=== PATIENT | female | born 1960 | race African-American/Black ===

== ENCOUNTER 2018-02-08 12:53 | Inpatient (IN) | payer OTHER ==
[2018-02-08 16:29] VITALS: BMI 28.5
--- NOTE | 2018-02-08 18:35 | HP ---
CIWA Score - CIWA Score Nausea/Vomitin Muscle Tremors: 3 Anxiety: 1-Mildly Anxious Agitation: 2 Paroxysmal Sweats: 2 Orientation: 0-Oriented Tacttile Disturbances: 0-None Auditory Disturbances: 0-None Visual Disturbances: 1-Very Mild Sensitivity Headache: 2-Mild CIWA-Ar Total Score: 14 Admission ROS S - HPI Chief Complaint: alcohol withdrawal symptoms I have bad diarrhea, I am here to get better, alcohol is a problem, I want to go to rehab after this. Allergies/Adverse Reactions: Allergies Allergy/AdvReac Type Severity Reaction Status Date / Time lorazepam [From Ativan] Allergy Intermediate Rash Verified 06/14/15 13:47 History of Present Illness: 57 yo female with hx of nicotine, alcohol and cocaine dependence is here seeking detox. PMHX : HTN ( non-compliance with meds), depression, anxiety, insomnia. Last detox 2 months ago at [facility]. Reports two weeks ago to [facility] emergency room for intoxication. Hx of blackouts related to alcohol use, denies DTS or hx of seizures. Denies suicidal / homicidal ideation or suicide attempts. Exam Limitations: No Limitations - Ebola screening Have you been sick,other than usual withdrawal symptoms: No Do you have a fever: No - Review of Systems Constitutional: Chills, Loss of Appetite, Changes in sleep, Weakness EENT: reports: Other (red left eye, wears reading glasses) Respiratory: reports: No Symptoms reported Cardiac: reports: See HPI GI: reports: Diarrhea, Nausea, Poor Fluid Intake, Abdominal cramping : reports: No Symptoms Reported Musculoskeletal: reports: Muscle Weakness Integumentary: reports: No Symptoms Reported Neuro: reports: Headache, Weakness Endocrine: reports: Intolerance to Heat, Increased Thirst Hematology: reports: No Symptoms Reported Psychiatric: reports: Orientated x3, Anxious Other Systems: Reviewed and Negative Patient History - Patient Medical History Hx Anemia: No Hx Asthma: No Hx Chronic Obstructive Pulmonary Disease (COPD): No Hx Cancer: No Hx Cardiac Disorders: No Hx Congestive Heart Failure: No Hx Hypertension: Yes (NON COMPLIANT WITH MEDS.) Hx Hypercholesterolemia: No Hx Pacemaker: No HX Cerebrovascular Accident: No Hx Seizures: No Hx Dementia: No Hx Diabetes: No Hx Gastrointestinal Disorders: No Hx Liver Disease: No Hx Genitourinary Disorders: No Hx Sexually Transmitted Disorders: No Hx Renal Disease (ESRD): No Hx Thyroid Disease: No Hx Human Immunodeficiency Virus (HIV): No (Last tested at the [facility] of January 2018) Hx Hepatitis C: No Hx Depression: Yes Hx Suicide Attempt: No Hx Schizophrenia: No - Patient Surgical History Past Surgical History: No Hx Neurologic Surgery: No Hx Cataract Extraction: No Hx Cardiac Surgery: No Hx Lung Surgery: No Hx Breast Surgery: No Hx Breast Biopsy: No Hx Abdominal Surgery: No Hx Appendectomy: No Hx Cholecystectomy: No Hx Genitourinary Surgery: No Hx Section: No Hx Orthopedic Surgery: No Anesthesia Reaction: No - PPD History Previous Implant?: Yes Results: positive PPD to be Administered?: No - Reproductive History Patient is a Female of Child Bearing Age (11 -55 yrs old): Yes Last Menstrual Period: 10/27/09 Patient : No - Smoking Cessation Smoking history: Current every day smoker Have you smoked in the past 12 months: Yes Aproximately how many cigarettes per day: 3 Cigars Per Day: 0 Hx Chewing Tobacco Use: No Initiated information on smoking cessation: Yes 'Breaking Loose' booklet given: 02/08/18 - Substance & Tx. History Hx Alcohol Use: Yes Hx Substance Use: Yes Substance Use Type: Alcohol, Cocaine Hx Substance Use Treatment: Yes (ast detox 2 months ago at [facility]) - Substances Abused Alcohol Route: Oral Frequency: Daily Amount used: 1 1/2 - 2 Pints of Vodka Age of first use: 32 Family Disease History - Family Disease History Family Disease History: [place]: Mother (, [place] brain tumor ), Other: Father ( unknown ), Mother Admission Physical Exam [facility] - Vital Signs Vital Signs: Vital Signs - 24 hr 02/08/18 16:28 Temperature 98.3 F Pulse Rate 88 Respiratory 20 Rate Blood Pressure 170/102 - Physical General Appearance: Yes: Disheveled, Alcohol on Breath, Anxious HEENTM: Yes: EOMI, Hearing grossly Normal, Normocephalic, Normal Voice, ALEXEI, Pharynx Normal, Tm's normal Respiratory: Yes: Chest Non-Tender, Lungs Clear, Normal Breath Sounds, No Respiratory Distress, No Accessory Muscle Use, Other (redness on the left eye , no discharge) Neck: Yes: No masses,lesions,Nodules, Trachea in good position Breast: Yes: Breast Exam Deferred Cardiology: Yes: Regular Rhythm, Regular Rate Abdominal: Yes: Normal Bowel Sounds, Non Tender, Flat, Soft Genitourinary: Yes: Within Normal Limits Back: Yes: Normal Inspection Musculoskeletal: Yes: full range of Motion, Gait Steady, Pelvis Stable Extremities: Yes: Normal Capillary Refill, Normal Inspection, Normal Range of Motion, Non-Tender Neurological: Yes: security tester II-XII NML intact, Fully Oriented, Alert, Motor Strength 5/5, Normal Response, Depressed Affect Integumentary: Yes: Normal Color, Warm, Moist Lymphatic: Yes: Within Normal Limits - Diagnostic (1) Cocaine dependence Current Visit: Yes Status: Acute Qualifiers: Substance use status: uncomplicated Qualified Code(s): F14.20 - Cocaine dependence, uncomplicated (2) Elevated blood pressure reading in office with diagnosis of hypertension Current Visit: Yes Status: Acute (3) Essential hypertension Current Visit: Yes Status: Chronic (4) Nicotine dependence Current Visit: Yes Status: Acute Qualifiers: Nicotine product type: cigarettes (5) Dehydration Current Visit: Yes Status: Acute (6) depression Current Visit: Yes Status: Active (7) Alcohol dependence with withdrawal, unspecified Current Visit: Yes Status: Acute Qualifiers: Complication of substance-induced condition: uncomplicated Qualified Code(s ): F10.230 - Alcohol dependence with withdrawal, uncomplicated (8) History of positive PPD Current Visit: Yes Status: Chronic Cleared for Admission [facility] - Detox or Rehab [facility] Level of Care: Medically Managed Detox Regimen/Protocol: Librium [facility] Breath Alcohol Content Breath Alcohol Content: 0.291 Urine Pregancy Test - Result Urine Test Results: Negative- NO Line Present Urine Drug Screen - Results Drug Screen Negative: No Urine Drug Screen Results: CHANTEL-Cocaine, BZO-Benzodiazepines
[2018-02-08] MEDS ORDERED: chlordiazePOXIDE HCL 25 MG CAPSULE PO PRN (18:43)
[2018-02-08] MEDS ORDERED: hydrOXYzine PAMOATE 50 MG CAPSULE (FP) PO PRN (18:43)
[2018-02-08] MEDS ORDERED: P-EPHED 60MG/TRIPROLIDI 2.5MG TABLET PO PRN (18:43)
[2018-02-08] MEDS ORDERED: MAGNESIUM HYDROX 2400MG/30ML ORAL SUSPENSION 30 ML CUP PO PRN (18:43)
[2018-02-08] MEDS ORDERED: MAGNESIUM CITRATE 300 ML BOTTLE PO PRN (18:43)
[2018-02-08] MEDS ORDERED: ACETAMINOPHEN 325 MG TABLET (FP) PO PRN (18:43)
[2018-02-08] MEDS ORDERED: MAG HYDROX/AL HYDROX/SIMETH 30 ML UNIT-DOSE CUP PO PRN (18:43)
[2018-02-08] MEDS ORDERED: LOPERAMIDE HCL 2 MG CAPSULE PO PRN (18:43)
[2018-02-08] MEDS ORDERED: HYDROCHLOROTHIAZIDE 25 MG TABLET (FP) PO SCH (19:15)
[2018-02-08] MEDS ORDERED: chlordiazePOXIDE HCL 25 MG CAPSULE PO ONE (19:15)
[2018-02-08] MEDS ORDERED: cloNIDine HCL 0.1 MG TABLET PO ONE (20:25)
[2018-02-08] MEDS: THIAMINE HCL 100 MG TABLET (FP) PO SCH (23:37)
[2018-02-08] MEDS: chlordiazePOXIDE HCL 25 MG CAPSULE PO SCH (23:37)
[2018-02-08] MEDS: MELATONIN 5 MG TABLETS PO PRN (23:39)
[2018-02-09 01:31] LABS: URINE APPEARANCE CLEAR; URINE BILIRUBIN NEGATIVE (<2.0 mg/dL); URINE BLOOD NEGATIVE (NEGATIVE); URINE COLOR LTYELLOW; URINE GLUCOSE (UA) NEGATIVE (NEGATIVE); URINE KETONE NEGATIVE (NEGATIVE); URINE LEUK ESTERASE NEGATIVE (NEGATIVE); URINE NITRITE NEGATIVE (NEGATIVE); URINE PROTEIN NEGATIVE (NEGATIVE); URINE UROBILINOGEN NEGATIVE mg/dL (0.2-1.0)
[2018-02-09] MEDS: chlordiazePOXIDE HCL 25 MG CAPSULE PO SCH ×4 (05:24→22:19)
--- NOTE | 2018-02-09 10:05 | EKG ---
Test Reason : Blood Pressure : / mmHG Vent. Rate : 068 BPM Atrial Rate : 068 BPM P-R Int : 168 ms QRS Dur : 110 ms QT Int : 402 ms P-R-T Axes : 063 -43 002 degrees QTc Int : 427 ms NORMAL SINUS RHYTHM LEFT AXIS DEVIATION NON-SPECIFIC INTRA-VENTRICULAR CONDUCTION DELAY NO PREVIOUS ECGS AVAILABLE BASELINE ARTIFACT POOR DATA QUALITY, INTERPRETATION MAY BE ADVERSELY AFFECTED Confirmed by ALISON VIGIL MD ([id number]) on 02/09/2018 10:05:34 AM Referred By: Confirmed By:ALISON VIGIL MD
[2018-02-09 10:24] LABS: HEMATOCRIT 38.9 % (32.4-45.2); HEMOGLOBIN 12.6 GM/dL (10.7-15.3); MCH 28.7 pg (25.7-33.7); MCHC 32.4 g/dl (32.0-36.0); MEAN CELL VOLUME 88.5 fl (80-96); MEAN PLT VOLUME 9.2 fl (7.5-11.1); PLATELET COUNT 161 K/MM3 (134-434); RBC 4.39 M/mm3 (3.60-5.2); RDW 16.6 % (11.6-15.6); WHITE BLOOD COUNT 5.2 K/mm3 (4.0-10.0)
[2018-02-09 10:27] LABS: CHLORIDE 101 mmol/L (98-107); POTASSIUM 3.4 mmol/L (3.5-5.1); SODIUM 140 mmol/L (136-145)
[2018-02-09 10:33] LABS: ALBUMIN 4.3 g/dl (3.4-5.0); ALK PHOS 65 U/L (45-117); ANION GAP 8 (8-16); BLOOD UREA NITROGEN 8 mg/dL (7-18); CALCIUM 9.4 mg/dL (8.5-10.1); CO2 31 mmol/L (21-32); CREATININE 0.9 mg/dL (0.55-1.02); GLUCOSE,RANDOM 106 mg/dL (74-106); SGOT/AST 58 U/L (15-37); SGPT/ALT 45 U/L (12-78); TOT PROT 7.8 g/dl (6.4-8.2)
[2018-02-09] MEDS: HYDROCHLOROTHIAZIDE 25 MG TABLET (FP) PO SCH (10:49)
[2018-02-09] MEDS: NIFEdipine E.R 60 MG TABLET (UD) PO SCH (10:49)
[2018-02-09] MEDS: PRENATAL VITAMINS W/ FOLIC ACID TABLET (FP) PO SCH (10:50)
[2018-02-09] MEDS: MENTHOL/PHENOL 1 EACH UD MM PRN ×2 (10:52→19:36)
--- NOTE | 2018-02-09 12:01 | PN ---
S CIWA - CIWA Score Nausea/Vomitin Muscle Tremors: 3 Anxiety: 3 Agitation: 3 Paroxysmal Sweats: 1-Minimal Palms Moist Orientation: 0-Oriented Tacttile Disturbances: 1-Very Mild Itch/Numbness Auditory Disturbances: 1-Very Mild Visual Disturbances: 0-None Headache: 2-Mild CIWA-Ar Total Score: 17 BHS Progress Note (SOAP) Subjective: ALERT,IRRITABLE,ANXIOUS,INTERRUPTED SLEEP,TREMOR Objective: 02/09/18 11:58 Vital Signs Temperature 98.1 F 02/09/18 10:00 Pulse Rate 70 02/09/18 11:30 Respiratory Rate 16 02/09/18 11:30 Blood Pressure 141/91 02/09/18 10:00 O2 Sat by Pulse Oximetry (%) 02/09/18 11:58 EKG NSR,68/MIN,INVERTED T IN 2,3,AVF NO CHEST PAIN,NO SOB,NO DIZZINESS Laboratory Last Values WBC 5.2 K/mm3 (4.0-10.0) D 02/09/18 08:00 RBC 4.39 M/mm3 (3.60-5.2) 02/09/18 08:00 Hgb 12.6 GM/dL (10.7-15.3) 02/09/18 08:00 Hct 38.9 % (32.4-45.2) 02/09/18 08:00 MCV 88.5 fl (80-96) 02/09/18 08:00 MCH 28.7 pg (25.7-33.7) 02/09/18 08:00 MCHC 32.4 g/dl (32.0-36.0) 02/09/18 08:00 RDW 16.6 % (11.6-15.6) H 02/09/18 08:00 Plt Count 161 K/MM3 (134-434) D 02/09/18 08:00 MPV 9.2 fl (7.5-11.1) 02/09/18 08:00 Sodium 140 mmol/L (136-145) 02/09/18 08:00 Potassium 3.4 mmol/L (3.5-5.1) L 02/09/18 08:00 Chloride 101 mmol/L (98-107) 02/09/18 08:00 Carbon Dioxide 31 mmol/L (21-32) 02/09/18 08:00 Anion Gap 8 (8-16) 02/09/18 08:00 BUN 8 mg/dL (7-18) 02/09/18 08:00 Creatinine 0.9 mg/dL (0.55-1.02) 02/09/18 08:00 Creat Clearance w eGFR > 60 (>60) 02/09/18 08:00 Random Glucose 106 mg/dL (74-106) 02/09/18 08:00 Calcium 9.4 mg/dL (8.5-10.1) 02/09/18 08:00 Total Bilirubin 1.0 mg/dL (0.2-1.0) D 02/09/18 08:00 AST 58 U/L (15-37) H 02/09/18 08:00 ALT 45 U/L (12-78) 02/09/18 08:00 Alkaline Phosphatase 65 U/L (45-117) 02/09/18 08:00 Total Protein 7.8 g/dl (6.4-8.2) 02/09/18 08:00 Albumin 4.3 g/dl (3.4-5.0) 02/09/18 08:00 Urine Color Ltyellow 02/09/18 00:14 Urine Appearance Clear 02/09/18 00:14 Urine pH 6.0 (5.0-8.0) 02/09/18 00:14 Ur Specific [place] 1.006 (1.001-1.035) 02/09/18 00:14 Urine Protein Negative (NEGATIVE) 02/09/18 00:14 Urine Glucose (UA) Negative (NEGATIVE) 02/09/18 00:14 Urine Ketones Negative (NEGATIVE) 02/09/18 00:14 Urine Blood Negative (NEGATIVE) 02/09/18 00:14 Urine Nitrite Negative (NEGATIVE) 02/09/18 00:14 Urine Bilirubin Negative (<2.0 mg/dL) 02/09/18 00:14 Urine Urobilinogen Negative mg/dL (0.2-1.0) 02/09/18 00:14 Ur Leukocyte Esterase Negative (NEGATIVE) 02/09/18 00:14 RPR Titer Nonreactive (NONREACTIVE) 02/09/18 08:00 Assessment: 02/09/18 12:00 WITHDRAWAL SYMPTOM Plan: CONTINUE DETOX,,K DUR 20 MEQ PO DAILY HYPOKALEMIA K IS 3.4
[2018-02-09] MEDS: guaiFENesin/D-METHORPHAN HB 10 ML UNIT-DOSE CUPS PO PRN ×2 (12:27→19:36)
[2018-02-09] MEDS: POTASSIUM CHLORIDE TABS 20 MEQ TABLET.ER (FP) PO SCH (12:28)
[2018-02-09] MEDS: AMOXICILLIN 500 MG CAPSULE (FP) PO SCH ×2 (14:46→22:19)
--- NOTE | 2018-02-09 19:37 | CONSULT ---
[facility] Psychiatric Consult - Data Date of interview: 02/09/18 Admission source: [facility] Identifying data: Readmission to [facility] for this 57 y/o AA female seeking detox treatment on for alcohol and cocaine (crack) dependence.Patient is single,a mother of two,homeless,unemployed and deprived of any source of income. Substance Abuse History: Patient admits to current use of alcohol and crack.See details in [facility] report form admission : Smoking history: Current every day smoker. Have you smoked in the past 12 months: Yes. Aproximately how many cigarettes per day: 3. Cigars Per Day: 0. Hx Chewing Tobacco Use: No. Initiated information on smoking cessation: Yes. 'Breaking Loose' booklet given : 02/08/18. - Substance & Tx. History. Hx Alcohol Use: Yes. Hx Substance Use : Yes. Substance Use Type: Alcohol, Cocaine. Hx Substance Use Treatment: Yes ( ast detox 2 months ago at [facility]). - Substances Abused. Alcohol. Route: Oral. Frequency: Daily. Amount used: 1 1/2 - 2 Pints of Vodka. Age of first use: 32 Medical History: Hypertension. Psychiatric History: No reported history of psychiatric hospitalizations.First psychiatric contact (2011) to address depression during rehabilitation treatment at [facility].Patient reports past treatment with seroquel, trazodone,abilify and sertraline.Chronically non-adherent to [facility]PD care.Ms Childress is currently followed at the [facility] clinic in [facility].She denies history of suicide attempts. Physical/Sexual Abuse/Trauma History: Patient denies. Additional Comment: Urine Drug Screen Results: CHANTEL-Cocaine, BZO- Benzodiazepines.Noted. Mental Status Exam - Mental Status Exam Alert and Oriented to: Time, Place, Person Cognitive Function: Good Patient Appearance: Well Groomed Mood: Nervous, Withdrawn Affect: Mood Congruent Patient Behavior: Fatigued, Appropriate, Cooperative Speech Pattern: Clear, Appropriate Voice Loudness: Normal Thought Process: Intact, Goal Oriented Thought Disorder: Not Present Hallucinations: Denies Suicidal Ideation: Denies Homicidal Ideation: Denies Insight/Judgement: Poor Sleep: Poorly, Difficulty falling asleep (wants seroquel) Appetite: Good Muscle strength/Tone: Normal Gait/Station: Normal Psychiatric Findings - Problem List ([place] 1, 2,3) (1) Alcohol dependence with withdrawal, unspecified Current Visit: Yes Status: Acute Qualifiers: Complication of substance-induced condition: uncomplicated Qualified Code(s ): F10.230 - Alcohol dependence with withdrawal, uncomplicated (2) Cocaine dependence Current Visit: Yes Status: Acute Qualifiers: Substance use status: uncomplicated Qualified Code(s): F14.20 - Cocaine dependence, uncomplicated (3) Nicotine dependence Current Visit: Yes Status: Acute Qualifiers: Nicotine product type: cigarettes (4) Substance induced mood disorder Current Visit: Yes Status: Acute (5) Insomnia Current Visit: Yes Status: Acute - Initial Treatment Plan Initial Treatment Plan: Psychoeducation.Sleep hygiene.Detoxification in progress.Seroquel 50 mg (patient's specific request) po hs.Ordered.Side effects/ benefits discussed with the patient.Consent (verbal) given.Observation.
[2018-02-09] MEDS: THIAMINE HCL 100 MG TABLET (FP) PO SCH (22:18)
[2018-02-09] MEDS: IBUPROFEN 400 MG TABLET (FP) PO PRN (22:18)
[2018-02-09] MEDS: QUEtiapine FUMARATE 50 MG TABLET PO SCH (22:19)
[2018-02-09] MEDS: MELATONIN 5 MG TABLETS PO PRN (22:20)
[2018-02-10] MEDS: AMOXICILLIN 500 MG CAPSULE (FP) PO SCH ×3 (05:19→22:27)
[2018-02-10] MEDS: chlordiazePOXIDE HCL 25 MG CAPSULE PO SCH ×3 (05:20→18:04)
[2018-02-10] MEDS: MENTHOL/PHENOL 1 EACH UD MM PRN ×2 (09:39→18:06)
[2018-02-10] MEDS: guaiFENesin/D-METHORPHAN HB 10 ML UNIT-DOSE CUPS PO PRN (09:39)
[2018-02-10] MEDS: NIFEdipine E.R 60 MG TABLET (UD) PO SCH (10:30)
[2018-02-10] MEDS: PRENATAL VITAMINS W/ FOLIC ACID TABLET (FP) PO SCH (10:30)
[2018-02-10] MEDS: HYDROCHLOROTHIAZIDE 25 MG TABLET (FP) PO SCH (10:30)
[2018-02-10] MEDS: POTASSIUM CHLORIDE TABS 20 MEQ TABLET.ER (FP) PO SCH (10:30)
[2018-02-10] MEDS: IBUPROFEN 400 MG TABLET (FP) PO PRN (10:32)
--- NOTE | 2018-02-10 14:16 | PN ---
S CIWA - CIWA Score Nausea/Vomitin Muscle Tremors: 3 Anxiety: 3 Agitation: 2 Paroxysmal Sweats: 1-Minimal Palms Moist Orientation: 0-Oriented Tacttile Disturbances: 1-Very Mild Itch/Numbness Auditory Disturbances: 1-Very Mild Visual Disturbances: 0-None Headache: 2-Mild CIWA-Ar Total Score: 16 BHS Progress Note (SOAP) Subjective: ALERT,IRRITABLE,ANXIOUS,INTERRUPTED SLEEP,TREMOR,PAIN IN THE BODY Objective: 02/10/18 14:15 Vital Signs Temperature 98.2 F 02/10/18 11:13 Pulse Rate 73 02/10/18 11:13 Respiratory Rate 20 02/10/18 11:13 Blood Pressure 114/75 02/10/18 11:13 O2 Sat by Pulse Oximetry (%) Laboratory Last Values WBC 5.2 K/mm3 (4.0-10.0) D 02/09/18 08:00 RBC 4.39 M/mm3 (3.60-5.2) 02/09/18 08:00 Hgb 12.6 GM/dL (10.7-15.3) 02/09/18 08:00 Hct 38.9 % (32.4-45.2) 02/09/18 08:00 MCV 88.5 fl (80-96) 02/09/18 08:00 MCH 28.7 pg (25.7-33.7) 02/09/18 08:00 MCHC 32.4 g/dl (32.0-36.0) 02/09/18 08:00 RDW 16.6 % (11.6-15.6) H 02/09/18 08:00 Plt Count 161 K/MM3 (134-434) D 02/09/18 08:00 MPV 9.2 fl (7.5-11.1) 02/09/18 08:00 Sodium 140 mmol/L (136-145) 02/09/18 08:00 Potassium 3.4 mmol/L (3.5-5.1) L 02/09/18 08:00 Chloride 101 mmol/L (98-107) 02/09/18 08:00 Carbon Dioxide 31 mmol/L (21-32) 02/09/18 08:00 Anion Gap 8 (8-16) 02/09/18 08:00 BUN 8 mg/dL (7-18) 02/09/18 08:00 Creatinine 0.9 mg/dL (0.55-1.02) 02/09/18 08:00 Creat Clearance w eGFR > 60 (>60) 02/09/18 08:00 Random Glucose 106 mg/dL (74-106) 02/09/18 08:00 Calcium 9.4 mg/dL (8.5-10.1) 02/09/18 08:00 Total Bilirubin 1.0 mg/dL (0.2-1.0) D 02/09/18 08:00 AST 58 U/L (15-37) H 02/09/18 08:00 ALT 45 U/L (12-78) 02/09/18 08:00 Alkaline Phosphatase 65 U/L (45-117) 02/09/18 08:00 Total Protein 7.8 g/dl (6.4-8.2) 02/09/18 08:00 Albumin 4.3 g/dl (3.4-5.0) 02/09/18 08:00 Urine Color Ltyellow 02/09/18 00:14 Urine Appearance Clear 02/09/18 00:14 Urine pH 6.0 (5.0-8.0) 02/09/18 00:14 Ur Specific [place] 1.006 (1.001-1.035) 02/09/18 00:14 Urine Protein Negative (NEGATIVE) 02/09/18 00:14 Urine Glucose (UA) Negative (NEGATIVE) 02/09/18 00:14 Urine Ketones Negative (NEGATIVE) 02/09/18 00:14 Urine Blood Negative (NEGATIVE) 02/09/18 00:14 Urine Nitrite Negative (NEGATIVE) 02/09/18 00:14 Urine Bilirubin Negative (<2.0 mg/dL) 02/09/18 00:14 Urine Urobilinogen Negative mg/dL (0.2-1.0) 02/09/18 00:14 Ur Leukocyte Esterase Negative (NEGATIVE) 02/09/18 00:14 RPR Titer Nonreactive (NONREACTIVE) 02/09/18 08:00 Assessment: 02/10/18 14:16 WITHDRAWAL SYMPTOM Plan: CONTINUE DETOX
[2018-02-10] MEDS: chlordiazePOXIDE 5 MG CAPSULE PO SCH (22:27)
[2018-02-10] MEDS: QUEtiapine FUMARATE 50 MG TABLET PO SCH (22:27)
[2018-02-10] MEDS: THIAMINE HCL 100 MG TABLET (FP) PO SCH (22:27)
[2018-02-11] MEDS: AMOXICILLIN 500 MG CAPSULE (FP) PO SCH ×3 (05:40→22:48)
[2018-02-11] MEDS: chlordiazePOXIDE 5 MG CAPSULE PO SCH ×3 (05:40→17:39)
[2018-02-11] MEDS: HYDROCHLOROTHIAZIDE 25 MG TABLET (FP) PO SCH (10:23)
[2018-02-11] MEDS: POTASSIUM CHLORIDE TABS 20 MEQ TABLET.ER (FP) PO SCH (10:24)
[2018-02-11] MEDS: PRENATAL VITAMINS W/ FOLIC ACID TABLET (FP) PO SCH (10:24)
[2018-02-11] MEDS: IBUPROFEN 400 MG TABLET (FP) PO PRN (10:24)
[2018-02-11] MEDS: NIFEdipine E.R 60 MG TABLET (UD) PO SCH (10:25)
--- NOTE | 2018-02-11 14:48 | PN ---
BHS Progress Note (SOAP) Subjective: feeling better no tremor less sweat tolerates food and fluid well well rested Objective: 02/11/18 14:48 Vital Signs Temperature 98.1 F 02/11/18 13:06 Pulse Rate 88 02/11/18 13:06 Respiratory Rate 22 02/11/18 13:06 Blood Pressure 118/77 02/11/18 13:06 O2 Sat by Pulse Oximetry (%) Laboratory Last Values WBC 5.2 K/mm3 (4.0-10.0) D 02/09/18 08:00 RBC 4.39 M/mm3 (3.60-5.2) 02/09/18 08:00 Hgb 12.6 GM/dL (10.7-15.3) 02/09/18 08:00 Hct 38.9 % (32.4-45.2) 02/09/18 08:00 MCV 88.5 fl (80-96) 02/09/18 08:00 MCH 28.7 pg (25.7-33.7) 02/09/18 08:00 MCHC 32.4 g/dl (32.0-36.0) 02/09/18 08:00 RDW 16.6 % (11.6-15.6) H 02/09/18 08:00 Plt Count 161 K/MM3 (134-434) D 02/09/18 08:00 MPV 9.2 fl (7.5-11.1) 02/09/18 08:00 Sodium 140 mmol/L (136-145) 02/09/18 08:00 Potassium 3.4 mmol/L (3.5-5.1) L 02/09/18 08:00 Chloride 101 mmol/L (98-107) 02/09/18 08:00 Carbon Dioxide 31 mmol/L (21-32) 02/09/18 08:00 Anion Gap 8 (8-16) 02/09/18 08:00 BUN 8 mg/dL (7-18) 02/09/18 08:00 Creatinine 0.9 mg/dL (0.55-1.02) 02/09/18 08:00 Creat Clearance w eGFR > 60 (>60) 02/09/18 08:00 Random Glucose 106 mg/dL (74-106) 02/09/18 08:00 Calcium 9.4 mg/dL (8.5-10.1) 02/09/18 08:00 Total Bilirubin 1.0 mg/dL (0.2-1.0) D 02/09/18 08:00 AST 58 U/L (15-37) H 02/09/18 08:00 ALT 45 U/L (12-78) 02/09/18 08:00 Alkaline Phosphatase 65 U/L (45-117) 02/09/18 08:00 Total Protein 7.8 g/dl (6.4-8.2) 02/09/18 08:00 Albumin 4.3 g/dl (3.4-5.0) 02/09/18 08:00 Urine Color Ltyellow 02/09/18 00:14 Urine Appearance Clear 02/09/18 00:14 Urine pH 6.0 (5.0-8.0) 02/09/18 00:14 Ur Specific [place] 1.006 (1.001-1.035) 02/09/18 00:14 Urine Protein Negative (NEGATIVE) 02/09/18 00:14 Urine Glucose (UA) Negative (NEGATIVE) 02/09/18 00:14 Urine Ketones Negative (NEGATIVE) 02/09/18 00:14 Urine Blood Negative (NEGATIVE) 02/09/18 00:14 Urine Nitrite Negative (NEGATIVE) 02/09/18 00:14 Urine Bilirubin Negative (<2.0 mg/dL) 02/09/18 00:14 Urine Urobilinogen Negative mg/dL (0.2-1.0) 02/09/18 00:14 Ur Leukocyte Esterase Negative (NEGATIVE) 02/09/18 00:14 RPR Titer Nonreactive (NONREACTIVE) 02/09/18 08:00 lab noted 02/11/18 14:49 potassium supplement continue Assessment: 02/11/18 14:49 mild withdrawal sx Plan: medically supervised detox
[2018-02-11] MEDS: MENTHOL/PHENOL 1 EACH UD MM PRN (17:43)
[2018-02-11] MEDS: guaiFENesin/D-METHORPHAN HB 10 ML UNIT-DOSE CUPS PO PRN (17:43)
[2018-02-11] MEDS: QUEtiapine FUMARATE 50 MG TABLET PO SCH (22:48)
[2018-02-11] MEDS: chlordiazePOXIDE HCL 10 MG CAPSULE PO SCH (22:48)
[2018-02-11] MEDS: THIAMINE HCL 100 MG TABLET (FP) PO SCH (22:48)
[2018-02-12] MEDS: AMOXICILLIN 500 MG CAPSULE (FP) PO SCH (05:34)
[2018-02-12] MEDS: chlordiazePOXIDE HCL 10 MG CAPSULE PO SCH ×2 (05:34→10:28)
--- NOTE | 2018-02-12 08:43 | PN ---
S Progress Note (SOAP) Subjective: ALERT,NO COMPLAINT Objective: 02/12/18 08:41 Vital Signs Temperature 97.3 F L 02/12/18 05:56 Pulse Rate 65 02/12/18 05:56 Respiratory Rate 18 02/12/18 05:56 Blood Pressure 112/75 02/12/18 05:56 O2 Sat by Pulse Oximetry (%) Assessment: 02/12/18 08:42 DETOX COMPLETED,NO WITHDRAWAL SYMPTOM Plan: DISCHARGE TODAY,FOLLOW UP WITH AFTER CARE PROGRAM ARRANGEMENT
--- NOTE | 2018-02-12 08:47 | DS ---
[facility] Detox Discharge Summary Admission Date: 02/08/18 Discharge Date: 02/12/18 - History Present History: Alcohol Dependence, Cocaine Dependence Additional Comments: FOLLOW UP WITH [facility] Pertinent Past History: NICOTINE DEPENDENCE DEHYDRATION ANXIETY AND DEPRESSION - Physical Exam Results Vital Signs: Vital Signs Temperature 97.3 F L 02/12/18 05:56 Pulse Rate 65 02/12/18 05:56 Respiratory Rate 18 02/12/18 05:56 Blood Pressure 112/75 02/12/18 05:56 O2 Sat by Pulse Oximetry (%) Pertinent Admission Physical Exam Findings: WITHDRAWAL SIGNS AND SYMPTOM Laboratory Last Values WBC 5.2 K/mm3 (4.0-10.0) D 02/09/18 08:00 RBC 4.39 M/mm3 (3.60-5.2) 02/09/18 08:00 Hgb 12.6 GM/dL (10.7-15.3) 02/09/18 08:00 Hct 38.9 % (32.4-45.2) 02/09/18 08:00 MCV 88.5 fl (80-96) 02/09/18 08:00 MCH 28.7 pg (25.7-33.7) 02/09/18 08:00 MCHC 32.4 g/dl (32.0-36.0) 02/09/18 08:00 RDW 16.6 % (11.6-15.6) H 02/09/18 08:00 Plt Count 161 K/MM3 (134-434) D 02/09/18 08:00 MPV 9.2 fl (7.5-11.1) 02/09/18 08:00 Sodium 140 mmol/L (136-145) 02/09/18 08:00 Potassium 3.4 mmol/L (3.5-5.1) L 02/09/18 08:00 Chloride 101 mmol/L (98-107) 02/09/18 08:00 Carbon Dioxide 31 mmol/L (21-32) 02/09/18 08:00 Anion Gap 8 (8-16) 02/09/18 08:00 BUN 8 mg/dL (7-18) 02/09/18 08:00 Creatinine 0.9 mg/dL (0.55-1.02) 02/09/18 08:00 Creat Clearance w eGFR > 60 (>60) 02/09/18 08:00 Random Glucose 106 mg/dL (74-106) 02/09/18 08:00 Calcium 9.4 mg/dL (8.5-10.1) 02/09/18 08:00 Total Bilirubin 1.0 mg/dL (0.2-1.0) D 02/09/18 08:00 AST 58 U/L (15-37) H 02/09/18 08:00 ALT 45 U/L (12-78) 02/09/18 08:00 Alkaline Phosphatase 65 U/L (45-117) 02/09/18 08:00 Total Protein 7.8 g/dl (6.4-8.2) 02/09/18 08:00 Albumin 4.3 g/dl (3.4-5.0) 02/09/18 08:00 Urine Color Ltyellow 02/09/18 00:14 Urine Appearance Clear 02/09/18 00:14 Urine pH 6.0 (5.0-8.0) 02/09/18 00:14 Ur Specific [place] 1.006 (1.001-1.035) 02/09/18 00:14 Urine Protein Negative (NEGATIVE) 02/09/18 00:14 Urine Glucose (UA) Negative (NEGATIVE) 02/09/18 00:14 Urine Ketones Negative (NEGATIVE) 02/09/18 00:14 Urine Blood Negative (NEGATIVE) 02/09/18 00:14 Urine Nitrite Negative (NEGATIVE) 02/09/18 00:14 Urine Bilirubin Negative (<2.0 mg/dL) 02/09/18 00:14 Urine Urobilinogen Negative mg/dL (0.2-1.0) 02/09/18 00:14 Ur Leukocyte Esterase Negative (NEGATIVE) 02/09/18 00:14 RPR Titer Nonreactive (NONREACTIVE) 02/09/18 08:00 Vital Signs Temperature 97.3 F L 02/12/18 05:56 Pulse Rate 65 02/12/18 05:56 Respiratory Rate 18 02/12/18 05:56 Blood Pressure 112/75 02/12/18 05:56 O2 Sat by Pulse Oximetry (%) - Treatment Hospital Course: Detox Protocol Followed, Detoxed Safely, Responded well, Discharged Condition Good, Rehab Referral Accepted Patient has Accepted a Rehab Referral to: [facility] - Medication Discharge Medications: Ambulatory Orders Quetiapine Fumarate [Seroquel -] 100 mg PO HS 03/28/13 traZODone HCL [Desyrel -] 100 mg PO HS 03/28/13 Quetiapine Fumarate [Seroquel -] 50 mg PO HS #30 tablet 02/09/18 Hydrochlorothiazide [Hctz -] 25 mg PO DAILY #30 tablet 02/11/18 Nifedipine [Procardia Xl] 60 mg PO DAILY #30 tab.er.24 02/11/18 - Diagnosis (1) Alcohol dependence with withdrawal, unspecified Current Visit: Yes Status: Acute Qualifiers: Complication of substance-induced condition: uncomplicated Qualified Code(s ): F10.230 - Alcohol dependence with withdrawal, uncomplicated (2) Cocaine dependence Current Visit: Yes Status: Acute Qualifiers: Substance use status: uncomplicated Qualified Code(s): F14.20 - Cocaine dependence, uncomplicated (3) Dehydration Current Visit: Yes Status: Acute (4) Nicotine dependence Current Visit: Yes Status: Acute Qualifiers: Nicotine product type: cigarettes (5) Positive PPD Current Visit: Yes Status: Acute (6) Essential hypertension Current Visit: Yes Status: Chronic (7) Hypokalemia Current Visit: Yes Status: Acute - AMA Did Patient Leave Against Medical Advice: No
[2018-02-12 09:03] VITALS: BP 137/78; PULSE 86; TEMP 98.1
[2018-02-12] MEDS: PRENATAL VITAMINS W/ FOLIC ACID TABLET (FP) PO SCH (10:27)
[2018-02-12] MEDS: NIFEdipine E.R 60 MG TABLET (UD) PO SCH (10:27)
[2018-02-12] MEDS: POTASSIUM CHLORIDE TABS 20 MEQ TABLET.ER (FP) PO SCH (10:27)
[2018-02-12] MEDS: HYDROCHLOROTHIAZIDE 25 MG TABLET (FP) PO SCH (10:27)
== END 2018-02-12 11:52 | disposition other institution (70) | DRG 774 ==
LOC: YASAS 12:53 → Y6N 19:13
PROVIDERS: ADMIT Internal Medicine; ATTEND Internal Medicine
PROC: HZ2ZZZZ Detoxification Services for Substance Abuse Treatment (ICD-10-PCS; principal; 2018-02-08)
DX: F10.230 Alcohol dependence with withdrawal, uncomplicated (principal); F14.20 Cocaine dependence, uncomplicated; F17.210 Nicotine dependence, cigarettes, uncomplicated; F32.9 Major depressive disorder, single episode, unspecified; F19.24 Other psychoactive substance dependence with psychoactive substance-induced mood disorder; I10 Essential (primary) hypertension; E86.0 Dehydration; E87.6 Hypokalemia; R76.11 Nonspecific reaction to tuberculin skin test without active tuberculosis; Z91.14 Patient's other noncompliance with medication regimen
CPT/HCPCS: 36415; 71046-TC-FY; 80053; 81003; 85027; 86593; 93005; 93010

== ENCOUNTER 2018-09-20 10:51 | Inpatient (IN) | payer OTHER ==
[2018-09-20 10:58] VITALS: BMI 28.6
--- NOTE | 2018-09-20 14:20 | HP ---
CIWA Score Nausea/Vomitin Muscle Tremors: 2 Anxiety: 2 Agitation: 2 Paroxysmal Sweats: 1-Minimal Palms Moist Orientation: 0-Oriented Tacttile Disturbances: 1-Very Mild Itch/Numbness Auditory Disturbances: 1-Very Mild Visual Disturbances: 0-None Headache: 2-Mild CIWA-Ar Total Score: 13 - Admission Criteria OASAS Guidelines: Admission for Medically Managed Detox: Requires at least one of the followin. CIWA greater than 12 2. Seizures within the past 24 hours 3. Delirium tremens within the past 24 hours 4. Hallucinations within the past 24 hours 5. Acute intervention needed for co occurring medical disorder 6. Acute intervention needed for co occurring psychiatric disorder 7. Severe withdrawal that cannot be handled at a lower level of care (continued vomiting, continued diarrhea, abnormal vital signs) requiring intravenous medication and/or fluids 8. Patient presents the following: CIWA greater than 12, Acute intervention needed for co-occurring med or psych disorder Admission Criteria Met: Admission criteria met Admission ROS S - [facility] Chief Complaint: i need help to stop drinking alcohol and cocaine Allergies/Adverse Reactions: Allergies Allergy/AdvReac Type Severity Reaction Status Date / Time lorazepam [From Ativan] Allergy Intermediate Rash Verified 09/20/18 13:01 History of Present Illness: i need help to stop drinking alcohol and cocaine dependence,seeking detox, withdrawal symptom,last detox 05/20/18 to 05/24/18 syncope hypertension nicotine dependence multiple admissions longest sobriety 6 months weight loss Exam Limitations: No Limitations - Ebola screening Have you traveled outside of the country in the last 21 days: No Have you had contact with anyone from an Ebola affected area: No Have you been sick,other than usual withdrawal symptoms: No Do you have a fever: No - Review of Systems Constitutional: Loss of Appetite, Malaise, Night Sweats, Changes in sleep, Weakness, Unintentional Wgt. Loss EENT: reports: Tearing, Nose Congestion Respiratory: reports: No Symptoms reported GI: reports: Nausea, Poor Appetite, Abdominal cramping : reports: No Symptoms Reported Musculoskeletal: reports: Back Pain, Muscle Pain Integumentary: reports: Dryness Neuro: reports: Headache, Tremors Endocrine: reports: No Symptoms Reported Hematology: reports: No Symptoms Reported Psychiatric: reports: No Sypmtoms Reported, Judgement Intact, Mood/Affect Appropiate, Orientated x3 Patient History - Patient Medical History Hx Anemia: No Hx Asthma: No Hx Chronic Obstructive Pulmonary Disease (COPD): No Hx Cancer: No Hx Cardiac Disorders: No Hx Congestive Heart Failure: No Hx Hypertension: Yes (on med,non compliance) Hx Hypercholesterolemia: No Hx Pacemaker: No HX Cerebrovascular Accident: No Hx Seizures: No Hx Dementia: No Hx Diabetes: No Hx Gastrointestinal Disorders: No Hx Liver Disease: No Hx Genitourinary Disorders: No Hx Sexually Transmitted Disorders: No Hx Renal Disease (ESRD): No Hx Thyroid Disease: No Hx Human Immunodeficiency Virus (HIV): No (last 03/30 negative) Hx Hepatitis C: No Hx Depression: Yes (no med) Hx Suicide Attempt: No Hx Bipolar Disorder: No Hx Schizophrenia: No Other Medical History: no suicidal,no homicidal - Patient Surgical History Past Surgical History: No Hx Neurologic Surgery: No Hx Cataract Extraction: No Hx Cardiac Surgery: No Hx Lung Surgery: No Hx Breast Surgery: No Hx Breast Biopsy: No Hx Abdominal Surgery: No Hx Appendectomy: No Hx Cholecystectomy: No Hx Genitourinary Surgery: No Hx Section: No Hx Orthopedic Surgery: No Hx Hysterectomy: No Anesthesia Reaction: No - PPD History Previous Implant?: Yes Documented Results: Positive w/o proof Results: CXR(-)02/09/18 PPD to be Administered?: No - Reproductive History Patient is a Female of Child Bearing Age (11 -55 yrs old): No Last Menstrual Period: 10/27/09 Patient : No - Smoking Cessation Smoking history: Current every day smoker Have you smoked in the past 12 months: Yes Aproximately how many cigarettes per day: 3 Cigars Per Day: 0 Hx Chewing Tobacco Use: No Initiated information on smoking cessation: Yes 'Breaking Loose' booklet given: 09/20/18 - Substance & Tx. History Hx Alcohol Use: Yes Hx Substance Use: No Substance Use Type: Alcohol Hx [facility] - Substances Abused Alcohol-vodka/beer Route: Oral Frequency: Daily Amount used: 1 pt./1 (24 oz.) Age of first use: 33 Date of Last Use: 09/20/18 Family Disease History - Family Disease History Family Disease History: CA: Mother (, CA brain tumor ), Other: Father ( unknown ), Mother Admission Physical Exam BHS - Vital Signs Vital Signs: Vital Signs - 24 hr 09/20/18 10:53 Temperature 98.1 F Pulse Rate 95 H Respiratory 20 Rate Blood Pressure 168/100 - Physical General Appearance: Yes: Moderate Distress, Tremorous, Irritable, Sweating, Anxious HEENTM: Yes: Normal ENT Inspection, ALEXEI, Pharynx Normal Respiratory: Yes: Lungs Clear, Normal Breath Sounds, No Respiratory Distress Neck: Yes: No masses,lesions,Nodules, Supple, Trachea in good position Breast: Yes: Breast Exam Deferred Cardiology: Yes: Within Normal Limits, Regular Rhythm, Regular Rate, S1, S2 Abdominal: Yes: Within Normal Limits, Normal Bowel Sounds, Non Tender, Flat, Soft Genitourinary: Yes: Within Normal Limits Back: Yes: Muscle Spasm Musculoskeletal: Yes: Back pain, Muscle Pain Extremities: Yes: Tremors Neurological: Yes: 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 II-XII NML intact, Alert, Motor Strength 5/5 Integumentary: Yes: Dry Lymphatic: Yes: Within Normal Limits - Diagnostic (1) Alcohol dependence with uncomplicated withdrawal Current Visit: No Status: Acute (2) Syncope Current Visit: No Status: Active (3) Dehydration Current Visit: No Status: Acute (4) Essential hypertension Current Visit: No Status: Chronic (5) History of positive PPD Current Visit: No Status: Chronic (6) Depression Current Visit: Yes Status: Acute Cleared for Admission [facility] - Detox or Rehab [facility] Level of Care: Medically Managed Detox Regimen/Protocol: Librium [facility] Breath Alcohol Content Breath Alcohol Content: 1 Urine Pregancy Test - Result Urine Test Results: Negative- NO Line Present Urine Drug Screen - Results Drug Screen Negative: No Urine Drug Screen Results: CHANTEL-Cocaine
[2018-09-20] MEDS ORDERED: MAGNESIUM HYDROX 2400MG/30ML ORAL SUSPENSION 30 ML CUP PO PRN (14:38)
[2018-09-20] MEDS ORDERED: guaiFENesin/D-METHORPHAN HB 10 ML UNIT-DOSE CUPS PO PRN (14:38)
[2018-09-20] MEDS ORDERED: chlordiazePOXIDE HCL 25 MG CAPSULE PO PRN (14:38)
[2018-09-20] MEDS ORDERED: P-EPHED 60MG/TRIPROLIDI 2.5MG TABLET PO PRN (14:38)
[2018-09-20] MEDS ORDERED: IBUPROFEN 400 MG TABLET (FP) PO PRN (14:38)
[2018-09-20] MEDS ORDERED: LOPERAMIDE HCL 2 MG CAPSULE PO PRN (14:38)
[2018-09-20] MEDS ORDERED: MAGNESIUM CITRATE 300 ML BOTTLE PO PRN (14:38)
[2018-09-20] MEDS ORDERED: MAG HYDROX/AL HYDROX/SIMETH 30 ML UNIT-DOSE CUP PO PRN (14:38)
[2018-09-20] MEDS ORDERED: MENTHOL/PHENOL 1 EACH UD MM PRN (14:38)
[2018-09-20] MEDS ORDERED: ACETAMINOPHEN 325 MG TABLET (FP) PO PRN (14:38)
[2018-09-20] MEDS: chlordiazePOXIDE HCL 25 MG CAPSULE PO SCH ×2 (17:49→22:27)
[2018-09-20] MEDS ORDERED: cloNIDine HCL 0.1 MG TABLET PO ONE (18:30)
[2018-09-20] MEDS: THIAMINE HCL 100 MG TABLET (FP) PO SCH (22:27)
[2018-09-20 23:44] LABS: URINE APPEARANCE CLEAR; URINE BILIRUBIN NEGATIVE (<2.0 mg/dL); URINE COLOR STRAW; URINE GLUCOSE (UA) NEGATIVE (NEGATIVE); URINE KETONE NEGATIVE (NEGATIVE); URINE LEUK ESTERASE NEGATIVE (NEGATIVE); URINE NITRITE NEGATIVE (NEGATIVE); URINE PROTEIN NEGATIVE (NEGATIVE); URINE UROBILINOGEN NEGATIVE mg/dL (0.2-1.0)
[2018-09-21] MEDS: chlordiazePOXIDE HCL 25 MG CAPSULE PO SCH ×4 (05:16→22:19)
[2018-09-21 10:10] LABS: HEMATOCRIT 41.7 % (32.4-45.2); HEMOGLOBIN 13.4 GM/dL (10.7-15.3); MCH 26.8 pg (25.7-33.7); MCHC 32.1 g/dl (32.0-36.0); MEAN CELL VOLUME 83.5 fl (80-96); MEAN PLT VOLUME 9.5 fl (7.5-11.1); PLATELET COUNT 147 K/MM3 (134-434); RDW 14.1 % (11.6-15.6); WHITE BLOOD COUNT 4.2 K/mm3 (4.0-10.0)
--- NOTE | 2018-09-21 10:45 | PN ---
S CIWA - CIWA Score Nausea/Vomitin-No Nausea/No Vomiting Muscle Tremors: 3 Anxiety: 3 Agitation: 4-Moderately Restless Paroxysmal Sweats: 3 Orientation: 0-Oriented Tacttile Disturbances: 0-None Auditory Disturbances: 0-None Visual Disturbances: 0-None Headache: 0-None Present CIWA-Ar Total Score: 13 [facility]HS Progress Note (SOAP) Subjective: chronic pain sweats shakes interrupted sleep diarrhea Objective: 09/21/18 10:43 Vital Signs Temperature 97.9 F 09/21/18 09:26 Pulse Rate 81 09/21/18 09:26 Respiratory Rate 18 09/21/18 09:26 Blood Pressure 107/65 09/21/18 09:26 O2 Sat by Pulse Oximetry (%) Laboratory Tests 09/20/18 09/20/18 09/21/18 15:03 23:10 06:00 WBC 4.2 RBC 5.00 Hgb 13.4 Hct 41.7 MCV 83.5 MCH 26.8 MCHC 32.1 RDW 14.1 D Plt Count 147 MPV 9.5 Urine Color Straw Urine Appearance Clear Urine pH 6.0 Ur Specific [place] 1.004 L Urine Protein Negative Urine Glucose (UA) Negative Urine Ketones Negative Urine Blood Negative Urine Nitrite Negative Urine Bilirubin Negative Urine Urobilinogen Negative Ur Leukocyte Esterase Negative RPR Titer HIV 1&2 Antibody Screen Negative HIV P24 Antigen Negative 09/21/18 06:00 WBC RBC Hgb Hct MCV MCH MCHC RDW Plt Count MPV Urine Color Urine Appearance Urine pH Ur Specific [place] Urine Protein Urine Glucose (UA) Urine Ketones Urine Blood Urine Nitrite Urine Bilirubin Urine Urobilinogen Ur Leukocyte Esterase RPR Titer Nonreactive HIV 1&2 Antibody Screen HIV P24 Antigen rest of labs pending aaox3 ambulating no acute distress Assessment: 09/21/18 10:44 withdrawal sx Plan: continue detox increase fluids naproxen 500mg bid as per pt request for her pain
[2018-09-21 10:47] LABS: ALBUMIN 4.2 g/dl (3.4-5.0); ALK PHOS 71 U/L (45-117); ANION GAP 11 MMOL/L (8-16); BILIRUBIN,TOTAL 1.3 mg/dL (0.2-1); BLOOD UREA NITROGEN 20 mg/dL (7-18); CHLORIDE 106 mmol/L (98-107); CO2 24 mmol/L (21-32); CREATININE 1.1 mg/dL (0.55-1.3); GLUCOSE,RANDOM 73 mg/dL (74-106); POTASSIUM 4.2 mmol/L (3.5-5.1); SGOT/AST 32 U/L (15-37); SGPT/ALT 36 U/L (13-61); SODIUM 141 mmol/L (136-145); TOT PROT 7.8 g/dl (6.4-8.2)
[2018-09-21] MEDS: PRENATAL VITAMINS W/ FOLIC ACID TABLET (FP) PO SCH (10:50)
[2018-09-21] MEDS: LOSARTAN POTASSIUM 50 MG TABLET (FP) PO SCH (10:51)
[2018-09-21] MEDS: HYDROCHLOROTHIAZIDE 12.5 MG CAPSULE (FP) PO SCH (10:51)
[2018-09-21] MEDS: NAPROXEN 500 MG TABLET (FP) PO PRN ×2 (11:38→22:19)
--- NOTE | 2018-09-21 14:51 | EKG ---
Test Reason : Blood Pressure : / mmHG Vent. Rate : 086 BPM Atrial Rate : 086 BPM P-R Int : 158 ms QRS Dur : 116 ms QT Int : 376 ms P-R-T Axes : 000 243 145 degrees QTc Int : 449 ms NORMAL SINUS RHYTHM RIGHT SUPERIOR AXIS DEVIATION PULMONARY DISEASE PATTERN SEPTAL INFARCT (CITED ON OR BEFORE 20-MAY-2018) ABNORMAL ECG Confirmed by ALISON VIGIL MD ([id number]) on 09/21/2018 2:51:16 PM Referred By: Confirmed By:ALISON VIGIL MD
[2018-09-21] MEDS: hydrOXYzine PAMOATE 25 MG CAPSULE (FP) PO PRN (22:19)
[2018-09-21] MEDS: THIAMINE HCL 100 MG TABLET (FP) PO SCH (22:19)
[2018-09-21] MEDS: MELATONIN 5 MG TABLETS PO PRN (22:20)
[2018-09-22] MEDS: chlordiazePOXIDE HCL 25 MG CAPSULE PO SCH ×2 (05:56→10:15)
[2018-09-22] MEDS: PRENATAL VITAMINS W/ FOLIC ACID TABLET (FP) PO SCH (10:14)
[2018-09-22] MEDS: HYDROCHLOROTHIAZIDE 12.5 MG CAPSULE (FP) PO SCH (10:14)
[2018-09-22] MEDS: LOSARTAN POTASSIUM 50 MG TABLET (FP) PO SCH (10:14)
[2018-09-22] MEDS: NAPROXEN 500 MG TABLET (FP) PO PRN ×2 (10:15→22:10)
--- NOTE | 2018-09-22 10:34 | PN ---
S CIWA - CIWA Score Nausea/Vomitin-No Nausea/No Vomiting Muscle Tremors: None Anxiety: 4-Mod. Anxious/Guarded Agitation: 4-Moderately Restless Paroxysmal Sweats: No Perspiration Orientation: 0-Oriented Tacttile Disturbances: 0-None Auditory Disturbances: 0-None Visual Disturbances: 0-None Headache: 0-None Present CIWA-Ar Total Score: 8 BHS Progress Note (SOAP) Subjective: PATIENT C/O ANXIETY AND RESTLESSNESS. Objective: 09/22/18 10:31 Vital Signs Temperature 97.0 F L 09/22/18 09:44 Pulse Rate 81 09/22/18 09:44 Respiratory Rate 16 09/22/18 09:44 Blood Pressure 138/88 09/22/18 09:44 O2 Sat by Pulse Oximetry (%) Laboratory Tests 09/20/18 09/20/18 09/21/18 15:03 23:10 06:00 WBC 4.2 RBC 5.00 Hgb 13.4 Hct 41.7 MCV 83.5 MCH 26.8 MCHC 32.1 RDW 14.1 D Plt Count 147 MPV 9.5 Sodium Potassium Chloride Carbon Dioxide Anion Gap BUN Creatinine Creat Clearance w eGFR Random Glucose Calcium Total Bilirubin AST ALT Alkaline Phosphatase Total Protein Albumin Urine Color Straw Urine Appearance Clear Urine pH 6.0 Ur Specific [place] 1.004 L Urine Protein Negative Urine Glucose (UA) Negative Urine Ketones Negative Urine Blood Negative Urine Nitrite Negative Urine Bilirubin Negative Urine Urobilinogen Negative Ur Leukocyte Esterase Negative RPR Titer HIV 1&2 Antibody Screen Negative HIV P24 Antigen Negative 09/21/18 09/21/18 06:00 06:00 WBC RBC Hgb Hct MCV MCH MCHC RDW Plt Count MPV Sodium 141 Potassium 4.2 Chloride 106 Carbon Dioxide 24 Anion Gap 11 BUN 20 H Creatinine 1.1 Creat Clearance w eGFR 51.38 Random Glucose 73 L Calcium 9.0 Total Bilirubin 1.3 H AST 32 ALT 36 Alkaline Phosphatase 71 Total Protein 7.8 Albumin 4.2 Urine Color Urine Appearance Urine pH Ur Specific [place] Urine Protein Urine Glucose (UA) Urine Ketones Urine Blood Urine Nitrite Urine Bilirubin Urine Urobilinogen Ur Leukocyte Esterase RPR Titer Nonreactive HIV 1&2 Antibody Screen HIV P24 Antigen PE: ALERT AND ORIENTED X 3 SKIN WARM AND DRY EXT FULL ROM AMB AD YAS ANXIOUS, PACING IN HALLWAY Assessment: 09/22/18 10:33 WITHDRAWAL SX Plan: CONTINUE DETOX ENCOURAGE ORAL FLUIDS CONTINUE TO MONITOR
[2018-09-22] MEDS: chlordiazePOXIDE 5 MG CAPSULE PO SCH ×2 (17:32→22:10)
[2018-09-22] MEDS: THIAMINE HCL 100 MG TABLET (FP) PO SCH (22:10)
[2018-09-22] MEDS: hydrOXYzine PAMOATE 25 MG CAPSULE (FP) PO PRN (22:12)
[2018-09-23] MEDS: chlordiazePOXIDE 5 MG CAPSULE PO SCH ×2 (06:09→10:19)
[2018-09-23] MEDS: LOSARTAN POTASSIUM 50 MG TABLET (FP) PO SCH (10:19)
[2018-09-23] MEDS: HYDROCHLOROTHIAZIDE 12.5 MG CAPSULE (FP) PO SCH (10:19)
[2018-09-23] MEDS: PRENATAL VITAMINS W/ FOLIC ACID TABLET (FP) PO SCH (10:19)
[2018-09-23] MEDS: NAPROXEN 500 MG TABLET (FP) PO PRN ×2 (10:20→22:12)
--- NOTE | 2018-09-23 11:20 | PN ---
[facility]HS Progress Note (SOAP) Subjective: feeling better no tremor less sweat social with peers in day room Objective: 09/23/18 11:19 Vital Signs Temperature 97.9 F 09/23/18 09:29 Pulse Rate 81 09/23/18 09:29 Respiratory Rate 18 09/23/18 09:29 Blood Pressure 130/76 09/23/18 09:29 O2 Sat by Pulse Oximetry (%) Laboratory Last Values WBC 4.2 K/mm3 (4.0-10.0) 09/21/18 06:00 RBC 5.00 M/mm3 (3.60-5.2) 09/21/18 06:00 Hgb 13.4 GM/dL (10.7-15.3) 09/21/18 06:00 Hct 41.7 % (32.4-45.2) 09/21/18 06:00 MCV 83.5 fl (80-96) 09/21/18 06:00 MCH 26.8 pg (25.7-33.7) 09/21/18 06:00 MCHC 32.1 g/dl (32.0-36.0) 09/21/18 06:00 RDW 14.1 % (11.6-15.6) D 09/21/18 06:00 Plt Count 147 K/MM3 (134-434) 09/21/18 06:00 MPV 9.5 fl (7.5-11.1) 09/21/18 06:00 Sodium 141 mmol/L (136-145) 09/21/18 06:00 Potassium 4.2 mmol/L (3.5-5.1) 09/21/18 06:00 Chloride 106 mmol/L (98-107) 09/21/18 06:00 Carbon Dioxide 24 mmol/L (21-32) 09/21/18 06:00 Anion Gap 11 MMOL/L (8-16) 09/21/18 06:00 BUN 20 mg/dL (7-18) H 09/21/18 06:00 Creatinine 1.1 mg/dL (0.55-1.3) 09/21/18 06:00 Creat Clearance w eGFR 51.38 (>60) 09/21/18 06:00 Random Glucose 73 mg/dL (74-106) L 09/21/18 06:00 Calcium 9.0 mg/dL (8.5-10.1) 09/21/18 06:00 Total Bilirubin 1.3 mg/dL (0.2-1) H 09/21/18 06:00 AST 32 U/L (15-37) 09/21/18 06:00 ALT 36 U/L (13-61) 09/21/18 06:00 Alkaline Phosphatase 71 U/L (45-117) 09/21/18 06:00 Total Protein 7.8 g/dl (6.4-8.2) 09/21/18 06:00 Albumin 4.2 g/dl (3.4-5.0) 09/21/18 06:00 Urine Color Straw 09/20/18 23:10 Urine Appearance Clear 09/20/18 23:10 Urine pH 6.0 (5.0-8.0) 09/20/18 23:10 Ur Specific [place] 1.004 (1.010-1.035) L 09/20/18 23:10 Urine Protein Negative (NEGATIVE) 09/20/18 23:10 Urine Glucose (UA) Negative (NEGATIVE) 09/20/18 23:10 Urine Ketones Negative (NEGATIVE) 09/20/18 23:10 Urine Blood Negative (NEGATIVE) 09/20/18 23:10 Urine Nitrite Negative (NEGATIVE) 09/20/18 23:10 Urine Bilirubin Negative (<2.0 mg/dL) 09/20/18 23:10 Urine Urobilinogen Negative mg/dL (0.2-1.0) 09/20/18 23:10 Ur Leukocyte Esterase Negative (NEGATIVE) 09/20/18 23:10 RPR Titer Nonreactive (NONREACTIVE) 09/21/18 06:00 HIV 1&2 Antibody Screen Negative 09/20/18 15:03 HIV P24 Antigen Negative 09/20/18 15:03 lab noted Assessment: 09/23/18 11:20 mild withdrawal sx Plan: medically supervised detox
[2018-09-23] MEDS: chlordiazePOXIDE HCL 10 MG CAPSULE PO SCH ×2 (16:48→22:12)
[2018-09-23] MEDS: MELATONIN 5 MG TABLETS PO PRN (22:12)
[2018-09-23] MEDS: THIAMINE HCL 100 MG TABLET (FP) PO SCH (22:12)
[2018-09-24] MEDS: chlordiazePOXIDE HCL 10 MG CAPSULE PO SCH ×2 (05:57→10:09)
--- NOTE | 2018-09-24 08:44 | DS ---
[facility] Detox Discharge Summary Admission Date: 09/20/18 Discharge Date: 09/24/18 - History Present History: Alcohol Dependence Additional Comments: 58 years old female admitted on 09/20/18 for alcohol withdrawal sx completed detox regimen tolerated well denies alcohol withdrawal sx alert oriiented x 3 no acute distress aftercare [facility] - Physical Exam Results Vital Signs: Vital Signs Temperature 97.5 F L 09/24/18 07:24 Pulse Rate 64 09/24/18 07:24 Respiratory Rate 18 09/24/18 07:24 Blood Pressure 121/80 09/24/18 07:24 O2 Sat by Pulse Oximetry (%) Pertinent Admission Physical Exam Findings: alcohol withdrawal sx Vital Signs Temperature 98.1 F 09/24/18 13:24 Pulse Rate 83 09/24/18 13:24 Respiratory Rate 18 09/24/18 13:24 Blood Pressure 118/68 09/24/18 13:24 O2 Sat by Pulse Oximetry (%) Laboratory Last Values WBC 4.2 K/mm3 (4.0-10.0) 09/21/18 06:00 RBC 5.00 M/mm3 (3.60-5.2) 09/21/18 06:00 Hgb 13.4 GM/dL (10.7-15.3) 09/21/18 06:00 Hct 41.7 % (32.4-45.2) 09/21/18 06:00 MCV 83.5 fl (80-96) 09/21/18 06:00 MCH 26.8 pg (25.7-33.7) 09/21/18 06:00 MCHC 32.1 g/dl (32.0-36.0) 09/21/18 06:00 RDW 14.1 % (11.6-15.6) D 09/21/18 06:00 Plt Count 147 K/MM3 (134-434) 09/21/18 06:00 MPV 9.5 fl (7.5-11.1) 09/21/18 06:00 Sodium 141 mmol/L (136-145) 09/21/18 06:00 Potassium 4.2 mmol/L (3.5-5.1) 09/21/18 06:00 Chloride 106 mmol/L (98-107) 09/21/18 06:00 Carbon Dioxide 24 mmol/L (21-32) 09/21/18 06:00 Anion Gap 11 MMOL/L (8-16) 09/21/18 06:00 BUN 20 mg/dL (7-18) H 09/21/18 06:00 Creatinine 1.1 mg/dL (0.55-1.3) 09/21/18 06:00 Creat Clearance w eGFR 51.38 (>60) 09/21/18 06:00 Random Glucose 73 mg/dL (74-106) L 09/21/18 06:00 Calcium 9.0 mg/dL (8.5-10.1) 09/21/18 06:00 Total Bilirubin 1.3 mg/dL (0.2-1) H 09/21/18 06:00 AST 32 U/L (15-37) 09/21/18 06:00 ALT 36 U/L (13-61) 09/21/18 06:00 Alkaline Phosphatase 71 U/L (45-117) 09/21/18 06:00 Total Protein 7.8 g/dl (6.4-8.2) 09/21/18 06:00 Albumin 4.2 g/dl (3.4-5.0) 09/21/18 06:00 Urine Color Straw 09/20/18 23:10 Urine Appearance Clear 09/20/18 23:10 Urine pH 6.0 (5.0-8.0) 09/20/18 23:10 Ur Specific [place] 1.004 (1.010-1.035) L 09/20/18 23:10 Urine Protein Negative (NEGATIVE) 09/20/18 23:10 Urine Glucose (UA) Negative (NEGATIVE) 09/20/18 23:10 Urine Ketones Negative (NEGATIVE) 09/20/18 23:10 Urine Blood Negative (NEGATIVE) 09/20/18 23:10 Urine Nitrite Negative (NEGATIVE) 09/20/18 23:10 Urine Bilirubin Negative (<2.0 mg/dL) 09/20/18 23:10 Urine Urobilinogen Negative mg/dL (0.2-1.0) 09/20/18 23:10 Ur Leukocyte Esterase Negative (NEGATIVE) 09/20/18 23:10 RPR Titer Nonreactive (NONREACTIVE) 09/21/18 06:00 HIV 1&2 Antibody Screen Negative 11/08/18 15:03 HIV P24 Antigen Negative 09/20/18 15:03 lab noted - Treatment Hospital Course: Detox Protocol Followed, Detoxed Safely, Responded well, Discharged Condition Good, Rehab Referral Accepted Patient has Accepted a Rehab Referral to: [facility] - Medication Discharge Medications: Ambulatory Orders traZODone HCL [Desyrel -] 100 mg PO HS 03/28/13 Naproxen [Naprosyn -] 500 mg PO BID PRN 05/20/18 hydrOXYzine PAMOATE [Vistaril -] 50 mg PO HS 09/20/18 Hydrochlorothiazide [Hctz -] 12.5 mg PO DAILY #14 tablet 09/23/18 Losartan Potassium [Cozaar -] 100 mg PO DAILY #14 tablet 09/23/18 - Diagnosis (1) Alcohol dependence with withdrawal, unspecified Current Visit: Yes Status: Acute Qualifiers: Complication of substance-induced condition: uncomplicated Qualified Code(s ): F10.230 - Alcohol dependence with withdrawal, uncomplicated (2) Nicotine dependence Current Visit: Yes Status: Acute Qualifiers: Nicotine product type: cigarettes Substance use status: in withdrawal Qualified Code(s): F17.213 - Nicotine dependence, cigarettes, with withdrawal (3) Nicotine dependence Current Visit: Yes Status: Acute Qualifiers: Nicotine product type: cigarettes Substance use status: in withdrawal Qualified Code(s): F17.213 - Nicotine dependence, cigarettes, with withdrawal (4) Essential hypertension Current Visit: Yes Status: Chronic (5) Positive PPD Current Visit: Yes Status: Resolved - AMA Did Patient Leave Against Medical Advice: No
[2018-09-24] MEDS: HYDROCHLOROTHIAZIDE 12.5 MG CAPSULE (FP) PO SCH (10:09)
[2018-09-24] MEDS: PRENATAL VITAMINS W/ FOLIC ACID TABLET (FP) PO SCH (10:09)
[2018-09-24] MEDS: LOSARTAN POTASSIUM 50 MG TABLET (FP) PO SCH (10:26)
[2018-09-24] MEDS: NAPROXEN 500 MG TABLET (FP) PO PRN (10:28)
[2018-09-24 18:13] VITALS: BP 153/82; PULSE 84; TEMP 97.9
== END 2018-09-24 18:33 | disposition other institution (70) | DRG 775 ==
LOC: YASAS 10:51 → Y6N 14:27
PROC: HZ2ZZZZ Detoxification Services for Substance Abuse Treatment (ICD-10-PCS; principal; 2018-09-20)
DX: F10.230 Alcohol dependence with withdrawal, uncomplicated (principal); F17.213 Nicotine dependence, cigarettes, with withdrawal; F32.9 Major depressive disorder, single episode, unspecified; I10 Essential (primary) hypertension; E86.0 Dehydration; R76.11 Nonspecific reaction to tuberculin skin test without active tuberculosis; R55 Syncope and collapse
CPT/HCPCS: 36415; 80053; 81003; 85027; 86593; 87389; 93005; 93010; J0735

== ENCOUNTER 2018-09-24 18:53 | Inpatient (IN) | payer OTHER ==
--- NOTE | 2018-09-24 14:16 | HP ---
[facility] Rehab Assess/Revision - Admission History Admitted to Rehab from: [facility] Date of Admission to Rehab: 09/24/18 - Findings Detox History & Physical reviewed: Yes Concur with findings: Yes Comments/Additional Findings: transferred from detox to rehab admission as per protocol Inpatient Rehab Admission - Initial Determination Are CD services needed?: Yes Free of communicable disease: Yes Not in need of hospitalization: Yes - Rehab Admission Criteria Previous failed treatment: Yes Poor recovery environment: Yes Comorbidities: Yes Lacks judgement: No Patient is meeting Inpatient Rehab admission criteria:: Yes
[~2018-09-24 18:53] MED LIST: ACETAMINOPHEN 325 MG TABLET (FP) PO PRN; IBUPROFEN 400 MG TABLET (FP) PO PRN; LOPERAMIDE HCL 2 MG CAPSULE PO PRN; MAG HYDROX/AL HYDROX/SIMETH 30 ML UNIT-DOSE CUP PO PRN; MAGNESIUM CITRATE 300 ML BOTTLE PO PRN; MENTHOL/PHENOL 1 EACH UD MM PRN; NICOTINE 14 MG/24 HOURS TOPICAL PATCH TD PRN; NICOTINE POLACRILEX 2 MG GUM BUC PRN; P-EPHED 60MG/TRIPROLIDI 2.5MG TABLET PO PRN; guaiFENesin/D-METHORPHAN HB 10 ML UNIT-DOSE CUPS PO PRN
[2018-09-24] MEDS: THIAMINE HCL 100 MG TABLET (FP) PO SCH (23:23)
[2018-09-25] MEDS: LOSARTAN POTASSIUM 50 MG TABLET (FP) PO SCH (10:33)
[2018-09-25] MEDS: HYDROCHLOROTHIAZIDE 25 MG TABLET (FP) PO SCH (10:34)
[2018-09-25] MEDS: PRENATAL VITAMINS W/ FOLIC ACID TABLET (FP) PO SCH (10:34)
--- NOTE | 2018-09-25 13:59 | HP ---
Psychiatrist Admission - Data Date of interview: 09/25/18 Admission source: 6N Identifying data: This is the first [facility] admission for this 58 years old Black female, mother of a 36 years old son, unemployed on public assistance, living in a room Medical History: Signfican tfor hypertension and PPD+. Smokes 3 cigarettes daily Psychiatric History: Reports that her first psychiatric contact was in 2011 when she saw a psychiatrist for depression while in rehab at [facility]. She was initially prescribed Seroquel 200 mg po HS and Trazadone 100 mg po HS then switched to Abilify and Zoloft. She was at [facility] for 6 months and stopped taking medications once discharged. She saw a psychiatrist again for depression while in rehab at [facility] and was prescribed Depakote and Vistaril 50 mg po HS. She can't tell dosage of Depakote. However, she stopped taking these medications in Oct 2014 following her discharge from [facility]. Since 2015 , she has been seeing a psychiatrist at [facility] in [place] and she is currently prescribed Zoloft 50 mg po daily, Trazadone 50 mg po HS and Vistaril 100 mg po TID. Told conventional mortgage underwriter that she has nt been compliant with Zoloft. Denies history of previous psychiatric hospitalization or suicidal attempt. At present, reports feeling depressed, anxious and experiencing sleeping poorly Physical/Sexual Abuse/Trauma History: Denies history of emotional, physical or sexual abuse as well as DV relationship. Additional Comment: Reports history of one previous misdemeanor arrest for disorderly conduct while intoxicated Vital Signs: Vital Signs - 24 hr 09/24/18 09/25/18 09/25/18 21:15 00:30 03:30 Temperature 97.7 F Pulse Rate 76 Respiratory 18 18 18 Rate Blood Pressure 130/77 09/25/18 07:05 Temperature 97.6 F Pulse Rate 86 Respiratory 20 Rate Blood Pressure 138/88 Allergies/Adverse Reactions: Allergies Allergy/AdvReac Type Severity Reaction Status Date / Time lorazepam [From Ativan] Allergy Intermediate Rash Verified 09/20/18 13:01 Date of last physical exam: 09/20/18 Concur with the findings of this exam: Yes - Substance Abuse/Tx History Hx Alcohol Use: Yes Hx Substance Use: No Substance Use Type: Alcohol (Started drinking alcohol at age 33, consumes one pint of vodka & 24oz of beer daily. Last drank on 09/20/18) Hx Substance Use Treatment: Yes (5 previous inpt detox admissions @ [facility] & one inpt rehab @ [facility]) Mental Status Exam - Mental Status Exam Alert and Oriented to: Time, Place, Person Cognitive Function: Fair Patient Appearance: Well Groomed Mood: Depressed, Anxious Affect: Appropriate Patient Behavior: Cooperative Speech Pattern: Clear Voice Loudness: Normal Thought Process: Intact, Goal Oriented Hallucinations: Denies Homicidal Ideation: Denies Insight/Judgement: Fair Sleep: Poorly Appetite: Good Muscle strength/Tone: Normal Gait/Station: Normal Psychiatric Findings - Problem List ([place] 1, 2,3) (1) Alcohol dependence Current Visit: No Status: Active (2) Nicotine dependence Current Visit: No Status: Chronic Qualifiers: Nicotine product type: cigarettes Substance use status: in withdrawal Qualified Code(s): F17.213 - Nicotine dependence, cigarettes, with withdrawal (3) Depressive disorder Current Visit: Yes Status: Chronic (4) Substance induced mood disorder Current Visit: Yes Status: Acute (5) Substance-induced sleep disorder Current Visit: Yes Status: Acute (6) Essential hypertension Current Visit: No Status: Chronic (7) History of positive PPD Current Visit: No Status: Chronic (8) acne of facial area Current Visit: No Status: Acute - Initial Treatment Plan Initial Treatment Plan: 1) Continue Trazadone 50 mg po HS. 2) Start Vistaril 50 mg po Q 6hrs prn for anxiety and sleep. 3) Monitor progress
[2018-09-25] MEDS: MELATONIN 5 MG TABLETS PO PRN (21:40)
[2018-09-25] MEDS: THIAMINE HCL 100 MG TABLET (FP) PO SCH (21:40)
[2018-09-25] MEDS: traZODone HCL 50 MG TABLET (FP) PO SCH (21:40)
[2018-09-25] MEDS: hydrOXYzine PAMOATE 50 MG CAPSULE (FP) PO PRN (21:40)
[2018-09-26] MEDS: LOSARTAN POTASSIUM 50 MG TABLET (FP) PO SCH (10:09)
[2018-09-26] MEDS: HYDROCHLOROTHIAZIDE 25 MG TABLET (FP) PO SCH (10:09)
[2018-09-26] MEDS: PRENATAL VITAMINS W/ FOLIC ACID TABLET (FP) PO SCH (10:09)
[2018-09-26] MEDS: hydrOXYzine PAMOATE 50 MG CAPSULE (FP) PO PRN ×3 (10:09→21:46)
[2018-09-26] MEDS: THIAMINE HCL 100 MG TABLET (FP) PO SCH (21:44)
[2018-09-26] MEDS: traZODone HCL 50 MG TABLET (FP) PO SCH (21:44)
[2018-09-26] MEDS: MELATONIN 5 MG TABLETS PO PRN (21:47)
[2018-09-27] MEDS: LOSARTAN POTASSIUM 50 MG TABLET (FP) PO SCH (10:02)
[2018-09-27] MEDS: PRENATAL VITAMINS W/ FOLIC ACID TABLET (FP) PO SCH (10:02)
[2018-09-27] MEDS: hydrOXYzine PAMOATE 50 MG CAPSULE (FP) PO PRN ×3 (10:03→21:43)
[2018-09-27] MEDS: HYDROCHLOROTHIAZIDE 25 MG TABLET (FP) PO SCH (10:03)
[2018-09-27] MEDS: NAPROXEN 500 MG TABLET (FP) PO PRN ×2 (10:04→21:43)
[2018-09-27] MEDS: traZODone HCL 50 MG TABLET (FP) PO SCH (21:42)
[2018-09-27] MEDS: THIAMINE HCL 100 MG TABLET (FP) PO SCH (21:42)
[2018-09-27] MEDS: MELATONIN 5 MG TABLETS PO PRN (21:43)
--- NOTE | 2018-09-28 10:04 | PN ---
[facility] Progress Note Note: PT C/O ANKLE AND FEET SWELLING. STATES SHE DOES NOT WANT TO GO TO GROUP WHEN SHE DOES NOT FEEL LIKE GETTING UP. PT APPEARED VERY ANGRY AND ARGUMENTATIVE. PT REQUESTED TO REVIEW HER LAB RESULTS AND WANTS TO KNOW IF SHE HAS CIRRHOSIS. PT' S LAB WAS REVIEWED TO THE EXTENT OF WHAT THE LAB RESULT SHOWS AND EXPLAINED TO PT THE NEED TO FOLLOW UP WITH HER PRIMARY CARE PROVIDER AFTER REHAB FOR MEDICAL MANAGEMENT. Vital Signs 09/28/18 09/28/18 03:30 06:58 Temperature 97.4 F L Pulse Rate 76 Respiratory 20 18 Rate Blood Pressure 112/76 LABS WERE DONE IN DETOX AND GROSSLY WNL EXAM:NO EDEMA NOTED. NO REDNESS OR OPEN CUTS. PLAN:ELEVATE LEGS WHILE IN BED. PT INSTRUCTED TO TAKE COPY OF HER LAB RESULTS TO HER PRIMARY CARE PROVIDER FOR FOLLOW UP. AFTER REHAB STAY.
[2018-09-28] MEDS: PRENATAL VITAMINS W/ FOLIC ACID TABLET (FP) PO SCH (10:19)
[2018-09-28] MEDS: LOSARTAN POTASSIUM 50 MG TABLET (FP) PO SCH (10:20)
[2018-09-28] MEDS: HYDROCHLOROTHIAZIDE 25 MG TABLET (FP) PO SCH (10:20)
[2018-09-28] MEDS: hydrOXYzine PAMOATE 50 MG CAPSULE (FP) PO PRN ×2 (10:21→21:56)
[2018-09-28] MEDS: THIAMINE HCL 100 MG TABLET (FP) PO SCH (21:55)
[2018-09-28] MEDS: traZODone HCL 50 MG TABLET (FP) PO SCH (21:56)
[2018-09-28] MEDS: NAPROXEN 500 MG TABLET (FP) PO PRN (21:57)
[2018-09-28] MEDS: MELATONIN 5 MG TABLETS PO PRN (21:57)
[2018-09-29] MEDS: LOSARTAN POTASSIUM 50 MG TABLET (FP) PO SCH (10:32)
[2018-09-29] MEDS: PRENATAL VITAMINS W/ FOLIC ACID TABLET (FP) PO SCH (10:32)
[2018-09-29] MEDS: HYDROCHLOROTHIAZIDE 25 MG TABLET (FP) PO SCH (10:33)
[2018-09-29] MEDS: hydrOXYzine PAMOATE 50 MG CAPSULE (FP) PO PRN (23:15)
[2018-09-29] MEDS: MELATONIN 5 MG TABLETS PO PRN (23:15)
[2018-09-29] MEDS: NAPROXEN 500 MG TABLET (FP) PO PRN (23:16)
[2018-09-29] MEDS: THIAMINE HCL 100 MG TABLET (FP) PO SCH (23:16)
[2018-09-29] MEDS: traZODone HCL 50 MG TABLET (FP) PO SCH (23:16)
[2018-09-30] MEDS: HYDROCHLOROTHIAZIDE 25 MG TABLET (FP) PO SCH (09:26)
[2018-09-30] MEDS: PRENATAL VITAMINS W/ FOLIC ACID TABLET (FP) PO SCH (09:26)
[2018-09-30] MEDS: LOSARTAN POTASSIUM 50 MG TABLET (FP) PO SCH (09:26)
[2018-09-30] MEDS: MAGNESIUM HYDROX 2400MG/30ML ORAL SUSPENSION 30 ML CUP PO PRN (09:27)
[2018-09-30] MEDS: MELATONIN 5 MG TABLETS PO PRN (21:51)
[2018-09-30] MEDS: THIAMINE HCL 100 MG TABLET (FP) PO SCH (21:51)
[2018-09-30] MEDS: traZODone HCL 50 MG TABLET (FP) PO SCH (21:51)
[2018-09-30] MEDS: NAPROXEN 500 MG TABLET (FP) PO PRN (21:51)
[2018-09-30] MEDS: hydrOXYzine PAMOATE 50 MG CAPSULE (FP) PO PRN (21:52)
[2018-10-01] MEDS: PRENATAL VITAMINS W/ FOLIC ACID TABLET (FP) PO SCH (10:16)
[2018-10-01] MEDS: HYDROCHLOROTHIAZIDE 25 MG TABLET (FP) PO SCH (11:17)
[2018-10-01] MEDS: LOSARTAN POTASSIUM 50 MG TABLET (FP) PO SCH (11:17)
[2018-10-01] MEDS: hydrOXYzine PAMOATE 50 MG CAPSULE (FP) PO PRN ×2 (15:09→22:03)
[2018-10-01] MEDS: traZODone HCL 50 MG TABLET (FP) PO SCH (22:03)
[2018-10-01] MEDS: THIAMINE HCL 100 MG TABLET (FP) PO SCH (22:03)
[2018-10-01] MEDS: NAPROXEN 500 MG TABLET (FP) PO PRN (22:06)
[2018-10-01] MEDS: MELATONIN 5 MG TABLETS PO PRN (22:06)
--- NOTE | 2018-10-02 10:08 | PN ---
[facility] Progress Note Note: PT C/O ITCHY RASH ON BOTH ELBOWS. ALSO C/O DRY FEET. Vital Signs 10/02/18 07:07 Temperature 97.8 F Pulse Rate 84 Respiratory 18 Rate Blood Pressure 126/86 MACULOPAPULAR RASH IN BOTH OUTER ELBOWS. NO REDNESS OR SKIN BREAK NOTED. NAD PLAN:LAC HYDRIN LOTION DIRECTED HYDROCORTISONE CREAM APPLY TO AFFECTED ELBOWS DIRECTED.
[2018-10-02] MEDS: hydrOXYzine PAMOATE 50 MG CAPSULE (FP) PO PRN ×2 (10:19→22:10)
[2018-10-02] MEDS: NAPROXEN 500 MG TABLET (FP) PO PRN (10:20)
[2018-10-02] MEDS: PRENATAL VITAMINS W/ FOLIC ACID TABLET (FP) PO SCH (10:20)
[2018-10-02] MEDS: AMMONIUM LACTATE 12% LOTION 225 GM BOTTLE TP SCH ×2 (10:20→22:11)
[2018-10-02] MEDS: HYDROCHLOROTHIAZIDE 25 MG TABLET (FP) PO SCH (10:20)
[2018-10-02] MEDS: LOSARTAN POTASSIUM 50 MG TABLET (FP) PO SCH (10:20)
[2018-10-02] MEDS: MAGNESIUM HYDROX 2400MG/30ML ORAL SUSPENSION 30 ML CUP PO PRN (10:24)
[2018-10-02] MEDS: HYDROCORTISONE 1% TOPICAL CREAM 30 GM TUBE TP SCH ×2 (13:28→22:08)
[2018-10-02] MEDS: THIAMINE HCL 100 MG TABLET (FP) PO SCH (22:08)
[2018-10-02] MEDS: traZODone HCL 50 MG TABLET (FP) PO SCH (22:08)
[2018-10-02] MEDS: MELATONIN 5 MG TABLETS PO PRN (22:10)
[2018-10-03] MEDS: HYDROCORTISONE 1% TOPICAL CREAM 30 GM TUBE TP SCH ×3 (06:47→21:53)
[2018-10-03] MEDS: LOSARTAN POTASSIUM 50 MG TABLET (FP) PO SCH (10:31)
[2018-10-03] MEDS: PRENATAL VITAMINS W/ FOLIC ACID TABLET (FP) PO SCH (10:31)
[2018-10-03] MEDS: hydrOXYzine PAMOATE 50 MG CAPSULE (FP) PO PRN ×2 (10:32→21:53)
[2018-10-03] MEDS: NAPROXEN 500 MG TABLET (FP) PO PRN (10:33)
[2018-10-03] MEDS: HYDROCHLOROTHIAZIDE 25 MG TABLET (FP) PO SCH (10:43)
[2018-10-03] MEDS: AMMONIUM LACTATE 12% LOTION 225 GM BOTTLE TP SCH ×2 (10:43→21:53)
[2018-10-03] MEDS: MELATONIN 5 MG TABLETS PO PRN (21:53)
[2018-10-03] MEDS: traZODone HCL 50 MG TABLET (FP) PO SCH (21:53)
[2018-10-03] MEDS: THIAMINE HCL 100 MG TABLET (FP) PO SCH (21:54)
[2018-10-04] MEDS: HYDROCORTISONE 1% TOPICAL CREAM 30 GM TUBE TP SCH ×3 (06:32→21:44)
[2018-10-04] MEDS ORDERED: PT OWN MED DRAWER 7, Y5N ONE (08:52)
[2018-10-04] MEDS: AMMONIUM LACTATE 12% LOTION 225 GM BOTTLE TP SCH ×2 (10:13→21:44)
[2018-10-04] MEDS: LOSARTAN POTASSIUM 50 MG TABLET (FP) PO SCH (10:13)
[2018-10-04] MEDS: PRENATAL VITAMINS W/ FOLIC ACID TABLET (FP) PO SCH (10:13)
[2018-10-04] MEDS: HYDROCHLOROTHIAZIDE 25 MG TABLET (FP) PO SCH (10:13)
[2018-10-04] MEDS: MELATONIN 5 MG TABLETS PO PRN (21:43)
[2018-10-04] MEDS: hydrOXYzine PAMOATE 50 MG CAPSULE (FP) PO PRN (21:43)
[2018-10-04] MEDS: THIAMINE HCL 100 MG TABLET (FP) PO SCH (21:43)
[2018-10-04] MEDS: traZODone HCL 50 MG TABLET (FP) PO SCH (21:44)
[2018-10-05] MEDS: HYDROCORTISONE 1% TOPICAL CREAM 30 GM TUBE TP SCH ×3 (06:42→22:00)
[2018-10-05] MEDS: hydrOXYzine PAMOATE 50 MG CAPSULE (FP) PO PRN ×2 (10:14→21:59)
[2018-10-05] MEDS: LOSARTAN POTASSIUM 50 MG TABLET (FP) PO SCH (10:14)
[2018-10-05] MEDS: PRENATAL VITAMINS W/ FOLIC ACID TABLET (FP) PO SCH (10:14)
[2018-10-05] MEDS: HYDROCHLOROTHIAZIDE 25 MG TABLET (FP) PO SCH (10:14)
[2018-10-05] MEDS: AMMONIUM LACTATE 12% LOTION 225 GM BOTTLE TP SCH ×2 (10:14→21:59)
[2018-10-05] MEDS: MELATONIN 5 MG TABLETS PO PRN (21:59)
[2018-10-05] MEDS: NAPROXEN 500 MG TABLET (FP) PO PRN (21:59)
[2018-10-05] MEDS: THIAMINE HCL 100 MG TABLET (FP) PO SCH (22:00)
[2018-10-05] MEDS: traZODone HCL 50 MG TABLET (FP) PO SCH (22:00)
[2018-10-06] MEDS: HYDROCORTISONE 1% TOPICAL CREAM 30 GM TUBE TP SCH ×3 (05:55→21:31)
[2018-10-06] MEDS: HYDROCHLOROTHIAZIDE 25 MG TABLET (FP) PO SCH (10:35)
[2018-10-06] MEDS: LOSARTAN POTASSIUM 50 MG TABLET (FP) PO SCH (10:35)
[2018-10-06] MEDS: hydrOXYzine PAMOATE 50 MG CAPSULE (FP) PO PRN ×2 (10:35→21:30)
[2018-10-06] MEDS: PRENATAL VITAMINS W/ FOLIC ACID TABLET (FP) PO SCH (10:35)
[2018-10-06] MEDS: AMMONIUM LACTATE 12% LOTION 225 GM BOTTLE TP SCH ×2 (10:36→21:31)
[2018-10-06] MEDS: NAPROXEN 500 MG TABLET (FP) PO PRN ×2 (10:36→21:30)
[2018-10-06] MEDS: traZODone HCL 50 MG TABLET (FP) PO SCH (21:29)
[2018-10-06] MEDS: MELATONIN 5 MG TABLETS PO PRN (21:30)
[2018-10-06] MEDS: THIAMINE HCL 100 MG TABLET (FP) PO SCH (21:31)
[2018-10-07] MEDS: HYDROCORTISONE 1% TOPICAL CREAM 30 GM TUBE TP SCH ×3 (06:03→21:53)
[2018-10-07 07:04] VITALS: TEMP 97.5
[2018-10-07] MEDS: PRENATAL VITAMINS W/ FOLIC ACID TABLET (FP) PO SCH (10:32)
[2018-10-07] MEDS: HYDROCHLOROTHIAZIDE 25 MG TABLET (FP) PO SCH (10:32)
[2018-10-07] MEDS: AMMONIUM LACTATE 12% LOTION 225 GM BOTTLE TP SCH ×2 (10:32→21:53)
[2018-10-07] MEDS: LOSARTAN POTASSIUM 50 MG TABLET (FP) PO SCH (10:33)
[2018-10-07] MEDS: hydrOXYzine PAMOATE 50 MG CAPSULE (FP) PO PRN (21:52)
[2018-10-07] MEDS: MELATONIN 5 MG TABLETS PO PRN (21:52)
[2018-10-07] MEDS: traZODone HCL 50 MG TABLET (FP) PO SCH (21:52)
[2018-10-07] MEDS: NAPROXEN 500 MG TABLET (FP) PO PRN (21:52)
[2018-10-07] MEDS: THIAMINE HCL 100 MG TABLET (FP) PO SCH (21:53)
[2018-10-08] MEDS: HYDROCORTISONE 1% TOPICAL CREAM 30 GM TUBE TP SCH (07:18)
[2018-10-08 07:57] VITALS: BP 127/90; PULSE 81
--- NOTE | 2018-10-08 08:49 | PN ---
Psychiatric Progress Note Vital Signs: Vital Signs Period Temp Pulse Resp BP Sys/Moreno Pulse Ox Last 24 Hr 97.5 F 81 18-18 127/90 Date of Session: 10/08/18 Chief Complaint:: Discharge HPI: Alcohol,Cocaine dependence comorbid with Substance induced mood disorder. ROS: Hypertension. Current Medications: Active Medications Generic Name Dose Route Start Last Admin Trade Name Freq PRN Reason Stop Dose Admin Acetaminophen 650 mg 09/24/18 14:16 Tylenol - PO Q4H PRN FEVER Al Hydroxide/Mg Hydroxide 30 ml 09/24/18 14:16 Mylanta Oral Suspension - PO Q6H PRN DYSPEPSIA Eucalyptus/Menthol/Phenol/Sorbitol 1 each 09/24/18 14:16 Cepastat Lozenge - MM Q4H PRN SORE THROAT Guaifenesin 10 ml 09/24/18 14:16 10/08/18 02:18 Robitussin Dm - PO 10 ml Q6H PRN Administration COUGH Hydrochlorothiazide 12.5 mg 09/25/18 10:00 10/07/18 10:32 Hctz - PO 12.5 mg DAILY DARYA Administration Hydrocortisone 1 applic 10/02/18 14:00 10/08/18 07:18 Hytone 1% Cream - TP Not Given TID DARYA Hydroxyzine Pamoate 50 mg 09/25/18 14:23 10/07/18 21:52 Vistaril - PO 50 mg Q4H PRN Administration ANXIETY Lactic Acid 1 applic 10/02/18 10:00 10/07/18 21:53 Lac-Hydrin 12 TP Not Given BID DARYA Loperamide HCl 4 mg 09/24/18 14:16 Imodium - PO Q6H PRN DIARRHEA Losartan Potassium 100 mg 09/25/18 10:00 10/07/18 10:33 Cozaar - PO 100 mg DAILY DARYA Administration Magnesium Citrate 300 ml 09/24/18 14:16 Citroma - PO Q48H PRN CONSTIPATION Magnesium Hydroxide 30 ml 09/24/18 14:16 10/02/18 10:24 Milk Of Magnesia - PO 30 ml DAILY PRN Administration CONSTIPATION Melatonin 5 mg 09/24/18 22:00 10/07/18 21:52 Melatonin PO 5 mg HS PRN Administration INSOMNIA Naproxen 500 mg 09/27/18 09:40 10/07/18 21:52 Naprosyn - PO 500 mg BID PRN Administration PAIN Nicotine 14 mg 09/24/18 14:16 Nicoderm Patch - TD DAILY PRN WITHDRAWAL(CONT SUBST) Nicotine Polacrilex 2 mg 09/24/18 14:16 10/07/18 10:34 Nicorette Gum - BUC 2 mg Q2H PRN Administration NICOTINE REPLACEMENT RX Multivit/Folic Acid/Iron 1 tab 09/25/18 10:00 10/07/18 10:32 Vitamins (Sjr) - PO 1 tab DAILY DARYA Administration Pseudoephedrine/Triprolidine 1 combo 09/24/18 14:16 Actifed - PO TID PRN NASAL CONGESTION Thiamine HCl 100 mg 09/24/18 22:00 10/07/18 21:53 Vitamin B1 - PO Not Given HS DARYA Trazodone HCl 50 mg 09/25/18 22:00 10/07/18 21:52 Desyrel - PO 50 mg HS DARYA Administration Current Side Effect: No Lab tests ordered: No Lab tests reviewed: Yes Provider note:: Log term treatment [facility] [place] .TRazodone 50 mg po hs. Total face to face time:: 25 Psychiatric Treatment Plan - Problem List (1) Substance induced mood disorder Current Visit: Yes (2) Substance-induced sleep disorder Current Visit: Yes (3) Alcohol dependence Current Visit: Yes (4) Cocaine dependence Current Visit: Yes (5) Nicotine dependence Current Visit: Yes Qualifiers: Nicotine product type: cigarettes Substance use status: in withdrawal Qualified Code(s): F17.213 - Nicotine dependence, cigarettes, with withdrawal (6) HTN (hypertension) Current Visit: Yes
== END 2018-10-08 10:15 | disposition home or self-care (01) | DRG 772 ==
LOC: YASAS 18:53 → Y3W 18:54
PROVIDERS: ADMIT Psychiatry & Neurology Psychiatry; ATTEND Psychiatry & Neurology Psychiatry
PROC: HZ42ZZZ Group Counseling for Substance Abuse Treatment, Cognitive-Behavioral (ICD-10-PCS; principal; 2018-09-24)
DX: F10.20 Alcohol dependence, uncomplicated (principal); F14.20 Cocaine dependence, uncomplicated; F17.213 Nicotine dependence, cigarettes, with withdrawal; F19.24 Other psychoactive substance dependence with psychoactive substance-induced mood disorder; F19.282 Other psychoactive substance dependence with psychoactive substance-induced sleep disorder; F32.9 Major depressive disorder, single episode, unspecified; I10 Essential (primary) hypertension; R21 Rash and other nonspecific skin eruption; L70.8 Other acne; R76.11 Nonspecific reaction to tuberculin skin test without active tuberculosis

== ENCOUNTER 2019-01-10 13:05 | Inpatient (IN) | payer OTHER ==
[2019-01-10 14:00] VITALS: BMI 29.5
--- NOTE | 2019-01-10 17:33 | HP ---
CIWA Score Nausea/Vomitin-No Nausea/No Vomiting Muscle Tremors: 2 Anxiety: 3 Agitation: 3 Orientation: 0-Oriented Tacttile Disturbances: 0-None Auditory Disturbances: 0-None Visual Disturbances: 2-Mild Sensitivity Headache: 0-None Present - Admission Criteria OASAS Guidelines: Admission for Medically Managed Detox: Requires at least one of the followin. CIWA greater than 12 2. Seizures within the past 24 hours 3. Delirium tremens within the past 24 hours 4. Hallucinations within the past 24 hours 5. Acute intervention needed for co occurring medical disorder 6. Acute intervention needed for co occurring psychiatric disorder 7. Severe withdrawal that cannot be handled at a lower level of care (continued vomiting, continued diarrhea, abnormal vital signs) requiring intravenous medication and/or fluids 8. Admission ROS [facility] - [facility] Chief Complaint: " alcohol detox" Allergies/Adverse Reactions: Allergies Allergy/AdvReac Type Severity Reaction Status Date / Time lorazepam [From Ativan] Allergy Intermediate Rash Verified 01/10/19 15:45 History of Present Illness: 58 yo female with nicotine and alcohol dependence is here seeking detox ER a week ago d/t ETOH intox and elevated BP Last [facility] September 2018. PHHX: HTN, OA. Psych Depression, insomnia and anxiety Denies hx of seixures, Reports hx of ETOH blakcout with last episode three days ago Exam Limitations: No Limitations - Ebola screening Have you traveled outside of the country in the last 21 days: No Have you had contact with anyone from an Ebola affected area: No Have you been sick,other than usual withdrawal symptoms: No Do you have a fever: No Patient History - Patient Medical History Hx Anemia: No Hx Asthma: No Hx Chronic Obstructive Pulmonary Disease (COPD): No Hx Cancer: No Hx Cardiac Disorders: No Hx Congestive Heart Failure: No Hx Hypertension: Yes Hx Hypercholesterolemia: No Hx Pacemaker: No HX Cerebrovascular Accident: No Hx Seizures: No Hx Dementia: No Hx Diabetes: No Hx Gastrointestinal Disorders: Yes (acid reflux) Hx Liver Disease: No Hx Genitourinary Disorders: No Hx Sexually Transmitted Disorders: No Hx Renal Disease (ESRD): No Hx Thyroid Disease: No Hx Human Immunodeficiency Virus (HIV): No (last 03/30 negative) Hx Hepatitis C: No Hx Depression: Yes Hx Suicide Attempt: No Hx Bipolar Disorder: No Hx Schizophrenia: No - Patient Surgical History Past Surgical History: No Hx Neurologic Surgery: No Hx Cataract Extraction: No Hx Cardiac Surgery: No Hx Lung Surgery: No Hx Breast Surgery: No Hx Breast Biopsy: No Hx Abdominal Surgery: No Hx Appendectomy: No Hx Cholecystectomy: No Hx Genitourinary Surgery: No Hx Section: No Hx Orthopedic Surgery: No Hx Hysterectomy: No Anesthesia Reaction: No - PPD History Previous Implant?: Yes Documented Results: Positive w/o proof Results: CXR(-)02/09/18 - Reproductive History Last Menstrual Period: 10/27/09 - Smoking Cessation Smoking history: Current every day smoker Have you smoked in the past 12 months: Yes Aproximately how many cigarettes per day: 3 Cigars Per Day: 0 Hx Chewing Tobacco Use: No Initiated information on smoking cessation: Yes 'Breaking Loose' booklet given: 01/10/19 - Substance & Tx. History Hx Alcohol Use: Yes Hx Substance Use: Yes Substance Use Type: Alcohol Hx Substance Use Treatment: Yes (Detox [facility] 2017) - Substances Abused Alcohol-vodka Route: Oral Frequency: Daily Amount used: 3 pts. Age of first use: 32 Date of Last Use: 01/10/19 Family Disease History - Family Disease History Family Disease History: CA: Mother (, CA brain tumor ), Other: Father ( unknown ), Mother Admission Physical Exam S - Vital Signs Vital Signs: Vital Signs - 24 hr 01/10/19 13:59 Temperature 98.0 F Pulse Rate 94 H Respiratory 17 Rate Blood Pressure 130/90 - Physical General Appearance: Yes: Appropriately Dressed, Alcohol on Breath, Obese, Sweating, Anxious HEENTM: Yes: EOMI, Hearing grossly Normal, Normal ENT Inspection, Normocephalic , Normal Voice, ALEXEI, Pharynx Normal, Tm's normal Respiratory: Yes: Chest Non-Tender, Lungs Clear, Normal Breath Sounds, No Respiratory Distress, No Accessory Muscle Use Neck: Yes: Within Normal Limits Breast: Yes: Breast Exam Deferred Cardiology: Yes: Regular Rhythm, Regular Rate Abdominal: Yes: Normal Bowel Sounds, Non Tender, Flat, Soft, Protuberent Genitourinary: Yes: Within Normal Limits Back: Yes: Normal Inspection Musculoskeletal: Yes: full range of Motion, Gait Steady, Pelvis Stable Extremities: Yes: Normal Capillary Refill, Normal Inspection, Normal Range of Motion, Non-Tender Neurological: Yes: product communications manager II-XII NML intact, Fully Oriented, Alert, Motor Strength 5/5, Depressed Affect Integumentary: Yes: Normal Color, Warm, Moist Lymphatic: Yes: Within Normal Limits - Diagnostic (1) GERD (gastroesophageal reflux disease) Current Visit: Yes Status: Chronic Qualifiers: Esophagitis presence: without esophagitis Qualified Code(s): K21.9 - Gastro -esophageal reflux disease without esophagitis (2) Fatty liver Current Visit: Yes Status: Chronic (3) Alcohol dependence with uncomplicated withdrawal Current Visit: Yes Status: Acute (4) Cocaine dependence Current Visit: Yes Status: Acute Qualifiers: Substance use status: uncomplicated Qualified Code(s): F14.20 - Cocaine dependence, uncomplicated (5) HTN (hypertension) Current Visit: Yes Status: Chronic Qualifiers: Hypertension type: essential hypertension Qualified Code(s): I10 - Essential (primary) hypertension (6) Nicotine dependence Current Visit: Yes Status: Chronic Qualifiers: Nicotine product type: cigarettes Substance use status: in withdrawal Qualified Code(s): F17.213 - Nicotine dependence, cigarettes, with withdrawal (7) History of positive PPD Current Visit: Yes Status: Chronic Cleared for Admission [facility] - Detox or Rehab [facility] Level of Care: Medically Managed Detox Regimen/Protocol: Librium [facility] Breath Alcohol Content Breath Alcohol Content: 0.279 Urine Pregancy Test - Result Urine Test Results: Negative- NO Line Present Urine Drug Screen - Results Drug Screen Negative: No Urine Drug Screen Results: BZO-Benzodiazepines Inpatient Rehab Admission - Rehab Decision to Admit Inpatient rehab admission?: No
[2019-01-10] MEDS ORDERED: guaiFENesin/D-METHORPHAN HB 10 ML UNIT-DOSE CUPS PO PRN (18:04)
[2019-01-10] MEDS ORDERED: MAGNESIUM HYDROX 2400MG/30ML ORAL SUSPENSION 30 ML CUP PO PRN (18:04)
[2019-01-10] MEDS ORDERED: MAGNESIUM CITRATE 300 ML BOTTLE PO PRN (18:04)
[2019-01-10] MEDS ORDERED: chlordiazePOXIDE HCL 25 MG CAPSULE PO PRN (18:04)
[2019-01-10] MEDS ORDERED: P-EPHED 60MG/TRIPROLIDI 2.5MG TABLET PO PRN (18:04)
[2019-01-10] MEDS ORDERED: MENTHOL/PHENOL 1 EACH UD MM PRN (18:04)
[2019-01-10] MEDS ORDERED: NICOTINE POLACRILEX 2 MG GUM BC PRN (18:04)
[2019-01-10] MEDS ORDERED: LOPERAMIDE HCL 2 MG CAPSULE PO PRN (18:04)
[2019-01-10] MEDS ORDERED: MELATONIN 5 MG TABLETS PO PRN (22:00)
[2019-01-10] MEDS: CALCIUM (OYSTER SHELL) 500 MG TABLET (FP) PO SCH (22:39)
[2019-01-10] MEDS: chlordiazePOXIDE HCL 25 MG CAPSULE PO SCH (22:39)
[2019-01-10] MEDS: THIAMINE HCL 100 MG TABLET (FP) PO SCH (22:39)
[2019-01-10] MEDS: NAPROXEN 500 MG TABLET (FP) PO PRN (22:40)
[2019-01-10] MEDS: hydrOXYzine PAMOATE 50 MG CAPSULE (FP) PO SCH (22:40)
[2019-01-11] MEDS: chlordiazePOXIDE HCL 25 MG CAPSULE PO SCH ×4 (05:45→23:00)
[2019-01-11] MEDS: hydrOXYzine PAMOATE 50 MG CAPSULE (FP) PO SCH ×3 (05:45→23:00)
[2019-01-11] MEDS: MAG HYDROX/AL HYDROX/SIMETH 30 ML UNIT-DOSE CUP PO PRN (05:47)
--- NOTE | 2019-01-11 09:21 | PN ---
BHS CIWA - CIWA Score Nausea/Vomitin Muscle Tremors: 2 Anxiety: 2 Agitation: 2 Paroxysmal Sweats: 1-Minimal Palms Moist Orientation: 0-Oriented Tacttile Disturbances: 1-Very Mild Itch/Numbness Auditory Disturbances: 1-Very Mild Visual Disturbances: 0-None Headache: 2-Mild CIWA-Ar Total Score: 13 BHS Progress Note (SOAP) Subjective: alert,irritable,anxious,interrupted sleep,tremor Objective: 01/11/19 09:19 Vital Signs Temperature 97.9 F 01/11/19 06:00 Pulse Rate 71 01/11/19 08:00 Respiratory Rate 18 01/11/19 08:00 Blood Pressure 146/93 01/11/19 06:00 O2 Sat by Pulse Oximetry (%) 01/11/19 09:20 labs pending Assessment: 01/11/19 09:21 withdrawal symptom Plan: continue detox
--- NOTE | 2019-01-11 09:43 | CONSULT ---
[facility] Psychiatric Consult - Data Date of interview: 01/11/19 Admission source: [facility] Identifying data: Patient is a 58 year old single female, mother of two, unemployed (denies receiving financial assistance), and currently resides in a [facility]. This is one of multiple admissions for patient. Patient admitted to for alcohol dependence. Substance Abuse History: Smoking Cessation. Smoking history: Current every day smoker. Have you smoked in the past 12 months: Yes. Aproximately how many cigarettes per day: 3. Cigars Per Day: 0. Hx Chewing Tobacco Use: No. Initiated information on smoking cessation: Yes. 'Breaking Loose' booklet given : 01/10/19. - Substance & Tx. History. Hx Alcohol Use: Yes. Hx Substance Use : Yes. Substance Use Type: Alcohol. Hx Substance Use Treatment: Yes (Detox [facility] 2017). - Substances Abused. Alcohol-vodka. Route: Oral. Frequency: Daily. Amount used: 3 pts. Age of first use: 32. Date of Last Use : 01/10/19 Medical History: hypertension, acid reflux Psychiatric History: Patient's first psychiatric contact was in her late 30's after the of her mother. She report seeing a psychiatrist while in rehab at [facility] and was prescribed depakote and zoloft. Patient reports one psychiatric hospitalization at [facility] for depression in which her medication regiman included zoloft, depakote, and seroquel. Current outpatient psychiatric services is located at [facility] in [place], [place]. Patient is currently prescribed zoloft 50mg and trazodone 100mg qhs. Ms. Childress denies h/o suicide attempt. At present, she reports feeling sad and is agreeable to resuming her medications. Physical/Sexual Abuse/Trauma History: denies. Mental Status Exam - Mental Status Exam Alert and Oriented to: Time, Place, Person Cognitive Function: Good Patient Appearance: Well Groomed Mood: Sad Affect: Mood Congruent Patient Behavior: Cooperative Speech Pattern: Appropriate Voice Loudness: Normal Thought Process: Intact, Goal Oriented Thought Disorder: Not Present Hallucinations: Denies Suicidal Ideation: Denies Homicidal Ideation: Denies Insight/Judgement: Poor Sleep: Poorly Appetite: Fair Muscle strength/Tone: Normal Gait/Station: Normal Psychiatric Findings - Problem List ([place] 1, 2,3) (1) Alcohol dependence with uncomplicated withdrawal Current Visit: Yes Status: Acute (2) Depressive disorder Current Visit: Yes Status: Acute (3) Substance induced mood disorder Current Visit: Yes Status: Acute - Initial Treatment Plan Initial Treatment Plan: Psychoeducation provided. Detoxification in progress. Will order Zoloft 50mg daily +Trazodone 100mg Hs. Benefits and side effects discussed. Verbal consent given.
[2019-01-11] MEDS: PRENATAL VITAMINS W/ FOLIC ACID TABLET (FP) PO SCH (10:11)
[2019-01-11] MEDS: NICOTINE 14 MG/24 HOURS TOPICAL PATCH TD SCH (10:12)
[2019-01-11] MEDS: CALCIUM (OYSTER SHELL) 500 MG TABLET (FP) PO SCH ×2 (10:12→23:00)
[2019-01-11] MEDS: PATIENT'S OWN MEDICATION (NON-FORMULARY) (Losartan/Hydrochlorothiazide [Losartan-Hctz 100- PO SCH (10:12)
[2019-01-11 10:46] LABS: HEMATOCRIT 37.4 % (32.4-45.2); HEMOGLOBIN 12.3 GM/dL (10.7-15.3); MCH 28.3 pg (25.7-33.7); MEAN PLT VOLUME 8.8 fl (7.5-11.1); PLATELET COUNT 148 K/MM3 (134-434); RBC 4.36 M/mm3 (3.60-5.2); RDW 17.1 % (11.6-15.6); WHITE BLOOD COUNT 3.1 K/mm3 (4.0-10.0)
[2019-01-11 11:01] LABS: ALBUMIN 4.4 g/dl (3.4-5.0); ALK PHOS 60 U/L (45-117); ANION GAP 6 MMOL/L (8-16); BILIRUBIN,TOTAL 0.5 mg/dL (0.2-1); BLOOD UREA NITROGEN 21 mg/dL (7-18); CALCIUM 9.3 mg/dL (8.5-10.1); CHLORIDE 103 mmol/L (98-107); CO2 30 mmol/L (21-32); GLUCOSE,RANDOM 100 mg/dL (74-106); POTASSIUM 4.2 mmol/L (3.5-5.1); SGOT/AST 39 U/L (15-37); SGPT/ALT 42 U/L (13-61); SODIUM 138 mmol/L (136-145); TOT PROT 7.6 g/dl (6.4-8.2)
[2019-01-11] MEDS: SERTRALINE HCL 50 MG TABLET (FP) PO SCH (12:09)
[2019-01-11] MEDS: traZODone HCL 100 MG TABLET (FP) PO SCH (22:59)
[2019-01-11] MEDS: THIAMINE HCL 100 MG TABLET (FP) PO SCH (23:00)
[2019-01-12] MEDS: hydrOXYzine PAMOATE 50 MG CAPSULE (FP) PO SCH ×3 (05:53→22:03)
[2019-01-12] MEDS: chlordiazePOXIDE HCL 25 MG CAPSULE PO SCH ×3 (05:53→17:24)
[2019-01-12] MEDS ORDERED: PANTOPRAZOLE 40 MG TABLET (FP) PO ONE (07:14)
--- NOTE | 2019-01-12 07:18 | PN ---
S Progress Note Note: Patient complained of heartburn Vital Signs Temperature 97.7 F 01/12/19 06:49 Pulse Rate 57 L 01/12/19 06:49 Respiratory Rate 18 01/12/19 06:49 Blood Pressure 114/74 01/12/19 06:49 O2 Sat by Pulse Oximetry (%) Action: Pantoprazole sodium 40mg tablet ordered
[2019-01-12] MEDS: NICOTINE 14 MG/24 HOURS TOPICAL PATCH TD SCH (10:10)
[2019-01-12] MEDS: PRENATAL VITAMINS W/ FOLIC ACID TABLET (FP) PO SCH (10:10)
[2019-01-12] MEDS: CALCIUM (OYSTER SHELL) 500 MG TABLET (FP) PO SCH ×2 (10:10→22:04)
[2019-01-12] MEDS: PATIENT'S OWN MEDICATION (NON-FORMULARY) (Losartan/Hydrochlorothiazide [Losartan-Hctz 100- PO SCH (10:11)
[2019-01-12] MEDS: SERTRALINE HCL 50 MG TABLET (FP) PO SCH (10:11)
--- NOTE | 2019-01-12 13:55 | PN ---
[facility] CIWA - CIWA Score Nausea/Vomitin-No Nausea/No Vomiting Muscle Tremors: 3 Anxiety: 3 Agitation: 3 Paroxysmal Sweats: 3 Orientation: 0-Oriented Tacttile Disturbances: 0-None Auditory Disturbances: 0-None Visual Disturbances: 0-None Headache: 0-None Present CIWA-Ar Total Score: 12 S Progress Note (SOAP) Subjective: shakes sweats sleep interruption Objective: 01/12/19 13:53 A & Ox 3 By day room, watching TV anxious no acute distress noted Vital Signs Temperature 97.9 F 01/12/19 13:51 Pulse Rate 65 01/12/19 13:51 Respiratory Rate 18 01/12/19 13:51 Blood Pressure 102/70 01/12/19 13:51 O2 Sat by Pulse Oximetry (%) Laboratory Last Values WBC 3.1 K/mm3 (4.0-10.0) L 01/11/19 07:00 RBC 4.36 M/mm3 (3.60-5.2) 01/11/19 07:00 Hgb 12.3 GM/dL (10.7-15.3) 01/11/19 07:00 Hct 37.4 % (32.4-45.2) 01/11/19 07:00 MCV 86.0 fl (80-96) 01/11/19 07:00 MCH 28.3 pg (25.7-33.7) 01/11/19 07:00 MCHC 33.0 g/dl (32.0-36.0) 01/11/19 07:00 RDW 17.1 % (11.6-15.6) H 01/11/19 07:00 Plt Count 148 K/MM3 (134-434) 01/11/19 07:00 MPV 8.8 fl (7.5-11.1) 01/11/19 07:00 Sodium 138 mmol/L (136-145) 01/11/19 07:00 Potassium 4.2 mmol/L (3.5-5.1) 01/11/19 07:00 Chloride 103 mmol/L (98-107) 01/11/19 07:00 Carbon Dioxide 30 mmol/L (21-32) 01/11/19 07:00 Anion Gap 6 MMOL/L (8-16) L 01/11/19 07:00 BUN 21 mg/dL (7-18) H 01/11/19 07:00 Creatinine 1.0 mg/dL (0.55-1.3) 01/11/19 07:00 Creat Clearance w eGFR 57.35 (>60) 01/11/19 07:00 Random Glucose 100 mg/dL (74-106) 01/11/19 07:00 Calcium 9.3 mg/dL (8.5-10.1) 01/11/19 07:00 Total Bilirubin 0.5 mg/dL (0.2-1) 01/11/19 07:00 AST 39 U/L (15-37) H 01/11/19 07:00 ALT 42 U/L (13-61) 01/11/19 07:00 Alkaline Phosphatase 60 U/L (45-117) 01/11/19 07:00 Total Protein 7.6 g/dl (6.4-8.2) 01/11/19 07:00 Albumin 4.4 g/dl (3.4-5.0) 01/11/19 07:00 RPR Titer Nonreactive (NONREACTIVE) 01/11/19 07:00 HIV 1&2 Antibody Screen Negative 01/11/19 07:00 HIV P24 Antigen Negative 01/11/19 07:00 labs noted Assessment: 01/12/19 13:54 withdrawal sx Plan: continue detox
[2019-01-12] MEDS: NAPROXEN 500 MG TABLET (FP) PO PRN (14:22)
[2019-01-12] MEDS: THIAMINE HCL 100 MG TABLET (FP) PO SCH (22:03)
[2019-01-12] MEDS: traZODone HCL 100 MG TABLET (FP) PO SCH (22:03)
[2019-01-12] MEDS: chlordiazePOXIDE 5 MG CAPSULE PO SCH (22:03)
[2019-01-13] MEDS: hydrOXYzine PAMOATE 50 MG CAPSULE (FP) PO SCH ×3 (05:57→22:07)
[2019-01-13] MEDS: chlordiazePOXIDE 5 MG CAPSULE PO SCH ×3 (05:57→17:28)
[2019-01-13] MEDS: PRENATAL VITAMINS W/ FOLIC ACID TABLET (FP) PO SCH (10:13)
[2019-01-13] MEDS: CALCIUM (OYSTER SHELL) 500 MG TABLET (FP) PO SCH ×2 (10:13→22:30)
[2019-01-13] MEDS: PATIENT'S OWN MEDICATION (NON-FORMULARY) (Losartan/Hydrochlorothiazide [Losartan-Hctz 100- PO SCH (10:13)
[2019-01-13] MEDS: NICOTINE 14 MG/24 HOURS TOPICAL PATCH TD SCH (10:13)
[2019-01-13] MEDS: SERTRALINE HCL 50 MG TABLET (FP) PO SCH (10:13)
--- NOTE | 2019-01-13 13:36 | PN ---
S Progress Note (SOAP) Subjective: Anxious, tremor, interrupted sleep, irritable, agitated, had verbal altercation with male peer. Requested lab results which casualty underwriter went over with patient. Objective: 01/13/19 13:34 Last Vital Signs Temp Pulse Resp BP Pulse Ox 97.2 F L 61 18 103/74 01/13/19 10:00 01/13/19 07:01 01/13/19 10:00 01/13/19 10:00 Laboratory Tests 01/11/19 01/11/19 01/11/19 07:00 07:00 07:00 WBC 3.1 L RBC 4.36 Hgb 12.3 Hct 37.4 MCV 86.0 MCH 28.3 MCHC 33.0 RDW 17.1 H Plt Count 148 MPV 8.8 Sodium 138 Potassium 4.2 Chloride 103 Carbon Dioxide 30 Anion Gap 6 L BUN 21 H Creatinine 1.0 Creat Clearance w eGFR 57.35 Random Glucose 100 Calcium 9.3 Total Bilirubin 0.5 AST 39 H ALT 42 Alkaline Phosphatase 60 Total Protein 7.6 Albumin 4.4 RPR Titer HIV 1&2 Antibody Screen Negative HIV P24 Antigen Negative 01/11/19 07:00 WBC RBC Hgb Hct MCV MCH MCHC RDW Plt Count MPV Sodium Potassium Chloride Carbon Dioxide Anion Gap BUN Creatinine Creat Clearance w eGFR Random Glucose Calcium Total Bilirubin AST ALT Alkaline Phosphatase Total Protein Albumin RPR Titer Nonreactive HIV 1&2 Antibody Screen HIV P24 Antigen Labs reviewed: prerenal azotemia Assessment: 01/13/19 13:34 Withdrawal symptoms Noted with prerenal azotemia Plan: Continue detox Prerenal azotemia: encouraged PO water hydration
[2019-01-13] MEDS: traZODone HCL 100 MG TABLET (FP) PO SCH (22:07)
[2019-01-13] MEDS: chlordiazePOXIDE HCL 10 MG CAPSULE PO SCH (22:07)
[2019-01-13] MEDS: NAPROXEN 500 MG TABLET (FP) PO PRN (22:07)
[2019-01-13] MEDS: THIAMINE HCL 100 MG TABLET (FP) PO SCH (22:08)
[2019-01-13] MEDS: MAG HYDROX/AL HYDROX/SIMETH 30 ML UNIT-DOSE CUP PO PRN (22:26)
[2019-01-14] MEDS: chlordiazePOXIDE HCL 10 MG CAPSULE PO SCH (06:40)
[2019-01-14] MEDS: hydrOXYzine PAMOATE 50 MG CAPSULE (FP) PO SCH (06:41)
[2019-01-14 09:24] VITALS: BP 129/70; PULSE 73; TEMP 97.3
[2019-01-14] MEDS: CALCIUM (OYSTER SHELL) 500 MG TABLET (FP) PO SCH (11:14)
[2019-01-14] MEDS: SERTRALINE HCL 50 MG TABLET (FP) PO SCH (11:14)
[2019-01-14] MEDS: NICOTINE 14 MG/24 HOURS TOPICAL PATCH TD SCH (11:14)
[2019-01-14] MEDS: PATIENT'S OWN MEDICATION (NON-FORMULARY) (Losartan/Hydrochlorothiazide [Losartan-Hctz 100- PO SCH (11:14)
[2019-01-14] MEDS: PRENATAL VITAMINS W/ FOLIC ACID TABLET (FP) PO SCH (11:14)
--- NOTE | 2019-01-14 13:48 | DS ---
[facility] Detox Discharge Summary Admission Date: 01/10/19 Discharge Date: 01/14/19 - History Present History: Alcohol Dependence Additional Comments: PATIENT GOING TO [facility] ([place], [place]) FOR AFTERCARE. PATIENT DECLINED OFFER OF MEDICATION PRESCRIPTION FOR HOME MEDICATION AT TIME OF DISCHARGE FROM DETOX, NOTING THAT HE CURRENTLY HAS ADEQUATE SUPPLIES OF ALL PRESCRIBED HOME MEDICATIONS AT HOME. AT TIME OF DISCHARGE, PATIENT REPORTS CONCERN OVER REPORTED HISTORY OF FATTY LIVER AND THAT SHE WILL STOP AT [facility] ([place], [place]) FOR FURTHER ASSESSMENT OF THIS CONDITION PRIOR TO GOING TO [facility]. PATIENT ADVISED TO CONSIDER GOING TO [facility] FOR FURTHER EVALUATION OF THIS CONDITION AND THAT [facility] MIGHT BE BETTER SUITED TO ADDRESS THIS CONDITION. HOWEVER, PATIENT DECLINES TO DO AND NOTES THAT SHE WILL GO TO [facility] ER INSTEAD. PATIENT WAS DISCHARGED FROM DETOX UNIT IN STABLE MEDICAL CONDITION. Pertinent Past History: HTN, History of G.E.R.D., Depressive Disorder, History of Positive PPD, Leukopenia, History of Fatty Liver, Nicotine Dependence. - Physical Exam Results Vital Signs: Vital Signs Temperature 97.3 F L 01/14/19 09:22 Pulse Rate 73 01/14/19 09:22 Respiratory Rate 18 01/14/19 09:22 Blood Pressure 129/70 01/14/19 09:22 O2 Sat by Pulse Oximetry (%) Pertinent Admission Physical Exam Findings: WITHDRAWAL SYMPTOMS. Laboratory Tests 01/11/19 01/11/19 01/11/19 07:00 07:00 07:00 WBC 3.1 L RBC 4.36 Hgb 12.3 Hct 37.4 MCV 86.0 MCH 28.3 MCHC 33.0 RDW 17.1 H Plt Count 148 MPV 8.8 Sodium 138 Potassium 4.2 Chloride 103 Carbon Dioxide 30 Anion Gap 6 L BUN 21 H Creatinine 1.0 Creat Clearance w eGFR 57.35 Random Glucose 100 Calcium 9.3 Total Bilirubin 0.5 AST 39 H ALT 42 Alkaline Phosphatase 60 Total Protein 7.6 Albumin 4.4 RPR Titer HIV 1&2 Antibody Screen Negative HIV P24 Antigen Negative 01/11/19 07:00 WBC RBC Hgb Hct MCV MCH MCHC RDW Plt Count MPV Sodium Potassium Chloride Carbon Dioxide Anion Gap BUN Creatinine Creat Clearance w eGFR Random Glucose Calcium Total Bilirubin AST ALT Alkaline Phosphatase Total Protein Albumin RPR Titer Nonreactive HIV 1&2 Antibody Screen HIV P24 Antigen LABS NOTED. - Treatment Hospital Course: Detox Protocol Followed, Detoxed Safely, Responded well, Discharged Condition Good, Rehab Referral Accepted Patient has Accepted a Rehab Referral to: [facility] ([place], [place]). - Medication Discharge Medications: Ambulatory Orders traZODone HCL [Desyrel -] 100 mg PO HS 03/28/13 Naproxen [Naprosyn -] 500 mg PO Q12H PRN 05/20/18 hydrOXYzine PAMOATE [Vistaril -] 50 mg PO TID 09/20/18 Calcium Carbonate [Oyster Shell Calcium] 500 mg PO BID 01/10/19 Famotidine [Pepcid] 40 mg PO DAILY 01/10/19 Losartan/Hydrochlorothiazide [Losartan-Hctz 100-12.5 mg Tab] 1 each PO DAILY Sertraline HCl [Zoloft -] 50 mg PO DAILY 01/10/19 - Diagnosis (1) Alcohol dependence with uncomplicated withdrawal Status: Acute (2) Cocaine dependence Status: Acute Qualifiers: Substance use status: uncomplicated Qualified Code(s): F14.20 - Cocaine dependence, uncomplicated (3) Fatty liver Status: Chronic (4) GERD (gastroesophageal reflux disease) Status: Chronic Qualifiers: Esophagitis presence: without esophagitis Qualified Code(s): K21.9 - Gastro -esophageal reflux disease without esophagitis (5) HTN (hypertension) Status: Chronic Qualifiers: Hypertension type: essential hypertension Qualified Code(s): I10 - Essential (primary) hypertension (6) History of positive PPD Status: Chronic (7) Nicotine dependence Status: Chronic Qualifiers: Nicotine product type: cigarettes Substance use status: in withdrawal Qualified Code(s): F17.213 - Nicotine dependence, cigarettes, with withdrawal (8) Depressive disorder Status: Acute (9) Substance induced mood disorder Status: Acute - AMA Did Patient Leave Against Medical Advice: No
== END 2019-01-14 11:03 | disposition home or self-care (01) | DRG 774 ==
LOC: YASAS 13:05 → Y6N 17:51
PROVIDERS: ADMIT Surgery; ATTEND Surgery
PROC: HZ2ZZZZ Detoxification Services for Substance Abuse Treatment (ICD-10-PCS; principal; 2019-01-10)
DX: F10.230 Alcohol dependence with withdrawal, uncomplicated (principal); F14.20 Cocaine dependence, uncomplicated; F17.210 Nicotine dependence, cigarettes, uncomplicated; F32.9 Major depressive disorder, single episode, unspecified; F19.24 Other psychoactive substance dependence with psychoactive substance-induced mood disorder; F41.9 Anxiety disorder, unspecified; I10 Essential (primary) hypertension; K21.9 Gastro-esophageal reflux disease without esophagitis; K76.0 Fatty (change of) liver, not elsewhere classified; R76.11 Nonspecific reaction to tuberculin skin test without active tuberculosis; G47.00 Insomnia, unspecified; Z88.8 Allergy status to other drugs, medicaments and biological substances
CPT/HCPCS: 36415; 80053; 85027; 86593; 87389

== ENCOUNTER 2020-05-22 09:41 | Inpatient (IN) | payer OTHER ==
--- NOTE | 2020-05-22 09:56 | BHS.RME ---
Substance Use & Tx History - Substance Use History Alcohol Substance amount: 1.5 pints vodka Frequency of use: Daily Substance route: Oral Date of Last Use: 05/22/20 (5am) Nicotine Substance amount: 3 ciggs Frequency of use: Daily Substance route: Smoking Date of Last Use: 05/22/20 Physical/Psych/Mental Status - Behavior General Behavior: Increased activity (restlessness, agitation) Eye Contact: Normal - Cooperativeness Cooperativeness: Cooperative - Thinking Thought Processes: Tight, Logical, Goal Directed - Physical Health Problems Is patient presently having any pain?: No Does patient presently have any injuries (include location): No Does patient currently have a fever: No Is patient : No CIWA Nausea/Vomitin Muscle Tremors: 4-Moderate,w/Arms Extend Anxiety: 4-Mod. Anxious/Guarded Agitation: 4-Moderately Restless Paroxysmal Sweats: 4-Forehead w/Sweat Beads Orientation: 0-Oriented Tacttile Disturbances: 0-None Auditory Disturbances: 0-None Visual Disturbances: 0-None Headache: 2-Mild CIWA-Ar Total Score: 20
[2020-05-22 10:11] VITALS: BMI 28.9
--- NOTE | 2020-05-22 10:56 | HP ---
CIWA Score Nausea/Vomitin Muscle Tremors: 4-Moderate,w/Arms Extend Anxiety: 4-Mod. Anxious/Guarded Agitation: 4-Moderately Restless Paroxysmal Sweats: 4-Forehead w/Sweat Beads Orientation: 0-Oriented Tacttile Disturbances: 0-None Auditory Disturbances: 0-None Visual Disturbances: 0-None Headache: 2-Mild CIWA-Ar Total Score: 20 - Admission Criteria OASAS Guidelines: Admission for Medically Managed Detox: Requires at least one of the followin. CIWA greater than 12 2. Seizures within the past 24 hours 3. Delirium tremens within the past 24 hours 4. Hallucinations within the past 24 hours 5. Acute intervention needed for co occurring medical disorder 6. Acute intervention needed for co occurring psychiatric disorder 7. Severe withdrawal that cannot be handled at a lower level of care (continued vomiting, continued diarrhea, abnormal vital signs) requiring intravenous medication and/or fluids 8. Admitting History and Physical - Admission Chief Complaint: " I need to clean up again." History of Present Illness: 60 year old female with history of alcohol dependence with withdrawal. She was abstinent for 9 months and relapsed 3 months ago due to COVID - lost her job. Alcohol: 1.5 pints vodka daily, started at age 32 and last used 05/22/20. She had a blackout 1 year ago. 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 Nicotine: 3 ciggs daily started at age 23 and last used 05/22/20 PMH: HTN, GERD Psurg: None Psych: Insomnia CHRISTINA: 0.102 She lives in her own apartment alone and has no legal issues pending. She meets criteria for detox as she is at high risk for relapse. She also has medical co-morbidities and poor environment for recovery. History Source: Patient Limitations to Obtaining History: No Limitations - Past Medical History Cardiovascular: Yes: HTN ...LMP: 10/27/09 Psych: Yes: Other (Insomnia) - Smoking History Smoking history: Current every day smoker Have you smoked in the past 12 months: Yes Aproximately how many cigarettes per day: 3 - Alcohol/Substance Use Hx Alcohol Use: Yes Admission [facility] Allergies/Adverse Reactions: Allergies Allergy/AdvReac Type Severity Reaction Status Date / Time lorazepam [From Ativan] Allergy Intermediate Rash Verified 05/22/20 10:54 Exam Limitations: No Limitations - Ebola screening Have you traveled outside of the country in the last 21 days: No Have you had contact with anyone from an Ebola affected area: No Have you been sick,other than usual withdrawal symptoms: No Do you have a fever: No - Review of Systems Constitutional: Chills EENT: reports: No Symptoms Reported Respiratory: reports: No Symptoms reported Cardiac: reports: No Symptoms Reported GI: reports: No Symptoms Reported : reports: No Symptoms Reported Musculoskeletal: reports: No Symptoms Reported Integumentary: reports: No Symptoms Reported Neuro: reports: No Symptoms reported Endocrine: reports: No Symptoms Reported, Unexplained Weight Loss Psychiatric: reports: Judgement Intact, Orientated x3, Agitated, Anxious Other Systems: Reviewed and Negative Patient History - Patient Medical History Hx Anemia: No Hx Asthma: No Hx Chronic Obstructive Pulmonary Disease (COPD): No Hx Cancer: No Hx Cardiac Disorders: No Hx Congestive Heart Failure: No Hx Hypertension: Yes Hx Hypercholesterolemia: No Hx Pacemaker: No HX Cerebrovascular Accident: No Hx Seizures: No Hx Dementia: No Hx Diabetes: No Hx Gastrointestinal Disorders: Yes (acid reflux) Hx Liver Disease: No Hx Genitourinary Disorders: No Hx Sexually Transmitted Disorders: No Hx Renal Disease (ESRD): No Hx Thyroid Disease: No Hx Human Immunodeficiency Virus (HIV): No (last 03/30 negative) Hx Hepatitis C: No Hx Depression: Yes Hx Suicide Attempt: No Hx Bipolar Disorder: No Hx Schizophrenia: No - Patient Surgical History Past Surgical History: No Hx Neurologic Surgery: No Hx Cataract Extraction: No Hx Cardiac Surgery: No Hx Lung Surgery: No Hx Breast Surgery: No Hx Breast Biopsy: No Hx Abdominal Surgery: No Hx Appendectomy: No Hx Cholecystectomy: No Hx Genitourinary Surgery: No Hx Section: No Hx Orthopedic Surgery: No Hx Hysterectomy: No Anesthesia Reaction: No - PPD History Previous Implant?: Yes Documented Results: Positive w/proof Implanted On Prior [facility] Admission?: No Results: CXR(-)02/09/18 PPD to be Administered?: No - Reproductive History Last Menstrual Period: 10/27/09 - Smoking Cessation Smoking history: Current every day smoker Have you smoked in the past 12 months: Yes Aproximately how many cigarettes per day: 3 Cigars Per Day: 0 Hx Chewing Tobacco Use: No Initiated information on smoking cessation: Yes 'Breaking Loose' booklet given: 05/22/20 - Substances abused Alcohol Substance route: Oral Frequency: Daily Amount used: 1.5 pints vodka Age of first use: 32 Date of last use: 05/22/20 Admission Physical Exam [facility] - Vital Signs Vital Signs: Vital Signs - 24 hr 05/22/20 10:08 Temperature 97.6 F Pulse Rate 83 Respiratory 18 Rate Blood Pressure 101/66 - Physical General Appearance: Yes: Moderate Distress, Thin, Tremorous, Irritable, Sweating, Anxious HEENTM: Yes: EOMI, Hearing grossly Normal, Normal ENT Inspection, Normocephalic, Normal Voice, ALEXEI, Pharynx Normal, Tm's normal Respiratory: Yes: Chest Non-Tender, Lungs Clear, Normal Breath Sounds, No Respiratory Distress, No Accessory Muscle Use Neck: Yes: No masses,lesions,Nodules, Supple, Trachea in good position Breast: Yes: Breast Exam Deferred Cardiology: Yes: Regular Rhythm, Regular Rate, S1, S2 Abdominal: Yes: Normal Bowel Sounds, Non Tender, Flat, Soft Genitourinary: Yes: Within Normal Limits Back: Yes: Normal Inspection Musculoskeletal: Yes: full range of Motion, Gait Steady, Pelvis Stable Extremities: Yes: Normal Capillary Refill, Normal Inspection, Normal Range of Motion, Non-Tender Neurological: Yes: 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 NML intact, Fully Oriented, Alert, Motor Strength 5/5, Normal Mood/Affect, Normal Response Integumentary: Yes: Normal Color, Dry, Warm Lymphatic: Yes: Within Normal Limits - Diagnostic (1) Alcohol dependence with uncomplicated withdrawal Current Visit: Yes Status: Acute (2) Anxiety and depression Current Visit: Yes Status: Acute (3) Essential hypertension Current Visit: Yes Status: Chronic (4) GERD (gastroesophageal reflux disease) Current Visit: Yes Status: Chronic Qualifiers: Esophagitis presence: without esophagitis Qualified Code(s): K21.9 - Gastro-esophageal reflux disease without esophagitis (5) History of positive PPD Current Visit: Yes Status: Chronic (6) Nicotine dependence Current Visit: Yes Status: Chronic Qualifiers: Nicotine product type: cigarettes Substance use status: in withdrawal Qualified Code(s): F17.213 - Nicotine dependence, cigarettes, with withdrawal Cleared for Admission [facility] - Detox or Rehab [facility] Level of Care: Medically Managed Detox Regimen/Protocol: Librium Claeared for Rehab Admission: No Screened but not Admitted - Documentation of Visit Screened but not Admitted: No Breathalyzer - Breathalyzer Breathalyzer: 0.102 Urine Drug Screen - Test Device Lot number: [id number] Expiration date: 07/13/21 - Control Is test valid?: Yes - Results Drug screen NEGATIVE: Yes Inpatient Rehab Admission - Rehab Decision to Admit Inpatient rehab admission?: No
[2020-05-22] MEDS ORDERED: MAG HYDROX/AL HYDROX/SIMETH 30 ML UNIT-DOSE CUP PO PRN (10:59)
[2020-05-22] MEDS ORDERED: METHOCARBAMOL 500 MG TABLET PO PRN (10:59)
[2020-05-22] MEDS ORDERED: NICOTINE POLACRILEX 2 MG GUM BUC PRN (10:59)
[2020-05-22] MEDS ORDERED: ONDANSETRON *ODT* 4 MG TABLET SL ONE (10:59)
[2020-05-22] MEDS ORDERED: BISMUTH SUBSALICYLATE 262 MG/15 ML BTL PO PRN (10:59)
[2020-05-22] MEDS ORDERED: MAGNESIUM CITRATE 300 ML BOTTLE PO PRN (10:59)
[2020-05-22] MEDS ORDERED: MENTHOL/PHENOL 1 EACH UD MM PRN (10:59)
[2020-05-22] MEDS ORDERED: chlordiazePOXIDE HCL 25 MG CAPSULE PO PRN (10:59)
[2020-05-22] MEDS ORDERED: MAGNESIUM HYDROX 2400MG/30ML ORAL SUSPENSION 30 ML CUP PO PRN (10:59)
[2020-05-22] MEDS ORDERED: IBUPROFEN 400 MG TABLET (FP) PO PRN (10:59)
[2020-05-22] MEDS ORDERED: ACETAMINOPHEN 325 MG TABLET (FP) PO PRN ×2 (10:59)
[2020-05-22] MEDS ORDERED: PRENATAL VITAMINS W/ FOLIC ACID TABLET (FP) PO SCH (11:00)
[2020-05-22] MEDS ORDERED: ACETAMINOPHEN 325 MG TABLET (FP) ONE (11:23)
[2020-05-22] MEDS: chlordiazePOXIDE HCL 25 MG CAPSULE PO SCH ×3 (12:09→22:06)
[2020-05-22] MEDS: NICOTINE 7 MG/24 HOURS TOPICAL PATCH TD SCH (12:09)
[2020-05-22] MEDS: hydrOXYzine PAMOATE 25 MG CAPSULE (FP) PO SCH ×3 (14:09→22:06)
[2020-05-22 15:38] LABS: HEMATOCRIT 43.4 % (32.4-45.2); HEMOGLOBIN 13.5 GM/dL (10.7-15.3); MEAN CELL VOLUME 87.1 fl (80-96); MEAN PLT VOLUME 8.8 fl (7.5-11.1); PLATELET COUNT 196 K/MM3 (134-434); RBC 4.99 M/mm3 (3.60-5.2); RDW 16.3 % (11.6-15.6); WHITE BLOOD COUNT 5.4 K/mm3 (4.0-10.0)
[2020-05-22 15:56] LABS: ALBUMIN 4.1 g/dl (3.4-5.0); BILIRUBIN,TOTAL 0.6 mg/dL (0.2-1); BLOOD UREA NITROGEN 21.7 mg/dL (7-18); CALCIUM 9.7 mg/dL (8.5-10.1); POTASSIUM 3.9 mmol/L (3.5-5.1); TOT PROT 7.7 g/dl (6.4-8.2)
[2020-05-22 15:58] LABS: CREATININE 1.3 mg/dL (0.55-1.3)
--- NOTE | 2020-05-22 16:41 | CONSULT ---
[facility] Psychiatric Consult - Data Date of interview: 05/22/20 Admission source: [facility] Identifying data: Revisit to [facility] and admission to [address] [place] [address] for this 60 y/o AA female self-referred for detoxification treatment. CARLA issues : alcohol, nicotine. Patient is single, a mother of two, homeless (resides in prison), unemployed and supported on welfare. Substance Abuse History: Discussed with the patient. CARLA profile as follows : Smoking history: Current every day smoker. Have you smoked in the past 12 months: Yes. Aproximately how many cigarettes per day: 3. Cigars Per Day: 0. Hx Chewing Tobacco Use: No. Initiated information on smoking cessation: Yes. 'Breaking Loose' booklet given: 05/22/20. - Substances abused. Alcohol. Substance route: Oral. Frequency: Daily. Amount used: 1.5 pints vodka. Age of first use: 32. Date of last use: 05/22/20 Medical History: Medical history is remarkable for positive PPD, GERD and hypertension. Psychiatric History: Patient reports her first contact with psychiatrists occurred in 2011 during [facility] rehabilitation treatment at [facility] (was retained for a period of six months). Diagnosed with MDD and managed with various medications that included seroquel + trazodone (changed later for abilify + zoloft). Prone to frequent relapses into substance use. At [facility], the patient received treatment with valproate. She stopped taking psychotropic medications in 2013 (after discharge from [facility]). Ms Childress returned to OPD care in 2015 ([facility] in [place], [place]). She is currently prescribed zoloft 50 mg/day + trazodone 50 mg/hs. Patient reports past treatment with seroquel, trazodone, abilify and sertraline. Now followed at the [facility] mental health clinic in [facility]. She endorses history of one psychiatric hospitalization at [facility] two years ago + a recent ED visit at [facility] (kept under observation for 24 hours and discharged from ED) five months ago. Patient denies history of suicide attempts. Physical/Sexual Abuse/Trauma History: Patient denies. Additional Comment: Negative toxicology. Mental Status Exam - Mental Status Exam Alert and Oriented to: Time, Place, Person Cognitive Function: Good Patient Appearance: Well Groomed Mood: Withdrawn, Hopeful Affect: Appropriate, Normal Range Patient Behavior: Fatigued, Appropriate, Cooperative Speech Pattern: Clear, Appropriate Voice Loudness: Normal Thought Process: Intact, Goal Oriented Thought Disorder: Not Present Hallucinations: Denies Suicidal Ideation: Denies Homicidal Ideation: Denies Insight/Judgement: Poor Sleep: Poorly, Difficulty falling asleep Appetite: Good Gait/Station: Other (not observed; in bed for entire interview) Psychiatric Findings - Problem List ([place] 1, 2,3) (1) Alcohol dependence with uncomplicated withdrawal Current Visit: Yes Status: Acute (2) Nicotine dependence Current Visit: Yes Status: Chronic Qualifiers: Nicotine product type: cigarettes Substance use status: in withdrawal Qualified Code(s): F17.213 - Nicotine dependence, cigarettes, with withdrawal (3) Substance induced mood disorder Current Visit: Yes Status: Chronic (4) History of depression Current Visit: Yes Status: Chronic - Initial Treatment Plan Initial Treatment Plan: Psychoeducation. Support. Sleep hygiene. Detoxification in progress. Resumed, at patient's request : zoloft 50 mg po daily + trazodone 50 mg po hs. Side effects/benefits of both drugs are discussed with the patient. Ms Childress is in agreement with this plan of care. Gave informed consent (verbal) to MD. Little.
[2020-05-22] MEDS: metFORMIN HCL 500 MG TABLET (FP) PO SCH (17:15)
[2020-05-22] MEDS: THIAMINE HCL 100 MG TABLET (FP) PO SCH (22:06)
[2020-05-22] MEDS: PATIENT'S OWN MEDICATION (NON-FORMULARY) (Valacyclovir Hcl [Valtrex -] 1,000 MG) PO SCH (22:06)
[2020-05-22] MEDS: traZODone HCL 50 MG TABLET (FP) PO SCH (22:06)
[2020-05-22] MEDS: ATORVASTATIN CA 20 MG TABLET (FP) PO SCH (22:06)
[2020-05-22] MEDS: MELATONIN 5 MG TABLETS PO SCH (22:07)
[2020-05-23] MEDS: chlordiazePOXIDE HCL 25 MG CAPSULE PO SCH ×4 (05:47→22:07)
[2020-05-23] MEDS: hydrOXYzine PAMOATE 25 MG CAPSULE (FP) PO SCH ×5 (05:48→22:07)
[2020-05-23] MEDS: metFORMIN HCL 500 MG TABLET (FP) PO SCH ×2 (06:27→17:32)
[2020-05-23] MEDS ORDERED: PATIENT'S OWN MEDICATION (NON-FORMULARY) (Losartan/Hydrochlorothiazide [Losartan-Hctz 100- PO SCH (10:00)
[2020-05-23] MEDS ORDERED: LOSARTAN POTASSIUM 50 MG TABLET (FP) PO SCH (10:00)
[2020-05-23] MEDS: SERTRALINE HCL 50 MG TABLET (FP) PO SCH (10:35)
[2020-05-23] MEDS: LOSARTAN POTASSIUM 50 MG TABLET (FP) PO SCH (10:35)
[2020-05-23] MEDS: ASPIRIN 81 MG CHEWABLE TABLETS PO SCH (10:37)
[2020-05-23] MEDS: HYDROCHLOROTHIAZIDE 12.5 MG CAPSULE (FP) PO SCH (10:37)
[2020-05-23] MEDS: PATIENT'S OWN MEDICATION (NON-FORMULARY) (Valacyclovir Hcl [Valtrex -] 1,000 MG) PO SCH ×2 (10:37→22:07)
[2020-05-23] MEDS: NICOTINE 7 MG/24 HOURS TOPICAL PATCH TD SCH (10:37)
[2020-05-23] MEDS: MULTIVITAMINS (DAILY MVI) TABLET (FP) PO SCH (10:38)
[2020-05-23] MEDS: CHOLECALCIFEROL (VIT D3) 1,000 UNIT (25 MCG) TABLET PO SCH (10:46)
--- NOTE | 2020-05-23 14:06 | PN ---
S CIWA - CIWA Score Nausea/Vomitin-No Nausea/No Vomiting Muscle Tremors: None Anxiety: 3 Agitation: 2 Paroxysmal Sweats: 3 Orientation: 0-Oriented Tacttile Disturbances: 0-None Auditory Disturbances: 0-None Visual Disturbances: 0-None Headache: 2-Mild CIWA-Ar Total Score: 10 S Progress Note (SOAP) Subjective: c/o sweats, anxiety, and headache. Objective: 05/23/20 14:05 Vital Signs 05/23/20 05/23/20 05/23/20 06:32 08:49 12:42 Temperature 97.1 F L 96.8 F L 97.6 F Pulse Rate 65 96 H 87 Respiratory 18 16 18 Rate Blood Pressure 100/61 119/75 129/78 O2 Sat by Pulse 97 100 Oximetry (%) Laboratory Last Values WBC 5.4 K/mm3 (4.0-10.0) 05/22/20 11:05 RBC 4.99 M/mm3 (3.60-5.2) 05/22/20 11:05 Hgb 13.5 GM/dL (10.7-15.3) 05/22/20 11:05 Hct 43.4 % (32.4-45.2) D 05/22/20 11:05 MCV 87.1 fl (80-96) 05/22/20 11:05 MCH 27.0 pg (25.7-33.7) 05/22/20 11:05 MCHC 31.0 g/dl (32.0-36.0) L 05/22/20 11:05 RDW 16.3 % (11.6-15.6) H 05/22/20 11:05 Plt Count 196 K/MM3 (134-434) D 05/22/20 11:05 MPV 8.8 fl (7.5-11.1) 05/22/20 11:05 Sodium 143 mmol/L (136-145) 05/22/20 11:05 Potassium 3.9 mmol/L (3.5-5.1) 05/22/20 11:05 Chloride 112 mmol/L (98-107) H 05/22/20 11:05 Carbon Dioxide 19 mmol/L (21-32) L 05/22/20 11:05 Anion Gap 11 MMOL/L (8-16) 05/22/20 11:05 BUN 21.7 mg/dL (7-18) H 05/22/20 11:05 Creatinine 1.3 mg/dL (0.55-1.3) 05/22/20 11:05 Est GFR (CKD-EPI)AfAm 52.37 05/22/20 11:05 Est GFR (CKD-EPI)NonAf 45.18 05/22/20 11:05 POC Glucometer 99 UNITS (80-120) 05/23/20 05:46 Random Glucose 121 mg/dL (74-106) H 05/22/20 11:05 Calcium 9.7 mg/dL (8.5-10.1) 05/22/20 11:05 Total Bilirubin 0.6 mg/dL (0.2-1) 05/22/20 11:05 AST 17 U/L (15-37) 05/22/20 11:05 ALT 23 U/L (13-61) 05/22/20 11:05 Alkaline Phosphatase 61 U/L (45-117) 05/22/20 11:05 Total Protein 7.7 g/dl (6.4-8.2) 05/22/20 11:05 Albumin 4.1 g/dl (3.4-5.0) 05/22/20 11:05 Syphilis Serology Non-reactive (NONREACTIVE) 05/22/20 11:05 Labs noted Assessment: 05/23/20 14:05 AOx 3, in no acute respiratory distress. Full ROM, ambulating in the unit. Withdrawal symptoms. Plan: continue detox.
[2020-05-23] MEDS: FAMOTIDINE 20 MG TABLET PO SCH (15:04)
[2020-05-23] MEDS: traZODone HCL 50 MG TABLET (FP) PO SCH (22:06)
[2020-05-23] MEDS: ATORVASTATIN CA 20 MG TABLET (FP) PO SCH (22:07)
[2020-05-23] MEDS: THIAMINE HCL 100 MG TABLET (FP) PO SCH (22:07)
[2020-05-23] MEDS: MELATONIN 5 MG TABLETS PO SCH (22:07)
[2020-05-24] MEDS: hydrOXYzine PAMOATE 25 MG CAPSULE (FP) PO SCH ×5 (05:49→23:54)
[2020-05-24] MEDS: chlordiazePOXIDE HCL 25 MG CAPSULE PO SCH ×4 (05:49→23:54)
[2020-05-24] MEDS: metFORMIN HCL 500 MG TABLET (FP) PO SCH ×2 (06:22→17:26)
[2020-05-24] MEDS ORDERED: MASKS NR ONE (08:36)
[2020-05-24] MEDS: NICOTINE 7 MG/24 HOURS TOPICAL PATCH TD SCH (10:10)
[2020-05-24] MEDS: FAMOTIDINE 20 MG TABLET PO SCH (10:10)
[2020-05-24] MEDS: LOSARTAN POTASSIUM 50 MG TABLET (FP) PO SCH (10:11)
[2020-05-24] MEDS: SERTRALINE HCL 50 MG TABLET (FP) PO SCH (10:11)
[2020-05-24] MEDS: HYDROCHLOROTHIAZIDE 12.5 MG CAPSULE (FP) PO SCH (10:11)
[2020-05-24] MEDS: ASPIRIN 81 MG CHEWABLE TABLETS PO SCH (10:11)
[2020-05-24] MEDS: CHOLECALCIFEROL (VIT D3) 1,000 UNIT (25 MCG) TABLET PO SCH (10:12)
[2020-05-24] MEDS: MULTIVITAMINS (DAILY MVI) TABLET (FP) PO SCH (10:13)
[2020-05-24] MEDS: PATIENT'S OWN MEDICATION (NON-FORMULARY) (Valacyclovir Hcl [Valtrex -] 1,000 MG) PO SCH ×2 (10:13→23:54)
--- NOTE | 2020-05-24 11:24 | PN ---
S CIWA - CIWA Score Nausea/Vomitin-No Nausea/No Vomiting Muscle Tremors: 2 Anxiety: 2 Agitation: 0-Normal Activity Paroxysmal Sweats: 1-Minimal Palms Moist Orientation: 0-Oriented Tacttile Disturbances: 1-Very Mild Itch/Numbness Auditory Disturbances: 0-None Visual Disturbances: 1-Very Mild Sensitivity Headache: 0-None Present CIWA-Ar Total Score: 7 B[facility] Progress Note (SOAP) Subjective: 60 years old female admitted on 05/22/20 for alcohol withdrawal sx management treating with librium detox regiment reports taking prescription vitamin D3 brought in own medication prefers to use own D3 visual inspection of label of vitamin D3 will order vitamin D3 encourage bring in patient's medication to pharmacy for verification Objective: 05/24/20 11:24 Vital Signs - 24 hr 05/23/20 05/23/20 05/23/20 12:42 17:19 20:57 Temperature 97.6 F 97.3 F L 97.1 F L Pulse Rate 87 65 67 Respiratory 18 16 16 Rate Blood Pressure 129/78 107/66 135/82 O2 Sat by Pulse 100 99 Oximetry (%) 05/24/20 05/24/20 06:29 08:44 Temperature 97.3 F L 96.8 F L Pulse Rate 72 59 L Respiratory 18 18 Rate Blood Pressure 111/81 126/82 O2 Sat by Pulse 97 Oximetry (%) Laboratory Tests 05/22/20 05/22/20 05/22/20 11:05 11:05 11:05 WBC 5.4 RBC 4.99 Hgb 13.5 Hct 43.4 D MCV 87.1 MCH 27.0 MCHC 31.0 L RDW 16.3 H Plt Count 196 D MPV 8.8 Sodium 143 Potassium 3.9 Chloride 112 H Carbon Dioxide 19 L Anion Gap 11 BUN 21.7 H Creatinine 1.3 Est GFR (CKD-EPI)AfAm 52.37 Est GFR (CKD-EPI)NonAf 45.18 POC Glucometer Random Glucose 121 H Calcium 9.7 Total Bilirubin 0.6 AST 17 ALT 23 Alkaline Phosphatase 61 Total Protein 7.7 Albumin 4.1 Syphilis Serology Non-reactive COVID-19 ([facility]) 05/22/20 05/22/20 05/22/20 11:33 14:00 16:26 WBC RBC Hgb Hct MCV MCH MCHC RDW Plt Count MPV Sodium Potassium Chloride Carbon Dioxide Anion Gap BUN Creatinine Est GFR (CKD-EPI)AfAm Est GFR (CKD-EPI)NonAf POC Glucometer 118 82 Random Glucose Calcium Total Bilirubin AST ALT Alkaline Phosphatase Total Protein Albumin Syphilis Serology COVID-19 ([facility]) Not detected 05/23/20 05/23/20 05:46 16:46 WBC RBC Hgb Hct MCV MCH MCHC RDW Plt Count MPV Sodium Potassium Chloride Carbon Dioxide Anion Gap BUN Creatinine Est GFR (CKD-EPI)AfAm Est GFR (CKD-EPI)NonAf POC Glucometer 99 123 Random Glucose Calcium Total Bilirubin AST ALT Alkaline Phosphatase Total Protein Albumin Syphilis Serology COVID-19 ([facility]) lab noted glucose serum elevation acceptable bgm lab noted Assessment: 05/24/20 11:26 alcohol withdrawal Plan: librium regiment
[2020-05-24] MEDS: ATORVASTATIN CA 20 MG TABLET (FP) PO SCH (23:53)
[2020-05-24] MEDS: traZODone HCL 50 MG TABLET (FP) PO SCH (23:53)
[2020-05-24] MEDS: THIAMINE HCL 100 MG TABLET (FP) PO SCH (23:54)
[2020-05-24] MEDS: MELATONIN 5 MG TABLETS PO SCH (23:54)
[2020-05-25] MEDS ORDERED: chlordiazePOXIDE HCL 10 MG CAPSULE PO PRN
[2020-05-25] MEDS ORDERED: valACYclovir HCL 500 MG TABLET (FP) PO ONE (02:40)
[2020-05-25] MEDS: chlordiazePOXIDE HCL 10 MG CAPSULE PO SCH ×4 (05:47→22:12)
[2020-05-25] MEDS: hydrOXYzine PAMOATE 25 MG CAPSULE (FP) PO SCH (05:47)
[2020-05-25] MEDS: metFORMIN HCL 500 MG TABLET (FP) PO SCH ×2 (07:09→17:30)
--- NOTE | 2020-05-25 09:04 | PN ---
S CIWA - CIWA Score Nausea/Vomitin-No Nausea/No Vomiting Muscle Tremors: 1-None Visible, but [place] Anxiety: 1-Mildly Anxious Agitation: 3 Paroxysmal Sweats: No Perspiration Orientation: 0-Oriented Tacttile Disturbances: 0-None Auditory Disturbances: 0-None Visual Disturbances: 0-None Headache: 0-None Present CIWA-Ar Total Score: 5 BHS Progress Note (SOAP) Subjective: 60 years old female admitted on 05/22/20 for alcohol withdrawal sx management treating with librium detox regimen ms bright requests to use her own medications her own medications in property will be picked up and ordered as labeled and verified by the pharmacy Objective: 05/25/20 09:04 Vital Signs - 24 hr 05/24/20 05/25/20 17:28 06:11 Temperature 96.9 F L 97.6 F Pulse Rate 80 59 L Respiratory 18 18 Rate Blood Pressure 117/72 101/66 O2 Sat by Pulse 96 99 Oximetry (%) Laboratory Tests 05/22/20 05/22/20 05/22/20 11:05 11:05 11:05 WBC 5.4 RBC 4.99 Hgb 13.5 Hct 43.4 D MCV 87.1 MCH 27.0 MCHC 31.0 L RDW 16.3 H Plt Count 196 D MPV 8.8 Sodium 143 Potassium 3.9 Chloride 112 H Carbon Dioxide 19 L Anion Gap 11 BUN 21.7 H Creatinine 1.3 Est GFR (CKD-EPI)AfAm 52.37 Est GFR (CKD-EPI)NonAf 45.18 POC Glucometer Random Glucose 121 H Calcium 9.7 Total Bilirubin 0.6 AST 17 ALT 23 Alkaline Phosphatase 61 Total Protein 7.7 Albumin 4.1 Syphilis Serology Non-reactive COVID-19 ([facility]) 05/22/20 05/22/20 05/22/20 11:33 14:00 16:26 WBC RBC Hgb Hct MCV MCH MCHC RDW Plt Count MPV Sodium Potassium Chloride Carbon Dioxide Anion Gap BUN Creatinine Est GFR (CKD-EPI)AfAm Est GFR (CKD-EPI)NonAf POC Glucometer 118 82 Random Glucose Calcium Total Bilirubin AST ALT Alkaline Phosphatase Total Protein Albumin Syphilis Serology COVID-19 ([facility]) Not detected 05/23/20 05/23/20 05/24/20 05:46 16:46 16:30 WBC RBC Hgb Hct MCV MCH MCHC RDW Plt Count MPV Sodium Potassium Chloride Carbon Dioxide Anion Gap BUN Creatinine Est GFR (CKD-EPI)AfAm Est GFR (CKD-EPI)NonAf POC Glucometer 99 123 116 Random Glucose Calcium Total Bilirubin AST ALT Alkaline Phosphatase Total Protein Albumin Syphilis Serology COVID-19 ([facility]) 05/25/20 05:46 WBC RBC Hgb Hct MCV MCH MCHC RDW Plt Count MPV Sodium Potassium Chloride Carbon Dioxide Anion Gap BUN Creatinine Est GFR (CKD-EPI)AfAm Est GFR (CKD-EPI)NonAf POC Glucometer 97 Random Glucose Calcium Total Bilirubin AST ALT Alkaline Phosphatase Total Protein Albumin Syphilis Serology COVID-19 ([facility]) 05/25/20 09:09 diabetes II treated with metformin encourage weight loss 05/25/20 09:14 set parameter for antihypertensive medications to hold if systolic below 110 and diastolic below 60 Assessment: 05/25/20 09:11 alcohol withdrawal hypertension diabetes II GERD Plan: librium regiment
[2020-05-25] MEDS ORDERED: hydrOXYzine PAMOATE 50 MG CAPSULE (FP) PO PRN (09:13)
--- NOTE | 2020-05-25 09:44 | PN ---
S Progress Note Note: ms bright requests all 10 pm medications to be given at 8pm discontinue 10 pm medications and 7 pm medication resume at 8 pm
[2020-05-25] MEDS: ASPIRIN 81 MG CHEWABLE TABLETS PO SCH (10:05)
[2020-05-25] MEDS: HYDROCHLOROTHIAZIDE 12.5 MG CAPSULE (FP) PO SCH (10:05)
[2020-05-25] MEDS: CHOLECALCIFEROL (VIT D3) 1,000 UNIT (25 MCG) TABLET PO SCH (10:05)
[2020-05-25] MEDS: SERTRALINE HCL 50 MG TABLET (FP) PO SCH (10:05)
[2020-05-25] MEDS: MULTIVITAMINS (DAILY MVI) TABLET (FP) PO SCH (10:05)
[2020-05-25] MEDS: NICOTINE 7 MG/24 HOURS TOPICAL PATCH TD SCH (10:06)
[2020-05-25] MEDS: LOSARTAN POTASSIUM 50 MG TABLET (FP) PO SCH (10:06)
[2020-05-25] MEDS: FAMOTIDINE 20 MG TABLET PO SCH (10:06)
[2020-05-25] MEDS: FOLIC ACID 1 MG TABLET (FP) PO SCH (10:54)
[2020-05-25] MEDS: PATIENT'S OWN MEDICATION (NON-FORMULARY) (Valacyclovir Hcl [Valtrex -] 1,000 MG) PO SCH ×2 (11:18→20:05)
[2020-05-25] MEDS ORDERED: traZODone HCL 50 MG TABLET (FP) PO SCH ×2 (19:00→20:00)
[2020-05-25] MEDS ORDERED: ATORVASTATIN CA 20 MG TABLET (FP) PO SCH (20:00)
[2020-05-25] MEDS: THIAMINE HCL 100 MG TABLET (FP) PO SCH (22:12)
[2020-05-25] MEDS: MELATONIN 5 MG TABLETS PO SCH (22:12)
[2020-05-26 05:55] VITALS: TEMP 97.3
[2020-05-26] MEDS: metFORMIN HCL 500 MG TABLET (FP) PO SCH ×2 (06:00→16:58)
[2020-05-26] MEDS: chlordiazePOXIDE HCL 10 MG CAPSULE PO SCH ×2 (06:00→16:57)
[2020-05-26] MEDS: FOLIC ACID 1 MG TABLET (FP) PO SCH (10:37)
[2020-05-26] MEDS: CHOLECALCIFEROL (VIT D3) 1,000 UNIT (25 MCG) TABLET PO SCH (10:37)
[2020-05-26] MEDS: ASPIRIN 81 MG CHEWABLE TABLETS PO SCH (10:37)
[2020-05-26] MEDS: MULTIVITAMINS (DAILY MVI) TABLET (FP) PO SCH (10:37)
[2020-05-26] MEDS: SERTRALINE HCL 50 MG TABLET (FP) PO SCH (10:38)
[2020-05-26] MEDS: HYDROCHLOROTHIAZIDE 12.5 MG CAPSULE (FP) PO SCH (10:38)
[2020-05-26] MEDS: FAMOTIDINE 20 MG TABLET PO SCH (10:38)
[2020-05-26] MEDS: LOSARTAN POTASSIUM 50 MG TABLET (FP) PO SCH (10:38)
[2020-05-26] MEDS: PATIENT'S OWN MEDICATION (NON-FORMULARY) (Valacyclovir Hcl [Valtrex -] 1,000 MG) PO SCH (10:38)
[2020-05-26] MEDS: NICOTINE 7 MG/24 HOURS TOPICAL PATCH TD SCH (10:40)
--- NOTE | 2020-05-26 10:59 | PN ---
S CIWA - CIWA Score Nausea/Vomitin-No Nausea/No Vomiting Muscle Tremors: 1-None Visible, but [place] Anxiety: 1-Mildly Anxious Agitation: 0-Normal Activity Paroxysmal Sweats: No Perspiration Orientation: 0-Oriented Tacttile Disturbances: 0-None Auditory Disturbances: 0-None Visual Disturbances: 1-Very Mild Sensitivity Headache: 0-None Present CIWA-Ar Total Score: 3 BHS Progress Note (SOAP) Subjective: 60 years old female admitted on 05/22/20 for alcohol withdrawal sx management treating with librium detox regiment feeling better today asking for donated clothing wear to go home alert oriented x 3 goal direct behavior longest sobriety "months" discussing aftercare with staff prefers revelation Objective: 05/26/20 11:00 Vital Signs - 24 hr 05/25/20 05/25/20 05/25/20 12:32 14:15 16:39 Temperature 97.1 F L 97.5 F L Pulse Rate 83 64 Respiratory 18 18 Rate Blood Pressure 121/76 108/72 O2 Sat by Pulse 98 Oximetry (%) 05/25/20 05/26/20 05/26/20 20:41 05:54 05:55 Temperature 97.5 F L 97.3 F L Pulse Rate 66 83 Respiratory 18 16 Rate Blood Pressure 114/75 108/70 O2 Sat by Pulse 100 97 Oximetry (%) 05/26/20 10:52 Temperature Pulse Rate 63 Respiratory 18 Rate Blood Pressure 102/65 O2 Sat by Pulse Oximetry (%) Laboratory Tests 05/22/20 05/22/20 05/22/20 11:05 11:05 11:05 WBC 5.4 RBC 4.99 Hgb 13.5 Hct 43.4 D MCV 87.1 MCH 27.0 MCHC 31.0 L RDW 16.3 H Plt Count 196 D MPV 8.8 Sodium 143 Potassium 3.9 Chloride 112 H Carbon Dioxide 19 L Anion Gap 11 BUN 21.7 H Creatinine 1.3 Est GFR (CKD-EPI)AfAm 52.37 Est GFR (CKD-EPI)NonAf 45.18 POC Glucometer Random Glucose 121 H Calcium 9.7 Total Bilirubin 0.6 AST 17 ALT 23 Alkaline Phosphatase 61 Total Protein 7.7 Albumin 4.1 Syphilis Serology Non-reactive COVID-19 ([facility]) 05/22/20 05/22/20 05/22/20 11:33 14:00 16:26 WBC RBC Hgb Hct MCV MCH MCHC RDW Plt Count MPV Sodium Potassium Chloride Carbon Dioxide Anion Gap BUN Creatinine Est GFR (CKD-EPI)AfAm Est GFR (CKD-EPI)NonAf POC Glucometer 118 82 Random Glucose Calcium Total Bilirubin AST ALT Alkaline Phosphatase Total Protein Albumin Syphilis Serology COVID-19 ([facility]) Not detected 05/23/20 05/23/20 05/24/20 05:46 16:46 16:30 WBC RBC Hgb Hct MCV MCH MCHC RDW Plt Count MPV Sodium Potassium Chloride Carbon Dioxide Anion Gap BUN Creatinine Est GFR (CKD-EPI)AfAm Est GFR (CKD-EPI)NonAf POC Glucometer 99 123 116 Random Glucose Calcium Total Bilirubin AST ALT Alkaline Phosphatase Total Protein Albumin Syphilis Serology COVID-19 ([facility]) 05/25/20 05/25/20 05:46 16:35 WBC RBC Hgb Hct MCV MCH MCHC RDW Plt Count MPV Sodium Potassium Chloride Carbon Dioxide Anion Gap BUN Creatinine Est GFR (CKD-EPI)AfAm Est GFR (CKD-EPI)NonAf POC Glucometer 97 110 Random Glucose Calcium Total Bilirubin AST ALT Alkaline Phosphatase Total Protein Albumin Syphilis Serology COVID-19 ([facility]) lab noted Assessment: 05/26/20 11:01 alcohol withdrawal Plan: librium regiment
--- NOTE | 2020-05-26 15:16 | DS ---
[facility] Detox Discharge Summary Admission Date: 05/22/20 Discharge Date: 05/26/20 - History Present History: Alcohol Dependence Additional Comments: 60 years old female admitted on 05/22/20 for alcohol withdrawal sx management treated with librium detox regiment seen by psychiatrist gabriela trazolaila and zoloft ms bright prefers to go [facility] instead of estimated discharge date of 05/27/20 alert oriented x 3 speech clearly coherently ambulating with steady gaits respiratory clear lung sounds bilaterally on auscultation abdomen soft round obese no rebound tenderness extremities full range of motion Pertinent Past History: time for discharge 43 minutes treatment team discusses the benefits of librium regiment completion ms bright prefers to go to [facility] today to begin alcohol recovery - Physical Exam Results Vital Signs: Vital Signs Temperature 97.3 F L 05/26/20 05:54 Pulse Rate 78 05/26/20 13:00 Respiratory Rate 18 05/26/20 13:00 Blood Pressure 97/62 05/26/20 13:00 O2 Sat by Pulse Oximetry (%) 100 05/26/20 13:00 Pertinent Admission Physical Exam Findings: alcohol withdrawal Vital Signs - 24 hr 05/25/20 05/25/20 05/26/20 16:39 20:41 05:54 Temperature 97.5 F L 97.5 F L 97.3 F L Pulse Rate 64 66 83 Respiratory 18 18 16 Rate Blood Pressure 108/72 114/75 108/70 O2 Sat by Pulse 100 Oximetry (%) 05/26/20 05/26/20 05/26/20 05:55 10:52 11:04 Temperature Pulse Rate 63 63 Respiratory 18 18 Rate Blood Pressure 102/65 114/73 O2 Sat by Pulse 97 Oximetry (%) 05/26/20 13:00 Temperature Pulse Rate 78 Respiratory 18 Rate Blood Pressure 97/62 O2 Sat by Pulse 100 Oximetry (%) Laboratory Tests 05/22/20 05/22/20 05/22/20 11:05 11:05 11:05 WBC 5.4 RBC 4.99 Hgb 13.5 Hct 43.4 D MCV 87.1 MCH 27.0 MCHC 31.0 L RDW 16.3 H Plt Count 196 D MPV 8.8 Sodium 143 Potassium 3.9 Chloride 112 H Carbon Dioxide 19 L Anion Gap 11 BUN 21.7 H Creatinine 1.3 Est GFR (CKD-EPI)AfAm 52.37 Est GFR (CKD-EPI)NonAf 45.18 POC Glucometer Random Glucose 121 H Calcium 9.7 Total Bilirubin 0.6 AST 17 ALT 23 Alkaline Phosphatase 61 Total Protein 7.7 Albumin 4.1 Syphilis Serology Non-reactive COVID-19 ([facility]) 05/22/20 05/22/20 05/22/20 11:33 14:00 16:26 WBC RBC Hgb Hct MCV MCH MCHC RDW Plt Count MPV Sodium Potassium Chloride Carbon Dioxide Anion Gap BUN Creatinine Est GFR (CKD-EPI)AfAm Est GFR (CKD-EPI)NonAf POC Glucometer 118 82 Random Glucose Calcium Total Bilirubin AST ALT Alkaline Phosphatase Total Protein Albumin Syphilis Serology COVID-19 ([facility]) Not detected 05/23/20 05/23/20 05/24/20 05:46 16:46 16:30 WBC RBC Hgb Hct MCV MCH MCHC RDW Plt Count MPV Sodium Potassium Chloride Carbon Dioxide Anion Gap BUN Creatinine Est GFR (CKD-EPI)AfAm Est GFR (CKD-EPI)NonAf POC Glucometer 99 123 116 Random Glucose Calcium Total Bilirubin AST ALT Alkaline Phosphatase Total Protein Albumin Syphilis Serology COVID-19 ([facility]) 05/25/20 05/25/20 05:46 16:35 WBC RBC Hgb Hct MCV MCH MCHC RDW Plt Count MPV Sodium Potassium Chloride Carbon Dioxide Anion Gap BUN Creatinine Est GFR (CKD-EPI)AfAm Est GFR (CKD-EPI)NonAf POC Glucometer 97 110 Random Glucose Calcium Total Bilirubin AST ALT Alkaline Phosphatase Total Protein Albumin Syphilis Serology COVID-19 ([facility]) long history of diabetes and obesity - Treatment Hospital Course: Detox Protocol Followed, Detoxed Safely, Responded well, Discharged Condition Good, Rehab Referral Accepted Patient has Accepted a Rehab Referral to: [facility] - Medication Discharge Medications: Ambulatory Orders traZODone HCL [Desyrel -] 100 mg PO HS 03/28/13 Aspirin 81 mg PO DAILY 05/22/20 Atorvastatin Ca [Lipitor] 20 mg PO HS 05/22/20 Cholecalciferol (Vitamin D3) [Vitamin D3] 125 mcg PO DAILY 05/22/20 Diphenhydramine [Benadryl Capsule -] 50 mg PO HS PRN 05/22/20 Famotidine [Pepcid -] 40 mg PO DAILY 05/22/20 Losartan Potassium 50 mg PO DAILY 05/22/20 Metformin HCl [Glucophage] 500 mg PO BID 05/22/20 Multivitamins [Multivit ([facility] Formulary)] 1 tab PO DAILY 05/22/20 Valacyclovir HCl [Valtrex -] 1,000 mg PO BID 05/22/20 - Diagnosis (1) Alcohol dependence with uncomplicated withdrawal Current Visit: Yes Status: Acute (2) Diabetes mellitus type II, controlled Current Visit: Yes Status: Acute Qualifiers: Diabetes mellitus half-way insulin use: without half-way use Diabetes mellitus complication status: without complication Qualified Code(s): E11.9 - Type 2 diabetes mellitus without complications (3) Essential hypertension Current Visit: Yes Status: Chronic (4) GERD (gastroesophageal reflux disease) Current Visit: Yes Status: Chronic Qualifiers: Esophagitis presence: without esophagitis Qualified Code(s): K21.9 - Gastro-esophageal reflux disease without esophagitis (5) History of positive PPD Current Visit: Yes Status: Resolved (6) Nicotine dependence Current Visit: Yes Status: Acute Qualifiers: Nicotine product type: cigarettes Substance use status: in withdrawal Qualified Code(s): F17.213 - Nicotine dependence, cigarettes, with withdrawal (7) Nicotine dependence Current Visit: Yes Status: Acute Qualifiers: Nicotine product type: cigarettes Substance use status: in withdrawal Qualified Code(s): F17.213 - Nicotine dependence, cigarettes, with withdrawal (8) Substance induced mood disorder Current Visit: Yes Status: Suspected (9) Fatty liver Current Visit: Yes Status: Chronic (10) HTN (hypertension) Current Visit: Yes Status: Chronic Qualifiers: Hypertension type: essential hypertension Qualified Code(s): I10 - Essential (primary) hypertension (11) Positive PPD Current Visit: Yes Status: Resolved (12) Hyperlipidemia Current Visit: Yes Status: Chronic Qualifiers: Hyperlipidemia type: pure hypertriglyceridemia Qualified Code(s): E78.1 - Pure hyperglyceridemia (13) Herpes infection Current Visit: Yes Status: Chronic - AMA Did Patient Leave Against Medical Advice: No CIWA Score - CIWA Score Nausea/Vomitin-No Nausea/No Vomiting Muscle Tremors: 1-None Visible, but [place] Anxiety: 0-No Anxiety, at Ease Agitation: 0-Normal Activity Paroxysmal Sweats: No Perspiration Orientation: 0-Oriented Tacttile Disturbances: 0-None Auditory Disturbances: 0-None Visual Disturbances: 0-None Headache: 0-None Present CIWA-Ar Total Score: 1
[2020-05-26 17:24] VITALS: BP 102/68; PULSE 63
[2020-05-27] MEDS ORDERED: chlordiazePOXIDE HCL 10 MG CAPSULE PO ONE (05:00)
== END 2020-05-26 18:15 | disposition other institution (70) | DRG 775 ==
LOC: YASAS 09:41 → Y3N 11:01
PROVIDERS: ADMIT Allergy & Immunology; ATTEND Allergy & Immunology
PROC: HZ2ZZZZ Detoxification Services for Substance Abuse Treatment (ICD-10-PCS; principal; 2020-05-22)
DX: F10.230 Alcohol dependence with withdrawal, uncomplicated (principal); F17.213 Nicotine dependence, cigarettes, with withdrawal; F19.24 Other psychoactive substance dependence with psychoactive substance-induced mood disorder; F32.9 Major depressive disorder, single episode, unspecified; F41.8 Other specified anxiety disorders; I10 Essential (primary) hypertension; G47.00 Insomnia, unspecified; E78.1 Pure hyperglyceridemia; E11.9 Type 2 diabetes mellitus without complications; Z79.84 Long term (current) use of oral hypoglycemic drugs; K21.9 Gastro-esophageal reflux disease without esophagitis; K76.0 Fatty (change of) liver, not elsewhere classified; B00.9 Herpesviral infection, unspecified; R76.11 Nonspecific reaction to tuberculin skin test without active tuberculosis; Z79.82 Long term (current) use of aspirin; Z88.8 Allergy status to other drugs, medicaments and biological substances
CPT/HCPCS: 36415; 80053; 82962; 85027; 86780; U0003

== ENCOUNTER 2020-05-26 18:23 | Inpatient (IN) | payer OTHER ==
--- NOTE | 2020-05-26 15:29 | HP ---
[facility] Rehab Assess/Revision - Admission History Admitted to Rehab from: [facility] Date of Admission to Rehab: 05/26/20 - Findings Detox History & Physical reviewed: Yes Concur with findings: Yes Comments/Additional Findings: transferred from detox to rehab admission as per protocol Inpatient Rehab Admission - Rehab Decision to Admit Inpatient rehab admission?: Yes - Initial Determination Are CD services needed?: Yes Free of communicable disease: Yes Not in need of hospitalization: Yes - Rehab Admission Criteria Previous failed treatment: Yes Poor recovery environment: Yes Comorbidities: Yes Lacks judgement: Yes Patient is meeting Inpatient Rehab admission criteria:: Yes
[~2020-05-26 18:23] MED LIST changes: -ACETAMINOPHEN 325 MG TABLET (FP) PO PRN; +MAGNESIUM HYDROX 2400MG/30ML ORAL SUSPENSION 30 ML CUP PO PRN; -MENTHOL/PHENOL 1 EACH UD MM PRN; -NICOTINE 14 MG/24 HOURS TOPICAL PATCH TD PRN; +NICOTINE POLACRILEX 2 MG GUM BC PRN; -NICOTINE POLACRILEX 2 MG GUM BUC PRN; +guaiFENesin 200 MG/10 ML 10 ML UNIT-DOSE CUPS PO PRN; -guaiFENesin/D-METHORPHAN HB 10 ML UNIT-DOSE CUPS PO PRN
[2020-05-26] MEDS: metFORMIN HCL 500 MG TABLET (FP) PO SCH (18:53)
[2020-05-26] MEDS: ATORVASTATIN CA 20 MG TABLET (FP) PO SCH (19:59)
[2020-05-26] MEDS ORDERED: traZODone HCL 50 MG TABLET (FP) PO SCH (20:00)
[2020-05-26] MEDS ORDERED: valACYclovir HCL 500 MG TABLET (FP) ONE (22:08)
[2020-05-26] MEDS: valACYclovir HCL 1000 MG TABLET PO SCH (22:49)
[2020-05-26] MEDS: THIAMINE HCL 100 MG TABLET (FP) PO SCH (22:49)
[2020-05-26] MEDS: MELATONIN 5 MG TABLETS PO SCH (22:49)
[2020-05-27] MEDS: metFORMIN HCL 500 MG TABLET (FP) PO SCH ×2 (07:08→16:44)
[2020-05-27] MEDS ORDERED: PT OWN MED DRAWER 7, Y5N ONE (09:14)
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
[2020-05-27] MEDS ORDERED: SERTRALINE HCL 50 MG TABLET (FP) PO SCH (10:00)
[2020-05-27] MEDS: CHOLECALCIFEROL (VIT D3) 1,000 UNIT (25 MCG) TABLET PO SCH (10:36)
[2020-05-27] MEDS: PRENATAL VITAMINS W/ FOLIC ACID TABLET (FP) PO SCH (10:36)
[2020-05-27] MEDS: FAMOTIDINE 20 MG TABLET PO SCH (10:36)
[2020-05-27] MEDS: ASPIRIN 81 MG CHEWABLE TABLETS PO SCH (10:37)
[2020-05-27] MEDS: HYDROCHLOROTHIAZIDE 12.5 MG CAPSULE (FP) PO SCH (10:37)
[2020-05-27] MEDS: NICOTINE 7 MG/24 HOURS TOPICAL PATCH TD SCH (10:38)
[2020-05-27] MEDS: valACYclovir HCL 1000 MG TABLET PO SCH ×2 (10:39→21:06)
[2020-05-27] MEDS: LOSARTAN POTASSIUM 50 MG TABLET (FP) PO SCH (14:03)
[2020-05-27] MEDS: ACETAMINOPHEN 325 MG TABLET (FP) PO PRN (14:05)
[2020-05-27] MEDS: hydrOXYzine PAMOATE 25 MG CAPSULE (FP) PO PRN (14:05)
[2020-05-27] MEDS ORDERED: valACYclovir HCL 500 MG TABLET (FP) ONE (19:30)
[2020-05-27] MEDS: ATORVASTATIN CA 20 MG TABLET (FP) PO SCH (21:05)
[2020-05-27] MEDS: THIAMINE HCL 100 MG TABLET (FP) PO SCH (21:06)
[2020-05-27] MEDS: MELATONIN 5 MG TABLETS PO SCH (21:06)
[2020-05-27] MEDS: traZODone HCL 50 MG TABLET (FP) PO SCH (21:07)
[2020-05-28] MEDS: metFORMIN HCL 500 MG TABLET (FP) PO SCH ×2 (07:17→17:03)
--- NOTE | 2020-05-28 09:42 | PN ---
[facility] Progress Note Note: Patient refusing fingersticks and metformin. States she does not take Metformin at home. Patient's problem list includes DM type2 and her medication list includes Metformin. Her FS have been within the normal range to slightly above. Vital Signs Period Temp Pulse Resp BP Sys/Moreno Pulse Ox Last 24 Hr 97.3 F-98.2 F 73-78 18-18 114-126/79-79 96-96 Laboratory Last Values POC Glucometer 122 UNITS (80-120) 05/28/20 06:23 Hep C Ab Diagnostic <0.1 s/co ratio (0.0-0.9) 05/27/20 08:00 HIV 1&2 Ag/Ab, 4th Gen Non reactive (Non Reactive) 05/27/20 08:00 Will order Hgb A1c. However, at this time, based on PMHx of DM and home medication list, the Metformin and fingersticks will not be discontinued. Patient can exercise her right to refuse treatment, but at this time, we will continue to offer treatment.
[2020-05-28] MEDS: FAMOTIDINE 20 MG TABLET PO SCH (09:56)
[2020-05-28] MEDS: LOSARTAN POTASSIUM 50 MG TABLET (FP) PO SCH (09:56)
[2020-05-28] MEDS: HYDROCHLOROTHIAZIDE 12.5 MG CAPSULE (FP) PO SCH (09:56)
[2020-05-28] MEDS: ASPIRIN 81 MG CHEWABLE TABLETS PO SCH (09:56)
[2020-05-28] MEDS: NICOTINE 7 MG/24 HOURS TOPICAL PATCH TD SCH (09:56)
[2020-05-28] MEDS: PRENATAL VITAMINS W/ FOLIC ACID TABLET (FP) PO SCH (09:57)
[2020-05-28] MEDS: valACYclovir HCL 500 MG TABLET (FP) PO SCH ×2 (09:57→21:58)
[2020-05-28] MEDS: CHOLECALCIFEROL (VIT D3) 1,000 UNIT (25 MCG) TABLET PO SCH (09:58)
[2020-05-28] MEDS ORDERED: CHOLECALCIFEROL (VIT D3) 1,000 UNIT (25 MCG) TABLET PO SCH (10:00)
[2020-05-28] MEDS: ATORVASTATIN CA 20 MG TABLET (FP) PO SCH (19:47)
[2020-05-28] MEDS: traZODone HCL 50 MG TABLET (FP) PO SCH (21:57)
[2020-05-28] MEDS: MELATONIN 5 MG TABLETS PO SCH (21:58)
[2020-05-28] MEDS: THIAMINE HCL 100 MG TABLET (FP) PO SCH (21:58)
[2020-05-29] MEDS: metFORMIN HCL 500 MG TABLET (FP) PO SCH ×2 (07:01→16:52)
[2020-05-29] MEDS ORDERED: PT OWN MED DRAWER 7, Y5N ONE ×3 (09:17→18:33)
[2020-05-29] MEDS: HYDROCHLOROTHIAZIDE 12.5 MG CAPSULE (FP) PO SCH (10:16)
[2020-05-29] MEDS: ASPIRIN 81 MG CHEWABLE TABLETS PO SCH (10:16)
[2020-05-29] MEDS: valACYclovir HCL 500 MG TABLET (FP) PO SCH ×2 (10:17→21:03)
[2020-05-29] MEDS: CHOLECALCIFEROL (VIT D3) 1,000 UNIT (25 MCG) TABLET PO SCH (10:17)
[2020-05-29] MEDS: FAMOTIDINE 20 MG TABLET PO SCH (10:17)
[2020-05-29] MEDS: LOSARTAN POTASSIUM 50 MG TABLET (FP) PO SCH (10:17)
[2020-05-29] MEDS: PRENATAL VITAMINS W/ FOLIC ACID TABLET (FP) PO SCH (10:19)
[2020-05-29] MEDS: NICOTINE 7 MG/24 HOURS TOPICAL PATCH TD SCH (10:19)
[2020-05-29] MEDS: ATORVASTATIN CA 20 MG TABLET (FP) PO SCH (20:30)
[2020-05-29] MEDS: THIAMINE HCL 100 MG TABLET (FP) PO SCH (21:03)
[2020-05-29] MEDS: MELATONIN 5 MG TABLETS PO SCH (21:03)
[2020-05-29] MEDS: traZODone HCL 50 MG TABLET (FP) PO SCH (21:04)
[2020-05-30] MEDS ORDERED: MASKS NR ONE (07:03)
[2020-05-30] MEDS: metFORMIN HCL 500 MG TABLET (FP) PO SCH ×2 (07:04→16:40)
[2020-05-30] MEDS: PRENATAL VITAMINS W/ FOLIC ACID TABLET (FP) PO SCH (09:34)
[2020-05-30] MEDS: HYDROCHLOROTHIAZIDE 12.5 MG CAPSULE (FP) PO SCH (09:34)
[2020-05-30] MEDS: ASPIRIN 81 MG CHEWABLE TABLETS PO SCH (09:34)
[2020-05-30] MEDS: CHOLECALCIFEROL (VIT D3) 1,000 UNIT (25 MCG) TABLET PO SCH (09:34)
[2020-05-30] MEDS: valACYclovir HCL 500 MG TABLET (FP) PO SCH ×2 (09:34→21:46)
[2020-05-30] MEDS: FAMOTIDINE 20 MG TABLET PO SCH (09:34)
[2020-05-30] MEDS: NICOTINE 7 MG/24 HOURS TOPICAL PATCH TD SCH (09:35)
[2020-05-30] MEDS: LOSARTAN POTASSIUM 50 MG TABLET (FP) PO SCH (09:35)
[2020-05-30] MEDS: ACETAMINOPHEN 325 MG TABLET (FP) PO PRN (19:47)
[2020-05-30] MEDS: MELATONIN 5 MG TABLETS PO SCH (21:45)
[2020-05-30] MEDS: THIAMINE HCL 100 MG TABLET (FP) PO SCH (21:45)
[2020-05-30] MEDS: traZODone HCL 50 MG TABLET (FP) PO SCH (21:45)
[2020-05-30] MEDS ORDERED: PT OWN MED DRAWER 7, Y5N ONE (21:47)
[2020-05-30] MEDS: ATORVASTATIN CA 20 MG TABLET (FP) PO SCH (21:50)
[2020-05-31] MEDS ORDERED: MASKS NR ONE (06:22)
[2020-05-31] MEDS: metFORMIN HCL 500 MG TABLET (FP) PO SCH ×2 (07:23→16:48)
[2020-05-31] MEDS ORDERED: PT OWN MED DRAWER 7, Y5N ONE ×2 (09:03→21:16)
[2020-05-31] MEDS: PRENATAL VITAMINS W/ FOLIC ACID TABLET (FP) PO SCH (09:44)
[2020-05-31] MEDS: NICOTINE 7 MG/24 HOURS TOPICAL PATCH TD SCH (09:44)
[2020-05-31] MEDS: FAMOTIDINE 20 MG TABLET PO SCH (09:44)
[2020-05-31] MEDS: HYDROCHLOROTHIAZIDE 12.5 MG CAPSULE (FP) PO SCH (09:44)
[2020-05-31] MEDS: ASPIRIN 81 MG CHEWABLE TABLETS PO SCH (09:45)
[2020-05-31] MEDS: CHOLECALCIFEROL (VIT D3) 1,000 UNIT (25 MCG) TABLET PO SCH (09:45)
[2020-05-31] MEDS: LOSARTAN POTASSIUM 50 MG TABLET (FP) PO SCH (09:45)
[2020-05-31] MEDS: valACYclovir HCL 500 MG TABLET (FP) PO SCH ×2 (10:43→21:58)
[2020-05-31] MEDS: THIAMINE HCL 100 MG TABLET (FP) PO SCH (21:13)
[2020-05-31] MEDS: ATORVASTATIN CA 20 MG TABLET (FP) PO SCH (21:13)
[2020-05-31] MEDS: traZODone HCL 50 MG TABLET (FP) PO SCH (21:13)
[2020-05-31] MEDS: MELATONIN 5 MG TABLETS PO SCH (21:13)
[2020-05-31] MEDS: hydrOXYzine PAMOATE 25 MG CAPSULE (FP) PO PRN (21:14)
[2020-06-01] MEDS: metFORMIN HCL 500 MG TABLET (FP) PO SCH ×2 (06:56→16:26)
[2020-06-01] MEDS ORDERED: PT OWN MED DRAWER 7, Y5N ONE (09:06)
[2020-06-01] MEDS: valACYclovir HCL 500 MG TABLET (FP) PO SCH ×2 (10:05→21:24)
[2020-06-01] MEDS: HYDROCHLOROTHIAZIDE 12.5 MG CAPSULE (FP) PO SCH (10:05)
[2020-06-01] MEDS: FAMOTIDINE 20 MG TABLET PO SCH (10:05)
[2020-06-01] MEDS: CHOLECALCIFEROL (VIT D3) 1,000 UNIT (25 MCG) TABLET PO SCH (10:05)
[2020-06-01] MEDS: NICOTINE 7 MG/24 HOURS TOPICAL PATCH TD SCH (10:05)
[2020-06-01] MEDS: ASPIRIN 81 MG CHEWABLE TABLETS PO SCH (10:05)
[2020-06-01] MEDS: PRENATAL VITAMINS W/ FOLIC ACID TABLET (FP) PO SCH (10:05)
[2020-06-01] MEDS: LOSARTAN POTASSIUM 50 MG TABLET (FP) PO SCH (10:06)
[2020-06-01] MEDS: ATORVASTATIN CA 20 MG TABLET (FP) PO SCH (20:30)
[2020-06-01] MEDS: THIAMINE HCL 100 MG TABLET (FP) PO SCH (21:24)
[2020-06-01] MEDS: MELATONIN 5 MG TABLETS PO SCH (21:24)
[2020-06-01] MEDS: traZODone HCL 50 MG TABLET (FP) PO SCH (21:24)
[2020-06-01] MEDS: ACETAMINOPHEN 325 MG TABLET (FP) PO PRN (21:25)
[2020-06-02] MEDS: metFORMIN HCL 500 MG TABLET (FP) PO SCH ×2 (07:10→16:24)
[2020-06-02] MEDS: PRENATAL VITAMINS W/ FOLIC ACID TABLET (FP) PO SCH (10:00)
[2020-06-02] MEDS: valACYclovir HCL 500 MG TABLET (FP) PO SCH ×2 (10:00→21:06)
[2020-06-02] MEDS: ASPIRIN 81 MG CHEWABLE TABLETS PO SCH (10:01)
[2020-06-02] MEDS: LOSARTAN POTASSIUM 50 MG TABLET (FP) PO SCH (10:01)
[2020-06-02] MEDS: NICOTINE 7 MG/24 HOURS TOPICAL PATCH TD SCH (10:01)
[2020-06-02] MEDS: HYDROCHLOROTHIAZIDE 12.5 MG CAPSULE (FP) PO SCH (10:01)
[2020-06-02] MEDS: FAMOTIDINE 20 MG TABLET PO SCH (10:01)
[2020-06-02] MEDS: CHOLECALCIFEROL (VIT D3) 1,000 UNIT (25 MCG) TABLET PO SCH (10:02)
[2020-06-02] MEDS: ACETAMINOPHEN 325 MG TABLET (FP) PO PRN (10:04)
[2020-06-02] MEDS: ATORVASTATIN CA 20 MG TABLET (FP) PO SCH (20:35)
[2020-06-02] MEDS: MELATONIN 5 MG TABLETS PO SCH (21:06)
[2020-06-02] MEDS: THIAMINE HCL 100 MG TABLET (FP) PO SCH (21:06)
[2020-06-02] MEDS: traZODone HCL 50 MG TABLET (FP) PO SCH (21:06)
[2020-06-03] MEDS: metFORMIN HCL 500 MG TABLET (FP) PO SCH ×2 (07:09→16:25)
[2020-06-03] MEDS: ASPIRIN 81 MG CHEWABLE TABLETS PO SCH (10:20)
[2020-06-03] MEDS: PRENATAL VITAMINS W/ FOLIC ACID TABLET (FP) PO SCH (10:20)
[2020-06-03] MEDS: FAMOTIDINE 20 MG TABLET PO SCH (10:21)
[2020-06-03] MEDS: HYDROCHLOROTHIAZIDE 12.5 MG CAPSULE (FP) PO SCH (10:21)
[2020-06-03] MEDS: valACYclovir HCL 500 MG TABLET (FP) PO SCH ×2 (10:21→21:38)
[2020-06-03] MEDS: NICOTINE 7 MG/24 HOURS TOPICAL PATCH TD SCH (10:21)
[2020-06-03] MEDS: CHOLECALCIFEROL (VIT D3) 1,000 UNIT (25 MCG) TABLET PO SCH (10:21)
[2020-06-03] MEDS: LOSARTAN POTASSIUM 50 MG TABLET (FP) PO SCH (10:22)
[2020-06-03] MEDS ORDERED: PT OWN MED DRAWER 7, Y5N ONE (10:24)
--- NOTE | 2020-06-03 10:46 | PN ---
[facility] Progress Note Note: c/o difficulty passing stool. Reports she takes stool softner at home Vital Signs Period Temp Pulse Resp BP Sys/Moreno Pulse Ox Last 24 Hr 97.3 F-97.7 F 85-86 18-18 119-126/69-88 97-98 General: no apparent distress ABD: +BS Lungs: respirations unlabored Neuro: Bilaterally strength 5/5; MSK: Gait steady, full weight bearing. A/P Constipation Colace ordered. Will continue to monitor.
[2020-06-03] MEDS: FOLIC ACID 1 MG TABLET (FP) PO SCH (12:57)
[2020-06-03] MEDS: ATORVASTATIN CA 20 MG TABLET (FP) PO SCH (20:35)
[2020-06-03] MEDS: MELATONIN 5 MG TABLETS PO SCH (21:38)
[2020-06-03] MEDS: traZODone HCL 50 MG TABLET (FP) PO SCH (21:38)
[2020-06-03] MEDS: THIAMINE HCL 100 MG TABLET (FP) PO SCH (21:38)
[2020-06-03] MEDS: DOCUSATE SODIUM 100 MG CAPSULE (FP) PO SCH (21:39)
[2020-06-04] MEDS: metFORMIN HCL 500 MG TABLET (FP) PO SCH ×2 (07:07→16:34)
[2020-06-04] MEDS ORDERED: PT OWN MED DRAWER 7, Y5N ONE ×2 (09:09→11:00)
[2020-06-04] MEDS: NICOTINE 7 MG/24 HOURS TOPICAL PATCH TD SCH (10:55)
[2020-06-04] MEDS: HYDROCHLOROTHIAZIDE 12.5 MG CAPSULE (FP) PO SCH (10:56)
[2020-06-04] MEDS: PRENATAL VITAMINS W/ FOLIC ACID TABLET (FP) PO SCH (10:56)
[2020-06-04] MEDS: CHOLECALCIFEROL (VIT D3) 1,000 UNIT (25 MCG) TABLET PO SCH (10:56)
[2020-06-04] MEDS: ASPIRIN 81 MG CHEWABLE TABLETS PO SCH (10:56)
[2020-06-04] MEDS: FAMOTIDINE 20 MG TABLET PO SCH (10:56)
[2020-06-04] MEDS: FOLIC ACID 1 MG TABLET (FP) PO SCH (11:01)
[2020-06-04] MEDS: LOSARTAN POTASSIUM 50 MG TABLET (FP) PO SCH (11:02)
[2020-06-04] MEDS: valACYclovir HCL 500 MG TABLET (FP) PO SCH (14:26)
[2020-06-04] MEDS: ATORVASTATIN CA 20 MG TABLET (FP) PO SCH (21:43)
[2020-06-04] MEDS: DOCUSATE SODIUM 100 MG CAPSULE (FP) PO SCH (21:43)
[2020-06-04] MEDS: MELATONIN 5 MG TABLETS PO SCH (21:43)
[2020-06-04] MEDS: THIAMINE HCL 100 MG TABLET (FP) PO SCH (21:43)
[2020-06-04] MEDS: traZODone HCL 50 MG TABLET (FP) PO SCH (21:43)
[2020-06-05] MEDS ORDERED: MASKS NR ONE (05:59)
[2020-06-05] MEDS: metFORMIN HCL 500 MG TABLET (FP) PO SCH ×2 (07:01→17:08)
[2020-06-05] MEDS ORDERED: PT OWN MED DRAWER 7, Y5N ONE (09:02)
[2020-06-05] MEDS: ASPIRIN 81 MG CHEWABLE TABLETS PO SCH (10:45)
[2020-06-05] MEDS: FOLIC ACID 1 MG TABLET (FP) PO SCH (10:45)
[2020-06-05] MEDS: CHOLECALCIFEROL (VIT D3) 1,000 UNIT (25 MCG) TABLET PO SCH (10:46)
[2020-06-05] MEDS: PRENATAL VITAMINS W/ FOLIC ACID TABLET (FP) PO SCH (10:46)
[2020-06-05] MEDS: HYDROCHLOROTHIAZIDE 12.5 MG CAPSULE (FP) PO SCH (10:46)
[2020-06-05] MEDS: LOSARTAN POTASSIUM 50 MG TABLET (FP) PO SCH (10:46)
[2020-06-05] MEDS: NICOTINE 7 MG/24 HOURS TOPICAL PATCH TD SCH (10:47)
[2020-06-05] MEDS: FAMOTIDINE 20 MG TABLET PO SCH (10:47)
[2020-06-05] MEDS: MELATONIN 5 MG TABLETS PO SCH (21:06)
[2020-06-05] MEDS: DOCUSATE SODIUM 100 MG CAPSULE (FP) PO SCH (21:06)
[2020-06-05] MEDS: ATORVASTATIN CA 20 MG TABLET (FP) PO SCH (21:06)
[2020-06-05] MEDS: traZODone HCL 50 MG TABLET (FP) PO SCH (21:06)
[2020-06-05] MEDS: THIAMINE HCL 100 MG TABLET (FP) PO SCH (21:06)
[2020-06-06] MEDS: metFORMIN HCL 500 MG TABLET (FP) PO SCH ×2 (06:27→17:01)
[2020-06-06] MEDS: PRENATAL VITAMINS W/ FOLIC ACID TABLET (FP) PO SCH (09:45)
[2020-06-06] MEDS: NICOTINE 7 MG/24 HOURS TOPICAL PATCH TD SCH (09:45)
[2020-06-06] MEDS: ASPIRIN 81 MG CHEWABLE TABLETS PO SCH (09:45)
[2020-06-06] MEDS: FOLIC ACID 1 MG TABLET (FP) PO SCH (09:45)
[2020-06-06] MEDS: LOSARTAN POTASSIUM 50 MG TABLET (FP) PO SCH (09:45)
[2020-06-06] MEDS: CHOLECALCIFEROL (VIT D3) 1,000 UNIT (25 MCG) TABLET PO SCH (09:45)
[2020-06-06] MEDS: FAMOTIDINE 20 MG TABLET PO SCH (09:46)
[2020-06-06] MEDS: HYDROCHLOROTHIAZIDE 12.5 MG CAPSULE (FP) PO SCH (09:46)
[2020-06-06] MEDS: DOCUSATE SODIUM 100 MG CAPSULE (FP) PO SCH (21:43)
[2020-06-06] MEDS: ATORVASTATIN CA 20 MG TABLET (FP) PO SCH (21:43)
[2020-06-06] MEDS: THIAMINE HCL 100 MG TABLET (FP) PO SCH (21:43)
[2020-06-06] MEDS: traZODone HCL 50 MG TABLET (FP) PO SCH (21:43)
[2020-06-06] MEDS: MELATONIN 5 MG TABLETS PO SCH (21:44)
[2020-06-07] MEDS: metFORMIN HCL 500 MG TABLET (FP) PO SCH ×2 (06:30→16:49)
[2020-06-07] MEDS: ASPIRIN 81 MG CHEWABLE TABLETS PO SCH (09:21)
[2020-06-07] MEDS: CHOLECALCIFEROL (VIT D3) 1,000 UNIT (25 MCG) TABLET PO SCH (09:21)
[2020-06-07] MEDS: FOLIC ACID 1 MG TABLET (FP) PO SCH (09:21)
[2020-06-07] MEDS: PRENATAL VITAMINS W/ FOLIC ACID TABLET (FP) PO SCH (09:21)
[2020-06-07] MEDS: LOSARTAN POTASSIUM 50 MG TABLET (FP) PO SCH (09:22)
[2020-06-07] MEDS: FAMOTIDINE 20 MG TABLET PO SCH (09:22)
[2020-06-07] MEDS: HYDROCHLOROTHIAZIDE 12.5 MG CAPSULE (FP) PO SCH (09:22)
[2020-06-07] MEDS: NICOTINE 7 MG/24 HOURS TOPICAL PATCH TD SCH (09:22)
[2020-06-07] MEDS: DOCUSATE SODIUM 100 MG CAPSULE (FP) PO SCH (21:08)
[2020-06-07] MEDS: MELATONIN 5 MG TABLETS PO SCH (21:08)
[2020-06-07] MEDS: THIAMINE HCL 100 MG TABLET (FP) PO SCH (21:08)
[2020-06-07] MEDS: ATORVASTATIN CA 20 MG TABLET (FP) PO SCH (21:08)
[2020-06-07] MEDS: traZODone HCL 50 MG TABLET (FP) PO SCH (21:08)
[2020-06-08] MEDS: ACETAMINOPHEN 325 MG TABLET (FP) PO PRN ×2 (05:58→22:06)
[2020-06-08] MEDS: metFORMIN HCL 500 MG TABLET (FP) PO SCH ×2 (07:08→16:48)
[2020-06-08] MEDS: PRENATAL VITAMINS W/ FOLIC ACID TABLET (FP) PO SCH (09:54)
[2020-06-08] MEDS: HYDROCHLOROTHIAZIDE 12.5 MG CAPSULE (FP) PO SCH (09:54)
[2020-06-08] MEDS: NICOTINE 7 MG/24 HOURS TOPICAL PATCH TD SCH (09:55)
[2020-06-08] MEDS: FOLIC ACID 1 MG TABLET (FP) PO SCH (09:55)
[2020-06-08] MEDS: LOSARTAN POTASSIUM 50 MG TABLET (FP) PO SCH (09:55)
[2020-06-08] MEDS: ASPIRIN 81 MG CHEWABLE TABLETS PO SCH (09:57)
[2020-06-08] MEDS: CHOLECALCIFEROL (VIT D3) 1,000 UNIT (25 MCG) TABLET PO SCH (09:57)
[2020-06-08] MEDS: FAMOTIDINE 20 MG TABLET PO SCH (10:11)
--- NOTE | 2020-06-08 11:21 | PN ---
[facility] Progress Note Note: Patient is scheduled for discharge tomorrow. Script for 30 days supply of Trazadone 50 mg/hs will be electronically transmitted to [facility], [id number] [place] [address]
[2020-06-08] MEDS: ATORVASTATIN CA 20 MG TABLET (FP) PO SCH (22:07)
[2020-06-08] MEDS: traZODone HCL 50 MG TABLET (FP) PO SCH (22:07)
[2020-06-08] MEDS: THIAMINE HCL 100 MG TABLET (FP) PO SCH (22:07)
[2020-06-08] MEDS: MELATONIN 5 MG TABLETS PO SCH (22:07)
[2020-06-08] MEDS: DOCUSATE SODIUM 100 MG CAPSULE (FP) PO SCH (22:07)
[2020-06-09] MEDS: metFORMIN HCL 500 MG TABLET (FP) PO SCH (07:42)
[2020-06-09 08:49] VITALS: PULSE 69; TEMP 97.3
[2020-06-09 08:58] VITALS: BP 128/78
--- NOTE | 2020-06-09 09:06 | DS ---
[facility] Rehab Discharge Summary - [facility] Rehab Discharge Summary Admission Date: 05/26/20 Discharge Date: 06/09/20 - History Present History: Alcohol dependence, Cocaine dependence Pertinent Past History: 10 year old female with history of alcohol dependence with withdrawal. She was abstinent for 9 months and relapsed 3 months ago due to COVID - lost her job. Alcohol: 1.5 pints vodka daily, started at age 32 and last used 05/22/20. She had a blackout 1 year ago. 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 Nicotine: 3 ciggs daily started at age 23 and last used 05/22/20 PMH: HTN, GERD Psurg: None Psych: Insomnia CHRISTINA: 0.102 She lives in her own apartment alone and has no legal issues pending. - Discharge Physical Exam Vital Signs: Vital Signs Temperature 97.3 F L 06/09/20 06:00 Pulse Rate 69 06/09/20 08:38 Respiratory Rate 18 06/09/20 08:38 Blood Pressure 128/78 06/09/20 08:38 O2 Sat by Pulse Oximetry (%) 97 06/09/20 06:00 Pertinent Admission Physical Exam Findings: Physical General Appearance: No apparent distress HEENTM: EOMI, Normocephalic, Respiratory: No Respiratory Distress, No Accessory Muscle Use Neck: Supple, Trachea in good position Cardiology: S1, S2 Abdominal: +Bowel Sounds, Musculoskeletal: full range of Motion, Gait Steady Neurological: medical bill processor II-XII NML intact, A+O x4 - Treatment Discharge Condition: Outpatient referral accepted (Medically stable for discharge. Will to to OPT at [facility]) - Medication Discharge Medications: Ambulatory Orders Aspirin 81 mg PO DAILY 05/22/20 Multivitamins [Multivit ([facility] Formulary)] 1 tab PO DAILY 05/22/20 Valacyclovir HCl [Valtrex -] 1,000 mg PO BID 05/22/20 traZODone HCL [Desyrel -] 50 mg PO HS #30 tablet 06/08/20 Atorvastatin Ca [Lipitor] 20 mg PO HS #14 tablet 06/09/20 Cholecalciferol (Vitamin D3) [Vitamin D3] 125 mcg PO DAILY #14 cap 06/09/20 Famotidine [Pepcid -] 40 mg PO DAILY #14 tablet 06/09/20 Losartan Potassium 50 mg PO DAILY #14 tablet 06/09/20 Metformin HCl [Glucophage] 500 mg PO BID #14 tablet 06/09/20 - Medication-Assisted Treatment (MAT) Medication-Assisted Treatment (MAT): No - Discharge Instructions Diet, activity, other medical instructions: Diet: as tolerated Activity: as tolerated Other medical instructions: Please follow up with discharge referral. - Diagnosis (1) Alcohol dependence with uncomplicated withdrawal Current Visit: No Status: Acute (2) Cocaine dependence Current Visit: No Status: Acute - Follow-up Referral Minutes to complete discharge: 15 - AMA Did Patient Leave Against Medical Advice: No
[2020-06-09] MEDS ORDERED: PT OWN MED DRAWER 7, Y5N ONE (09:10)
[2020-06-09] MEDS: PRENATAL VITAMINS W/ FOLIC ACID TABLET (FP) PO SCH (09:22)
[2020-06-09] MEDS: ASPIRIN 81 MG CHEWABLE TABLETS PO SCH (09:22)
[2020-06-09] MEDS: FAMOTIDINE 20 MG TABLET PO SCH (09:22)
[2020-06-09] MEDS: NICOTINE 7 MG/24 HOURS TOPICAL PATCH TD SCH (09:22)
[2020-06-09] MEDS: CHOLECALCIFEROL (VIT D3) 1,000 UNIT (25 MCG) TABLET PO SCH (09:22)
[2020-06-09] MEDS: FOLIC ACID 1 MG TABLET (FP) PO SCH (09:23)
[2020-06-09] MEDS: LOSARTAN POTASSIUM 50 MG TABLET (FP) PO SCH (09:23)
[2020-06-09] MEDS: HYDROCHLOROTHIAZIDE 12.5 MG CAPSULE (FP) PO SCH (09:23)
== END 2020-06-09 09:35 | disposition home or self-care (01) | DRG 772 ==
LOC: YASAS 18:23 → Y3W 18:24
PROVIDERS: ADMIT Allergy & Immunology; ATTEND Allergy & Immunology
PROC: HZ42ZZZ Group Counseling for Substance Abuse Treatment, Cognitive-Behavioral (ICD-10-PCS; principal; 2020-05-26)
DX: F10.20 Alcohol dependence, uncomplicated (principal); F14.20 Cocaine dependence, uncomplicated; F17.210 Nicotine dependence, cigarettes, uncomplicated; F10.282 Alcohol dependence with alcohol-induced sleep disorder; F10.24 Alcohol dependence with alcohol-induced mood disorder; F32.9 Major depressive disorder, single episode, unspecified; G47.00 Insomnia, unspecified; I10 Essential (primary) hypertension; K21.9 Gastro-esophageal reflux disease without esophagitis; K59.00 Constipation, unspecified; E11.9 Type 2 diabetes mellitus without complications; Z79.84 Long term (current) use of oral hypoglycemic drugs; Z91.410 Personal history of adult physical and sexual abuse; Z88.8 Allergy status to other drugs, medicaments and biological substances; Z56.0 Unemployment, unspecified; Z59.0 Homelessness
CPT/HCPCS: 36415; 82306; 82962; 86803; 87389

== ENCOUNTER 2020-08-14 13:08 | Inpatient (IN) | payer OTHER ==
--- NOTE | 2020-08-14 13:31 | [facility].RME ---
Substance Use & Tx History - Substance Use History Alcohol Substance amount: 2.5 pints vodka Frequency of use: Daily Substance route: Oral Date of Last Use: 08/14/20 (started age 22) Nicotine Substance amount: 6 ciggs Frequency of use: Daily Substance route: Smoking Date of Last Use: 08/14/20 (started age 20) - Last Treatment Date of last treatment: completed Treatment type: Substance Use Disorder (CARLA) Where was last treatment: Detox Physical/Psych/Mental Status - Behavior General Behavior: Increased activity (restlessness, agitation) Eye Contact: Normal - Cooperativeness Cooperativeness: Cooperative - Thinking Thought Processes: Tight, Logical, Goal Directed - Physical Health Problems Is patient presently having any pain?: No Does patient presently have any injuries (include location): No Does patient currently have a fever: No Is patient : No CIWA Nausea/Vomitin-No Nausea/No Vomiting Muscle Tremors: 1-None Visible, but [place] Anxiety: 4-Mod. Anxious/Guarded Agitation: 4-Moderately Restless Paroxysmal Sweats: 3 Orientation: 0-Oriented Tacttile Disturbances: 0-None Auditory Disturbances: 0-None Visual Disturbances: 0-None Headache: 0-None Present CIWA-Ar Total Score: 12
[2020-08-14] MEDS ORDERED: NICOTINE POLACRILEX 2 MG GUM BUC PRN (13:56)
[2020-08-14] MEDS ORDERED: MAGNESIUM CITRATE 300 ML BOTTLE PO PRN (13:56)
[2020-08-14] MEDS ORDERED: MENTHOL/PHENOL 1 EACH UD MM PRN (13:56)
[2020-08-14] MEDS ORDERED: ONDANSETRON *ODT* 4 MG TABLET SL PRN (13:56)
[2020-08-14] MEDS ORDERED: BISMUTH SUBSALICYLATE 262 MG/15 ML BTL PO PRN (13:56)
[2020-08-14] MEDS ORDERED: chlordiazePOXIDE HCL 25 MG CAPSULE PO PRN (13:56)
[2020-08-14] MEDS ORDERED: ACETAMINOPHEN 325 MG TABLET (FP) PO PRN ×2 (13:56)
[2020-08-14] MEDS ORDERED: MAG HYDROX/AL HYDROX/SIMETH 30 ML UNIT-DOSE CUP PO PRN (13:56)
[2020-08-14] MEDS ORDERED: METHOCARBAMOL 500 MG TABLET PO PRN (13:56)
[2020-08-14] MEDS ORDERED: MAGNESIUM HYDROX 2400MG/30ML ORAL SUSPENSION 30 ML CUP PO PRN (13:56)
--- NOTE | 2020-08-14 13:56 | HP ---
CIWA Score Nausea/Vomitin-No Nausea/No Vomiting Muscle Tremors: 1-None Visible, but [place] Anxiety: 4-Mod. Anxious/Guarded Agitation: 4-Moderately Restless Paroxysmal Sweats: 3 Orientation: 0-Oriented Tacttile Disturbances: 0-None Auditory Disturbances: 0-None Visual Disturbances: 0-None Headache: 0-None Present CIWA-Ar Total Score: 12 - Admission Criteria OASAS Guidelines: Admission for Medically Managed Detox: Requires at least one of the followin. CIWA greater than 12 2. Seizures within the past 24 hours 3. Delirium tremens within the past 24 hours 4. Hallucinations within the past 24 hours 5. Acute intervention needed for co occurring medical disorder 6. Acute intervention needed for co occurring psychiatric disorder 7. Severe withdrawal that cannot be handled at a lower level of care (continued vomiting, continued diarrhea, abnormal vital signs) requiring intravenous medication and/or fluids 8. Admitting History and Physical - Admission Chief Complaint: Ms. Childress is a 60 yo woman who presents to [facility] requesting detox for alcohol use disorder. History of Present Illness: Ms. Childress is a 60 yo woman who presents to [facility] requesting detox for alcohol use disorder. 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 Nicotine Substance amount: 6 ciggs Frequency of use: Daily Substance route: Smoking Date of Last Use: 08/14/20 (started age 20) - Last Treatment Date of last treatment: completed Treatment type: Substance Use Disorder (CARLA) Where was last treatment: Detox History Source: Patient Limitations to Obtaining History: No Limitations - Past Medical History Cardiovascular: Yes: HTN ...LMP: 10/27/09 Psych: Yes: Other (Insomnia) - Smoking History Smoking history: Current every day smoker Have you smoked in the past 12 months: Yes Aproximately how many cigarettes per day: 3 - Alcohol/Substance Use Hx Alcohol Use: Yes Admission ROS S - HPI Allergies/Adverse Reactions: Allergies Allergy/AdvReac Type Severity Reaction Status Date / Time lorazepam [From Ativan] Allergy Intermediate Rash Verified 05/22/20 10:54 Exam Limitations: Intoxication - Ebola screening Have you traveled outside of the country in the last 21 days: No Have you been sick,other than usual withdrawal symptoms: No Do you have a fever: No - Review of Systems Constitutional: No Symptoms Reported, Other (alternates between shouting and crying) EENT: reports: Blurred Vision (has glasses for reading) Respiratory: reports: No Symptoms reported Cardiac: reports: No Symptoms Reported GI: reports: No Symptoms Reported : reports: No Symptoms Reported Musculoskeletal: reports: No Symptoms Reported Integumentary: reports: No Symptoms Reported Neuro: reports: No Symptoms reported Endocrine: reports: No Symptoms Reported, Other (she states glucose check at home is "good") Hematology: reports: No Symptoms Reported Psychiatric: reports: Anxious, Depressed (no SI) Patient History - Patient Medical History Hx Anemia: No Hx Asthma: No Hx Chronic Obstructive Pulmonary Disease (COPD): No Hx Cancer: No Hx Cardiac Disorders: No Hx Congestive Heart Failure: No Hx Hypertension: Yes Hx Hypercholesterolemia: No Hx Pacemaker: No HX Cerebrovascular Accident: No Hx Seizures: No Hx Dementia: No Hx Diabetes: Yes Hx Gastrointestinal Disorders: Yes (GERDS) Hx Liver Disease: No Hx Genitourinary Disorders: No Hx Sexually Transmitted Disorders: No Hx Renal Disease (ESRD): No Hx Thyroid Disease: No Hx Human Immunodeficiency Virus (HIV): No (last 03/30 negative) Hx Hepatitis C: No Hx Depression: Yes Hx Suicide Attempt: No Hx Bipolar Disorder: No Hx Schizophrenia: No - Patient Surgical History Past Surgical History: No Hx Neurologic Surgery: No Hx Cataract Extraction: No Hx Cardiac Surgery: No Hx Lung Surgery: No Hx Breast Surgery: No Hx Breast Biopsy: No Hx Abdominal Surgery: No Hx Appendectomy: No Hx Cholecystectomy: No Hx Genitourinary Surgery: No Hx Section: No Hx Orthopedic Surgery: No Hx Hysterectomy: No Anesthesia Reaction: No - PPD History Results: CXR(-)02/09/18 - Reproductive History Last Menstrual Period: 10/27/09 - Smoking Cessation Smoking history: Current every day smoker Have you smoked in the past 12 months: Yes Aproximately how many cigarettes per day: 6 Cigars Per Day: 0 Hx Chewing Tobacco Use: No Initiated information on smoking cessation: Yes 'Breaking Loose' booklet given: 08/14/20 Admission Physical Exam [facility] - Vital Signs Vital Signs: VS: 132/81, HR 93, RR 14, temp 97.3, oxygen sat 98% UDS: all negative CHRISTINA 0.198 - Physical General Appearance: Yes: Nourished, Appropriately Dressed, Intoxicated HEENTM: Yes: EOMI, Hearing grossly Normal, Normocephalic, Normal Voice Respiratory: Yes: Lungs Clear, No Respiratory Distress, No Accessory Muscle Use Neck: Yes: Within Normal Limits, Supple Breast: Yes: Breast Exam Deferred Cardiology: Yes: Regular Rhythm, Regular Rate Abdominal: Yes: Normal Bowel Sounds, Non Tender, Soft, Protuberent Genitourinary: Yes: Other (deferred) Back: Yes: Normal Inspection Musculoskeletal: Yes: Gait Steady Extremities: Yes: Normal Inspection, Non-Tender Neurological: Yes: Alert Integumentary: Yes: Within Normal Limits - Diagnostic (1) Alcohol dependence with uncomplicated withdrawal Current Visit: Yes Status: Acute (2) Diabetes mellitus type II, controlled Current Visit: No Status: Acute Qualifiers: 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 use: without half-way use Diabetes mellitus complication status: without complication Qualified Code(s): E11.9 - Type 2 diabetes mellitus without complications (3) Nicotine dependence Current Visit: Yes Status: Acute Qualifiers: Nicotine product type: cigarettes Substance use status: in withdrawal Qualified Code(s): F17.213 - Nicotine dependence, cigarettes, with withdrawal (4) Essential hypertension Current Visit: Yes Status: Chronic Cleared for Admission [facility] - Detox or Rehab [facility] Level of Care: Medically Managed Detox Regimen/Protocol: Librium Breathalyzer - Breathalyzer Breathalyzer: 0.198 Urine Drug Screen - Test Device Lot number: [id number] Expiration date: 07/13/21 - Control Is test valid?: Yes - Results Drug screen NEGATIVE: Yes Inpatient Rehab Admission - Rehab Decision to Admit Inpatient rehab admission?: No
[2020-08-14 15:09] VITALS: BMI 28.9
[2020-08-14] MEDS: hydrOXYzine PAMOATE 25 MG CAPSULE (FP) PO SCH ×3 (16:05→22:10)
[2020-08-14] MEDS: cloNIDine HCL 0.1 MG TABLET PO SCH (16:05)
[2020-08-14] MEDS: PANTOPRAZOLE 20 MG TABLET PO SCH (16:05)
--- OUTSIDE RECORDS SUMMARY | 2020-08-14 18:21 | XMS ---
:1960 Author Organization [facility] Care Team Providers Name Role Phone OUTREACH Unavailable Unavailable [place] Unavailable Unavailable COMMUNITY Unavailable Unavailable Re-disclosure Warning The records that you are about to access may contain information from federally- assisted alcohol or drug abuse programs. If such information is present, then the following federally mandated warning applies: This information has been disclosed to you from records protected by federal confidentiality rules (42 CFR part 2). The federal rules prohibit you from making any further disclosure of this information unless further disclosure is expressly permitted by the written consent of the person to whom it pertains or as otherwise permitted by 42 CFR part 2. A general authorization for the release of medical or other information is NOT sufficient for this purpose. The Federal rules restrict any use of the information to criminally investigate or prosecute any alcohol or drug abuse patient.The records that you are about to access may contain highly sensitive health information, the redisclosure of which is protected by Article 27-F of the [facility] Public Health law. If you continue you may haveaccess to information: Regarding HIV / AIDS; Provided by facilities licensed or operated by the [facility] Office of Mental Health; or Provided by the [facility] Office for People With Developmental Disabilities. If such information is present, then the following [facility] mandated warning applies: This information has been disclosed to you from confidential records which are protected by state law. State law prohibits you from making any further disclosure of this information without the specific written consent of the person to whom it pertains, or as otherwise permitted by law. Any unauthorized further disclosure in violation of state law may result in a fine or group home sentence or both. A general authorization for the release of medical or other information is NOT sufficient authorization for further disclosure. Allergies and Adverse Reactions Type Description Substance Reaction Status Data Source(s ) No Known No Known Allergies No Known eCW3 ( [facility]) No Known No Known Allergies No Known eCW3 ( [facility]) No Known No Known Allergies No Known eCW3 ( [facility]) No Known No Known Allergies No Known eCW3 ( [facility]) No Known No Known Allergies No Known eCW3 ( [facility]) No Known No Known Allergies No Known eCW3 ( [facility]) No Known No Known Allergies No Known eCW3 ( [facility]) No Known No Known Allergies No Known eCW3 ( [facility]) Drug allergy Acetaminophen Drug allergy Unknown Active eCW3 ([facility]) Drug allergy Acetaminophen Drug allergy Unknown Active eCW3 ([facility]) Encounters Encounter Providers Location Date Indications Data Source(s ) Outpatient Attender: WILLIAN 06/09/2020 [facility] 02:06:13 PM [facility] EDT Patient admitted. Outpatient Attender: CARY 03/24/2020 [facility]14[facility] Patient admitted. Outpatient Attender: CARY 03/16/2020 02:49:00 PM [facility] Patient admitted. Outpatient Attender: GLENNA CORMIER 03/11/2020 09:50:33 AM [facility] Patient admitted. Outpatient Attender: GLENNA CORMIER 03/09/2020 03:23:40 PM [facility] Patient admitted. Outpatient Attender: GLENNA [facility] 03/06/2020 11:44:50 AM [facility] Patient admitted. Outpatient Attender: GLENNA CORMIER 03/03/2020 02:45:47 PM [facility] Patient admitted. Outpatient Attender: CARY 02/26/2020 01:42:51 [facility] Patient admitted. Outpatient [facility] 09/11/2019 12:00:00 AM eCW3 ([facility] A28 EDT - 09/11/2019 Health C are) 12:00:00 AM EDT A28-Est Therapy, [address] [facility] 09/09/2019 12:00:0 0 AM eCW3 ([facility] A28 EDT - 09/09/2019 Health C are) 12:00:00 AM EDT Outpatient [facility] 09/07/2019 12:00:00 AM eCW3 ([facility] A28 EDT - 09/07/2019 Health C are) 12:00:00 AM EDT Outpatient [facility] 08/28/2019 12:00:00 AM eCW3 ([facility] A28 EDT - 08/28/2019 Health C are) 12:00:00 AM EDT A28-Est Therapy, 30 [facility] 08/26/2019 12:00:0 0 AM eCW3 ([facility] A28 EDT - 08/26/2019 Health C are) 12:00:00 AM EDT Outpatient [facility] 08/24/2019 12:00:00 AM eCW3 ([facility] A28 EDT - 08/24/2019 Health C are) 12:00:00 AM EDT Outpatient [facility] 08/07/2019 12:00:00 AM eCW3 ([facility] A28 EDT - 08/07/2019 Health C are) 12:00:00 AM EDT Outpatient [facility] 07/24/2019 12:00:00 AM eCW3 ([facility] A28 EDT - 07/24/2019 Health C are) 12:00:00 AM EDT Outpatient [facility] 02/18/2019 12:00:00 AM eCW3 ([facility] A28 EDT - 02/18/2019 Health C are) 12:00:00 AM EDT Est Therapy, 45-60 [facility] 01/31/2019 12:00:00 AM eCW3 ([facility] A28 EDT - 01/31/2019 Health C are) 12:00:00 AM EDT Immunizations Vaccine Date Status Description Data Source(s) New in 2011. IIV4 07/31/2020 completed eCW3 ([facility] [place] 12:33:00 PM EDT Health [facility]) New in 2011. IIV4 07/31/2020 completed eCW3 ([facility] [place] 12:33:00 PM EDT Health Care) pneumococcal 07/31/2020 completed eCW3 ([facility] Ri guy polysaccharide PPV23 12:24:00 PM EDT [facility]) pneumococcal 07/31/2020 completed eCW3 ([facility] Ri guy polysaccharide PPV23 12:24:00 PM EDT [facility]) Medications Medication Brand Start Product Dose Route Administrative Pharmacy maryellen Indications Reaction Description Data Name Date Form Instructions Instructions Source(s) Metronidazo Metron 07/31/ active Metroni dazol eCW3 le 0.0075 idazol 2020 e 0.75 % ([facility] MG/MG e 0.75 12:00: [place] Vaginal Gel % 00 AM [facility] Metronidazo EDT [facility]) le 0.75 % Metronidazo Metron 07/31/ active Metroni dazol eCW3 le 0.0075 idazol 2020 e 0.75 % ([facility] MG/MG e 0.75 12:00: [place] Vaginal Gel % 00 AM [facility] Metronidazo EDT [facility]) le 0.75 % Clonidine Clonid .0 active Clonidine eCW3 Hydrochlori ine 2019 {tabl HCl 0.1 MG ( [facility] de 0.1 MG HCl 12:00: et} [place] Oral Tablet 0.1 MG 00 AM Healt h Clonidine EDT Care) HCl 0.1 MG Risperidone Risper 1.0 active Risperi done eCW3 0.5 MG Oral idone 2019 {tabl 0.5 MG ([facility] son Tablet 0.5 MG 12:00: et} [place] 00 [facility] EDT Care) Risperidone Risper 1.0 active Risperi done eCW3 0.5 MG Oral idone 2019 {tabl 0.5 MG ([facility] son Tablet 0.5 MG 12:00: et} [place] 00 Health EDT Care) Clonidine Clonid 1.0 active Clonidine eCW3 Hydrochlori ine 2019 {tabl HCl 0.1 MG ( [facility] de 0.1 MG HCl 12:00: et} [place] Oral Tablet 0.1 MG 00 AM Healt h Clonidine EDT Care) HCl 0.1 MG Clonidine Clonid 1.0 active Clonidine eCW3 Hydrochlori ine 2019 {tabl HCl 0.1 MG ( [facility] de 0.1 MG HCl 12:00: et} [place] Oral Tablet 0.1 MG 00 AM Healt h Clonidine EDT Care) HCl 0.1 MG Clonidine Clonid 1.0 active Clonidine eCW3 Hydrochlori ine 2020 {tabl HCl 0.1 MG ( [facility] de 0.1 MG HCl 12:00: et} [place] Oral Tablet 0.1 MG 00 AM Healt h Clonidine EDT Care) HCl 0.1 MG Risperidone Risper 1.0 active Risperi done eCW3 0.5 MG Oral idone 2020 {tabl 0.5 MG ([facility] son Tablet 0.5 MG 12:00: et} [place] AM Health EDT Care) Risperidone Risper .0 active Risperi done eCW3 0.5 MG Oral idone 2020 {tabl 0.5 MG ([facility] son Tablet 0.5 MG 12:00: et} [place] AM Health EDT Care) Clonidine Clonid 1.0 active Clonidine eCW3 Hydrochlori ine 2020 {tabl HCl 0.1 MG ( [facility] de 0.1 MG HCl 12:00: et} [place] Oral Tablet 0.1 MG 00 AM Healt h Clonidine EDT Care) HCl 0.1 MG Clonidine Clonid .0 active Clonidine eCW3 Hydrochlori ine 2019 {tabl HCl 0.1 MG ( [facility] de 0.1 MG HCl 12:00: et} [place] Oral Tablet 0.1 MG 00 AM Healt h Clonidine EDT Care) HCl 0.1 MG Risperidone Risper 1.0 active Risperi done eCW3 0.5 MG Oral idone 2020 {tabl 0.5 MG ([facility] son Tablet 0.5 MG 12:00: et} [place] AM Health EDT Care) Risperidone Risper .0 active Risperi done eCW3 0.5 MG Oral idone 2020 {tabl 0.5 MG ([facility] son Tablet 0.5 MG 12:00: et} [place] 00 AM Health EDT Care) Blood Blood 07/06/ active Blood eCW3 Pressure Pressu 2020 Pressure Kit ( [facility] Kit - re Kit 12:00: - [place] - 00 AM Health EDT Care) Esomeprazol Esomep 1.0 active Esomepr azole eCW3 e 20 MG razole 2019 {caps Magnesium 20 ( [facility] Delayed Magnes 12:00: ule} MG [place] Release ium 20 00 AM Health Oral MG EDT Care) Capsule Esomeprazol e Magnesium 20 MG Esomeprazol Esomep .0 active Esomepr azole eCW3 e 20 MG razole 2020 {caps Magnesium 20 ( [facility] Delayed Magnes 12:00: ule} MG [place] Release ium 20 00 AM Health Oral MG EDT Care) Capsule Esomeprazol e Magnesium 20 MG Blood Blood 07/06/ active Blood eCW3 Pressure Pressu 2020 Pressure Kit ( [facility] Kit - re Kit 12:00: - [place] - 00 AM Health EDT Care) Blood Blood 07/06/ active Blood eCW3 Pressure Pressu 2020 Pressure Kit ( [facility] Kit - re Kit 12:00: - [place] - 00 AM Health EDT Care) Esomeprazol Esomep .0 active Esomepr azole eCW3 e 20 MG razole 2020 {caps Magnesium 20 ( [facility] Delayed Magnes 12:00: ule} MG [place] Release ium 20 00 AM Health Oral MG EDT Care) Capsule Esomeprazol e Magnesium 20 MG valacyclovi Valtre .0 active Valtrex 1 GM eCW3 r 1000 MG x 1 GM 2020 {tabl ([facility] Oral Tablet 12:00: et} [place] [Valtrex] 00 AM Health Valtrex 1 EDT Care) GM valacyclovi Valtre .0 active Valtrex 1 GM eCW3 r 1000 MG x 1 GM 2020 {tabl ([facility] Oral Tablet 12:00: et} [place] [Valtrex] 00 AM Health Valtrex 1 EDT Care) GM valacyclovi Valtre .0 active Valtrex 1 GM eCW3 r 1000 MG x 1 GM 2020 {tabl ([facility] Oral Tablet 12:00: et} [place] [Valtrex] 00 AM Health Valtrex 1 EDT Care) GM valacyclovi Valtre .0 active Valtrex 1 GM eCW3 r 1000 MG x 1 GM 2020 {tabl ([facility] Oral Tablet 12:00: et} [place] [Valtrex] 00 AM Health Valtrex 1 EDT Care) GM valacyclovi Valtre .0 active Valtrex 1 GM eCW3 r 1000 MG x 1 GM 2020 {tabl ([facility] Oral Tablet 12:00: et} [place] [Valtrex] 00 AM Health Valtrex 1 EDT Care) GM valacyclovi Valtre .0 active Valtrex 1 GM eCW3 r 1000 MG x 1 GM 2020 {tabl ([facility] Oral Tablet 12:00: et} [place] [Valtrex] 00 AM Health Valtrex 1 EDT Care) GM Losartan [facility] .0 active Losartan e CW3 Potassium an 2020 {tabl Potassium 50 ( [facility] 50 MG Oral Potass 12:00: et} MG [place] Tablet ium 50 00 AM Health EDT Care) Losartan [facility] .0 active Losartan e CW3 Potassium an 2020 {tabl Potassium 50 ( [facility] 50 MG Oral Potass 12:00: et} MG [place] Tablet ium 50 00 AM Health EDT Care) Losartan [facility] .0 active Losartan e CW3 Potassium an 2020 {tabl Potassium 50 ( [facility] 50 MG Oral Potass 12:00: et} MG [place] Tablet ium 50 00 AM Health EDT Care) Losartan [facility] .0 active Losartan e CW3 Potassium an 2020 {tabl Potassium 50 ( [facility] 50 MG Oral Potass 12:00: et} MG [place] Tablet ium 50 00 AM Health EDT Care) Losartan [facility] .0 active Losartan e CW3 Potassium an 2020 {tabl Potassium 50 ( [facility] 50 MG Oral Potass 12:00: et} MG [place] Tablet ium 50 00 AM Health EDT Care) Losartan [facility] .0 active Losartan e CW3 Potassium an 2020 {tabl Potassium 50 ( Dean 50 MG Oral Potass 12:00: et} MG [place] Tablet ium 50 00 AM Health EDT Care) Losartan [facility] .0 active Losartan e CW3 Potassium an 2020 {tabl Potassium 50 ( [facility] 50 MG Oral Potass 12:00: et} MG [place] Tablet ium 50 00 AM Health EDT Care) Aspirin 81 Aspiri .0 active Aspirin 81 eCW3 MG Chewable n 81 2020 {tabl MG ([facility] Tablet MG 12:00: et} [place] 00 AM Health EDT Care) valsartan Diovan .0 active Diovan 16 0 eCW3 160 MG Oral 160 MG 2019 {tabl MG ([facility] Tablet 12:00: et} [place] [Diovan] AM [facility] [place] [address] EDT Care) MG Aspirin 81 Aspiri 1.0 active Aspirin 81 eCW3 MG Chewable n 81 2019 {tabl MG ([facility] Tablet MG 12:00: et} [facility] EDT Care) Aspirin 81 Aspiri 1.0 active Aspirin 81 eCW3 MG Chewable n 81 2019 {tabl MG ([facility] Tablet MG 12:00: et} [facility] EDT Care) Aspirin 81 Aspiri .0 active Aspirin 81 eCW3 MG Chewable n 81 2019 {tabl MG ([facility] Tablet MG 12:00: et} [facility] EDT Care) Aspirin 81 Aspiri 1.0 active Aspirin 81 eCW3 MG Chewable n 81 2019 {tabl MG ([facility] Tablet MG 12:00: et} [facility] EDT Care) Aspirin 81 Aspiri 1.0 active Aspirin 81 eCW3 MG Chewable n 81 2019 {tabl MG ([facility] Tablet MG 12:00: et} [facility] EDT Care) Aspirin 81 Aspiri 1.0 active Aspirin 81 eCW3 MG Chewable n 81 2019 {tabl MG ([facility] Tablet MG 12:00: et} [facility] EDT Care) Aspirin 81 Aspiri 1.0 active Aspirin 81 eCW3 MG Chewable n 81 2019 {tabl MG ([facility] Tablet MG 12:00: et} [facility] EDT Care) docosanol Abreva 12/31/ active Abreva 10 % eCW3 100 MG/ML 10 % 2019 ([facility] Topical 12:00: [place] Cream 00 [facility] [[facility]) Abreva 10 % docosanol Abreva 12/31/ active Abreva 10 % eCW3 100 MG/ML 10 % 2019 ([facility] Topical 12:00: [place] Cream 00 [facility] [[facility]] [facility]) Abreva 10 % docosanol Abreva 12/31/ active Abreva 10 % eCW3 100 MG/ML 10 % 2020 ([facility] Topical 12:00: [place] Cream 00 AM Health [[facility]] EST Care) Abreva 10 % docosanol Abreva 12/31/ active Abreva 10 % eCW3 100 MG/ML 10 % 2020 ([facility] Topical 12:00: [place] Cream 00 AM Health [[facility]] EST Care) Abreva 10 % docosanol Abreva 12/31/ active Abreva 10 % eCW3 100 MG/ML 10 % 2020 ([facility] Topical 12:00: [place] Cream 00 AM Health [[facility]] EST Care) Abreva 10 % docosanol Abreva 12/31/ active Abreva 10 % eCW3 100 MG/ML 10 % 2020 ([facility] Topical 12:00: [place] Cream 00 AM Health [[facility]] EST Care) Abreva 10 % docosanol Abreva 12/31/ active Abreva 10 % eCW3 100 MG/ML 10 % 2020 ([facility] Topical 12:00: [place] Cream 00 AM Health [[facility]] EST [facility]) Abreva 10 % docosanol Abreva 12/31/ active Abreva 10 % eCW3 100 MG/ML 10 % 2020 ([facility] Topical 12:00: [place] Cream 00 AM Health [[facility]] EST Care) Abreva 10 % Ranitidine UNK 1.0 active Ranitidine eCW3 HCl 150 MG 2019 {caps HCl 150 MG (H udson 12:00: ule} [place] 00 AM Health EST Care) Ranitidine UNK 1.0 active Ranitidine eCW3 HCl 150 MG 2019 {caps HCl 150 MG (H udson 12:00: ule} [place] 00 AM Health EST Care) Acyclovir Acyclo .0 active Acyclovir 5 eCW3 50 MG/ML vir 5 2018 {appl % ([facility] Topical % 12:00: icati [place] Cream 00 AM on} Health Acyclovir 5 EST Care) % Acyclovir Acyclo 10/05/ 1.0 active Acyclovir 5 eCW3 50 MG/ML vir 5 2018 {appl % ([facility] Topical % 12:00: icati [place] Cream 00 AM on} Health Acyclovir 5 EST Care) % Acyclovir Acyclo 1.0 active Acyclovir 5 eCW3 50 MG/ML vir 5 2018 {appl % ([facility] Topical % 12:00: icati [place] Cream 00 AM on} Health Acyclovir 5 EST Care) % Acyclovir Acyclo .0 active Acyclovir 5 eCW3 50 MG/ML vir 5 2018 {appl % ([facility] Topical % 12:00: icati [place] Cream 00 AM on} Health Acyclovir 5 EST Care) % Acyclovir Acyclo .0 active Acyclovir 5 eCW3 50 MG/ML vir 5 2018 {appl % ([facility] Topical % 12:00: icati [place] Cream 00 AM on} Health Acyclovir 5 EST Care) % Acyclovir Acyclo .0 active Acyclovir 5 eCW3 50 MG/ML vir 5 2018 {appl % ([facility] Topical % 12:00: icati [place] Cream 00 AM on} Health Acyclovir 5 EST Care) % Acyclovir Acyclo .0 active Acyclovir 5 eCW3 50 MG/ML vir 5 2018 {appl % ([facility] Topical % 12:00: icati [place] Cream 00 AM on} Health Acyclovir 5 EST Care) % Acyclovir Acyclo .0 active Acyclovir 5 eCW3 50 MG/ML vir 5 2018 {appl % ([facility] Topical % 12:00: icati [place] Cream 00 AM on} Health Acyclovir 5 EST Care) % valsartan Diovan .0 active Diovan 32 0 eCW3 320 MG Oral 320 MG 2018 {tabl MG ([facility] Tablet 12:00: et} [place] [Diovan] 00 AM Health Diovan 320 EDT Care) MG Ibuprofen Ibupro 08/07/ active Ibuprofen eCW3 400 MG Oral fen 2019 400 MG ([facility] n Tablet 400 MG 12:00: [place] 00 AM Health EDT Care) Calcium Calciu .0 active Calcium 500 eCW3 Carbonate m 500 2016 {tabl MG ([facility]an 1250 MG MG 12:00: et_wi [place] Oral Tablet 00 AM _hi Health Calcium 500 EST als} Care) MG Calcium Calciu 1.0 active Calcium 500 eCW3 Carbonate m 500 2016 {tabl MG ([facility]an 1250 MG MG 12:00: et_wi [place] Oral Tablet 00 AM th_me Health Calcium 500 EST als} Care) MG Calcium Calciu 1.0 suspend Calcium 50 0 eCW3 Carbonate m 500 2016 {tabl ed MG (Dean 1250 MG MG 12:00: et_wi [place] Oral Tablet 00 AM th_me Health Calcium 500 EST als} Care) MG Calcium Calciu 1.0 active Calcium 500 eCW3 Carbonate m 500 2016 {tabl MG (Dean 1250 MG MG 12:00: et_wi [place] Oral Tablet 00 AM th_me Health Calcium 500 EST als} Care) MG Calcium Calciu 1.0 suspend Calcium 50 0 eCW3 Carbonate m 500 2016 {tabl ed MG (Dean 1250 MG MG 12:00: et_wi [place] Oral Tablet 00 AM th_me Health Calcium 500 EST als} Care) MG Calcium Calciu 1.0 active Calcium 500 eCW3 Carbonate m 500 2016 {tabl MG (Dean 1250 MG MG 12:00: et_wi [place] Oral Tablet 00 AM th_me Health Calcium 500 EST als} Care) MG Calcium Calciu 1.0 active Calcium 500 eCW3 Carbonate m 500 2016 {tabl MG (Dean 1250 MG MG 12:00: et_wi [place] Oral Tablet 00 AM th_me Health Calcium 500 EST als} Care) MG Calcium Calciu 1.0 active Calcium 500 eCW3 Carbonate m 500 2016 {tabl MG (Dean 1250 MG MG 12:00: et_wi [place] Oral Tablet 00 AM th_me Health Calcium 500 EST als} Care) MG Calcium Calciu 1.0 active Calcium 500 eCW3 Carbonate m 500 2016 {tabl MG (Dean 1250 MG MG 12:00: et_wi [place] Oral Tablet 00 AM th_me Health Calcium 500 EST als} Care) MG Calcium Calciu 1.0 active Calcium 500 eCW3 Carbonate m 500 2016 {tabl MG (Dean 1250 MG MG 12:00: et_wi [place] Oral Tablet 00 AM th_me Health Calcium 500 EST als} Care) MG Calcium Calciu .0 active Calcium 500 eCW3 Carbonate m 500 2017 {tabl MG (Dean 1250 MG MG 12:00: et_wi [place] Oral Tablet 00 AM th_hi Health Calcium 500 EST als} Care) MG quetiapine Seroqu .0 active Seroquel 200 eCW3 200 MG Oral el 200 2016 {tabl MG ([facility] Tablet MG 12:00: et_at [place] [facility] Seroquel EST javi} Care) 200 MG quetiapine Seroqu .0 active Seroquel 200 eCW3 200 MG Oral el 200 2016 {tabl MG ([facility] Tablet MG 12:00: et_at [place] [Seroquel] 00 AM _[facility] Seroquel EST javi} Care) 200 MG Hydrochloro Hyzaar .0 active Hyzaar eCW3 thiazide 100-12 2016 {tabl 100-12.5 MG ( [facility] 12.5 MG / .5 MG 12:00: et} [place] Losartan 00 AM Health Potassium EST Care) 100 MG Oral Tablet [Hyzaar] Hyzaar 100-12.5 MG Hydrochloro Hyzaar .0 active Hyzaar eCW3 thiazide 100-12 2017 {tabl 100-12.5 MG ( [facility] 12.5 MG / .5 MG 12:00: et} [place] Losartan 00 AM Health Potassium EST Care) 100 MG Oral Tablet [Hyzaar] Hyzaar 100-12.5 MG Vitamin B-1 Vitami .0 active Vitamin B-1 eCW3 100 MG n B-1 2017 {tabl 100 MG (Dean 100 MG 12:00: et} [place] 00 AM Health EDT Care) Vitamin B-1 Vitami .0 active Vitamin B-1 eCW3 100 MG n B-1 2017 {tabl 100 MG (Dean 100 MG 12:00: et} [place] 00 AM Health EDT Care) Vitamin B-1 Vitami 1.0 active Vitamin B-1 eCW3 100 mg n B-1 2017 {tabl 100 mg (Dean 100 mg 12:00: et} [place] AM Health EDT Care) Vitamin B-1 Vitami 1.0 active Vitamin B-1 eCW3 100 mg n B-1 2017 {tabl 100 mg (Dean 100 mg 12:00: et} [place] AM Health EDT Care) Vitamin B-1 Vitami 1.0 active Vitamin B-1 eCW3 100 mg n B-1 2017 {tabl 100 mg (Dean 100 mg 12:00: et} [place] AM Health EDT Care) Vitamin B-1 Vitami 1.0 active Vitamin B-1 eCW3 100 MG n B-1 2017 {tabl 100 MG (Dean 100 MG 12:00: et} [place] AM Health EDT Care) Vitamin B-1 Vitami .0 active Vitamin B-1 eCW3 100 mg n B-1 2017 {tabl 100 mg (Dean 100 mg 12:00: et} [place] AM Health EDT Care) Vitamin B-1 Vitami 1.0 active Vitamin B-1 eCW3 100 mg n B-1 2017 {tabl 100 mg (Dean 100 mg 12:00: et} [place] AM Health EDT Care) Vitamin B-1 Vitami 1.0 active Vitamin B-1 eCW3 100 mg n B-1 2017 {tabl 100 mg (Dean 100 mg 12:00: et} [place] AM Health EDT Care) Vitamin B-1 Vitami 1.0 active Vitamin B-1 eCW3 100 mg n B-1 2017 {tabl 100 mg (Dean 100 mg 12:00: et} [place] AM Health EDT Care) Vitamin B-1 Vitami 1.0 active Vitamin B-1 eCW3 100 MG n B-1 2017 {tabl 100 MG (Dean 100 MG 12:00: et} [place] AM Health EDT Care) Aspirin 81 Aspiri 1.0 active Aspirin EC eCW3 MG Delayed n EC 2017 {tabl 81 MG (Dean Release 81 MG 12:00: et} [place] Oral Tablet 00 AM Health Aspirin EDT Care) 81 MG Aspirin 81 Aspiri 1.0 active Aspirin EC eCW3 MG Delayed n EC 2017 {tabl 81 MG (Dean Release 81 MG 12:00: et} [place] Oral Tablet 00 AM Health Aspirin EC EDT Care) 81 MG Vitamin B-1 Vitami 1.0 active Vitamin B-1 eCW3 100 MG n B-1 2017 {tabl 100 MG (Dean 100 MG 12:00: et} [place] 00 AM Health EDT Care) Esomeprazol Esomep 1.0 active Esomepraz ole eCW3 e 20 MG razole {caps Magnesium 20 ( Dean Delayed Magnes ule} MG [place] Release ium 20 Health Oral MG Care) Capsule Esomeprazol e Magnesium 20 MG Vitamin D3 Vitami active Vitamin D3 eCW3 125 MCG n D3 125 MCG (Dean (5000 UT) 125 (5000 UT) [facility] (5000 Care) UT) Trazodone Trazod 1.0 active Trazodone e CW3 Hydrochlori one {tabl HCl 100 mg ( Dean de 100 MG HCl et_at [place] Oral Tablet 100 mg _bedt Healt h Trazodone javi} Care) HCl 100 mg Famotidine Famoti 1.0 active Famotidine eCW3 40 MG Oral dine {tabl 40 mg (Dean Tablet 40 mg et} [place] Famotidine Health 40 mg Care) Amlodipine Norvas 1.0 active Norvasc 10 eCW3 10 MG Oral c 10 {tabl mg (Dean Tablet mg et} [place] [Norvasc] [facility] Norvasc 10 Care) mg Vitamin D3 Vitami active Vitamin D3 eCW3 125 MCG n D3 125 MCG (Dean (5000 UT) 125 (5000 UT) [facility] (5000 Care) [place]) Sertraline Zoloft 1.0 active Zoloft 50 MG eCW3 50 MG Oral 50 MG {tabl (Dean Tablet et} [place] [Zoloft] [facility] Zoloft 50 Care) MG Amlodipine Amlodi 1.0 active Amlodipine eCW3 10 MG Oral pine {tabl Besylate 10 ( Dean Tablet Besyla et} MG [place] Amlodipine te 10 Health Besylate 10 MG Care) MG Hydrochloro Hydroc 1.0 active Hydrochlo rot eCW3 thiazide hlorot {tabl hiazide 12.5 (Dean 12.5 MG hiazid et_in MG [place] Oral Tablet e 12.5 _the_ Healt h MG morni Care) ng} atorvastati Lipito 1.0 active Lipitor 2 0 eCW3 n 20 MG r 20 {tabl MG ([facility] Oral Tablet MG et} [place] [Lipitor] Health Lipitor 20 Care) MG Trazodone Trazod 1.0 active Trazodone e CW3 Hydrochlori one {tabl HCl 50 MG (H udson de 50 MG HCl 50 et_at [place] Oral Tablet MG _bedt Health Trazodone javi} Care) HCl 50 MG Hydrochloro Hydroc 1.0 suspend Hydrochl orot eCW3 thiazide hlorot {tabl ed hiazide 12.5 (Dean 12.5 MG hiazid et_in MG [place] Oral Tablet e 12.5 _the_ Healt h MG morni Care) ng} Acetaminoph Acetam 2.0 active Acetamino phe eCW3 en 325 MG inophe {tabl n 325 MG (Hu dson Oral Tablet n 325 et_as [place] MG _need Health ed} Care) Hydrochloro Hydroc 1.0 active Hydrochlo rot eCW3 thiazide hlorot {tabl hiazide 12.5 (Dean 12.5 MG hiazid et_in MG [place] Oral Tablet e 12.5 _the_ Healt h MG morni Care) ng} Folic Acid Folic active Folic Acid 1 eCW3 1 MG Oral Acid 1 MG ([facility]an Tablet MG [facility]) atorvastati Lipito 1.0 active Lipitor 2 0 eCW3 n 20 MG r 20 {tabl MG ([facility]an Oral Tablet MG et} [place] [Lipitor] Health Lipitor 20 Care) MG atorvastati Lipito 1.0 active Lipitor 2 0 eCW3 n 20 MG r 20 {tabl MG ([facility]an Oral Tablet MG et} [place] [Lipitor] Health Lipitor 20 Care) MG Sertraline Zoloft 1.0 active Zoloft 50 MG eCW3 50 MG Oral 50 MG {tabl (Dean Tablet et} [place] [Zoloft] Health Zoloft 50 Care) MG Acetaminoph Acetam 2.0 active Acetamino phe eCW3 en 325 MG inophe {tabl n 325 MG (Hu dson Oral Tablet n 325 et_as [place] MG _need Health ed} Care) Sertraline Zoloft 1.0 active Zoloft 50 MG eCW3 50 MG Oral 50 MG {tabl (Dean Tablet et} [place] [Zoloft] Health Zoloft 50 Care) MG Famotidine Famoti 1.0 active Famotidine eCW3 40 MG Oral dine {tabl 40 mg (Dean Tablet 40 mg et} [facility] Famotidine Health 40 mg Care) Trazodone Trazod 1.0 active Trazodone e CW3 Hydrochlori one {tabl HCl 100 mg ( Dean de 100 MG HCl et_at [place] Oral Tablet 100 mg _bedt Healt h Trazodone javi} Care) HCl 100 mg Famotidine Famoti 1.0 active Famotidine eCW3 40 MG Oral dine {tabl 40 mg (Dean Tablet 40 mg et} [facility] Famotidine [facility] 40 mg Care) Hydrochloro Hydroc 1.0 active Hydrochlo rot eCW3 thiazide hlorot {tabl hiazide 12.5 (Dean 12.5 MG hiazid et_in MG [place] Oral Tablet e 12.5 _the_ Healt h MG morni Care) ng} atorvastati Lipito 1.0 active Lipitor 2 0 eCW3 n 20 MG r 20 {tabl MG (Dean Oral Tablet MG et} [place] [Lipitor] Health Lipitor 20 Care) MG Trazodone Trazod 1.0 active Trazodone e CW3 Hydrochlori one {tabl HCl 100 mg ( Dean de 100 MG HCl et_at [place] Oral Tablet 100 mg _bedt Healt h Trazodone javi} Care) HCl 100 mg Sertraline Zoloft 1.0 active Zoloft 50 MG eCW3 50 MG Oral 50 MG {tabl (Dean Tablet et} [place] [Zoloft] Health Zoloft 50 Care) MG Famotidine Famoti 1.0 active Famotidine eCW3 40 MG Oral dine {tabl 40 mg (Dean Tablet 40 mg et} [facility] Famotidine [facility] 40 mg Care) Sertraline Zoloft 1.0 active Zoloft 50 MG eCW3 50 MG Oral 50 MG {tabl (Dean Tablet et} [place] [Zoloft] Health Zoloft 50 Care) MG Amlodipine Norvas 1.0 active Norvasc 10 eCW3 10 MG Oral c 10 {tabl mg (Dean Tablet mg et} [place] [Norvasc] Health Norvasc 10 Care) mg Trazodone Trazod 1.0 active Trazodone e CW3 Hydrochlori one {tabl HCl 100 mg ( Dean de 100 MG HCl et_at [place] Oral Tablet 100 mg _bedt Healt h Trazodone javi} Care) HCl 100 mg Hydrochloro Hydroc 1.0 active Hydrochlo rot eCW3 thiazide hlorot {tabl hiazide 12.5 (Dean 12.5 MG hiazid et_in MG [place] Oral Tablet e 12.5 _the_ Healt h MG morni Care) ng} Hydrochloro Hydroc 1.0 suspend Hydrochl orot eCW3 thiazide hlorot {tabl ed hiazide 12.5 (Dean 12.5 MG hiazid et_in MG [place] Oral Tablet e 12.5 _the_ Healt h MG morni Care) ng} Sertraline Zoloft 1.0 active Zoloft 50 MG eCW3 50 MG Oral 50 MG {tabl (Dean Tablet et} [place] [Zoloft] Health Zoloft 50 Care) MG Esomeprazol Esomep 1.0 active Esomepraz ole eCW3 e 20 MG razole {caps Magnesium 20 ( Dean Delayed Magnes ule} MG [facility] Release ium 20 Health Oral MG Care) Capsule Esomeprazol e Magnesium 20 MG Esomeprazol Esomep 1.0 active Esomepraz ole eCW3 e 20 MG razole {caps Magnesium 20 ( Dean Delayed Magnes ule} MG [place] Release ium 20 Health Oral MG Care) Capsule Esomeprazol e Magnesium 20 MG Trazodone Trazod 1.0 active Trazodone e CW3 Hydrochlori one {tabl HCl 100 mg ( Dean de 100 MG HCl et_at [place] Oral Tablet 100 mg _bedt Healt h Trazodone javi} Care) HCl 100 mg Vitamin D3 Vitami active Vitamin D3 eCW3 125 MCG n D3 125 MCG (Dean (5000 UT) 125 (5000 UT) [place] [facility] (5000 Care) [place]) Trazodone Trazod 1.0 suspend Trazodone eCW3 Hydrochlori one {tabl ed HCl 100 mg ( Dean de 100 MG HCl et_at [place] Oral Tablet 100 mg _bedt Healt h Trazodone javi} Care) HCl 100 mg Trazodone Trazod 1.0 active Trazodone e CW3 Hydrochlori one {tabl HCl 50 MG (H udson de 50 MG HCl 50 et_at [place] Oral Tablet MG _bedt Health Trazodone javi} Care) HCl 50 MG Folic Acid Folic active Folic Acid 1 eCW3 1 MG Oral Acid 1 mg (Dean Tablet mg [place] Folic Acid Health 1 mg Care) Aspir-81 81 UNK 1.0 active Aspir-81 81 eCW3 MG {tabl MG ([facility]an et} [facility]) atorvastati Lipito 1.0 active Lipitor 2 0 eCW3 n 20 MG r 20 {tabl MG (Dean Oral Tablet MG et} [place] [Lipitor] Health Lipitor 20 Care) MG Amlodipine Amlodi 1.0 active Amlodipine eCW3 10 MG Oral pine {tabl Besylate 10 ( Dean Tablet Besyla et} MG [facility] Amlodipine te 10 Health Besylate 10 MG Care) MG Sertraline Zoloft 1.0 active Zoloft 50 MG eCW3 50 MG Oral 50 MG {tabl (Dean Tablet et} [place] [Zoloft] Health Zoloft 50 Care) MG Sertraline Zoloft 1.0 active Zoloft 50 MG eCW3 50 MG Oral 50 MG {tabl (Dean Tablet et} [place] [Zoloft] Health Zoloft 50 Care) MG Acetaminoph Acetam 2.0 active Acetamino phe eCW3 en 325 MG inophe {tabl n 325 MG (Hu dson Oral Tablet n 325 et_as [place] MG _need Health ed} Care) Trazodone Trazod 1.0 active Trazodone e CW3 Hydrochlori one {tabl HCl 100 mg ( Dean de 100 MG HCl et_at [place] Oral Tablet 100 mg _bedt Healt h Trazodone javi} Care) HCl 100 mg Hydrochloro Hydroc 1.0 active Hydrochlo rot eCW3 thiazide hlorot {tabl hiazide 12.5 (Dean 12.5 MG hiazid et_in MG [place] Oral Tablet e 12.5 _the_ Healt h MG morni Care) ng} Folic Acid Folic active Folic Acid 1 eCW3 1 MG Oral Acid 1 mg (Dean Tablet mg [place] Folic Acid Health 1 mg Care) Famotidine Famoti 1.0 active Famotidine eCW3 40 MG Oral dine {tabl 40 mg (Dean Tablet 40 mg et} [facility] Famotidine Health 40 mg Care) Trazodone Trazod 1.0 active Trazodone e CW3 Hydrochlori one {tabl HCl 100 mg ( Dean de 100 MG HCl et_at [place] Oral Tablet 100 mg _bedt Healt h Trazodone javi} Care) HCl 100 mg Folic Acid Folic active Folic Acid 1 eCW3 1 MG Oral Acid 1 mg (Dean Tablet mg [place] Folic Acid Health 1 mg Care) Trazodone Trazod 1.0 active Trazodone e CW3 Hydrochlori one {tabl HCl 50 MG (H udson de 50 MG HCl 50 et_at [place] Oral Tablet MG _bedt Health Trazodone javi} Care) HCl 50 MG Trazodone Trazod 1.0 active Trazodone e CW3 Hydrochlori one {tabl HCl 50 MG (H udson de 50 MG HCl 50 et_at [place] [facility] Trazodone javi} Care) HCl 50 MG Hydrochloro Hydroc 1.0 active Hydrochlo rot eCW3 thiazide hlorot {tabl hiazide 12.5 (Dean 12.5 MG hiazid et_in MG [place] Oral Tablet e 12.5 _the_ Healt h MG morni Care) ng} Hydrochloro Hydroc 1.0 active Hydrochlo rot eCW3 thiazide hlorot {tabl hiazide 12.5 (Dean 12.5 MG hiazid et_in MG [place] Oral Tablet e 12.5 _the_ Healt h MG morni Care) ng} Famotidine Famoti 1.0 active Famotidine eCW3 40 MG Oral dine {tabl 40 mg (Dean Tablet 40 mg et} [place] Famotidine Health 40 mg Care) Vitamin D3 Vitami active Vitamin D3 eCW3 125 MCG n D3 125 MCG (Dean (5000 UT) 125 (5000 UT) [place] [facility] Health (5000 Care) [place]) Folic Acid Folic active Folic Acid 1 eCW3 1 MG Oral Acid 1 MG (Dean Tablet MG [facility]) Vitamin D3 Vitami active Vitamin D3 eCW3 125 MCG n D3 125 MCG ([place] (5000 [place]) 125 (5000 [place]) [facility] (5000 Care) [place]) Sertraline Zoloft 1.0 active Zoloft 50 mg eCW3 50 MG Oral 50 mg {tabl (Dean Tablet et} [place] [Zoloft] [facility] Zoloft 50 Care) mg Folic Acid Folic active Folic Acid 1 eCW3 1 MG Oral Acid 1 mg (Dean Tablet mg [place] Folic Acid Health 1 mg Care) Trazodone Trazod 1.0 suspend Trazodone eCW3 Hydrochlori one {tabl ed HCl 100 mg ( Dean de 100 MG HCl et_at [place] Oral Tablet 100 mg _bedt Healt h Trazodone javi} Care) HCl 100 mg atorvastati Lipito 1.0 active Lipitor 2 0 eCW3 n 20 MG r 20 {tabl MG (Dean Oral Tablet MG et} [place] [Lipitor] [facility] Lipitor 20 Care) MG Famotidine Famoti 1.0 active Famotidine eCW3 40 MG Oral dine {tabl 40 MG (Dean Tablet 40 MG et} [facility]) Vitamin D3 Vitami active Vitamin D3 eCW3 125 MCG n D3 125 MCG ([place] (5000 UT) 125 (5000 [place]) [facility] (5000 Care) [place]) Acetaminoph Acetam 2.0 active Acetamino phe eCW3 en 325 MG inophe {tabl n 325 MG (Hu dson Oral Tablet n 325 et_as [place] MG _need Health ed} Care) Aspir-81 81 UNK 1.0 active Aspir-81 81 eCW3 MG {tabl MG (Dean et} [facility]) Trazodone Trazod 1.0 active Trazodone e CW3 Hydrochlori one {tabl HCl 50 MG (H udson de 50 MG HCl 50 et_at [place] Oral Tablet MG _bedt Health Trazodone javi} Care) HCl 50 MG Blood Blood active Blood eCW3 Pressure Pressu Pressure Kit ( [place] Kit - re Kit - [facility]) Famotidine Famoti 1.0 active Famotidine eCW3 40 MG Oral dine {tabl 40 mg (Dean Tablet 40 mg et} [place] Famotidine Health 40 mg Care) Hydrochloro Hydroc 1.0 active Hydrochlo rot eCW3 thiazide hlorot {tabl hiazide 12.5 (Dean 12.5 MG hiazid et_in MG [place] Oral Tablet e 12.5 _the_ Healt h MG morni Care) ng} Acetaminoph Acetam 2.0 active Acetamino phe eCW3 en 325 MG inophe {tabl n 325 MG (Hu dson Oral Tablet n 325 et_as [place] MG _need Health ed} Care) Acetaminoph Acetam 2.0 active Acetamino phe eCW3 en 325 MG inophe {tabl n 325 MG (Hu dson Oral Tablet n 325 et_as [place] MG _need Health ed} Care) Sertraline Zoloft 1.0 active Zoloft 50 mg eCW3 50 MG Oral 50 mg {tabl (Dean Tablet et} [place] [Zoloft] Health Zoloft 50 Care) mg Famotidine Famoti 1.0 active Famotidine eCW3 40 MG Oral dine {tabl 40 MG (Dean Tablet 40 MG et} [place] [facility]) Naproxen Naprox 1.0 suspend Naproxen 50 0 eCW3 500 MG Oral en 500 {tabl ed MG ([place] Tablet MG et_as [place] _need Health ed} Care) Trazodone Trazod 1.0 active Trazodone e CW3 Hydrochlori one {tabl HCl 50 MG (H udson de 50 MG HCl 50 et_at [place] Oral Tablet MG _bedt Health Trazodone javi} Care) HCl 50 MG Acetaminoph Acetam 2.0 active Acetamino phe eCW3 en 325 MG inophe {tabl n 325 MG (Hu dson Oral Tablet n 325 et_as [place] MG _need Health ed} Care) Folic Acid Folic active Folic Acid 1 eCW3 1 MG Oral Acid 1 mg (Dean Tablet mg [place] Folic Acid Health 1 mg Care) Losartan Losart 1.0 active Losartan eCW 3 Potassium an {tabl Potassium (Hud son 100 MG Oral Potass et} 100 MG Rive r Tablet ium Health 100 MG Care) Vitamin D3 Vitami active Vitamin D3 eCW3 125 MCG n D3 125 MCG (Dean (5000 UT) 125 (5000 UT) [facility] Health (5000 Care) [place]) Blood Blood active Blood eCW3 Pressure Pressu Pressure Kit ( [facility]) atorvastati Lipito 1.0 active Lipitor 2 0 eCW3 n 20 MG r 20 {tabl MG (Dean Oral Tablet MG et} [place] [Lipitor] [facility] Lipotis r[facility] 20 Care) MG Trazodone Trazod 1.0 active Trazodone e CW3 Hydrochlori one {tabl HCl 50 MG (H udson de 50 MG HCl 50 et_at [place] Oral Tablet MG _bedt Health Trazodone javi} Care) HCl 50 MG Acetaminoph Acetam 2.0 active Acetamino phe eCW3 en 325 MG inophe {tabl n 325 MG (Hu dson Oral Tablet n 325 et_as [place] MG _need Health ed} Care) Trazodone Trazod 1.0 active Trazodone e CW3 Hydrochlori one {tabl HCl 50 MG (H udson de 50 MG HCl 50 et_at [place] Oral Tablet MG _[facility] Trazodone javi} Care) HCl 50 MG Folic Acid Folic active Folic Acid 1 eCW3 1 MG Oral Acid 1 MG (Dean Tablet MG [facility] Care) Folic Acid Folic active Folic Acid 1 eCW3 1 MG Oral Acid 1 MG (Dean Tablet MG [facility] Care) Blood Blood active Blood eCW3 Pressure Pressu Pressure Kit ( [facility]) atorvastati Lipito 1.0 active Lipitor 2 0 eCW3 n 20 MG r 20 {tabl MG (Dean Oral Tablet MG et} [place] [Lipitor] [facility] 20 Care) MG Folic Acid Folic active Folic Acid 1 eCW3 1 MG Oral Acid 1 mg (Dean Tablet mg [place] Folic Acid Health 1 mg Care) Hydrochloro Hydroc 1.0 suspend Hydrochl orot eCW3 thiazide hlorot {tabl ed hiazide 12.5 (Dean 12.5 MG hiazid et_in MG [place] Oral Tablet e 12.5 _the_ Healt h MG morni Care) ng} valsartan Diovan 1.0 active Diovan 160 eCW3 160 MG Oral 160 MG {tabl MG ([place] Tablet et} [place] [Diovan] [facility] Diovan 160 Care) MG Losartan Losart 1.0 active Losartan eCW 3 Potassium an {tabl Potassium (Hud son 100 MG Oral Potass et} 100 MG Rive r Tablet iu Health 100 MG Care) Vitamin D3 Vitami active Vitamin D3 eCW3 125 MCG n D3 125 MCG (Dean (5000 UT) 125 (5000 UT) [place] [facility] Health (5000 Care) [place]) Hydroxyzine HydrOX active HydrOXYzi ne eCW3 Hydrochlori Yzine HCl 50 MG (H udson de 50 MG HCl 50 [place] Oral Tablet MG [facility] HydrOXYzine Care) HCl 50 MG Folic Acid Folic active Folic Acid 1 eCW3 1 MG Oral Acid 1 mg (Dean Tablet mg [place] Folic Acid [facility] 1 mg Care) Sertraline Zoloft 1.0 active Zoloft 50 MG eCW3 50 MG Oral 50 MG {tabl (Dean Tablet et} [place] [Zoloft] [facility] Zoloft 50 Care) MG Trazodone Trazod 1.0 active Trazodone e CW3 Hydrochlori one {tabl HCl 50 MG (H udson de 50 MG HCl 50 et_at [place] Oral Tablet MG _bedt [facility] Trazodone javi} Care) HCl 50 MG Trazodone Trazod 1.0 active Trazodone e CW3 Hydrochlori one {tabl HCl 100 mg ( Dean de 100 MG HCl et_at [place] Oral Tablet 100 mg _bedt Healt h Trazodone javi} Care) HCl 100 mg Naproxen Naprox 1.0 suspend Naproxen 50 0 eCW3 500 MG Oral en 500 {tabl ed MG ([place] Tablet MG et_as [place] _need Health ed} Care) Famotidine Famoti 1.0 active Famotidine eCW3 40 MG Oral dine {tabl 40 MG (Dean Tablet 40 MG et} [place] [facility]) Famotidine Famoti 1.0 active Famotidine eCW3 40 MG Oral dine {tabl 40 mg (Dean Tablet 40 mg et} [place] Famotidine Health 40 mg Care) Hydroxyzine HydrOX active HydrOXYzi ne eCW3 Hydrochlori Yzine HCl 50 MG (H udson de 50 MG HCl 50 [place] Oral Tablet MG [facility] HydrOXYzine Care) HCl 50 MG Trazodone Trazod 1.0 active Trazodone e CW3 Hydrochlori one {tabl HCl 100 mg ( Dean de 100 MG HCl et_at [place] Oral Tablet 100 mg _bedt Healt h Trazodone javi} Care) HCl 100 mg Insurance Providers Payer name Policy type Policy ID Covered Covered constitution party's Policy P juan / Coverage constitution party ID relationship to Fuentes Inf ormation type fuentes [employer] [id number] SP [id number] W [employer] [id number] Self [id number] [employer] [id number] SP [id number] W Problems, Conditions, and Diagnoses Code Display Name Description Problem Type Effective Data Dates Source(s) N20.0 Renal calculus Renal calculi Problem 07/27/2020 eCW3 (H udson 12:00:[address] [facility] EDT Care) F10.20 Alcohol use Alcohol use Problem 07/17/2020 eCW3 (Dean disorder, moderate, disorder, moderate, 12:00:0 0 AM [facility] in controlled in controlled EDT Care) environment, environment, dependence dependence F10.21 Alcohol use Alcohol use Problem 07/17/2020 eCW3 (Dean disorder, moderate, disorder, moderate, 12:00:0 0 AM [facility] in early remission in early remission EDT Care) F10.21 Alcohol use Alcohol use Problem 07/17/2020 eCW3 (Dean disorder, moderate, disorder, moderate, 12:00:0 0 AM [facility] in early remission in early remission EDT Care) F10.20 Alcohol use Alcohol use Problem 07/17/2020 eCW3 (Dean disorder, moderate, disorder, moderate, 12:00:0 0 AM [facility] in controlled in controlled EDT Care) environment, environment, dependence dependence Z71.2 Encounter to discuss Encounter to discuss Problem 07/13 eCW3 (Dean test results test results 12:00:00 AM [facility] EDT Care) Z71.2 Encounter to discuss Encounter to discuss Problem 07/13 eCW3 (Dean test results test results 12:00:00 AM [facility] EDT Care) E11.69 Complication due to Type 2 diabetes Problem 06/30/2020 eCW3 (Dean diabetes mellitus mellitus with other 12:00:[address] [facility] type 2 specified EDT Care) complication E11.69 Complication due to Type 2 diabetes Problem 06/30/2020 eCW3 (Dean diabetes mellitus mellitus with other 12:00:00 AM [place] [facility] type 2 specified EDT Care) complication E11.69 Complication due to Type 2 diabetes Problem 06/30/2020 eCW3 (Dean diabetes mellitus mellitus with other 12:00:00 AM [place] [facility] type 2 specified EDT Care) complication U07.1 COVID-19 COVID-19 Problem 06/23/2020 eCW3 (Dean 12:00:00 AM [facility] EDT Care) Z71.89 Advice given about Advice given about Problem 0 eCW3 (Dean COVID-19 virus COVID-19 virus 12:00:00 AM [facility] infection infection EDT Care) U07.1 COVID-19 COVID-19 Problem 06/23/2020 eCW3 (Dean 12:00:00 AM [facility] EDT Care) Z71.89 Advice given about Advice given about Problem 0 eCW3 (Dean COVID-19 virus COVID-19 virus 12:00:00 AM [facility] infection infection EDT Care) E11.9 Type 2 diabetes Type 2 diabetes Problem 01/30/2020 eCW3 (Dean mellitus mellitus 12:00:00 AM [facility] EDT Care) E11.9 Type 2 diabetes Type 2 diabetes Problem 01/30/2020 eCW3 (Dean mellitus mellitus 12:00:00 AM [facility] EDT Care) E11.9 Type 2 diabetes Type 2 diabetes Problem 01/30/2020 eCW3 (Dean mellitus mellitus 12:00:00 AM [facility] EDT Care) E11.9 Type 2 diabetes Type 2 diabetes Problem 01/30/2020 eCW3 (Dean mellitus mellitus 12:00:00 AM [facility] EDT Care) E55.9 Vitamin D deficiency Vitamin D deficiency Problem 10/25 eCW3 (Dean 12:00:00 AM [facility] EST Care) R92.8 Abnormal mammogram Abnormal mammogram Problem 9 eCW3 (Dean 12:00:00 AM [facility] EST Care) E55.9 Vitamin D deficiency Vitamin D deficiency Problem 10/25 eCW3 (Dean 12:00:00 AM [facility] EST Care) R92.8 Abnormal mammogram Abnormal mammogram Problem 9 eCW3 (Dean 12:00:00 AM [facility] EST Care) E55.9 Vitamin D deficiency Vitamin D deficiency Problem 10/25 eCW3 (Dean 12:00:00 AM [facility] EST Care) R92.8 Abnormal mammogram Abnormal mammogram Problem 9 eCW3 (Dean 12:00:00 AM [facility] EST Care) E55.9 Vitamin D deficiency Vitamin D deficiency Problem 10/25 eCW3 (Dean 12:00:00 AM [facility] EST Care) F10.21 Alcohol use Alcohol use Problem 10/21/2019 eCW3 (Dean disorder, severe, in disorder, severe, in 12:00 :00 AM [facility] early remission early remission EST Care ) F43.10 Post traumatic Post traumatic Problem 10/21/2019 eCW3 ( Dean stress disorder stress disorder 12:00:00 AM [facility] (PTSD) (PTSD) EST Care) F10.21 Alcohol use Alcohol use Problem 10/21/2019 eCW3 (Dean disorder, severe, in disorder, severe, in 12:00 :00 AM [facility] early remission early remission EST Care ) F10.21 Alcohol use Alcohol use Problem 10/21/2019 eCW3 (Dean disorder, severe, in disorder, severe, in 12:00 :00 AM [facility] early remission early remission EST Care ) F43.10 Post traumatic Post traumatic Problem 10/21/2019 eCW3 ( Dean stress disorder stress disorder 12:00:00 AM [facility] (PTSD) (PTSD) EST Care) F10.21 Alcohol use Alcohol use Problem 10/21/2019 eCW3 (Dean disorder, severe, in disorder, severe, in 12:00 :00 AM [facility] early remission early remission EST Care ) F43.10 Post traumatic Post traumatic Problem 10/21/2019 eCW3 ( Dean stress disorder stress disorder 12:00:00 AM [facility] (PTSD) (PTSD) EST Care) F10.21 Alcohol use Alcohol use Problem 10/21/2019 eCW3 (Dean disorder, severe, in disorder, severe, in 12:00 :00 AM [facility] early remission early remission EST Care ) F43.10 Post traumatic Post traumatic Problem 10/21/2019 eCW3 ( Dean stress disorder stress disorder 12:00:00 AM [facility] (PTSD) (PTSD) EST Care) F41.1 Generalized anxiety Generalized anxiety Problem 019 eCW3 (Dean disorder disorder 12:00:00 AM [facility] EDT Care) F17.200 Tobacco use disorder Tobacco use disorder Problem 08/28 eCW3 (Dean 12:00:00 AM [facility] EDT Care) F17.200 Tobacco use disorder Tobacco use disorder Problem 08/28 eCW3 (Dean 12:00:00 AM [facility] EDT Care) F41.1 Generalized anxiety Generalized anxiety Problem 019 eCW3 (Dean disorder disorder 12:00:00 AM [facility] EDT Care) F17.200 Tobacco use disorder Tobacco use disorder Problem 08/28 eCW3 (Dean 12:00:00 AM [facility] EDT Care) F41.1 Generalized anxiety Generalized anxiety Problem 019 eCW3 (Dean disorder disorder 12:00:00 AM [facility] EDT Care) F17.200 Tobacco use disorder Tobacco use disorder Problem 08/28 eCW3 (Dean 12:00:00 AM [facility] EDT Care) F17.200 Tobacco use disorder Tobacco use disorder Problem 08/28 eCW3 (Dean 12:00:00 AM [facility] EDT Care) F41.1 Generalized anxiety Generalized anxiety Problem 019 eCW3 (Dean disorder disorder 12:00:00 AM [facility] EDT Care) F17.200 Tobacco use disorder Tobacco use disorder Problem 08/28 eCW3 (Dean 12:00:00 AM [facility] EDT Care) F41.1 Generalized anxiety Generalized anxiety Problem 019 eCW3 (Dean disorder disorder 12:00:00 AM [facility] EDT Care) F17.210 Cigarette nicotine Cigarette nicotine Problem 9 eCW3 (Dean dependence without dependence without 12:00:00 AM [facility] complication complication EDT Care) A60.1 Herpes simplex Herpes simplex Problem 08/24/2019 eCW3 ( Dean infection of rectum infection of rectum 12:00:0 0 AM [facility] EDT Care) F17.210 Cigarette nicotine Cigarette nicotine Problem 9 eCW3 (Dean dependence without dependence without 12:00:00 AM [facility] complication complication EDT Care) A60.1 Herpes simplex Herpes simplex Problem 08/24/2019 eCW3 ( Dean infection of rectum infection of rectum 12:00:0 0 AM [facility] EDT Care) A60.1 Herpes simplex Herpes simplex Problem 08/24/2019 eCW3 ( Dean infection of rectum infection of rectum 12:00:0 0 AM [facility] EDT Care) F17.210 Cigarette nicotine Cigarette nicotine Problem 9 eCW3 (Dean dependence without dependence without 12:00:00 AM [facility] complication complication EDT Care) A60.1 Herpes simplex Herpes simplex Problem 08/24/2019 eCW3 ( Dean infection of rectum infection of rectum 12:00:0 0 AM [facility] EDT Care) F17.210 Cigarette nicotine Cigarette nicotine Problem 9 eCW3 (Dean dependence without dependence without 12:00:00 AM [facility] complication complication EDT Care) A60.1 Herpes simplex Herpes simplex Problem 08/24/2019 eCW3 ( Dean infection of rectum infection of rectum 12:00:0 0 AM [facility] EDT Care) F17.210 Cigarette nicotine Cigarette nicotine Problem 9 eCW3 (Dean dependence without dependence without 12:00:00 AM [facility] complication complication EDT Care) A60.1 Herpes simplex Herpes simplex Problem 08/24/2019 eCW3 ( Dean infection of rectum infection of rectum 12:00:0 0 AM [facility] EDT Care) F41.9 Anxiety Anxiety Problem 08/12/2019 eCW3 (Dean 12:00:00 AM [facility] EDT Care) F41.9 Anxiety Anxiety Problem 08/12/2019 eCW3 (Dean 12:00:00 AM [facility] EDT Care) F41.9 Anxiety Anxiety Problem 08/12/2019 eCW3 (Dean 12:00:00 AM [facility] EDT Care) F41.9 Anxiety Anxiety Problem 08/12/2019 eCW3 (Dean 12:00:00 AM [facility] EDT Care) F41.9 Anxiety Anxiety Problem 08/12/2019 eCW3 (Dean 12:00:00 AM [facility] EDT Care) D25.9 Uterine leiomyoma Fibroid Problem 02/18/2019 eCW3 (H udson 12:00:00 AM [facility] EDT Care) D25.9 Uterine leiomyoma Fibroid Problem 02/18/2019 eCW3 (H udson 12:00:00 AM [facility] EDT Care) D25.9 Uterine leiomyoma Fibroid Problem 02/18/2019 eCW3 (H udson 12:00:00 AM [facility] EDT Care) D25.9 Uterine leiomyoma Fibroid Problem 02/18/2019 eCW3 (H udson 12:00:00 AM [facility] EDT Care) D25.9 Uterine leiomyoma Fibroid Problem 02/18/2019 eCW3 (H udson 12:00:00 AM [facility] EDT Care) F10.21 Alcohol dependence Alcohol dependence Problem 9 eCW3 (Dean in early full in early full 12:00:00 AM [facility] remission remission EDT Care) F10.21 Alcohol dependence Alcohol dependence Problem 9 eCW3 (Dean in early full in early full 12:00:00 AM [facility] remission remission EDT Care) 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 eCW3 (Dean recurrent major recurrent major 12:00:00 AM [facility] Health depressive disorder depressive disorder EST Care) 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 eCW3 ([facility] recurrent major recurrent major 12:00:00 AM [facility] depressive disorder depressive disorder EST Care) 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 eCW3 ([facility] recurrent major recurrent major 12:00:00 AM [facility] depressive disorder depressive disorder EST Care) 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 eCW3 ([facility] recurrent major recurrent major 12:00:00 AM [facility] depressive disorder depressive disorder EST Care) 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 eCW3 ([facility] recurrent major recurrent major 12:00:00 AM [facility] depressive disorder depressive disorder EST Care) K76.0 Fatty liver Fatty liver Problem 10/04/2017 eCW3 ([facility] 12:00:00 AM [facility] EST Care) E78.5 Hyperlipidemia Hyperlipidemia Problem 10/04/2017 eCW3 ( [facility] 12:00:00 AM [facility] EST Care) E78.5 Hyperlipidemia Hyperlipidemia Problem 10/04/2017 eCW3 ( [facility] 12:00:00 AM [facility] EST Care) K76.0 Fatty liver Fatty liver Problem 10/04/2017 eCW3 ([facility] 12:00:00 AM [facility] EST Care) E78.5 Hyperlipidemia Hyperlipidemia Problem 10/04/2017 eCW3 ( [facility] 12:00:00 AM [facility] EST Care) K76.0 Fatty liver Fatty liver Problem 10/04/2017 eCW3 ([facility] 12:00:00 AM [facility] EST Care) K76.0 Fatty liver Fatty liver Problem 10/04/2017 eCW3 ([facility] 12:00:00 AM [facility] EST Care) E78.5 Hyperlipidemia Hyperlipidemia Problem 10/04/2017 eCW3 ( [facility] 12:00:00 AM [facility] EST Care) K76.0 Fatty liver Fatty liver Problem 10/04/2017 eCW3 ([facility] 12:00:00 AM [facility] EST Care) K76.0 Fatty liver Fatty liver Problem 10/04/2017 eCW3 ([facility] 12:00:00 AM [facility] EST Care) E78.5 Hyperlipidemia Hyperlipidemia Problem 10/04/2017 eCW3 ( [facility] 12:00:00 AM [facility] EST Care) N95.1 Menopausal state Menopausal state Problem 09/30/2017 eC W3 ([facility] 12:00:00 AM [facility] EST Care) N95.1 Menopausal state Menopausal state Problem 09/30/2017 eC W3 ([facility] 12:00:00 AM [facility] EST Care) N95.1 Menopausal state Menopausal state Problem 09/30/2017 eC W3 ([facility] 12:00:00 AM [facility] EST Care) N95.1 Menopausal state Menopausal state Problem 09/30/2017 eC W3 ([facility] 12:00:00 AM [facility] EST Care) N95.1 Menopausal state Menopausal state Problem 09/30/2017 eC W3 ([facility] 12:00:00 AM [facility] EST Care) F39 Mood disorder Mood disorder Problem 09/22/2017 eCW3 ([facility] 12:[facility] AM [facility] EST Care) F39 Mood disorder Mood disorder Problem 09/22/2017 eCW3 ([facility] 12:00:00 AM [facility] EST Care) F39 Mood disorder Mood disorder Problem 09/22/2017 eCW3 ([facility] 12:00:00 AM [facility] EST Care) F39 Mood disorder Mood disorder Problem 09/22/2017 eCW3 ([facility] 12:00:00 AM [facility] EST Care) F39 Mood disorder Mood disorder Problem 09/22/2017 eCW3 ([facility] 12:00:00 AM [facility] EST Care) K21.9 Gastroesophageal Gastroesophageal Problem 06/30/2017 eC W3 ([facility] reflux disease, reflux disease, 12:00:00 AM [facility] esophagitis presence esophagitis presence EDT Care) not specified not specified 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 06/30/2017 eCW3 ([facility] depressive disorder, depressive disorder, 12:00 :00 AM [facility] remission status remission status EDT Ca re) unspecified unspecified 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 06/30/2017 eCW3 ([facility] depressive disorder, depressive disorder, 12:00 :00 AM [facility] remission status remission status EDT Ca re) unspecified unspecified K21.9 Gastroesophageal Gastroesophageal Problem 06/30/2017 eC W3 ([facility] reflux disease, reflux disease, 12:00:00 AM [facility] esophagitis presence esophagitis presence EDT Care) not specified not specified K21.9 Gastroesophageal Gastroesophageal Problem 06/30/2017 eC W3 ([facility] reflux disease, reflux disease, 12:00:00 AM [facility] esophagitis presence esophagitis presence EDT Care) not specified not specified 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 06/30/2017 eCW3 ([facility] depressive disorder, depressive disorder, 12:00 :00 AM [facility] remission status remission status EDT Ca re) unspecified unspecified 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 06/30/2017 eCW3 ([facility] depressive disorder, depressive disorder, 12:00 :00 AM [facility] remission status remission status EDT Ca re) unspecified unspecified K21.9 Gastroesophageal Gastroesophageal Problem 06/30/2017 eC W3 ([facility] reflux disease, reflux disease, 12:00:00 AM [facility] esophagitis presence esophagitis presence EDT Care) not specified not specified 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 06/30/2017 eCW3 ([facility] depressive disorder, depressive disorder, 12:00 :00 AM [facility] remission status remission status EDT Ca re) unspecified unspecified K21.9 Gastroesophageal Gastroesophageal Problem 06/30/2017 eC W3 ([facility] reflux disease, reflux disease, 12:00:00 AM [facility] esophagitis presence esophagitis presence EDT Care) not specified not specified 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 06/30/2017 eCW3 ([facility] depressive disorder, depressive disorder, 12:00 :00 AM [facility] remission status remission status EDT Ca re) unspecified unspecified K21.9 Gastroesophageal Gastroesophageal Problem 06/30/2017 eC W3 ([facility] reflux disease, reflux disease, 12:00:00 [facility] esophagitis presence esophagitis presence EDT Care) not specified not specified I10 Essential Essential Problem 06/09/2017 eCW3 ([facility] hypertension hypertension 12:00:00 [facility]) I10 Essential Essential Problem 06/09/2017 eCW3 ([facility] hypertension hypertension 12:00:00 [facility] EDT [facility]) I10 Essential Essential Problem 06/09/2017 eCW3 ([facility] hypertension hypertension 12:00:00 [facility] EDT [facility]) I10 Essential Essential Problem 06/09/2017 eCW3 ([facility] hypertension hypertension 12:00:00 [facility] EDT [facility]) I10 Essential Essential Problem 06/09/2017 eCW3 ([facility] hypertension hypertension 12:00:00 [facility]T [facility]) F32.9 Depression, Depression, Problem 06/09/2017 eCW3 ([facility] unspecified unspecified 12:00:00 [facility] depression type depression type EDT Care ) N95.9 Unspecified Unspecified Problem 11/26/2016 eCW3 ([facility] menopausal and menopausal and 12:00:00 AM [facility] perimenopausal perimenopausal EST Care) disorder disorder N95.9 Unspecified Unspecified Problem 11/26/2016 eCW3 ([facility] menopausal and menopausal and 12:00:00 AM [facility] perimenopausal perimenopausal EST Care) disorder disorder N95.9 Unspecified Unspecified Problem 11/26/2016 eCW3 ([facility] menopausal and menopausal and 12:00:00 AM [facility] perimenopausal perimenopausal EST Care) disorder disorder N95.9 Unspecified Unspecified Problem 11/26/2016 eCW3 ([facility] menopausal and menopausal and 12:00:00 AM [facility] perimenopausal perimenopausal EST Care) disorder disorder N95.9 Unspecified Unspecified Problem 11/26/2016 eCW3 ([facility] menopausal and menopausal and 12:00:00 AM [facility] perimenopausal perimenopausal EST Care) disorder disorder N95.9 Unspecified Unspecified Problem 11/26/2016 eCW3 ([facility] menopausal and menopausal and 12:00:00 AM [facility] perimenopausal perimenopausal EST Care) disorder disorder N95.9 Unspecified Unspecified Problem 11/26/2016 eCW3 ([facility] menopausal and menopausal and 12:00:00 AM [facility] perimenopausal perimenopausal EST Care) disorder disorder F33.3 Severe recurrent Severe recurrent Problem 11/24/2016 eC W3 ([facility] depression with depression with 12:00:00 [facility] psychosis psychosis EST Care) F33.3 Severe recurrent Severe recurrent Problem 11/24/2016 eC W3 ([facility] depression with depression with 12:00:00 AM [facility] psychosis psychosis EST Care) F33.3 Severe recurrent Severe recurrent Problem 11/24/2016 eC W3 ([facility] depression with depression with 12:00:00 AM [facility] psychosis psychosis EST Care) F33.3 Severe recurrent Severe recurrent Problem 11/24/2016 eC W3 ([facility] depression with depression with 12:00:00 AM [facility] psychosis psychosis EST Care) F33.3 Severe recurrent Severe recurrent Problem 11/24/2016 eC W3 ([facility] depression with depression with 12:00:00 AM [facility] psychosis psychosis EST Care) F33.3 Severe recurrent Severe recurrent Problem 11/24/2016 eC W3 ([facility] depression with depression with 12:00:00 AM [facility] psychosis psychosis EST Care) F10.20 Uncomplicated Uncomplicated Problem 10/25/2016 eCW3 ([facility] alcohol dependence alcohol dependence 12:00:00 AM [facility] EST Care) F32.3 Major depress, sev Major depress, sev Problem 6 eCW3 ([facility] w/ psych w/ psych 12:00:00 AM [facility] EST Care) F10.20 Uncomplicated Uncomplicated Problem 10/25/2016 eCW3 ([facility] alcohol dependence alcohol dependence 12:00:00 AM [facility] EST Care) F32.3 Major depress, sev Major depress, sev Problem 6 eCW3 ([facility] w/ psych w/ psych 12:00:[address] [facility] EST Care) F10.20 Uncomplicated Uncomplicated Problem 10/25/2016 eCW3 ([facility] alcohol dependence alcohol dependence 12:00:[address] [facility] EST Care) F32.3 Major depress, sev Major depress, sev Problem 6 eCW3 ([facility] w/ psych w/ psych 12:00:00 AM [facility] EST Care) F10.20 Uncomplicated Uncomplicated Problem 10/25/2016 eCW3 ([facility] alcohol dependence alcohol dependence 12:00:[address] [facility] EST Care) F10.20 Uncomplicated Uncomplicated Problem 10/25/2016 eCW3 ([facility] alcohol dependence alcohol dependence 12:00:[address] [facility] EST Care) F32.3 Major depress, sev Major depress, sev Problem 6 eCW3 ([facility] w/ psych w/ psych 12:00:[address] [facility] EST Care) F32.3 Major depress, sev Major depress, sev Problem 6 eCW3 ([facility] w/ psych w/ psych 12:00:[address] [facility] EST Care) F10.20 Uncomplicated Uncomplicated Problem 10/25/2016 eCW3 ([facility] alcohol dependence alcohol dependence 12:00:[address] [facility] EST Care) F32.3 Major depress, sev Major depress, sev Problem 6 eCW3 ([facility] w/ psych w/ psych 12:00:[address] [facility] EST Care) F32.3 Major depress, sev Major depress, sev Problem 6 eCW3 ([facility] w/ psych w/ psych 12:00:[address] [facility] EST Care) F10.20 Uncomplicated Uncomplicated Problem 10/25/2016 eCW3 ([facility] alcohol dependence alcohol dependence 12:00:[address] [facility] EST Care) K21.9 GERD GERD Problem 10/03/2016 eCW3 ([facility] (gastroesophageal (gastroesophageal 12:00:[address] [facility] reflux disease) reflux disease) EST Care ) F10.10 ETOH abuse ETOH abuse Problem 10/03/2016 eCW3 ([facility] 12:00:00 AM [facility] EST Care) K21.9 GERD GERD Problem 10/03/2016 eCW3 ([facility] (gastroesophageal (gastroesophageal 12:00:00 AM [facility] reflux disease) reflux disease) EST Care ) F10.10 ETOH abuse ETOH abuse Problem 10/03/2016 eCW3 ([facility] 12:00:00 AM [facility] EST Care) F10.10 ETOH abuse ETOH abuse Problem 10/03/2016 eCW3 ([facility] 12:00:00 AM [facility] EST Care) K21.9 GERD GERD Problem 10/03/2016 eCW3 ([facility] (gastroesophageal (gastroesophageal 12:00:00 AM [facility] reflux disease) reflux disease) EST Care ) F10.10 ETOH abuse ETOH abuse Problem 10/03/2016 eCW3 ([facility] 12:00:00 AM [facility] EST Care) K21.9 GERD GERD Problem 10/03/2016 eCW3 ([facility] (gastroesophageal (gastroesophageal 12:00:00 AM [facility] reflux disease) reflux disease) EST Care ) F10.10 ETOH abuse ETOH abuse Problem 10/03/2016 eCW3 ([facility] 12:00:00 AM [facility] EST Care) Z00.00 Routine adult health Routine adult health Problem 04/18 eCW3 ([facility] maintenance maintenance 12:00:00 AM [facility] EDT [facility]) Z00.00 Routine adult health Routine adult health Problem 04/18 eCW3 ([facility] maintenance maintenance 12:00:00 AM [facility] EDT Care) Z00.00 Routine adult health Routine adult health Problem 04/18 eCW3 ([facility] maintenance maintenance 12:00:00 AM [facility] EDT Care) Z00.00 Routine adult health Routine adult health Problem 04/18 eCW3 ([facility] maintenance maintenance 12:00:00 AM [facility] EDT Care) Z00.00 Routine adult health Routine adult health Problem 04/18 eCW3 ([facility] maintenance maintenance 12:00:00 AM [facility] EDT Care) I10 Benign essential HTN Benign essential HTN Problem 04/18 eCW3 ([facility] 12:00:00 AM [facility] EDT Care) I10 Benign essential HTN Benign essential HTN Problem 04/18 eCW3 ([facility] 12:00:00 AM [facility] EDT Care) R76.11 PPD positive PPD positive Problem 04/18/2016 eCW3 ([place] [facility] 12:[facility] AM [facility] EDT Care) F17.200 Smoking Smoking Problem 04/18/2016 eCW3 [facility] I10 Benign essential HTN Benign essential HTN Problem 04/18 eCW3 ([facility] Z00.00 Routine adult health Routine adult health Problem 04/18 eCW3 ([facility] maintenance maintenance 12:00:00 AM [facility] EDT [facility]) R76.11 PPD positive PPD positive Problem 04/18/2016 eCW3 ([facility] [facility] Transitional Care Transitional Care Diagnosis 06/09/2020 The Management Outreach Management Outreach 02:06:1 3 PM [place] EDT [facility] Emergency Room Visit Emergency Room Visit Diagnosis 03/24 The Follow Up [facility]:14[facility] Results ID Date Data Source [id number] 06/16/2020 12:00:00 AM EDT [facility] Name Value Range Interpretation Code Description Data Sari rce(s) Supporting Document(s ) 2019-nCoV [facility] RNA XXX LAUREL+probe- Imp This lab was ordered by [facility] and reported by [employer] ID Date Data Source [id number] 05/22/2020 02:00:00 PM EDT [facility] Name Value Range Interpretation Description Data Sup porting Code Source(s) Document(s ) SARS [facility] coronavirus 2 RNA This lab was ordered by [facility] Bill Inter and reported by [facility]. Procedure Social History Code Duration Value Status Description Data Source(s ) Smoking 07/31/2020 Current Smoker completed Current Smoker eCW3 ( [facility] 12:00:00 AM [facility]) Smoking 07/31/2020 Current Smoker completed Current Smoker eCW3 ( [facility] 12:00:00 AM [facility]) Smoking 07/27/2020 Current Smoker completed Current Smoker eCW3 ( [facility] 12:00:00 AM [facility]) Smoking 07/13/2020 Current Smoker completed Current Smoker eCW3 ( [facility] 12:00:00 AM [facility]) Smoking 07/13/2020 Current Smoker completed Current Smoker eCW3 ( [facility] 12:00:00 AM [facility]) Smoking 07/13/2020 Current Smoker completed Current Smoker eCW3 ( [facility] 12:00:00 AM [facility]) Smoking 06/25/2020 Current Smoker completed Current Smoker eCW3 ( [facility] 12:00:00 AM [facility]) Smoking 05/07/2020 Current Smoker completed Current Smoker eCW3 ( [facility] 12:00:00 AM [facility]) Smoking 08/28/2019 Current Smoker completed Current Smoker eCW3 ( [facility] 12:00:00 AM [facility]) Current Smoker completed Current Smoker eCW3 ( [facility]) Current Smoker completed Current Smoker eCW3 ( [facility]) Current Smoker completed Current Smoker eCW3 ( [facility]) Current Smoker completed Current Smoker eCW3 ( [facility]) Current Smoker completed Current Smoker eCW3 ( [facility]) Current Smoker completed Current Smoker eCW3 ( [facility]) Current Smoker completed Current Smoker eCW3 ( [facility]) Current Smoker completed Current Smoker eCW3 ( [facility]) Tobacco smoking Unknown if The Insti tute status NHIS ever smoked [facility] Sex assigned at Not on file Not on file [facility] [place] [facility] Sex assigned at Not on file Not on file [facility] [place] [facility] Sex assigned at Not on file Not on file [facility] [place] [facility] Sex assigned at Not on file Not on file [facility] [place] [facility] Sex assigned at Not on file Not on file [facility] [place] [facility] Sex assigned at Not on file Not on file [facility] [place] [facility] Sex assigned at Not on file Not on file [facility] [place] [facility] Sex assigned at Not on file Not on file [facility] Current Smoker completed Current Smoker eCW3 ( [facility]) Smoking Unknown if ever smoked completed Unknown if ev er smoked eCW3 ([facility]) Vital Signs ID Date Data Source UNK Name Value Range Interpretation Code Description Data Source(s) Diastolic blood 79 mm[Hg] 79 mm[Hg] eCW3 ([facility]) Systolic blood 119 mm[Hg] 119 mm[Hg] eCW3 ([facility]) Body temperature 98.0 [degF] 98.0 [degF] eCW3 ( [facility]) Heart rate 18 /min 18 /min eCW3 ([facility]) Body mass index 29.80 kg/m2 29.80 kg/m2 eCW3 ([facility] (BMI) [Ratio] [facility]) Body weight 196 [lb_av] 196 [lb_av] eCW3 ([facility]) Body height [in_i] eCW3 ([facility]) Diastolic blood 73 mm[Hg] 73 mm[Hg] eCW3 ([facility]) Systolic blood 117 mm[Hg] 117 mm[Hg] eCW3 ([facility]) Body temperature 97.7 [degF] 97.7 [degF] eCW3 ( [facility]) Heart rate 18 /min 18 /min eCW3 ([facility]) Body mass index 29.80 kg/m2 29.80 kg/m2 eCW3 ([facility] (BMI) [Ratio] [facility]) Body weight 196 [lb_av] 196 [lb_av] eCW3 ([facility]) Body height [in_i] eCW3 ([facility]) Diastolic blood 71 mm[Hg] 71 mm[Hg] eCW3 ([facility]) Systolic blood 110 mm[Hg] 110 mm[Hg] eCW3 ([facility]) Body temperature 98.1 [degF] 98.1 [degF] eCW3 ( [facility]) Heart rate 18 /min 18 /min eCW3 ([facility]) Body mass index 29.49 kg/m2 29.49 kg/m2 eCW3 ([facility] (BMI) [Ratio] [facility]) Body weight 194 [lb_av] 194 [lb_av] eCW3 ([facility]) Body height [in_i] eCW3 ([facility]) Diastolic blood 66 mm[Hg] 66 mm[Hg] eCW3 ([facility]) Systolic blood 101 mm[Hg] 101 mm[Hg] eCW3 ([facility]) Body temperature 98.9 [degF] 98.9 [degF] eCW3 ( [facility]) Heart rate 18 /min 18 /min eCW3 ([facility]) Body mass index 29.65 kg/m2 29.65 kg/m2 eCW3 ([facility] (BMI) [Ratio] [facility]) Body weight 195 [lb_av] 195 [lb_av] eCW3 ([facility]) Body height [in_i] eCW3 ([facility]) Diastolic blood 75 mm[Hg] 75 mm[Hg] eCW3 ([facility]) Systolic blood 106 mm[Hg] 106 mm[Hg] eCW3 ([facility]) Body temperature 98.0 [degF] 98.0 [degF] eCW3 ( [facility]) Body mass index 29.43 kg/m2 29.43 kg/m2 eCW3 ([facility] (BMI) [Ratio] [facility]) Body weight 193.6 193.6 [lb_av] eCW3 ([facility] [[facility]) Body height [in_i] eCW3 ([facility]) Diastolic blood 84 mm[Hg] 84 mm[Hg] eCW3 ([facility]) Systolic blood 150 mm[Hg] 150 mm[Hg] eCW3 ([facility]) Body temperature 98.4 [degF] 98.4 [degF] eCW3 ( [facility]) Heart rate 18 /min 18 /min eCW3 ([facility]) Body mass index 30.56 kg/m2 30.56 kg/m2 eCW3 ([facility] (BMI) [Ratio] [facility]) Body weight 201 [lb_av] 201 [lb_av] eCW3 ([facility]) Body height [in_i] eCW3 ([facility]) Patient Treatment Plan of Care Planned Activity Planned Date Details Description Data Source (s) Metronidazole 0.0075 MG/MG 07/31/2020 e CW3 ([facility] Vaginal Gel 12:00:00 AM [facility]) Metronidazole 0.0075 MG/MG 07/31/2020 e CW3 ([facility] 12:00:00 AM [facility]) Clonidine Hydrochloride 0.1 07/11/2020 eCW3 ([facility] MG Oral Tablet 12:00:00 AM [facility] Health Car e) Risperidone 0.5 MG Oral 07/11/2020 eCW3 ([facility] Tablet 12:00:00 AM [facility]) Clonidine Hydrochloride 0.1 07/11/2020 eCW3 ([facility] Oral Tablet 12:00:00 AM [facility] Health [facility] e) Risperidone 0.5 MG Oral 07/11/2020 eCW3 ([facility] Tablet 12:00:00 AM [facility]) Clonidine Hydrochloride 0.1 07/11/2020 eCW3 ([facility] MG Oral Tablet 12:00:00 AM [facility] Health [facility] e) Risperidone 0.5 MG Oral 07/11/2020 eCW3 ([facility] Tablet 12:00:00 AM [facility]) valacyclovir 1000 MG Oral 07/03/2020 eC W3 ([facility] Tablet [Valtrex] 12:00:00 AM [facility]) valacyclovir 1000 MG Oral 07/03/2020 eC W3 ([facility] Tablet [Valtrex] 12:00:00 AM [facility] are) Losartan Potassium 50 MG Oral 06/23/2020 eCW3 ([facility] Tablet 12:00:00 AM [facility]) Losartan Potassium 50 MG Oral 06/23/2020 eCW3 ([facility] Tablet 12:00:00 AM [facility]) Losartan Potassium 50 MG Oral 06/23/2020 eCW3 ([facility] Tablet 12:00:00 AM [facility]) Aspirin 81 MG Chewable Tablet 05/07/2020 eCW3 ([facility] 12:00:00 AM [facility]) Aspirin 81 MG Chewable Tablet 05/07/2020 eCW3 ([facility] 12:00:00 AM [facility]) Aspirin 81 MG Chewable Tablet 05/07/2020 eCW3 ([facility] 12:00:00 AM [facility]) Calcium Carbonate 1250 MG 09/30/2017 eC W3 ([facility] Oral Tablet 12:00:00 AM [facility]) Hydrochlorothiazide 12.5 MG / 09/20/2017 eCW3 ([facility] Losartan Potassium 100 MG 12:00:00 AM [facility]) Oral Tablet [Hyzaar] Vitamin B-1 100 mg 06/26/2017 eCW3 ([facility] 12:00:00 AM [facility]) Vitamin B-1 100 mg 06/26/2017 eCW3 ([facility] 12:00:00 AM [facility]) Vitamin B-1 100 mg 06/26/2017 eCW3 ([facility] 12:00:00 AM [facility]) atorvastatin 20 MG Oral eCW3 ([facility] Tablet [Lipitor] [facility] ) Famotidine 40 MG Oral Tablet eCW3 ([facility]) Vitamin D3 125 MCG (5000 UT) eCW3 ([facility]) atorvastatin 20 MG Oral eCW3 ([facility] Tablet [Lipotis [facility]] [facility] ) Famotidine 40 MG Oral Tablet eCW3 ([facility]) Vitamin D3 125 MCG (5000 UT) eCW3 ([facility]) Esomeprazole 20 MG Delayed e CW3 ([facility] Release Oral Capsule [facility]) Blood Pressure Kit - eCW3 ([facility]) Folic Acid 1 MG Oral Tablet eCW3 ([facility]) atorvastatin 20 MG Oral eCW3 ([facility] Tablet [Lipotis [facility]] [facility] ) Vitamin D3 125 MCG (5000 UT) eCW3 ([facility]) Famotidine 40 MG Oral Tablet eCW3 ([facility]) Folic Acid 1 MG Oral Tablet eCW3 ([facility]) Sertraline 50 MG Oral Tablet eCW3 ([facility] [Zoloft] [facility]) Trazodone Hydrochloride 50 MG eCW3 ([facility] Oral Tablet [facility])
[2020-08-14] MEDS: chlordiazePOXIDE HCL 25 MG CAPSULE PO SCH ×2 (18:26→22:10)
[2020-08-14] MEDS: metFORMIN HCL 500 MG TABLET (FP) PO SCH (18:27)
[2020-08-14] MEDS: ATORVASTATIN CA 20 MG TABLET (FP) PO SCH (22:10)
[2020-08-14] MEDS: MELATONIN 5 MG TABLETS PO SCH (22:10)
[2020-08-14] MEDS: valACYclovir HCL 500 MG TABLET (FP) PO SCH ×2 (22:10→23:05)
[2020-08-14] MEDS: THIAMINE HCL 100 MG TABLET (FP) PO SCH (22:11)
[2020-08-15] MEDS: chlordiazePOXIDE HCL 25 MG CAPSULE PO SCH ×4 (05:54→22:48)
[2020-08-15] MEDS: hydrOXYzine PAMOATE 25 MG CAPSULE (FP) PO SCH ×5 (05:55→22:48)
[2020-08-15 09:41] LABS: HEMOGLOBIN 11.8 GM/dL (10.7-15.3); MCH 28.8 pg (25.7-33.7); MCHC 32.7 g/dl (32.0-36.0); MEAN CELL VOLUME 88.1 fl (80-96); MEAN PLT VOLUME 9.4 fl (7.5-11.1); PLATELET COUNT 159 K/MM3 (134-434); RBC 4.08 M/mm3 (3.60-5.2); WHITE BLOOD COUNT 3.8 K/mm3 (4.0-10.0)
[2020-08-15 09:58] LABS: ALBUMIN 3.7 g/dl (3.4-5.0); BLOOD UREA NITROGEN 14.8 mg/dL (7-18); CALCIUM 9.2 mg/dL (8.5-10.1); CREATININE 0.8 mg/dL (0.55-1.3); POTASSIUM 3.7 mmol/L (3.5-5.1)
[2020-08-15 09:59] LABS: BILIRUBIN,TOTAL 0.4 mg/dL (0.2-1); TOT PROT 6.9 g/dl (6.4-8.2)
[2020-08-15] MEDS: ASPIRIN 81 MG CHEWABLE TABLETS PO SCH (10:12)
[2020-08-15] MEDS: LOSARTAN POTASSIUM 50 MG TABLET PO SCH (10:13)
[2020-08-15] MEDS: valACYclovir HCL 500 MG TABLET (FP) PO SCH ×2 (10:13→21:34)
[2020-08-15] MEDS: cloNIDine HCL 0.1 MG TABLET PO SCH (10:15)
[2020-08-15] MEDS: metFORMIN HCL 500 MG TABLET (FP) PO SCH ×2 (10:16→17:18)
[2020-08-15] MEDS: NICOTINE 7 MG/24 HOURS TOPICAL PATCH TD SCH (11:00)
[2020-08-15] MEDS: PRENATAL VITAMINS W/ FOLIC ACID TABLET (FP) PO SCH (11:00)
[2020-08-15] MEDS: PANTOPRAZOLE 20 MG TABLET PO SCH (11:02)
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
--- NOTE | 2020-08-15 13:17 | PN ---
S CIWA - CIWA Score Nausea/Vomitin-No Nausea/No Vomiting Muscle Tremors: 2 Anxiety: 3 Agitation: 0-Normal Activity Paroxysmal Sweats: 3 Orientation: 0-Oriented Tacttile Disturbances: 0-None Auditory Disturbances: 0-None Visual Disturbances: 0-None Headache: 2-Mild CIWA-Ar Total Score: 10 BHS Progress Note (SOAP) Subjective: c/o sweats, shakes, anxiety, and headache. Objective: 08/15/20 13:16 Vital Signs 08/15/20 08/15/20 06:25 10:45 Temperature 97.6 F 96.1 F L Pulse Rate 72 77 Respiratory 18 18 Rate Blood Pressure 142/88 117/69 O2 Sat by Pulse 99 99 Oximetry (%) Laboratory Last Values WBC 3.8 K/mm3 (4.0-10.0) L 08/15/20 07:30 RBC 4.08 M/mm3 (3.60-5.2) 08/15/20 07:30 Hgb 11.8 GM/dL (10.7-15.3) 08/15/20 07:30 Hct 36.0 % (32.4-45.2) D 08/15/20 07:30 MCV 88.1 fl (80-96) 08/15/20 07:30 MCH 28.8 pg (25.7-33.7) 08/15/20 07:30 MCHC 32.7 g/dl (32.0-36.0) 08/15/20 07:30 RDW 16.0 % (11.6-15.6) H 08/15/20 07:30 Plt Count 159 K/MM3 (134-434) 08/15/20 07:30 MPV 9.4 fl (7.5-11.1) 08/15/20 07:30 Sodium 143 mmol/L (136-145) 08/15/20 07:30 Potassium 3.7 mmol/L (3.5-5.1) 08/15/20 07:30 Chloride 109 mmol/L (98-107) H 08/15/20 07:30 Carbon Dioxide 27 mmol/L (21-32) 08/15/20 07:30 Anion Gap 7 MMOL/L (8-16) L 08/15/20 07:30 BUN 14.8 mg/dL (7-18) 08/15/20 07:30 Creatinine 0.8 mg/dL (0.55-1.3) 08/15/20 07:30 Est GFR (CKD-EPI)AfAm 94.19 08/15/20 07:30 Est GFR (CKD-EPI)NonAf 81.27 08/15/20 07:30 POC Glucometer 93 UNITS (80-120) 08/15/20 06:28 Random Glucose 82 mg/dL (74-106) 08/15/20 07:30 Calcium 9.2 mg/dL (8.5-10.1) 08/15/20 07:30 Total Bilirubin 0.4 mg/dL (0.2-1) 08/15/20 07:30 AST 33 U/L (15-37) 08/15/20 07:30 ALT 31 U/L (13-61) 08/15/20 07:30 Alkaline Phosphatase 56 U/L (45-117) 08/15/20 07:30 Total Protein 6.9 g/dl (6.4-8.2) 08/15/20 07:30 Albumin 3.7 g/dl (3.4-5.0) 08/15/20 07:30 Syphilis Serology Non-reactive (NONREACTIVE) 08/15/20 07:30 Labs noted. Assessment: 08/15/20 13:16 AOX3, in no acute respiratory distress. Full ROM, ambulating in the unit. Withdrawal symptoms. Plan: continue detox.
[2020-08-15] MEDS: THIAMINE HCL 100 MG TABLET (FP) PO SCH (21:30)
[2020-08-15] MEDS: ATORVASTATIN CA 20 MG TABLET (FP) PO SCH (21:30)
[2020-08-15] MEDS: risperiDONE 0.5 MG TABLET PO SCH (21:31)
[2020-08-15] MEDS: IBUPROFEN 400 MG TABLET (FP) PO PRN (21:36)
[2020-08-15] MEDS: traZODone HCL 50 MG TABLET (FP) PO SCH (22:48)
[2020-08-15] MEDS: MELATONIN 5 MG TABLETS PO SCH (22:48)
[2020-08-16] MEDS: chlordiazePOXIDE HCL 25 MG CAPSULE PO SCH ×4 (05:54→22:44)
[2020-08-16] MEDS: hydrOXYzine PAMOATE 25 MG CAPSULE (FP) PO SCH ×5 (05:59→21:23)
[2020-08-16] MEDS: metFORMIN HCL 500 MG TABLET (FP) PO SCH ×2 (06:13→18:11)
[2020-08-16] MEDS ORDERED: MASKS NR ONE (08:40)
[2020-08-16] MEDS: PANTOPRAZOLE 20 MG TABLET PO SCH (10:07)
[2020-08-16] MEDS: ASPIRIN 81 MG CHEWABLE TABLETS PO SCH (10:07)
[2020-08-16] MEDS: LOSARTAN POTASSIUM 50 MG TABLET PO SCH (10:07)
[2020-08-16] MEDS: cloNIDine HCL 0.1 MG TABLET PO SCH (11:58)
[2020-08-16] MEDS: NICOTINE 7 MG/24 HOURS TOPICAL PATCH TD SCH (11:59)
[2020-08-16] MEDS: PRENATAL VITAMINS W/ FOLIC ACID TABLET (FP) PO SCH (11:59)
[2020-08-16] MEDS: valACYclovir HCL 500 MG TABLET (FP) PO SCH (11:59)
[2020-08-16] MEDS ORDERED: valACYclovir HCL 500 MG TABLET (FP) PO PRN (12:28)
--- NOTE | 2020-08-16 12:30 | PN ---
S CIWA - CIWA Score Nausea/Vomitin-Mild Nausea/No Vomiting Muscle Tremors: 2 Anxiety: 2 Agitation: 3 Paroxysmal Sweats: No Perspiration Orientation: 0-Oriented Tacttile Disturbances: 0-None Auditory Disturbances: 0-None Visual Disturbances: 1-Very Mild Sensitivity Headache: 0-None Present CIWA-Ar Total Score: 9 BHS Progress Note (SOAP) Subjective: 60 years old female was admitted on 08/14/20 for alcohol withdrawal sx ma nagement treating with librium detox regiment ms bright requests to be seen by a psychiatrist for trazodone dosage adjustment "I am taking resperidon" psychiatrist referral in place ms bright states that she is taking veltrax 500mg po daily as needed that she never take 1000mg of veltrax reconcil veltrax doseage and frequency Objective: 08/16/20 12:33 Vital Signs - 24 hr 08/15/20 08/15/20 08/16/20 13:22 21:05 06:36 Temperature 97.4 F L 97.3 F L 97.5 F L Pulse Rate 74 72 93 H Respiratory 18 18 16 Rate Blood Pressure 100/60 129/82 118/79 O2 Sat by Pulse 96 100 98 Oximetry (%) 08/16/20 09:05 Temperature 96.6 F L Pulse Rate 83 Respiratory 20 Rate Blood Pressure 135/78 O2 Sat by Pulse Oximetry (%) ms bright is doing well with losartan Laboratory Tests 08/14/20 08/14/20 08/14/20 14:45 14:50 16:48 WBC RBC Hgb Hct MCV MCH MCHC RDW Plt Count MPV Sodium Potassium Chloride Carbon Dioxide Anion Gap BUN Creatinine Est GFR (CKD-EPI)AfAm Est GFR (CKD-EPI)NonAf POC Glucometer 84 80 Random Glucose Calcium Total Bilirubin AST ALT Alkaline Phosphatase Total Protein Albumin Syphilis Serology COVID-19 (LAUREL) Not detected 08/15/20 08/15/20 08/15/20 06:28 07:30 07:30 WBC 3.8 L RBC 4.08 Hgb 11.8 Hct 36.0 D MCV 88.1 MCH 28.8 MCHC 32.7 RDW 16.0 H Plt Count 159 MPV 9.4 Sodium 143 Potassium 3.7 Chloride 109 H Carbon Dioxide 27 Anion Gap 7 L BUN 14.8 Creatinine 0.8 Est GFR (CKD-EPI)AfAm 94.19 Est GFR (CKD-EPI)NonAf 81.27 POC Glucometer 93 Random Glucose 82 Calcium 9.2 Total Bilirubin 0.4 AST 33 ALT 31 Alkaline Phosphatase 56 Total Protein 6.9 Albumin 3.7 Syphilis Serology COVID-19 (LAUREL) 08/15/20 08/15/20 08/16/20 07:30 16:25 05:57 WBC RBC Hgb Hct MCV MCH MCHC RDW Plt Count MPV Sodium Potassium Chloride Carbon Dioxide Anion Gap BUN Creatinine Est GFR (CKD-EPI)AfAm Est GFR (CKD-EPI)NonAf POC Glucometer 160 130 Random Glucose Calcium Total Bilirubin AST ALT Alkaline Phosphatase Total Protein Albumin Syphilis Serology Non-reactive COVID-19 (LAUREL) 08/16/20 10:47 WBC RBC Hgb Hct MCV MCH MCHC RDW Plt Count MPV Sodium Potassium Chloride Carbon Dioxide Anion Gap BUN Creatinine Est GFR (CKD-EPI)AfAm Est GFR (CKD-EPI)NonAf POC Glucometer 83 Random Glucose Calcium Total Bilirubin AST ALT Alkaline Phosphatase Total Protein Albumin Syphilis Serology COVID-19 (LAUERL) lab noted Assessment: 08/16/20 12:36 alcohol withdrawal Plan: librium regiment
--- NOTE | 2020-08-16 13:14 | PN ---
[facility] Progress Note Note: ms bright states that after lunch "chest pain" encourage detail of location and level of pain ms bright can not give description of pain "I feel better now" aspirin 162mg po x 1 apex 80 heart sounds S1S2 no murmur no rub alert oriented x 3 non radiated burning pain from 7 to 4 to 2/10 ms bright had "fried chicken for lunch sudden pain from right lateral trunk to epigastric area EKG no indicate incompleted right bundle block unknown history Vital Signs - 24 hr 08/15/20 08/16/20 08/16/20 21:05 06:36 09:05 Temperature 97.3 F L 97.5 F L 96.6 F L Pulse Rate 72 93 H 83 Respiratory 18 16 20 Rate Blood Pressure 129/82 118/79 135/78 O2 Sat by Pulse 100 98 Oximetry (%) 08/16/20 14:04 Temperature 99 F Pulse Rate 74 Respiratory 20 Rate Blood Pressure 112/81 O2 Sat by Pulse 99 Oximetry (%) ms bright denies headache no weakness no blurred vision ms bright states that she has gallstone from week ago MRI "[facility] encourage ms bright to obtain mri result "they" did ultrasound "they" said no kidney stone encourage low fat diet continue monitoring
[2020-08-16] MEDS ORDERED: ASPIRIN 81 MG CHEWABLE TABLETS PO ONE (14:45)
[2020-08-16] MEDS: risperiDONE 0.5 MG TABLET PO SCH (21:23)
[2020-08-16] MEDS: ATORVASTATIN CA 20 MG TABLET (FP) PO SCH (21:24)
[2020-08-16] MEDS: THIAMINE HCL 100 MG TABLET (FP) PO SCH (21:24)
[2020-08-16] MEDS: MELATONIN 5 MG TABLETS PO SCH (21:24)
[2020-08-16] MEDS: traZODone HCL 50 MG TABLET (FP) PO SCH (21:24)
[2020-08-17] MEDS ORDERED: chlordiazePOXIDE HCL 10 MG CAPSULE PO PRN
[2020-08-17] MEDS: hydrOXYzine PAMOATE 25 MG CAPSULE (FP) PO SCH ×4 (01:36→21:14)
[2020-08-17] MEDS: chlordiazePOXIDE HCL 10 MG CAPSULE PO SCH ×4 (06:03→23:43)
[2020-08-17] MEDS: metFORMIN HCL 500 MG TABLET (FP) PO SCH ×2 (07:50→19:03)
[2020-08-17] MEDS ORDERED: MASKS NR ONE (08:44)
[2020-08-17] MEDS: ASPIRIN 81 MG CHEWABLE TABLETS PO SCH (10:03)
[2020-08-17] MEDS: LOSARTAN POTASSIUM 50 MG TABLET PO SCH (10:03)
[2020-08-17] MEDS: PANTOPRAZOLE 20 MG TABLET PO SCH (10:03)
[2020-08-17] MEDS: PRENATAL VITAMINS W/ FOLIC ACID TABLET (FP) PO SCH (10:04)
[2020-08-17] MEDS: cloNIDine HCL 0.1 MG TABLET PO SCH (10:05)
[2020-08-17] MEDS: NICOTINE 7 MG/24 HOURS TOPICAL PATCH TD SCH (10:07)
--- NOTE | 2020-08-17 14:07 | PN ---
S CIWA - CIWA Score Nausea/Vomitin-Mild Nausea/No Vomiting Muscle Tremors: 1-None Visible, but [place] Anxiety: 1-Mildly Anxious Agitation: 1-Slight > Activity Paroxysmal Sweats: No Perspiration Orientation: 0-Oriented Tacttile Disturbances: 0-None Auditory Disturbances: 0-None Visual Disturbances: 1-Very Mild Sensitivity Headache: 1-Very Mild CIWA-Ar Total Score: 6 BHS Progress Note (SOAP) Subjective: 60 years old female was admitted on 08/14/20 for alcohol withdrawal sx management treating with librium detox regiment ms bright demands second opinion about her gallbladder and kidney stone when ms bright had mri at [facility] "week ago" encourage ms bright follow up with [facility] for gallbladder and kidney stone encourage ms bright return to [facility] Objective: 08/17/20 14:07 Vital Signs - 24 hr 08/16/20 08/16/20 08/17/20 17:35 21:08 06:46 Temperature 98.0 F 97.5 F L 97.3 F L Pulse Rate 78 73 59 L Respiratory 18 18 18 Rate Blood Pressure 116/77 120/80 108/69 O2 Sat by Pulse 99 97 100 Oximetry (%) 08/17/20 08/17/20 08:44 12:45 Temperature 97.3 F L 97.3 F L Pulse Rate 82 58 L Respiratory 18 18 Rate Blood Pressure 116/89 106/70 O2 Sat by Pulse 100 Oximetry (%) Laboratory Tests 08/14/20 08/14/20 08/14/20 14:45 14:50 16:48 WBC RBC Hgb Hct MCV MCH MCHC RDW Plt Count MPV Sodium Potassium Chloride Carbon Dioxide Anion Gap BUN Creatinine Est GFR (CKD-EPI)AfAm Est GFR (CKD-EPI)NonAf POC Glucometer 84 80 Random Glucose Calcium Total Bilirubin AST ALT Alkaline Phosphatase Total Protein Albumin Syphilis Serology COVID-19 (LAUREL) Not detected 08/15/20 08/15/20 08/15/20 06:28 07:30 07:30 WBC 3.8 L RBC 4.08 Hgb 11.8 Hct 36.0 D MCV 88.1 MCH 28.8 MCHC 32.7 RDW 16.0 H Plt Count 159 MPV 9.4 Sodium 143 Potassium 3.7 Chloride 109 H Carbon Dioxide 27 Anion Gap 7 L BUN 14.8 Creatinine 0.8 Est GFR (CKD-EPI)AfAm 94.19 Est GFR (CKD-EPI)NonAf 81.27 POC Glucometer 93 Random Glucose 82 Calcium 9.2 Total Bilirubin 0.4 AST 33 ALT 31 Alkaline Phosphatase 56 Total Protein 6.9 Albumin 3.7 Syphilis Serology COVID-19 (LAUREL) 08/15/20 08/15/20 08/16/20 07:30 16:25 05:57 WBC RBC Hgb Hct MCV MCH MCHC RDW Plt Count MPV Sodium Potassium Chloride Carbon Dioxide Anion Gap BUN Creatinine Est GFR (CKD-EPI)AfAm Est GFR (CKD-EPI)NonAf POC Glucometer 160 130 Random Glucose Calcium Total Bilirubin AST ALT Alkaline Phosphatase Total Protein Albumin Syphilis Serology Non-reactive COVID-19 (LAUREL) 08/16/20 08/16/20 08/17/20 10:47 16:36 07:46 WBC RBC Hgb Hct MCV MCH MCHC RDW Plt Count MPV Sodium Potassium Chloride Carbon Dioxide Anion Gap BUN Creatinine Est GFR (CKD-EPI)AfAm Est GFR (CKD-EPI)NonAf POC Glucometer 83 87 132 Random Glucose Calcium Total Bilirubin AST ALT Alkaline Phosphatase Total Protein Albumin Syphilis Serology COVID-19 (LAUREL) 08/17/20 11:07 WBC RBC Hgb Hct MCV MCH MCHC RDW Plt Count MPV Sodium Potassium Chloride Carbon Dioxide Anion Gap BUN Creatinine Est GFR (CKD-EPI)AfAm Est GFR (CKD-EPI)NonAf POC Glucometer 90 Random Glucose Calcium Total Bilirubin AST ALT Alkaline Phosphatase Total Protein Albumin Syphilis Serology COVID-19 (LAUREL) lb noted 08/17/20 14:08 encourage weight loss and no concentrated sugar Assessment: 08/17/20 14:08 alcohol withdrawal Plan: librium regiment
[2020-08-17] MEDS: IBUPROFEN 400 MG TABLET (FP) PO PRN (23:29)
[2020-08-17] MEDS: traZODone HCL 50 MG TABLET (FP) PO SCH (23:43)
[2020-08-17] MEDS: risperiDONE 0.5 MG TABLET PO SCH (23:43)
[2020-08-17] MEDS: ATORVASTATIN CA 20 MG TABLET (FP) PO SCH (23:43)
[2020-08-17] MEDS: THIAMINE HCL 100 MG TABLET (FP) PO SCH (23:43)
[2020-08-17] MEDS: MELATONIN 5 MG TABLETS PO SCH (23:43)
[2020-08-18] MEDS: hydrOXYzine PAMOATE 25 MG CAPSULE (FP) PO SCH ×2 (04:16→07:36)
[2020-08-18] MEDS ORDERED: chlordiazePOXIDE HCL 10 MG CAPSULE PO SCH (05:00)
[2020-08-18 09:25] VITALS: BP 145/87; PULSE 77; TEMP 96.1
[2020-08-18] MEDS: PRENATAL VITAMINS W/ FOLIC ACID TABLET (FP) PO SCH (09:26)
[2020-08-18] MEDS: ASPIRIN 81 MG CHEWABLE TABLETS PO SCH (09:27)
[2020-08-18] MEDS: metFORMIN HCL 500 MG TABLET (FP) PO SCH (09:27)
[2020-08-18] MEDS: cloNIDine HCL 0.1 MG TABLET PO SCH (09:27)
[2020-08-18] MEDS: LOSARTAN POTASSIUM 50 MG TABLET PO SCH (09:28)
[2020-08-18] MEDS: PANTOPRAZOLE 20 MG TABLET PO SCH (09:28)
[2020-08-18] MEDS: NICOTINE 7 MG/24 HOURS TOPICAL PATCH TD SCH (09:29)
--- NOTE | 2020-08-18 09:55 | EKG ---
Test Reason : Blood Pressure : / mmHG Vent. Rate : 065 BPM Atrial Rate : 065 BPM P-R Int : 174 ms QRS Dur : 110 ms QT Int : 418 ms P-R-T Axes : 038 -42 -01 degrees QTc Int : 434 ms NORMAL SINUS RHYTHM LEFT AXIS DEVIATION INCOMPLETE LEFT BUNDLE BRANCH BLOCK NONSPECIFIC T WAVE ABNORMALITY ABNORMAL ECG WHEN COMPARED WITH ECG OF 20-SEP-2018 18:31, INCOMPLETE LEFT BUNDLE BRANCH BLOCK IS NOW PRESENT NONSPECIFIC T WAVE ABNORMALITY, WORSE IN INFERIOR LEADS NONSPECIFIC T WAVE ABNORMALITY, WORSE IN ANTERIOR LEADS T WAVE INVERSION NO LONGER EVIDENT IN LATERAL LEADS Confirmed by Cem Sahu MD ([id number]) on 08/18/2020 9:54:39 AM Referred By: Confirmed By:Cem Sahu MD
--- NOTE | 2020-08-18 15:09 | DS ---
[facility] Detox Discharge Summary Admission Date: 08/14/20 Discharge Date: 08/18/20 - History Present History: Alcohol Dependence Additional Comments: 40 years old female was admitted on for alcohol withdrawal sx managementt treating with librium detox regiment ms bright insists to leave the detox unit today instead of estimated discharge day of 08/19/20 ms bright prefers to go to [facility] sooner than 08/19/20 ms bright is alert oriented x 3 speech clearly coherently ambulating steady gait General Appearance: Yes: Nourished, Appropriately Dressed, HEENTM: Yes: EOMI, Hearing grossly Normal, Normocephalic, Normal Voice Respiratory: Yes: Lungs Clear, No Respiratory Distress, No Accessory Muscle Use Neck: Yes: Within Normal Limits, Supple Breast: Yes: Breast Exam Deferred Cardiology: Yes: Regular Rhythm, Regular Rate Abdominal: Yes: Normal Bowel Sounds, Non Tender, Soft, Protuberent Genitourinary: Yes: Other (deferred) Back: Yes: Normal Inspection Musculoskeletal: Yes: Gait Steady Extremities: Yes: Normal Inspection, Non-Tender Neurological: Yes: Alert Integumentary: Yes: Within Normal Limits Pertinent Past History: time for discharge 47 minutes treatment team met with ms bright to discuss benefits of librium regiment completion ms bright insists to leave the detox unit that she prefers [facility] for alcohol abuse treatment - Physical Exam Results Vital Signs: Vital Signs Temperature 96.1 F L 08/18/20 09:24 Pulse Rate 77 08/18/20 09:24 Respiratory Rate 18 08/18/20 09:24 Blood Pressure 145/87 08/18/20 09:24 O2 Sat by Pulse Oximetry (%) 98 08/17/20 20:47 Pertinent Admission Physical Exam Findings: alcohol withdrawal Vital Signs - 24 hr 08/17/20 08/17/20 08/18/20 17:51 20:47 09:24 Temperature 97.3 F L 97.9 F 96.1 F L Pulse Rate 77 69 77 Respiratory 18 18 18 Rate Blood Pressure 121/83 117/72 145/87 O2 Sat by Pulse 98 98 Oximetry (%) Laboratory Tests 08/14/20 08/14/20 08/14/20 14:45 14:50 16:48 WBC RBC Hgb Hct MCV MCH MCHC RDW Plt Count MPV Sodium Potassium Chloride Carbon Dioxide Anion Gap BUN Creatinine Est GFR (CKD-EPI)AfAm Est GFR (CKD-EPI)NonAf POC Glucometer 84 80 Random Glucose Calcium Total Bilirubin AST ALT Alkaline Phosphatase Total Protein Albumin Syphilis Serology COVID-19 (LAUREL) Not detected 08/15/20 08/15/20 08/15/20 06:28 07:30 07:30 WBC 3.8 L RBC 4.08 Hgb 11.8 Hct 36.0 D MCV 88.1 MCH 28.8 MCHC 32.7 RDW 16.0 H Plt Count 159 MPV 9.4 Sodium 143 Potassium 3.7 Chloride 109 H Carbon Dioxide 27 Anion Gap 7 L BUN 14.8 Creatinine 0.8 Est GFR (CKD-EPI)AfAm 94.19 Est GFR (CKD-EPI)NonAf 81.27 POC Glucometer 93 Random Glucose 82 Calcium 9.2 Total Bilirubin 0.4 AST 33 ALT 31 Alkaline Phosphatase 56 Total Protein 6.9 Albumin 3.7 Syphilis Serology COVID-19 (LAUREL) 08/15/20 08/15/20 08/16/20 07:30 16:25 05:57 WBC RBC Hgb Hct MCV MCH MCHC RDW Plt Count MPV Sodium Potassium Chloride Carbon Dioxide Anion Gap BUN Creatinine Est GFR (CKD-EPI)AfAm Est GFR (CKD-EPI)NonAf POC Glucometer 160 130 Random Glucose Calcium Total Bilirubin AST ALT Alkaline Phosphatase Total Protein Albumin Syphilis Serology Non-reactive COVID-19 (LAUREL) 08/16/20 08/16/20 08/17/20 10:47 16:36 07:46 WBC RBC Hgb Hct MCV MCH MCHC RDW Plt Count MPV Sodium Potassium Chloride Carbon Dioxide Anion Gap BUN Creatinine Est GFR (CKD-EPI)AfAm Est GFR (CKD-EPI)NonAf POC Glucometer 83 87 132 Random Glucose Calcium Total Bilirubin AST ALT Alkaline Phosphatase Total Protein Albumin Syphilis Serology COVID-19 (LAUREL) 08/17/20 08/18/20 11:07 05:56 WBC RBC Hgb Hct MCV MCH MCHC RDW Plt Count MPV Sodium Potassium Chloride Carbon Dioxide Anion Gap BUN Creatinine Est GFR (CKD-EPI)AfAm Est GFR (CKD-EPI)NonAf POC Glucometer 90 112 Random Glucose Calcium Total Bilirubin AST ALT Alkaline Phosphatase Total Protein Albumin Syphilis Serology COVID-19 (LAUREL) lb noted ms bright prefers to go to [facility] for elevated glucose and fluctuation of bp - Treatment Hospital Course: Detox Protocol Followed, Detoxed Safely, Responded well, Discharged Condition Good, Rehab Referral Accepted Patient has Accepted a Rehab Referral to: [facility] - Medication Discharge Medications: Ambulatory Orders Aspirin 81 mg PO DAILY 05/22/20 Multivitamins [Multivit ([facility] Formulary)] 1 tab PO DAILY 05/22/20 Atorvastatin Ca [Lipitor] 20 mg PO HS #14 tablet 06/09/20 Famotidine [Pepcid -] 40 mg PO DAILY #14 tablet 06/09/20 Losartan Potassium 50 mg PO DAILY #14 tablet 06/09/20 Metformin HCl [Glucophage] 500 mg PO BID #14 tablet 06/09/20 Cholecalciferol (Vitamin D3) [Vitamin D3] 5,000 unit PO DAILY 08/14/20 Clonidine HCl 0.1 mg PO DAILY 08/14/20 Diphenhydramine [Benadryl Capsule -] 50 mg PO HS PRN 08/14/20 Risperidone [Risperdal -] 0.5 mg PO HS 08/14/20 Thiamine Mononitrate [Vitamin B-1] 100 mg PO DAILY 08/14/20 Valacyclovir HCl [Valtrex -] 500 mg PO Q24H PRN 08/16/20 - Diagnosis (1) Alcohol dependence with uncomplicated withdrawal Status: Acute (2) Fatty liver Status: Chronic (3) GERD (gastroesophageal reflux disease) Status: Chronic Qualifiers: Esophagitis presence: without esophagitis Qualified Code(s): K21.9 - Gastro-esophageal reflux disease without esophagitis (4) HTN (hypertension) Status: Chronic Qualifiers: Hypertension type: essential hypertension Qualified Code(s): I10 - Essential (primary) hypertension (5) Hyperlipidemia Status: Chronic Qualifiers: Hyperlipidemia type: pure hypertriglyceridemia Qualified Code(s): E78.1 - Pure hyperglyceridemia (6) Nicotine dependence Status: Acute Qualifiers: Nicotine product type: cigarettes Substance use status: in withdrawal Qualified Code(s): F17.213 - Nicotine dependence, cigarettes, with withdrawal (7) History of positive PPD Status: Resolved (8) Positive PPD Status: Resolved (9) Substance induced mood disorder Status: Suspected - AMA Did Patient Leave Against Medical Advice: No CIWA Score - CIWA Score Nausea/Vomitin-Mild Nausea/No Vomiting Muscle Tremors: 1-None Visible, but [place] Anxiety: 1-Mildly Anxious Agitation: 0-Normal Activity Paroxysmal Sweats: No Perspiration Orientation: 0-Oriented Tacttile Disturbances: 0-None Auditory Disturbances: 0-None Visual Disturbances: 0-None Headache: 0-None Present CIWA-Ar Total Score: 3
[2020-08-19] MEDS ORDERED: chlordiazePOXIDE HCL 10 MG CAPSULE PO ONE (05:00)
== END 2020-08-18 12:06 | disposition home or self-care (01) | DRG 775 ==
LOC: YASAS 13:08 → Y3N 14:42
PROVIDERS: ADMIT Allergy & Immunology; ATTEND Allergy & Immunology
PROC: HZ2ZZZZ Detoxification Services for Substance Abuse Treatment (ICD-10-PCS; principal; 2020-08-14)
DX: F10.230 Alcohol dependence with withdrawal, uncomplicated (principal); F17.210 Nicotine dependence, cigarettes, uncomplicated; F19.24 Other psychoactive substance dependence with psychoactive substance-induced mood disorder; F10.24 Alcohol dependence with alcohol-induced mood disorder; F39 Unspecified mood [affective] disorder; E78.1 Pure hyperglyceridemia; G47.00 Insomnia, unspecified; I10 Essential (primary) hypertension; K21.9 Gastro-esophageal reflux disease without esophagitis; K76.0 Fatty (change of) liver, not elsewhere classified; E11.9 Type 2 diabetes mellitus without complications; R76.11 Nonspecific reaction to tuberculin skin test without active tuberculosis; Z79.84 Long term (current) use of oral hypoglycemic drugs; Z91.410 Personal history of adult physical and sexual abuse; Z88.8 Allergy status to other drugs, medicaments and biological substances; Z56.0 Unemployment, unspecified; Z59.0 Homelessness
CPT/HCPCS: 36415; 71046-TC-FY; 80053; 82962; 85027; 86780; 93005; 93010; J0735; U0003

== ENCOUNTER 2021-10-05 11:16 | Inpatient (IN) | payer OTHER ==
[2021-10-05] MEDS ORDERED: ONDANSETRON *ODT* 4 MG TABLET SL PRN (12:41)
[2021-10-05] MEDS ORDERED: ACETAMINOPHEN 325 MG TABLET (FP) PO PRN ×2 (12:41)
[2021-10-05] MEDS ORDERED: MAGNESIUM CITRATE 300 ML BOTTLE PO PRN (12:41)
[2021-10-05] MEDS ORDERED: MENTHOL/PHENOL 1 EACH UD MM PRN (12:41)
[2021-10-05] MEDS ORDERED: MAGNESIUM HYDROX 2400MG/30ML ORAL SUSPENSION 30 ML CUP PO PRN (12:41)
[2021-10-05] MEDS ORDERED: MAG HYDROX/AL HYDROX/SIMETH 30 ML UNIT-DOSE CUP PO PRN (12:41)
[2021-10-05] MEDS ORDERED: BISMUTH SUBSALICYLATE 524 MG/30 ML PO PRN (12:41)
[2021-10-05] MEDS ORDERED: NICOTINE 10 MG CARTRIDGE (INHALER) IH PRN (12:41)
[2021-10-05 13:01] VITALS: BMI 29.5
[2021-10-05] MEDS: diazePAM 5 MG TABLET PO PRN (15:34)
[2021-10-05] MEDS: hydrOXYzine PAMOATE 25 MG CAPSULE (FP) PO SCH ×3 (15:36→22:15)
[2021-10-05 18:17] LABS: HEMATOCRIT 41.2 % (32.4-45.2); HEMOGLOBIN 13.6 GM/dL (10.7-15.3); MCH 29.3 pg (25.7-33.7); MEAN CELL VOLUME 88.6 fl (80-96); MEAN PLT VOLUME 9.1 fl (7.5-11.1); PLATELET COUNT 153 10^3/uL (134-434); RBC 4.65 M/mm3 (3.60-5.2); RDW 17.2 % (11.6-15.6); WHITE BLOOD COUNT 4.2 K/mm3 (4.0-10.0)
[2021-10-05] MEDS: diazePAM 5 MG TABLET PO SCH ×2 (18:40→22:17)
[2021-10-05 18:57] LABS: ALBUMIN 4.2 g/dl (3.4-5.0); BILIRUBIN,TOTAL 0.4 mg/dL (0.2-1); BLOOD UREA NITROGEN 9.3 mg/dL (7-18); CALCIUM 9.1 mg/dL (8.5-10.1); CREATININE 0.9 mg/dL (0.55-1.3); TOT PROT 7.4 g/dl (6.4-8.2)
[2021-10-05] MEDS ORDERED: MELATONIN 5 MG TABLETS PO SCH (22:00)
[2021-10-05] MEDS: THIAMINE HCL 100 MG TABLET (FP) PO SCH (22:15)
[2021-10-05] MEDS: ATORVASTATIN CA 20 MG TABLET (FP) PO SCH (22:15)
[2021-10-06] MEDS: diazePAM 5 MG TABLET PO SCH ×4 (05:12→22:34)
[2021-10-06] MEDS: hydrOXYzine PAMOATE 25 MG CAPSULE (FP) PO SCH ×5 (05:12→22:35)
[2021-10-06] MEDS: LEVOTHYROXINE NA 25 MCG TABLET (FP) PO SCH (06:19)
[2021-10-06] MEDS: metFORMIN HCL 500 MG TABLET (FP) PO SCH (06:19)
[2021-10-06] MEDS: PRENATAL VITAMINS W/ FOLIC ACID TABLET (FP) PO SCH (10:25)
[2021-10-06] MEDS: FAMOTIDINE 20 MG TABLET PO SCH (10:25)
[2021-10-06] MEDS: ASPIRIN 81 MG CHEWABLE TABLETS PO SCH (10:27)
[2021-10-06] MEDS: LOSARTAN POTASSIUM 50 MG TABLET PO SCH (11:49)
[2021-10-06] MEDS ORDERED: LOPERAMIDE HCL 2 MG CAPSULE PO ONE (13:20)
[2021-10-06] MEDS ORDERED: SUVOREXANT 10 MG TABLET PO PRN (22:00)
[2021-10-06] MEDS ORDERED: risperiDONE 1 MG/1 ML ML - 30 ML BOTTLE PO SCH (22:00)
[2021-10-06] MEDS ORDERED: risperiDONE 2 MG TABLET PO SCH (22:00)
[2021-10-06] MEDS: risperiDONE 2 MG TABLET PO SCH (22:34)
[2021-10-06] MEDS: ATORVASTATIN CA 20 MG TABLET (FP) PO SCH (22:34)
[2021-10-06] MEDS: THIAMINE HCL 100 MG TABLET (FP) PO SCH (22:34)
[2021-10-06] MEDS: QUEtiapine FUMARATE 50 MG TABLET PO SCH (22:34)
[2021-10-07] MEDS: hydrOXYzine PAMOATE 25 MG CAPSULE (FP) PO SCH ×5 (05:12→22:35)
[2021-10-07] MEDS: diazePAM 5 MG TABLET PO SCH ×3 (05:13→22:35)
[2021-10-07] MEDS: IBUPROFEN 400 MG TABLET (FP) PO PRN (05:16)
[2021-10-07] MEDS: LEVOTHYROXINE NA 25 MCG TABLET (FP) PO SCH (07:15)
[2021-10-07] MEDS: metFORMIN HCL 500 MG TABLET (FP) PO SCH (07:26)
[2021-10-07] MEDS: LOSARTAN POTASSIUM 50 MG TABLET PO SCH (10:15)
[2021-10-07] MEDS: ASPIRIN 81 MG CHEWABLE TABLETS PO SCH (10:16)
[2021-10-07] MEDS: METHOCARBAMOL 500 MG TABLET PO PRN (10:16)
[2021-10-07] MEDS: PRENATAL VITAMINS W/ FOLIC ACID TABLET (FP) PO SCH (10:16)
[2021-10-07] MEDS: FAMOTIDINE 20 MG TABLET PO SCH (10:16)
[2021-10-07] MEDS: diazePAM 5 MG TABLET PO PRN (10:19)
[2021-10-07] MEDS: ATORVASTATIN CA 20 MG TABLET (FP) PO SCH (22:35)
[2021-10-07] MEDS: THIAMINE HCL 100 MG TABLET (FP) PO SCH (22:35)
[2021-10-07] MEDS: risperiDONE 2 MG TABLET PO SCH (22:35)
[2021-10-07] MEDS: QUEtiapine FUMARATE 50 MG TABLET PO SCH (22:35)
[2021-10-08] MEDS: diazePAM 5 MG TABLET PO SCH ×2 (05:06→17:38)
[2021-10-08] MEDS: hydrOXYzine PAMOATE 25 MG CAPSULE (FP) PO SCH ×5 (05:06→22:16)
[2021-10-08] MEDS: LEVOTHYROXINE NA 25 MCG TABLET (FP) PO SCH (06:00)
[2021-10-08] MEDS: metFORMIN HCL 500 MG TABLET (FP) PO SCH (08:00)
[2021-10-08] MEDS: ASPIRIN 81 MG CHEWABLE TABLETS PO SCH (10:15)
[2021-10-08] MEDS: FAMOTIDINE 20 MG TABLET PO SCH (10:15)
[2021-10-08] MEDS: LOSARTAN POTASSIUM 50 MG TABLET PO SCH (10:15)
[2021-10-08] MEDS: METHOCARBAMOL 500 MG TABLET PO PRN (10:15)
[2021-10-08] MEDS: PRENATAL VITAMINS W/ FOLIC ACID TABLET (FP) PO SCH (10:15)
[2021-10-08] MEDS: QUEtiapine FUMARATE 50 MG TABLET PO SCH (22:17)
[2021-10-08] MEDS: THIAMINE HCL 100 MG TABLET (FP) PO SCH (22:17)
[2021-10-08] MEDS: ATORVASTATIN CA 20 MG TABLET (FP) PO SCH (22:17)
[2021-10-08] MEDS: risperiDONE 2 MG TABLET PO SCH (22:17)
[2021-10-09] MEDS: hydrOXYzine PAMOATE 25 MG CAPSULE (FP) PO SCH ×2 (05:37→10:27)
[2021-10-09] MEDS ORDERED: diazePAM 5 MG TABLET PO ONE (06:00)
[2021-10-09] MEDS: LEVOTHYROXINE NA 25 MCG TABLET (FP) PO SCH (06:54)
[2021-10-09] MEDS: metFORMIN HCL 500 MG TABLET (FP) PO SCH (06:55)
[2021-10-09 07:16] VITALS: BP 147/93; PULSE 85; TEMP 97.5
[2021-10-09] MEDS: ASPIRIN 81 MG CHEWABLE TABLETS PO SCH (10:27)
[2021-10-09] MEDS: PRENATAL VITAMINS W/ FOLIC ACID TABLET (FP) PO SCH (10:27)
[2021-10-09] MEDS: LOSARTAN POTASSIUM 50 MG TABLET PO SCH (10:27)
[2021-10-09] MEDS: FAMOTIDINE 20 MG TABLET PO SCH (10:27)
[2021-10-09] MEDS: IBUPROFEN 400 MG TABLET (FP) PO PRN (10:29)
[2021-10-10 19:05] LABS: HIV INTERPRETATION NEGATIVE (NEGATIVE)
== END 2021-10-09 12:10 | disposition other institution (70) | DRG 775 ==
LOC: YASAS 11:16 → Y3N 13:46 → Y6N 14:15
PROVIDERS: ADMIT Allergy & Immunology; ATTEND Allergy & Immunology
PROC: HZ2ZZZZ Detoxification Services for Substance Abuse Treatment (ICD-10-PCS; principal; 2021-10-05)
DX: F10.230 Alcohol dependence with withdrawal, uncomplicated (principal); F17.210 Nicotine dependence, cigarettes, uncomplicated; F10.282 Alcohol dependence with alcohol-induced sleep disorder; F10.24 Alcohol dependence with alcohol-induced mood disorder; F32.A Depression, unspecified; E78.5 Hyperlipidemia, unspecified; E03.9 Hypothyroidism, unspecified; I10 Essential (primary) hypertension; G47.00 Insomnia, unspecified; K21.9 Gastro-esophageal reflux disease without esophagitis; E11.9 Type 2 diabetes mellitus without complications; Z79.84 Long term (current) use of oral hypoglycemic drugs; Z86.11 Personal history of tuberculosis; Z86.59 Personal history of other mental and behavioral disorders; Z88.8 Allergy status to other drugs, medicaments and biological substances; Z59.00 Homelessness unspecified; Z90.11 Acquired absence of right breast and nipple; Z56.0 Unemployment, unspecified
CPT/HCPCS: 36415; 71046-TC-FY; 80053; 82962; 83036; 85027; 86780; 87389; C9803; U0003; U0005

== ENCOUNTER 2021-10-09 12:35 | Inpatient (IN) | payer OTHER ==
[2021-10-09] MEDS ORDERED: MENTHOL/PHENOL 1 EACH UD MM PRN (14:08)
[2021-10-09] MEDS ORDERED: LOPERAMIDE HCL 2 MG CAPSULE PO PRN (14:08)
[2021-10-09] MEDS ORDERED: guaiFENesin 200 MG/10 ML 10 ML UNIT-DOSE CUPS PO PRN (14:08)
[2021-10-09] MEDS ORDERED: ACETAMINOPHEN 325 MG TABLET (FP) PO PRN (14:08)
[2021-10-09] MEDS ORDERED: MAG HYDROX/AL HYDROX/SIMETH 30 ML UNIT-DOSE CUP PO PRN (14:08)
[2021-10-09] MEDS ORDERED: P-EPHED 60MG/TRIPROLIDI 2.5MG TABLET PO PRN (14:08)
[2021-10-09] MEDS: THIAMINE HCL 100 MG TABLET (FP) PO SCH (21:47)
[2021-10-09] MEDS: ATORVASTATIN CA 20 MG TABLET (FP) PO SCH (21:47)
[2021-10-09] MEDS: metFORMIN HCL 500 MG TABLET (FP) PO SCH (21:48)
[2021-10-09] MEDS: risperiDONE 1 MG TABLET PO SCH (21:48)
[2021-10-09] MEDS ORDERED: risperiDONE 1 MG/1 ML ML - 30 ML BOTTLE PO ONE (22:00)
[2021-10-09] MEDS ORDERED: MELATONIN 5 MG TABLETS PO SCH (22:00)
[2021-10-10] MEDS ORDERED: PT OWN MED DRAWER 7, Y5N ONE ×2 (06:32→06:38)
[2021-10-10] MEDS: LOSARTAN POTASSIUM 50 MG TABLET PO SCH (07:00)
[2021-10-10] MEDS ORDERED: LEVOTHYROXINE NA 25 MCG TABLET (FP) PO SCH (07:00)
[2021-10-10] MEDS: metFORMIN HCL 500 MG TABLET (FP) PO SCH (11:29)
[2021-10-10] MEDS: ASPIRIN 81 MG CHEWABLE TABLETS PO SCH (11:29)
[2021-10-10] MEDS: PRENATAL VITAMINS W/ FOLIC ACID TABLET (FP) PO SCH (11:29)
[2021-10-10] MEDS: FAMOTIDINE 20 MG TABLET PO SCH (11:29)
[2021-10-10] MEDS ORDERED: METHOCARBAMOL 500 MG TABLET PO PRN (12:45)
[2021-10-10] MEDS ORDERED: DOCUSATE SODIUM 100 MG CAPSULE (FP) PO PRN (12:46)
[2021-10-10] MEDS: ATORVASTATIN CA 20 MG TABLET (FP) PO SCH (21:39)
[2021-10-10] MEDS: risperiDONE 1 MG TABLET PO SCH (21:39)
[2021-10-10] MEDS: THIAMINE HCL 100 MG TABLET (FP) PO SCH (21:39)
[2021-10-10] MEDS: QUEtiapine FUMARATE 50 MG TABLET PO SCH (21:40)
[2021-10-10] MEDS: SUVOREXANT 10 MG TABLET PO PRN (21:42)
[2021-10-11] MEDS: LEVOTHYROXINE NA 25 MCG TABLET (FP) PO SCH (06:06)
[2021-10-11] MEDS: metFORMIN HCL 500 MG TABLET (FP) PO SCH (06:06)
[2021-10-11] MEDS: PRENATAL VITAMINS W/ FOLIC ACID TABLET (FP) PO SCH (10:16)
[2021-10-11] MEDS: ASPIRIN 81 MG CHEWABLE TABLETS PO SCH (10:17)
[2021-10-11] MEDS: FAMOTIDINE 20 MG TABLET PO SCH (10:17)
[2021-10-11] MEDS: LOSARTAN POTASSIUM 50 MG TABLET PO SCH (10:17)
[2021-10-11] MEDS: THIAMINE HCL 100 MG TABLET (FP) PO SCH (21:37)
[2021-10-11] MEDS: SUVOREXANT 10 MG TABLET PO PRN (21:37)
[2021-10-11] MEDS: risperiDONE 1 MG TABLET PO SCH (21:37)
[2021-10-11] MEDS: QUEtiapine FUMARATE 50 MG TABLET PO SCH (21:37)
[2021-10-11] MEDS: ATORVASTATIN CA 20 MG TABLET (FP) PO SCH (21:37)
[2021-10-11] MEDS: MAGNESIUM HYDROX 2400MG/30ML ORAL SUSPENSION 30 ML CUP PO PRN (21:39)
[2021-10-12] MEDS ORDERED: PT OWN MED DRAWER 7, Y5N ONE (06:55)
[2021-10-12] MEDS: LEVOTHYROXINE NA 25 MCG TABLET (FP) PO SCH (06:56)
[2021-10-12] MEDS: metFORMIN HCL 500 MG TABLET (FP) PO SCH (06:56)
[2021-10-12] MEDS: FAMOTIDINE 20 MG TABLET PO SCH (10:37)
[2021-10-12] MEDS: ASPIRIN 81 MG CHEWABLE TABLETS PO SCH (10:37)
[2021-10-12] MEDS: PRENATAL VITAMINS W/ FOLIC ACID TABLET (FP) PO SCH (10:37)
[2021-10-12] MEDS: LOSARTAN POTASSIUM 50 MG TABLET PO SCH (10:37)
[2021-10-12] MEDS ORDERED: NICOTINE POLACRILEX 2 MG GUM BUC PRN (11:23)
[2021-10-12] MEDS: MAGNESIUM HYDROX 2400MG/30ML ORAL SUSPENSION 30 ML CUP PO PRN (14:18)
[2021-10-12] MEDS: risperiDONE 1 MG TABLET PO SCH (21:51)
[2021-10-12] MEDS: ATORVASTATIN CA 20 MG TABLET (FP) PO SCH (21:52)
[2021-10-12] MEDS: QUEtiapine FUMARATE 50 MG TABLET PO SCH (21:53)
[2021-10-12] MEDS: THIAMINE HCL 100 MG TABLET (FP) PO SCH (21:53)
[2021-10-12] MEDS: NICOTINE 10 MG CARTRIDGE (INHALER) IH PRN (22:58)
[2021-10-13] MEDS ORDERED: PT OWN MED DRAWER 7, Y5N ONE (06:26)
[2021-10-13] MEDS: LEVOTHYROXINE NA 25 MCG TABLET (FP) PO SCH (06:34)
[2021-10-13] MEDS: metFORMIN HCL 500 MG TABLET (FP) PO SCH (06:34)
[2021-10-13] MEDS: PRENATAL VITAMINS W/ FOLIC ACID TABLET (FP) PO SCH (10:32)
[2021-10-13] MEDS: LOSARTAN POTASSIUM 50 MG TABLET PO SCH (10:32)
[2021-10-13] MEDS: FAMOTIDINE 20 MG TABLET PO SCH (10:32)
[2021-10-13] MEDS: ASPIRIN 81 MG CHEWABLE TABLETS PO SCH (10:33)
[2021-10-13] MEDS: NICOTINE 10 MG CARTRIDGE (INHALER) IH PRN (10:34)
[2021-10-13] MEDS: risperiDONE 1 MG TABLET PO SCH (21:29)
[2021-10-13] MEDS: THIAMINE HCL 100 MG TABLET (FP) PO SCH (21:29)
[2021-10-13] MEDS: ATORVASTATIN CA 20 MG TABLET (FP) PO SCH (21:29)
[2021-10-13] MEDS: QUEtiapine FUMARATE 50 MG TABLET PO SCH (21:30)
[2021-10-13] MEDS: SUVOREXANT 10 MG TABLET PO PRN (21:31)
[2021-10-14] MEDS ORDERED: PT OWN MED DRAWER 7, Y5N ONE (03:35)
[2021-10-14] MEDS: metFORMIN HCL 500 MG TABLET (FP) PO SCH (06:17)
[2021-10-14] MEDS: LEVOTHYROXINE NA 25 MCG TABLET (FP) PO SCH (06:18)
[2021-10-14] MEDS: FAMOTIDINE 20 MG TABLET PO SCH (13:16)
[2021-10-14] MEDS: LOSARTAN POTASSIUM 50 MG TABLET PO SCH (13:17)
[2021-10-14] MEDS: ASPIRIN 81 MG CHEWABLE TABLETS PO SCH (13:17)
[2021-10-14] MEDS: MAGNESIUM CITRATE 300 ML BOTTLE PO PRN (13:17)
[2021-10-14] MEDS: PRENATAL VITAMINS W/ FOLIC ACID TABLET (FP) PO SCH (13:18)
[2021-10-14] MEDS: NICOTINE 10 MG CARTRIDGE (INHALER) IH PRN (17:00)
[2021-10-14] MEDS: THIAMINE HCL 100 MG TABLET (FP) PO SCH (21:34)
[2021-10-14] MEDS: QUEtiapine FUMARATE 50 MG TABLET PO SCH (21:35)
[2021-10-14] MEDS: ATORVASTATIN CA 20 MG TABLET (FP) PO SCH (21:35)
[2021-10-14] MEDS: risperiDONE 1 MG TABLET PO SCH (21:35)
[2021-10-15] MEDS: metFORMIN HCL 500 MG TABLET (FP) PO SCH (06:11)
[2021-10-15] MEDS: LEVOTHYROXINE NA 25 MCG TABLET (FP) PO SCH (06:11)
[2021-10-15] MEDS: PRENATAL VITAMINS W/ FOLIC ACID TABLET (FP) PO SCH (10:07)
[2021-10-15] MEDS: LOSARTAN POTASSIUM 50 MG TABLET PO SCH (10:07)
[2021-10-15] MEDS: FAMOTIDINE 20 MG TABLET PO SCH (10:07)
[2021-10-15] MEDS: ASPIRIN 81 MG CHEWABLE TABLETS PO SCH (10:07)
[2021-10-15] MEDS: ATORVASTATIN CA 20 MG TABLET (FP) PO SCH (21:33)
[2021-10-15] MEDS: risperiDONE 1 MG TABLET PO SCH (21:33)
[2021-10-15] MEDS: NICOTINE 10 MG CARTRIDGE (INHALER) IH PRN (21:34)
[2021-10-15] MEDS: THIAMINE HCL 100 MG TABLET (FP) PO SCH (21:34)
[2021-10-15] MEDS: QUEtiapine FUMARATE 50 MG TABLET PO SCH (21:34)
[2021-10-16] MEDS: metFORMIN HCL 500 MG TABLET (FP) PO SCH (06:28)
[2021-10-16] MEDS: LEVOTHYROXINE NA 25 MCG TABLET (FP) PO SCH (06:28)
[2021-10-16] MEDS: LOSARTAN POTASSIUM 50 MG TABLET PO SCH (09:52)
[2021-10-16] MEDS: FAMOTIDINE 20 MG TABLET PO SCH (09:52)
[2021-10-16] MEDS: PRENATAL VITAMINS W/ FOLIC ACID TABLET (FP) PO SCH (09:52)
[2021-10-16] MEDS: ASPIRIN 81 MG CHEWABLE TABLETS PO SCH (09:52)
[2021-10-16] MEDS: THIAMINE HCL 100 MG TABLET (FP) PO SCH (21:30)
[2021-10-16] MEDS: QUEtiapine FUMARATE 50 MG TABLET PO SCH (21:30)
[2021-10-16] MEDS: ATORVASTATIN CA 20 MG TABLET (FP) PO SCH (21:30)
[2021-10-16] MEDS: risperiDONE 1 MG TABLET PO SCH (21:30)
[2021-10-16] MEDS: SUVOREXANT 10 MG TABLET PO PRN (21:31)
[2021-10-16] MEDS: IBUPROFEN 400 MG TABLET (FP) PO PRN (21:32)
[2021-10-17] MEDS: metFORMIN HCL 500 MG TABLET (FP) PO SCH (06:12)
[2021-10-17] MEDS: LEVOTHYROXINE NA 25 MCG TABLET (FP) PO SCH (06:13)
[2021-10-17] MEDS: LOSARTAN POTASSIUM 50 MG TABLET PO SCH (10:01)
[2021-10-17] MEDS: PRENATAL VITAMINS W/ FOLIC ACID TABLET (FP) PO SCH (10:01)
[2021-10-17] MEDS: FAMOTIDINE 20 MG TABLET PO SCH (10:01)
[2021-10-17] MEDS: ASPIRIN 81 MG CHEWABLE TABLETS PO SCH (10:02)
[2021-10-17] MEDS: NICOTINE 10 MG CARTRIDGE (INHALER) IH PRN (10:02)
[2021-10-17] MEDS: risperiDONE 1 MG TABLET PO SCH (21:22)
[2021-10-17] MEDS: THIAMINE HCL 100 MG TABLET (FP) PO SCH (21:22)
[2021-10-17] MEDS: QUEtiapine FUMARATE 50 MG TABLET PO SCH (21:22)
[2021-10-17] MEDS: SUVOREXANT 10 MG TABLET PO PRN (21:22)
[2021-10-17] MEDS: ATORVASTATIN CA 20 MG TABLET (FP) PO SCH (21:22)
[2021-10-18] MEDS: metFORMIN HCL 500 MG TABLET (FP) PO SCH (06:48)
[2021-10-18] MEDS: LEVOTHYROXINE NA 25 MCG TABLET (FP) PO SCH (06:48)
[2021-10-18] MEDS: NICOTINE 10 MG CARTRIDGE (INHALER) IH PRN ×2 (10:01→21:45)
[2021-10-18] MEDS: PRENATAL VITAMINS W/ FOLIC ACID TABLET (FP) PO SCH (10:01)
[2021-10-18] MEDS: ASPIRIN 81 MG CHEWABLE TABLETS PO SCH (10:01)
[2021-10-18] MEDS: FAMOTIDINE 20 MG TABLET PO SCH (10:01)
[2021-10-18] MEDS: LOSARTAN POTASSIUM 50 MG TABLET PO SCH (10:02)
[2021-10-18] MEDS: SUVOREXANT 10 MG TABLET PO PRN (21:44)
[2021-10-18] MEDS: risperiDONE 1 MG TABLET PO SCH (21:44)
[2021-10-18] MEDS: ATORVASTATIN CA 20 MG TABLET (FP) PO SCH (21:44)
[2021-10-18] MEDS: QUEtiapine FUMARATE 50 MG TABLET PO SCH (21:44)
[2021-10-18] MEDS: THIAMINE HCL 100 MG TABLET (FP) PO SCH (21:44)
[2021-10-18] MEDS ORDERED: valACYclovir HCL 500 MG TABLET (FP) ONE (21:57)
[2021-10-18] MEDS: VALACYCLOVIR HCL 1000 MG PO SCH (21:57)
[2021-10-19] MEDS: LEVOTHYROXINE NA 25 MCG TABLET (FP) PO SCH (06:15)
[2021-10-19] MEDS: metFORMIN HCL 500 MG TABLET (FP) PO SCH (06:15)
[2021-10-19] MEDS ORDERED: valACYclovir HCL 500 MG TABLET (FP) ONE (09:10)
[2021-10-19] MEDS: FAMOTIDINE 20 MG TABLET PO SCH (10:11)
[2021-10-19] MEDS: PRENATAL VITAMINS W/ FOLIC ACID TABLET (FP) PO SCH (10:11)
[2021-10-19] MEDS: LOSARTAN POTASSIUM 50 MG TABLET PO SCH (10:12)
[2021-10-19] MEDS: VALACYCLOVIR HCL 1000 MG PO SCH ×2 (10:12→21:38)
[2021-10-19] MEDS: ASPIRIN 81 MG CHEWABLE TABLETS PO SCH (10:12)
[2021-10-19] MEDS: risperiDONE 1 MG TABLET PO SCH (21:38)
[2021-10-19] MEDS: THIAMINE HCL 100 MG TABLET (FP) PO SCH (21:39)
[2021-10-19] MEDS: ATORVASTATIN CA 20 MG TABLET (FP) PO SCH (21:39)
[2021-10-19] MEDS: QUEtiapine FUMARATE 50 MG TABLET PO SCH (21:39)
[2021-10-19] MEDS: NICOTINE 10 MG CARTRIDGE (INHALER) IH PRN (21:41)
[2021-10-19] MEDS: SUVOREXANT 10 MG TABLET PO PRN (22:20)
[2021-10-20] MEDS ORDERED: PT OWN MED DRAWER 7, Y5N ONE (03:08)
[2021-10-20] MEDS: metFORMIN HCL 500 MG TABLET (FP) PO SCH (06:02)
[2021-10-20] MEDS: LEVOTHYROXINE NA 25 MCG TABLET (FP) PO SCH (06:03)
[2021-10-20] MEDS ORDERED: valACYclovir HCL 500 MG TABLET (FP) ONE (09:17)
[2021-10-20] MEDS: LOSARTAN POTASSIUM 50 MG TABLET PO SCH (09:36)
[2021-10-20] MEDS: ASPIRIN 81 MG CHEWABLE TABLETS PO SCH (09:36)
[2021-10-20] MEDS: FAMOTIDINE 20 MG TABLET PO SCH (09:36)
[2021-10-20] MEDS: VALACYCLOVIR HCL 1000 MG PO SCH ×2 (09:36→21:48)
[2021-10-20] MEDS: PRENATAL VITAMINS W/ FOLIC ACID TABLET (FP) PO SCH (09:36)
[2021-10-20] MEDS: MAGNESIUM CITRATE 300 ML BOTTLE PO PRN (09:39)
[2021-10-20] MEDS: ATORVASTATIN CA 20 MG TABLET (FP) PO SCH (21:47)
[2021-10-20] MEDS: IBUPROFEN 400 MG TABLET (FP) PO PRN (21:48)
[2021-10-20] MEDS: QUEtiapine FUMARATE 50 MG TABLET PO SCH (21:48)
[2021-10-20] MEDS: risperiDONE 1 MG TABLET PO SCH (21:48)
[2021-10-20] MEDS: THIAMINE HCL 100 MG TABLET (FP) PO SCH (21:48)
[2021-10-21] MEDS: LEVOTHYROXINE NA 25 MCG TABLET (FP) PO SCH (06:21)
[2021-10-21] MEDS: metFORMIN HCL 500 MG TABLET (FP) PO SCH (06:21)
[2021-10-21] MEDS ORDERED: valACYclovir HCL 500 MG TABLET (FP) ONE ×2 (09:24→20:31)
[2021-10-21] MEDS: FAMOTIDINE 20 MG TABLET PO SCH (10:14)
[2021-10-21] MEDS: VALACYCLOVIR HCL 1000 MG PO SCH ×2 (10:14→21:38)
[2021-10-21] MEDS: LOSARTAN POTASSIUM 50 MG TABLET PO SCH (10:14)
[2021-10-21] MEDS: ASPIRIN 81 MG CHEWABLE TABLETS PO SCH (10:14)
[2021-10-21] MEDS: PRENATAL VITAMINS W/ FOLIC ACID TABLET (FP) PO SCH (10:14)
[2021-10-21] MEDS: risperiDONE 1 MG TABLET PO SCH (21:37)
[2021-10-21] MEDS: THIAMINE HCL 100 MG TABLET (FP) PO SCH (21:37)
[2021-10-21] MEDS: QUEtiapine FUMARATE 50 MG TABLET PO SCH (21:38)
[2021-10-21] MEDS: ATORVASTATIN CA 20 MG TABLET (FP) PO SCH (21:38)
[2021-10-22] MEDS: metFORMIN HCL 500 MG TABLET (FP) PO SCH (06:23)
[2021-10-22] MEDS: LEVOTHYROXINE NA 25 MCG TABLET (FP) PO SCH (06:23)
[2021-10-22] MEDS ORDERED: PT OWN MED DRAWER 7, Y5N ONE (08:19)
[2021-10-22] MEDS: FAMOTIDINE 20 MG TABLET PO SCH (10:23)
[2021-10-22] MEDS: PRENATAL VITAMINS W/ FOLIC ACID TABLET (FP) PO SCH (10:23)
[2021-10-22] MEDS: VALACYCLOVIR HCL 1000 MG PO SCH ×2 (10:23→21:50)
[2021-10-22] MEDS: LOSARTAN POTASSIUM 50 MG TABLET PO SCH (10:23)
[2021-10-22] MEDS: ASPIRIN 81 MG CHEWABLE TABLETS PO SCH (10:23)
[2021-10-22] MEDS: NICOTINE 10 MG CARTRIDGE (INHALER) IH PRN (10:26)
[2021-10-22] MEDS: QUEtiapine FUMARATE 50 MG TABLET PO SCH (21:48)
[2021-10-22] MEDS: ATORVASTATIN CA 20 MG TABLET (FP) PO SCH (21:48)
[2021-10-22] MEDS: risperiDONE 1 MG TABLET PO SCH (21:49)
[2021-10-22] MEDS: THIAMINE HCL 100 MG TABLET (FP) PO SCH (21:50)
[2021-10-22] MEDS: SUVOREXANT 10 MG TABLET PO PRN (21:51)
[2021-10-23] MEDS: metFORMIN HCL 500 MG TABLET (FP) PO SCH (06:13)
[2021-10-23] MEDS: LEVOTHYROXINE NA 25 MCG TABLET (FP) PO SCH (06:13)
[2021-10-23] MEDS: LOSARTAN POTASSIUM 50 MG TABLET PO SCH (10:11)
[2021-10-23] MEDS: ASPIRIN 81 MG CHEWABLE TABLETS PO SCH (10:11)
[2021-10-23] MEDS: PRENATAL VITAMINS W/ FOLIC ACID TABLET (FP) PO SCH (10:11)
[2021-10-23] MEDS: VALACYCLOVIR HCL 1000 MG PO SCH ×2 (10:11→21:49)
[2021-10-23] MEDS: FAMOTIDINE 20 MG TABLET PO SCH (10:11)
[2021-10-23] MEDS ORDERED: valACYclovir HCL 500 MG TABLET (FP) ONE (18:51)
[2021-10-23] MEDS: ATORVASTATIN CA 20 MG TABLET (FP) PO SCH (21:47)
[2021-10-23] MEDS: risperiDONE 1 MG TABLET PO SCH (21:47)
[2021-10-23] MEDS: QUEtiapine FUMARATE 50 MG TABLET PO SCH (21:49)
[2021-10-23] MEDS: SUVOREXANT 10 MG TABLET PO PRN (21:51)
[2021-10-23] MEDS: THIAMINE HCL 100 MG TABLET (FP) PO SCH (21:51)
[2021-10-24] MEDS: metFORMIN HCL 500 MG TABLET (FP) PO SCH (06:07)
[2021-10-24] MEDS: LEVOTHYROXINE NA 25 MCG TABLET (FP) PO SCH (06:07)
[2021-10-24] MEDS ORDERED: valACYclovir HCL 500 MG TABLET (FP) ONE ×2 (09:06→20:40)
[2021-10-24] MEDS: VALACYCLOVIR HCL 1000 MG PO SCH ×2 (09:26→21:41)
[2021-10-24] MEDS: LOSARTAN POTASSIUM 50 MG TABLET PO SCH (09:26)
[2021-10-24] MEDS: PRENATAL VITAMINS W/ FOLIC ACID TABLET (FP) PO SCH (09:26)
[2021-10-24] MEDS: ASPIRIN 81 MG CHEWABLE TABLETS PO SCH (09:26)
[2021-10-24] MEDS: FAMOTIDINE 20 MG TABLET PO SCH (09:26)
[2021-10-24] MEDS: IBUPROFEN 400 MG TABLET (FP) PO PRN (09:27)
[2021-10-24] MEDS: ATORVASTATIN CA 20 MG TABLET (FP) PO SCH (21:40)
[2021-10-24] MEDS: THIAMINE HCL 100 MG TABLET (FP) PO SCH (21:40)
[2021-10-24] MEDS: QUEtiapine FUMARATE 50 MG TABLET PO SCH (21:40)
[2021-10-24] MEDS: risperiDONE 1 MG TABLET PO SCH (21:40)
[2021-10-24] MEDS: SUVOREXANT 10 MG TABLET PO PRN (21:43)
[2021-10-25] MEDS: metFORMIN HCL 500 MG TABLET (FP) PO SCH (05:59)
[2021-10-25] MEDS: LEVOTHYROXINE NA 25 MCG TABLET (FP) PO SCH (05:59)
[2021-10-25 07:04] VITALS: TEMP 98.2
[2021-10-25] MEDS ORDERED: valACYclovir HCL 500 MG TABLET (FP) ONE (09:00)
[2021-10-25] MEDS: FAMOTIDINE 20 MG TABLET PO SCH (09:13)
[2021-10-25] MEDS: LOSARTAN POTASSIUM 50 MG TABLET PO SCH (09:14)
[2021-10-25] MEDS: PRENATAL VITAMINS W/ FOLIC ACID TABLET (FP) PO SCH (09:14)
[2021-10-25] MEDS: ASPIRIN 81 MG CHEWABLE TABLETS PO SCH (09:14)
[2021-10-25] MEDS: VALACYCLOVIR HCL 1000 MG PO SCH (09:14)
[2021-10-25 09:20] VITALS: BP 133/82; PULSE 90
== END 2021-10-25 09:15 | disposition home or self-care (01) | DRG 772 ==
LOC: YASAS 12:35 → Y5N 12:36
PROVIDERS: ADMIT Allergy & Immunology; ATTEND Allergy & Immunology
PROC: HZ42ZZZ Group Counseling for Substance Abuse Treatment, Cognitive-Behavioral (ICD-10-PCS; principal; 2021-10-09)
DX: F10.20 Alcohol dependence, uncomplicated (principal); F14.20 Cocaine dependence, uncomplicated; F17.210 Nicotine dependence, cigarettes, uncomplicated; I10 Essential (primary) hypertension; R78.5 Finding of other psychotropic drug in blood; K21.9 Gastro-esophageal reflux disease without esophagitis; E11.9 Type 2 diabetes mellitus without complications; Z86.19 Personal history of other infectious and parasitic diseases; Z79.84 Long term (current) use of oral hypoglycemic drugs
CPT/HCPCS: 82962; J2794

== ENCOUNTER 2022-01-21 13:04 | Inpatient (IN) | payer OTHER ==
[2022-01-21] MEDS ORDERED: MAG HYDROX/AL HYDROX/SIMETH 30 ML UNIT-DOSE CUP PO PRN (14:04)
[2022-01-21] MEDS ORDERED: IBUPROFEN 400 MG TABLET (FP) PO PRN (14:04)
[2022-01-21] MEDS ORDERED: LOPERAMIDE HCL 2 MG CAPSULE PO PRN (14:04)
[2022-01-21] MEDS ORDERED: NICOTINE 10 MG CARTRIDGE (INHALER) IH PRN (14:04)
[2022-01-21] MEDS ORDERED: MENTHOL/PHENOL 1 EACH UD MM PRN (14:04)
[2022-01-21] MEDS ORDERED: MAGNESIUM HYDROX 2400MG/30ML ORAL SUSPENSION 30 ML CUP PO PRN (14:04)
[2022-01-21] MEDS ORDERED: ONDANSETRON *ODT* 4 MG TABLET SL PRN (14:04)
[2022-01-21] MEDS ORDERED: chlordiazePOXIDE HCL 25 MG CAPSULE PO PRN (14:04)
[2022-01-21] MEDS ORDERED: MAGNESIUM CITRATE 300 ML BOTTLE PO PRN (14:04)
[2022-01-21] MEDS ORDERED: ACETAMINOPHEN 325 MG TABLET (FP) PO PRN ×2 (14:04)
[2022-01-21] MEDS ORDERED: BISMUTH SUBSALICYLATE 524 MG/30 ML PO PRN (14:04)
[2022-01-21] MEDS ORDERED: LEVOTHYROXINE NA 25 MCG TABLET (FP) PO SCH (14:15)
[2022-01-21] MEDS ORDERED: PATIENT'S OWN MEDICATION (NON-FORMULARY) (Famotidine 40 MG Tablet) PO SCH (14:15)
[2022-01-21 14:27] VITALS: BMI 30.2
[2022-01-21] MEDS: INSULIN SLIDING SCALE (NOVOLOG) 1 VIAL SQ SCH (16:55)
[2022-01-21] MEDS: hydrOXYzine PAMOATE 25 MG CAPSULE (FP) PO SCH ×2 (17:43→22:22)
[2022-01-21] MEDS: ATORVASTATIN CA 20 MG TABLET (FP) PO SCH (17:43)
[2022-01-21] MEDS: LOSARTAN POTASSIUM 50 MG TABLET PO SCH (17:43)
[2022-01-21] MEDS: MELATONIN 5 MG TABLETS PO SCH (22:22)
[2022-01-21] MEDS: chlordiazePOXIDE HCL 25 MG CAPSULE PO SCH (22:23)
[2022-01-21] MEDS: THIAMINE HCL 100 MG TABLET (FP) PO SCH (22:23)
[2022-01-22] MEDS: hydrOXYzine PAMOATE 25 MG CAPSULE (FP) PO SCH ×5 (06:00→22:31)
[2022-01-22] MEDS: metFORMIN HCL 500 MG TABLET (FP) PO SCH (06:01)
[2022-01-22] MEDS: chlordiazePOXIDE HCL 25 MG CAPSULE PO SCH ×4 (06:01→22:31)
[2022-01-22] MEDS: INSULIN SLIDING SCALE (NOVOLOG) 1 VIAL SQ SCH ×2 (06:01→17:22)
[2022-01-22] MEDS: LEVOTHYROXINE NA 25 MCG TABLET (FP) PO SCH (06:04)
[2022-01-22] MEDS: PRENATAL VITAMINS W/ FOLIC ACID TABLET (FP) PO SCH (10:15)
[2022-01-22] MEDS: ATORVASTATIN CA 20 MG TABLET (FP) PO SCH (10:15)
[2022-01-22] MEDS: METHOCARBAMOL 500 MG TABLET PO PRN (10:15)
[2022-01-22 11:44] LABS: ALBUMIN 3.9 g/dl (3.4-5.0); CALCIUM 9.3 mg/dL (8.5-10.1)
[2022-01-22 11:45] LABS: BLOOD UREA NITROGEN 13.2 mg/dL (7-18); HEMATOCRIT 36.1 % (32.4-45.2); HEMOGLOBIN 11.9 GM/dL (10.7-15.3); MCH 27.5 pg (25.7-33.7); MEAN CELL VOLUME 83.4 fl (80-96); MEAN PLT VOLUME 8.9 fl (7.5-11.1); PLATELET COUNT 132 10^3/uL (134-434); RBC 4.33 M/mm3 (3.60-5.2); RDW 14.1 % (11.6-15.6); WHITE BLOOD COUNT 3.4 K/mm3 (4.0-10.0)
[2022-01-22 11:48] LABS: CREATININE 0.8 mg/dL (0.55-1.3)
[2022-01-22 11:49] LABS: BILIRUBIN,TOTAL 1.5 mg/dL (0.2-1); TOT PROT 6.9 g/dl (6.4-8.2)
[2022-01-22] MEDS: LOSARTAN POTASSIUM 50 MG TABLET PO SCH (13:01)
[2022-01-22] MEDS: FAMOTIDINE 40 MG TABLET PO SCH (13:01)
[2022-01-22] MEDS: ASPIRIN 81 MG CHEWABLE TABLETS PO SCH (13:01)
[2022-01-22] MEDS: risperiDONE 2 MG TABLET PO SCH (22:30)
[2022-01-22] MEDS: MELATONIN 5 MG TABLETS PO SCH (22:31)
[2022-01-22] MEDS: THIAMINE HCL 100 MG TABLET (FP) PO SCH (22:31)
[2022-01-23] MEDS: hydrOXYzine PAMOATE 25 MG CAPSULE (FP) PO SCH ×5 (05:42→22:17)
[2022-01-23] MEDS: chlordiazePOXIDE HCL 25 MG CAPSULE PO SCH ×4 (05:42→22:18)
[2022-01-23] MEDS: metFORMIN HCL 500 MG TABLET (FP) PO SCH (06:02)
[2022-01-23] MEDS: LEVOTHYROXINE NA 25 MCG TABLET (FP) PO SCH (07:02)
[2022-01-23] MEDS: INSULIN SLIDING SCALE (NOVOLOG) 1 VIAL SQ SCH ×2 (08:30→19:00)
[2022-01-23] MEDS: LOSARTAN POTASSIUM 50 MG TABLET PO SCH (10:19)
[2022-01-23] MEDS: ASPIRIN 81 MG CHEWABLE TABLETS PO SCH (10:19)
[2022-01-23] MEDS: FAMOTIDINE 20 MG TABLET PO SCH (10:19)
[2022-01-23] MEDS: ATORVASTATIN CA 20 MG TABLET (FP) PO SCH (10:19)
[2022-01-23] MEDS: METHOCARBAMOL 500 MG TABLET PO PRN (10:19)
[2022-01-23] MEDS: PRENATAL VITAMINS W/ FOLIC ACID TABLET (FP) PO SCH (10:21)
[2022-01-23] MEDS: FAMOTIDINE 40 MG TABLET PO SCH (10:21)
[2022-01-23] MEDS: risperiDONE 2 MG TABLET PO SCH (22:17)
[2022-01-23] MEDS: THIAMINE HCL 100 MG TABLET (FP) PO SCH (22:17)
[2022-01-23] MEDS: MELATONIN 5 MG TABLETS PO SCH (22:18)
[2022-01-24] MEDS ORDERED: chlordiazePOXIDE HCL 10 MG CAPSULE PO PRN
[2022-01-24] MEDS: chlordiazePOXIDE HCL 10 MG CAPSULE PO SCH ×4 (06:35→22:22)
[2022-01-24] MEDS: hydrOXYzine PAMOATE 25 MG CAPSULE (FP) PO SCH ×5 (06:36→22:23)
[2022-01-24] MEDS: metFORMIN HCL 500 MG TABLET (FP) PO SCH ×2 (06:36→18:45)
[2022-01-24] MEDS: LEVOTHYROXINE NA 25 MCG TABLET (FP) PO SCH (06:36)
[2022-01-24] MEDS: INSULIN SLIDING SCALE (NOVOLOG) 1 VIAL SQ SCH ×2 (06:38→18:47)
[2022-01-24] MEDS: METHOCARBAMOL 500 MG TABLET PO PRN ×2 (10:19→18:43)
[2022-01-24] MEDS: ASPIRIN 81 MG CHEWABLE TABLETS PO SCH (10:19)
[2022-01-24] MEDS: LOSARTAN POTASSIUM 50 MG TABLET PO SCH (10:19)
[2022-01-24] MEDS: FAMOTIDINE 20 MG TABLET PO SCH (10:19)
[2022-01-24] MEDS: FAMOTIDINE 40 MG TABLET PO SCH (10:19)
[2022-01-24] MEDS: PRENATAL VITAMINS W/ FOLIC ACID TABLET (FP) PO SCH (10:19)
[2022-01-24] MEDS: ATORVASTATIN CA 20 MG TABLET (FP) PO SCH (10:21)
[2022-01-24 14:08] LABS: SARS-CoV-2 NAA Not Detected (Not Detected)
[2022-01-24] MEDS: MELATONIN 5 MG TABLETS PO SCH (22:21)
[2022-01-24] MEDS: diphenhydrAMINE HCL 25 MG CAPSULE (FP) PO PRN (22:21)
[2022-01-24] MEDS: risperiDONE 2 MG TABLET PO SCH (22:21)
[2022-01-24] MEDS: THIAMINE HCL 100 MG TABLET (FP) PO SCH (22:21)
[2022-01-25] MEDS: hydrOXYzine PAMOATE 25 MG CAPSULE (FP) PO SCH ×5 (06:04→22:13)
[2022-01-25] MEDS: metFORMIN HCL 500 MG TABLET (FP) PO SCH ×3 (06:04→17:52)
[2022-01-25] MEDS: chlordiazePOXIDE HCL 10 MG CAPSULE PO SCH ×2 (06:04→17:46)
[2022-01-25] MEDS: INSULIN SLIDING SCALE (NOVOLOG) 1 VIAL SQ SCH ×2 (06:06→18:09)
[2022-01-25] MEDS: LEVOTHYROXINE NA 25 MCG TABLET (FP) PO SCH (06:06)
[2022-01-25] MEDS: ASPIRIN 81 MG CHEWABLE TABLETS PO SCH (10:15)
[2022-01-25] MEDS: PRENATAL VITAMINS W/ FOLIC ACID TABLET (FP) PO SCH (10:15)
[2022-01-25] MEDS: ATORVASTATIN CA 20 MG TABLET (FP) PO SCH (10:15)
[2022-01-25] MEDS: FAMOTIDINE 20 MG TABLET PO SCH (10:16)
[2022-01-25] MEDS: LOSARTAN POTASSIUM 50 MG TABLET PO SCH (10:16)
[2022-01-25] MEDS: valACYclovir HCL 500 MG TABLET (FP) PO PRN (17:49)
[2022-01-25] MEDS: MELATONIN 5 MG TABLETS PO SCH (22:13)
[2022-01-25] MEDS: THIAMINE HCL 100 MG TABLET (FP) PO SCH (22:13)
[2022-01-25] MEDS: risperiDONE 2 MG TABLET PO SCH (22:13)
[2022-01-25] MEDS: diphenhydrAMINE HCL 25 MG CAPSULE (FP) PO PRN (22:17)
[2022-01-26] MEDS ORDERED: chlordiazePOXIDE HCL 10 MG CAPSULE PO ONE (05:00)
[2022-01-26] MEDS: INSULIN SLIDING SCALE (NOVOLOG) 1 VIAL SQ SCH (06:15)
[2022-01-26] MEDS: metFORMIN HCL 500 MG TABLET (FP) PO SCH (06:15)
[2022-01-26] MEDS: hydrOXYzine PAMOATE 25 MG CAPSULE (FP) PO SCH ×2 (06:15→11:09)
[2022-01-26] MEDS: LEVOTHYROXINE NA 25 MCG TABLET (FP) PO SCH (06:15)
[2022-01-26] MEDS: PRENATAL VITAMINS W/ FOLIC ACID TABLET (FP) PO SCH (11:09)
[2022-01-26] MEDS: FAMOTIDINE 20 MG TABLET PO SCH (11:10)
[2022-01-26] MEDS: ATORVASTATIN CA 20 MG TABLET (FP) PO SCH (11:10)
[2022-01-26] MEDS: ASPIRIN 81 MG CHEWABLE TABLETS PO SCH (11:10)
[2022-01-26] MEDS: valACYclovir HCL 500 MG TABLET (FP) PO PRN (11:12)
[2022-01-26] MEDS: LOSARTAN POTASSIUM 50 MG TABLET PO SCH (11:14)
[2022-01-26 13:21] VITALS: BP 122/67; PULSE 93; TEMP 98
== END 2022-01-26 13:18 | disposition other institution (70) | DRG 774 ==
LOC: YASAS 13:04 → Y6N 15:34
PROVIDERS: ADMIT Allergy & Immunology; ATTEND Allergy & Immunology
PROC: HZ2ZZZZ Detoxification Services for Substance Abuse Treatment (ICD-10-PCS; principal; 2022-01-21)
DX: F10.230 Alcohol dependence with withdrawal, uncomplicated (principal); F10.282 Alcohol dependence with alcohol-induced sleep disorder; F10.24 Alcohol dependence with alcohol-induced mood disorder; F14.20 Cocaine dependence, uncomplicated; F41.9 Anxiety disorder, unspecified; F33.9 Major depressive disorder, recurrent, unspecified; F43.10 Post-traumatic stress disorder, unspecified; I10 Essential (primary) hypertension; K21.9 Gastro-esophageal reflux disease without esophagitis; G47.00 Insomnia, unspecified; E11.9 Type 2 diabetes mellitus without complications; E78.5 Hyperlipidemia, unspecified; E03.9 Hypothyroidism, unspecified; Z88.8 Allergy status to other drugs, medicaments and biological substances; Z79.84 Long term (current) use of oral hypoglycemic drugs; Z56.0 Unemployment, unspecified
CPT/HCPCS: 36415; 80053; 81025; 82962; 85027; 86780; C9803; U0003; U0005

== ENCOUNTER 2022-01-26 13:32 | Inpatient (IN) | payer OTHER ==
[2022-01-26 13:41] VITALS: BP 108/66; PULSE 88; TEMP 98.8
[2022-01-26] MEDS ORDERED: LOPERAMIDE HCL 2 MG CAPSULE PO PRN (14:33)
[2022-01-26] MEDS ORDERED: NICOTINE 10 MG CARTRIDGE (INHALER) IH PRN (14:33)
[2022-01-26] MEDS ORDERED: ACETAMINOPHEN 325 MG TABLET (FP) PO PRN (14:33)
[2022-01-26] MEDS ORDERED: MAGNESIUM HYDROX 2400MG/30ML ORAL SUSPENSION 30 ML CUP PO PRN (14:33)
[2022-01-26] MEDS ORDERED: MAGNESIUM CITRATE 300 ML BOTTLE PO PRN (14:33)
[2022-01-26] MEDS ORDERED: guaiFENesin 200 MG/10 ML 10 ML UNIT-DOSE CUPS PO PRN (14:33)
[2022-01-26] MEDS ORDERED: hydrOXYzine PAMOATE 25 MG CAPSULE (FP) PO PRN (14:33)
[2022-01-26] MEDS ORDERED: MENTHOL/PHENOL 1 EACH UD MM PRN (14:33)
[2022-01-26] MEDS ORDERED: IBUPROFEN 400 MG TABLET (FP) PO PRN (14:33)
[2022-01-26] MEDS ORDERED: MAG HYDROX/AL HYDROX/SIMETH 30 ML UNIT-DOSE CUP PO PRN (14:33)
[2022-01-26] MEDS ORDERED: metFORMIN HCL 500 MG TABLET (FP) PO SCH (16:30)
[2022-01-26] MEDS ORDERED: INSULIN SLIDING SCALE (NOVOLOG) 1 VIAL SQ SCH (16:30)
[2022-01-26] MEDS ORDERED: QUEtiapine FUMARATE 50 MG TABLET PO SCH (22:00)
[2022-01-26] MEDS ORDERED: THIAMINE HCL 100 MG TABLET (FP) PO SCH (22:00)
[2022-01-26] MEDS ORDERED: risperiDONE 2 MG TABLET PO SCH (22:00)
[2022-01-26] MEDS ORDERED: MELATONIN 5 MG TABLETS PO SCH (22:00)
[2022-01-26] MEDS ORDERED: diphenhydrAMINE HCL 50 MG CAPSULE PO SCH (22:00)
[2022-01-27] MEDS ORDERED: LEVOTHYROXINE NA 25 MCG TABLET (FP) PO SCH (07:00)
[2022-01-27] MEDS ORDERED: FAMOTIDINE 20 MG TABLET PO SCH (10:00)
[2022-01-27] MEDS ORDERED: PRENATAL VITAMINS W/ FOLIC ACID TABLET (FP) PO SCH (10:00)
[2022-01-27] MEDS ORDERED: LOSARTAN POTASSIUM 50 MG TABLET PO SCH (10:00)
[2022-01-27] MEDS ORDERED: ASPIRIN 81 MG CHEWABLE TABLETS PO SCH (10:00)
[2022-01-27] MEDS ORDERED: ATORVASTATIN CA 20 MG TABLET (FP) PO SCH (22:00)
== END 2022-01-26 15:45 | disposition left against medical advice (07) | DRG 770 ==
LOC: YASAS 13:32 → Y5N 13:33
PROVIDERS: ADMIT Allergy & Immunology; ATTEND Allergy & Immunology
PROC: HZ42ZZZ Group Counseling for Substance Abuse Treatment, Cognitive-Behavioral (ICD-10-PCS; principal; 2022-01-26)
DX: F10.20 Alcohol dependence, uncomplicated (principal); F14.20 Cocaine dependence, uncomplicated; I10 Essential (primary) hypertension; K21.9 Gastro-esophageal reflux disease without esophagitis; G47.00 Insomnia, unspecified; E11.9 Type 2 diabetes mellitus without complications; E78.5 Hyperlipidemia, unspecified; E03.9 Hypothyroidism, unspecified; Z88.8 Allergy status to other drugs, medicaments and biological substances; Z79.84 Long term (current) use of oral hypoglycemic drugs; Z56.0 Unemployment, unspecified

== ENCOUNTER 2022-05-27 11:23 | Inpatient (IN) | payer OTHER ==
[2022-05-27 12:01] VITALS: BMI 26.6
[2022-05-27] MEDS ORDERED: MAG HYDROX/AL HYDROX/SIMETH 30 ML UNIT-DOSE CUP PO PRN (12:49)
[2022-05-27] MEDS ORDERED: DICYCLOMINE HCL 10 MG CAPSULE PO PRN (12:49)
[2022-05-27] MEDS ORDERED: BENZOCAINE/MENTHOL (CHLORASEPTIC ) LOZENGE MM PRN (12:49)
[2022-05-27] MEDS ORDERED: IBUPROFEN 400 MG TABLET (FP) PO PRN (12:49)
[2022-05-27] MEDS ORDERED: MAGNESIUM CITRATE 300 ML BOTTLE PO PRN (12:49)
[2022-05-27] MEDS ORDERED: NICOTINE 10 MG CARTRIDGE (INHALER) IH PRN (12:49)
[2022-05-27] MEDS ORDERED: chlordiazePOXIDE HCL 25 MG CAPSULE PO PRN (12:49)
[2022-05-27] MEDS ORDERED: ACETAMINOPHEN 325 MG TABLET (FP) PO PRN ×2 (12:49)
[2022-05-27] MEDS ORDERED: ONDANSETRON *ODT* 4 MG TABLET SL PRN (12:49)
[2022-05-27] MEDS ORDERED: LOPERAMIDE HCL 2 MG CAPSULE PO PRN (12:49)
[2022-05-27] MEDS ORDERED: MAGNESIUM HYDROX 2400MG/30ML ORAL SUSPENSION 30 ML CUP PO PRN (12:49)
[2022-05-27] MEDS ORDERED: BISMUTH SUBSALICYLATE 524 MG/30 ML PO PRN (12:49)
[2022-05-27] MEDS: PRENATAL VITAMINS W/ FOLIC ACID TABLET (FP) PO SCH (13:49)
[2022-05-27] MEDS: hydrOXYzine PAMOATE 25 MG CAPSULE (FP) PO SCH ×3 (13:50→22:32)
[2022-05-27] MEDS: NICOTINE 7 MG/24 HOURS TOPICAL PATCH TD SCH (13:53)
[2022-05-27] MEDS: chlordiazePOXIDE HCL 25 MG CAPSULE PO SCH ×2 (17:39→22:32)
[2022-05-27] MEDS: THIAMINE HCL 100 MG TABLET (FP) PO SCH (22:32)
[2022-05-27] MEDS: ATORVASTATIN CA 20 MG TABLET (FP) PO SCH (22:32)
[2022-05-27] MEDS: MELATONIN 5 MG TABLETS PO SCH (22:32)
[2022-05-28] MEDS: chlordiazePOXIDE HCL 25 MG CAPSULE PO SCH ×4 (05:51→22:28)
[2022-05-28] MEDS: hydrOXYzine PAMOATE 25 MG CAPSULE (FP) PO SCH ×5 (05:51→22:27)
[2022-05-28] MEDS: LEVOTHYROXINE NA 25 MCG TABLET (FP) PO SCH (06:53)
[2022-05-28] MEDS: NICOTINE 7 MG/24 HOURS TOPICAL PATCH TD SCH (10:27)
[2022-05-28] MEDS: FAMOTIDINE 20 MG TABLET PO SCH (10:27)
[2022-05-28] MEDS: ASPIRIN 81 MG CHEWABLE TABLETS PO SCH (10:27)
[2022-05-28] MEDS: PRENATAL VITAMINS W/ FOLIC ACID TABLET (FP) PO SCH (10:27)
[2022-05-28] MEDS: LOSARTAN POTASSIUM 50 MG TABLET PO SCH (10:27)
[2022-05-28] MEDS: METHOCARBAMOL 500 MG TABLET PO PRN (10:27)
[2022-05-28 12:36] LABS: HEMATOCRIT 41.7 % (32.4-45.2); HEMOGLOBIN 13.5 GM/dL (10.7-15.3); MCHC 32.3 g/dl (32.0-36.0); MEAN CELL VOLUME 86.8 fl (80-96); MEAN PLT VOLUME 9.2 fl (7.5-11.1); PLATELET COUNT 137 10^3/uL (134-434); RBC 4.81 M/mm3 (3.60-5.2); RDW 15.8 % (11.6-15.6); WHITE BLOOD COUNT 3.7 K/mm3 (4.0-10.0)
[2022-05-28 12:37] LABS: CALCIUM 9.5 mg/dL (8.5-10.1)
[2022-05-28 12:38] LABS: ALBUMIN 4.2 g/dl (3.4-5.0); BLOOD UREA NITROGEN 12.8 mg/dL (7-18)
[2022-05-28 12:41] LABS: CREATININE 0.9 mg/dL (0.55-1.3)
[2022-05-28 12:43] LABS: BILIRUBIN,TOTAL 0.9 mg/dL (0.2-1); TOT PROT 7.4 g/dl (6.4-8.2)
[2022-05-28] MEDS: valACYclovir HCL 500 MG TABLET (FP) PO PRN (17:54)
[2022-05-28] MEDS: THIAMINE HCL 100 MG TABLET (FP) PO SCH (22:27)
[2022-05-28] MEDS: ATORVASTATIN CA 20 MG TABLET (FP) PO SCH (22:27)
[2022-05-28] MEDS: MELATONIN 5 MG TABLETS PO SCH (22:27)
[2022-05-29] MEDS: hydrOXYzine PAMOATE 25 MG CAPSULE (FP) PO SCH ×5 (05:47→22:01)
[2022-05-29] MEDS: chlordiazePOXIDE HCL 25 MG CAPSULE PO SCH ×4 (05:47→22:02)
[2022-05-29] MEDS: LEVOTHYROXINE NA 25 MCG TABLET (FP) PO SCH (07:11)
[2022-05-29] MEDS: ASPIRIN 81 MG CHEWABLE TABLETS PO SCH (10:41)
[2022-05-29] MEDS: PRENATAL VITAMINS W/ FOLIC ACID TABLET (FP) PO SCH (10:41)
[2022-05-29] MEDS: METHOCARBAMOL 500 MG TABLET PO PRN (10:41)
[2022-05-29] MEDS: LOSARTAN POTASSIUM 50 MG TABLET PO SCH (10:41)
[2022-05-29] MEDS: valACYclovir HCL 500 MG TABLET (FP) PO PRN (10:41)
[2022-05-29] MEDS: FAMOTIDINE 20 MG TABLET PO SCH (10:41)
[2022-05-29] MEDS: NICOTINE 7 MG/24 HOURS TOPICAL PATCH TD SCH (10:45)
[2022-05-29] MEDS: risperiDONE 2 MG TABLET PO SCH (22:01)
[2022-05-29] MEDS: THIAMINE HCL 100 MG TABLET (FP) PO SCH (22:01)
[2022-05-29] MEDS: MELATONIN 5 MG TABLETS PO SCH (22:01)
[2022-05-29] MEDS: ATORVASTATIN CA 20 MG TABLET (FP) PO SCH (22:01)
[2022-05-29] MEDS: IBUPROFEN 600 MG TABLET (FP) PO PRN (22:03)
[2022-05-30] MEDS ORDERED: chlordiazePOXIDE HCL 10 MG CAPSULE PO PRN
[2022-05-30] MEDS: hydrOXYzine PAMOATE 25 MG CAPSULE (FP) PO SCH ×5 (05:53→22:03)
[2022-05-30] MEDS: chlordiazePOXIDE HCL 10 MG CAPSULE PO SCH ×4 (05:53→22:03)
[2022-05-30] MEDS: LEVOTHYROXINE NA 25 MCG TABLET (FP) PO SCH (06:36)
[2022-05-30] MEDS: LOSARTAN POTASSIUM 50 MG TABLET PO SCH (10:19)
[2022-05-30] MEDS: ASPIRIN 81 MG CHEWABLE TABLETS PO SCH (10:19)
[2022-05-30] MEDS: PRENATAL VITAMINS W/ FOLIC ACID TABLET (FP) PO SCH (10:20)
[2022-05-30] MEDS: NICOTINE 7 MG/24 HOURS TOPICAL PATCH TD SCH (10:20)
[2022-05-30] MEDS: FAMOTIDINE 20 MG TABLET PO SCH (10:20)
[2022-05-30] MEDS: valACYclovir HCL 500 MG TABLET (FP) PO PRN ×2 (10:24→22:02)
[2022-05-30] MEDS: IBUPROFEN 600 MG TABLET (FP) PO PRN (17:42)
[2022-05-30] MEDS: risperiDONE 2 MG TABLET PO SCH (22:02)
[2022-05-30] MEDS: THIAMINE HCL 100 MG TABLET (FP) PO SCH (22:02)
[2022-05-30] MEDS: ATORVASTATIN CA 20 MG TABLET (FP) PO SCH (22:02)
[2022-05-30] MEDS: MELATONIN 5 MG TABLETS PO SCH (22:03)
[2022-05-31] MEDS: LEVOTHYROXINE NA 25 MCG TABLET (FP) PO SCH (06:05)
[2022-05-31] MEDS: chlordiazePOXIDE HCL 10 MG CAPSULE PO SCH ×2 (06:05→17:47)
[2022-05-31] MEDS: hydrOXYzine PAMOATE 25 MG CAPSULE (FP) PO SCH ×5 (06:05→23:07)
[2022-05-31] MEDS: NICOTINE 7 MG/24 HOURS TOPICAL PATCH TD SCH (10:21)
[2022-05-31] MEDS: LOSARTAN POTASSIUM 50 MG TABLET PO SCH (10:21)
[2022-05-31] MEDS: ASPIRIN 81 MG CHEWABLE TABLETS PO SCH (10:21)
[2022-05-31] MEDS: FAMOTIDINE 20 MG TABLET PO SCH (10:22)
[2022-05-31] MEDS: PRENATAL VITAMINS W/ FOLIC ACID TABLET (FP) PO SCH (10:22)
[2022-05-31] MEDS: valACYclovir HCL 500 MG TABLET (FP) PO PRN (17:49)
[2022-05-31] MEDS: risperiDONE 2 MG TABLET PO SCH (23:07)
[2022-05-31] MEDS: MELATONIN 5 MG TABLETS PO SCH (23:07)
[2022-05-31] MEDS: ATORVASTATIN CA 20 MG TABLET (FP) PO SCH (23:07)
[2022-05-31] MEDS: THIAMINE HCL 100 MG TABLET (FP) PO SCH (23:08)
[2022-06-01] MEDS ORDERED: chlordiazePOXIDE HCL 10 MG CAPSULE PO ONE (05:00)
[2022-06-01] MEDS: hydrOXYzine PAMOATE 25 MG CAPSULE (FP) PO SCH ×2 (05:30→10:20)
[2022-06-01] MEDS: LEVOTHYROXINE NA 25 MCG TABLET (FP) PO SCH (07:00)
[2022-06-01 09:57] VITALS: BP 159/91; PULSE 93; TEMP 97.9
[2022-06-01] MEDS: PRENATAL VITAMINS W/ FOLIC ACID TABLET (FP) PO SCH (10:20)
[2022-06-01] MEDS: FAMOTIDINE 20 MG TABLET PO SCH (10:20)
[2022-06-01] MEDS: valACYclovir HCL 500 MG TABLET (FP) PO PRN (10:20)
[2022-06-01] MEDS: LOSARTAN POTASSIUM 50 MG TABLET PO SCH (10:20)
[2022-06-01] MEDS: ASPIRIN 81 MG CHEWABLE TABLETS PO SCH (10:20)
[2022-06-01] MEDS: NICOTINE 7 MG/24 HOURS TOPICAL PATCH TD SCH (10:22)
== END 2022-06-01 12:54 | disposition other institution (70) | DRG 775 ==
LOC: YASAS 11:23 → Y3N 12:09
PROVIDERS: ADMIT Allergy & Immunology; ATTEND Surgery
PROC: HZ2ZZZZ Detoxification Services for Substance Abuse Treatment (ICD-10-PCS; principal; 2022-05-27)
DX: F10.230 Alcohol dependence with withdrawal, uncomplicated (principal); F17.210 Nicotine dependence, cigarettes, uncomplicated; F10.282 Alcohol dependence with alcohol-induced sleep disorder; F10.24 Alcohol dependence with alcohol-induced mood disorder; F32.9 Major depressive disorder, single episode, unspecified; F43.10 Post-traumatic stress disorder, unspecified; I10 Essential (primary) hypertension; K21.9 Gastro-esophageal reflux disease without esophagitis; E78.2 Mixed hyperlipidemia; E03.9 Hypothyroidism, unspecified; E11.9 Type 2 diabetes mellitus without complications; Z87.42 Personal history of other diseases of the female genital tract; Z91.410 Personal history of adult physical and sexual abuse; Z88.8 Allergy status to other drugs, medicaments and biological substances
CPT/HCPCS: 36415; 80053; 85027; 86780; 87811; C9803-CS; U0003; U0005

== ENCOUNTER 2022-06-01 13:16 | Inpatient (IN) | payer OTHER ==
[2022-06-01] MEDS ORDERED: P-EPHED 60MG/TRIPROLIDI 2.5MG TABLET PO PRN (13:30)
[2022-06-01] MEDS ORDERED: IBUPROFEN 400 MG TABLET (FP) PO PRN (13:30)
[2022-06-01] MEDS ORDERED: MAGNESIUM HYDROX 2400MG/30ML ORAL SUSPENSION 30 ML CUP PO PRN (13:30)
[2022-06-01] MEDS ORDERED: guaiFENesin 200 MG/10 ML 10 ML UNIT-DOSE CUPS PO PRN (13:30)
[2022-06-01] MEDS ORDERED: MAGNESIUM CITRATE 300 ML BOTTLE PO PRN (13:30)
[2022-06-01] MEDS ORDERED: BENZOCAINE/MENTHOL (CHLORASEPTIC ) LOZENGE MM PRN (13:30)
[2022-06-01] MEDS ORDERED: MAG HYDROX/AL HYDROX/SIMETH 30 ML UNIT-DOSE CUP PO PRN (13:30)
[2022-06-01] MEDS ORDERED: NICOTINE 7 MG/24 HOURS TOPICAL PATCH TD SCH (13:30)
[2022-06-01] MEDS ORDERED: LOPERAMIDE HCL 2 MG CAPSULE PO PRN (13:30)
[2022-06-01] MEDS ORDERED: ACETAMINOPHEN 325 MG TABLET (FP) PO PRN (13:30)
[2022-06-01] MEDS ORDERED: hydrOXYzine PAMOATE 50 MG CAPSULE (FP) PO PRN (13:56)
[2022-06-01] MEDS ORDERED: NICOTINE POLACRILEX 2 MG GUM BUC PRN (13:57)
[2022-06-01] MEDS ORDERED: hydrOXYzine PAMOATE 25 MG CAPSULE (FP) PO SCH (14:00)
[2022-06-01] MEDS: MELATONIN 5 MG TABLETS PO SCH (21:44)
[2022-06-01] MEDS: THIAMINE HCL 100 MG TABLET (FP) PO SCH (21:44)
[2022-06-01] MEDS: risperiDONE 1 MG TABLET PO SCH (21:44)
[2022-06-01] MEDS: ATORVASTATIN CA 20 MG TABLET (FP) PO SCH (21:44)
[2022-06-01] MEDS ORDERED: risperiDONE 2 MG TABLET PO ONE (22:00)
[2022-06-01] MEDS: valACYclovir HCL 500 MG TABLET (FP) PO SCH (22:39)
[2022-06-02] MEDS: LEVOTHYROXINE NA 25 MCG TABLET (FP) PO SCH (06:19)
[2022-06-02] MEDS: PRENATAL VITAMINS W/ FOLIC ACID TABLET (FP) PO SCH (10:47)
[2022-06-02] MEDS: FAMOTIDINE 20 MG TABLET PO SCH (10:47)
[2022-06-02] MEDS: ASPIRIN 81 MG CHEWABLE TABLETS PO SCH (10:48)
[2022-06-02] MEDS: valACYclovir HCL 500 MG TABLET (FP) PO SCH ×2 (10:48→21:47)
[2022-06-02] MEDS: risperiDONE 1 MG TABLET PO SCH ×2 (10:49→21:46)
[2022-06-02] MEDS: LOSARTAN POTASSIUM 50 MG TABLET PO SCH (10:49)
[2022-06-02] MEDS: THIAMINE HCL 100 MG TABLET (FP) PO SCH (21:45)
[2022-06-02] MEDS: ATORVASTATIN CA 20 MG TABLET (FP) PO SCH (21:45)
[2022-06-02] MEDS: MELATONIN 5 MG TABLETS PO SCH (21:46)
[2022-06-03] MEDS: LEVOTHYROXINE NA 25 MCG TABLET (FP) PO SCH (06:59)
[2022-06-03] MEDS: ASPIRIN 81 MG CHEWABLE TABLETS PO SCH (09:13)
[2022-06-03] MEDS: FAMOTIDINE 20 MG TABLET PO SCH (09:13)
[2022-06-03] MEDS: PRENATAL VITAMINS W/ FOLIC ACID TABLET (FP) PO SCH (09:14)
[2022-06-03] MEDS: risperiDONE 1 MG TABLET PO SCH ×2 (09:14→21:42)
[2022-06-03] MEDS: LOSARTAN POTASSIUM 50 MG TABLET PO SCH (09:14)
[2022-06-03] MEDS: valACYclovir HCL 500 MG TABLET (FP) PO SCH ×2 (09:15→21:43)
[2022-06-03] MEDS: NICOTINE 10 MG CARTRIDGE (INHALER) IH PRN (12:34)
[2022-06-03 13:06] VITALS: RESP 18
[2022-06-03] MEDS: THIAMINE HCL 100 MG TABLET (FP) PO SCH (21:42)
[2022-06-03] MEDS: ATORVASTATIN CA 20 MG TABLET (FP) PO SCH (21:42)
[2022-06-03] MEDS: MELATONIN 5 MG TABLETS PO SCH (21:43)
[2022-06-04] MEDS: LEVOTHYROXINE NA 25 MCG TABLET (FP) PO SCH (07:09)
[2022-06-04] MEDS: NICOTINE 10 MG CARTRIDGE (INHALER) IH PRN (08:45)
[2022-06-04] MEDS: risperiDONE 1 MG TABLET PO SCH ×2 (10:29→21:44)
[2022-06-04] MEDS: valACYclovir HCL 500 MG TABLET (FP) PO SCH ×2 (10:29→21:45)
[2022-06-04] MEDS: ASPIRIN 81 MG CHEWABLE TABLETS PO SCH (10:29)
[2022-06-04] MEDS: LOSARTAN POTASSIUM 50 MG TABLET PO SCH (10:29)
[2022-06-04] MEDS: PRENATAL VITAMINS W/ FOLIC ACID TABLET (FP) PO SCH (10:29)
[2022-06-04] MEDS: THIAMINE HCL 100 MG TABLET (FP) PO SCH (21:43)
[2022-06-04] MEDS: MELATONIN 5 MG TABLETS PO SCH (21:43)
[2022-06-04] MEDS: ATORVASTATIN CA 20 MG TABLET (FP) PO SCH (21:45)
[2022-06-05] MEDS: LEVOTHYROXINE NA 25 MCG TABLET (FP) PO SCH (07:03)
[2022-06-05] MEDS: PRENATAL VITAMINS W/ FOLIC ACID TABLET (FP) PO SCH (10:24)
[2022-06-05] MEDS: risperiDONE 1 MG TABLET PO SCH ×2 (10:24→21:59)
[2022-06-05] MEDS: valACYclovir HCL 500 MG TABLET (FP) PO SCH ×2 (10:24→22:01)
[2022-06-05] MEDS: LOSARTAN POTASSIUM 50 MG TABLET PO SCH (10:24)
[2022-06-05] MEDS: ASPIRIN 81 MG CHEWABLE TABLETS PO SCH (10:24)
[2022-06-05] MEDS: ATORVASTATIN CA 20 MG TABLET (FP) PO SCH (21:59)
[2022-06-05] MEDS: MELATONIN 5 MG TABLETS PO SCH (22:00)
[2022-06-05] MEDS: THIAMINE HCL 100 MG TABLET (FP) PO SCH (22:01)
[2022-06-06] MEDS: LEVOTHYROXINE NA 25 MCG TABLET (FP) PO SCH (06:22)
[2022-06-06] MEDS: PRENATAL VITAMINS W/ FOLIC ACID TABLET (FP) PO SCH (10:08)
[2022-06-06] MEDS: risperiDONE 1 MG TABLET PO SCH ×2 (10:08→21:28)
[2022-06-06] MEDS: LOSARTAN POTASSIUM 50 MG TABLET PO SCH (10:09)
[2022-06-06] MEDS: valACYclovir HCL 500 MG TABLET (FP) PO SCH ×2 (10:09→21:28)
[2022-06-06] MEDS: ASPIRIN 81 MG CHEWABLE TABLETS PO SCH (10:09)
[2022-06-06] MEDS: THIAMINE HCL 100 MG TABLET (FP) PO SCH (21:27)
[2022-06-06] MEDS: ATORVASTATIN CA 20 MG TABLET (FP) PO SCH (21:27)
[2022-06-06] MEDS: MELATONIN 5 MG TABLETS PO SCH (21:28)
[2022-06-07] MEDS: PRENATAL VITAMINS W/ FOLIC ACID TABLET (FP) PO SCH (10:16)
[2022-06-07] MEDS: LEVOTHYROXINE NA 25 MCG TABLET (FP) PO SCH (10:17)
[2022-06-07] MEDS: ASPIRIN 81 MG CHEWABLE TABLETS PO SCH (10:17)
[2022-06-07] MEDS: LOSARTAN POTASSIUM 50 MG TABLET PO SCH (10:17)
[2022-06-07] MEDS: risperiDONE 1 MG TABLET PO SCH ×2 (10:17→21:27)
[2022-06-07] MEDS: valACYclovir HCL 500 MG TABLET (FP) PO SCH ×2 (10:18→21:54)
[2022-06-07] MEDS: MELATONIN 5 MG TABLETS PO SCH (21:27)
[2022-06-07] MEDS: THIAMINE HCL 100 MG TABLET (FP) PO SCH (21:27)
[2022-06-07] MEDS: ATORVASTATIN CA 20 MG TABLET (FP) PO SCH (21:27)
[2022-06-08] MEDS: LEVOTHYROXINE NA 25 MCG TABLET (FP) PO SCH (06:09)
[2022-06-08] MEDS: PRENATAL VITAMINS W/ FOLIC ACID TABLET (FP) PO SCH (10:20)
[2022-06-08] MEDS: risperiDONE 1 MG TABLET PO SCH ×2 (10:20→21:33)
[2022-06-08] MEDS: ASPIRIN 81 MG CHEWABLE TABLETS PO SCH (10:21)
[2022-06-08] MEDS: LOSARTAN POTASSIUM 50 MG TABLET PO SCH (10:21)
[2022-06-08] MEDS: valACYclovir HCL 500 MG TABLET (FP) PO SCH ×2 (10:21→21:50)
[2022-06-08] MEDS: ATORVASTATIN CA 20 MG TABLET (FP) PO SCH (21:33)
[2022-06-08] MEDS: THIAMINE HCL 100 MG TABLET (FP) PO SCH (21:33)
[2022-06-08] MEDS: MELATONIN 5 MG TABLETS PO SCH (21:34)
[2022-06-09] MEDS: LEVOTHYROXINE NA 25 MCG TABLET (FP) PO SCH (07:27)
[2022-06-09] MEDS: PRENATAL VITAMINS W/ FOLIC ACID TABLET (FP) PO SCH (10:22)
[2022-06-09] MEDS: LOSARTAN POTASSIUM 50 MG TABLET PO SCH (10:23)
[2022-06-09] MEDS: ASPIRIN 81 MG CHEWABLE TABLETS PO SCH (10:23)
[2022-06-09] MEDS: risperiDONE 1 MG TABLET PO SCH ×2 (10:23→21:49)
[2022-06-09] MEDS: valACYclovir HCL 500 MG TABLET (FP) PO SCH ×2 (10:23→21:50)
[2022-06-09] MEDS: hydrOXYzine PAMOATE 25 MG CAPSULE (FP) PO PRN (10:24)
[2022-06-09] MEDS: THIAMINE HCL 100 MG TABLET (FP) PO SCH (21:49)
[2022-06-09] MEDS: ATORVASTATIN CA 20 MG TABLET (FP) PO SCH (21:49)
[2022-06-09] MEDS: MELATONIN 5 MG TABLETS PO SCH (21:50)
[2022-06-10] MEDS: LEVOTHYROXINE NA 25 MCG TABLET (FP) PO SCH (06:26)
[2022-06-10] MEDS: risperiDONE 1 MG TABLET PO SCH ×2 (10:19→21:33)
[2022-06-10] MEDS: LOSARTAN POTASSIUM 50 MG TABLET PO SCH (10:19)
[2022-06-10] MEDS: PRENATAL VITAMINS W/ FOLIC ACID TABLET (FP) PO SCH (10:19)
[2022-06-10] MEDS: ASPIRIN 81 MG CHEWABLE TABLETS PO SCH (10:19)
[2022-06-10] MEDS: valACYclovir HCL 500 MG TABLET (FP) PO SCH ×2 (10:20→21:34)
[2022-06-10] MEDS: hydrOXYzine PAMOATE 25 MG CAPSULE (FP) PO PRN ×2 (10:20→21:36)
[2022-06-10] MEDS: ATORVASTATIN CA 20 MG TABLET (FP) PO SCH (21:33)
[2022-06-10] MEDS: MELATONIN 5 MG TABLETS PO SCH (21:33)
[2022-06-10] MEDS: THIAMINE HCL 100 MG TABLET (FP) PO SCH (21:33)
[2022-06-11] MEDS: LEVOTHYROXINE NA 25 MCG TABLET (FP) PO SCH (06:30)
[2022-06-11] MEDS: LOSARTAN POTASSIUM 50 MG TABLET PO SCH (10:04)
[2022-06-11] MEDS: hydrOXYzine PAMOATE 25 MG CAPSULE (FP) PO PRN ×2 (10:04→21:26)
[2022-06-11] MEDS: risperiDONE 1 MG TABLET PO SCH ×2 (10:04→21:25)
[2022-06-11] MEDS: ASPIRIN 81 MG CHEWABLE TABLETS PO SCH (10:04)
[2022-06-11] MEDS: PRENATAL VITAMINS W/ FOLIC ACID TABLET (FP) PO SCH (10:04)
[2022-06-11] MEDS: valACYclovir HCL 500 MG TABLET (FP) PO SCH ×2 (10:05→21:35)
[2022-06-11] MEDS: THIAMINE HCL 100 MG TABLET (FP) PO SCH (21:25)
[2022-06-11] MEDS: ATORVASTATIN CA 20 MG TABLET (FP) PO SCH (21:25)
[2022-06-11] MEDS: MELATONIN 5 MG TABLETS PO SCH (21:26)
[2022-06-12] MEDS: LEVOTHYROXINE NA 25 MCG TABLET (FP) PO SCH (06:33)
[2022-06-12] MEDS: PRENATAL VITAMINS W/ FOLIC ACID TABLET (FP) PO SCH (10:51)
[2022-06-12] MEDS: ASPIRIN 81 MG CHEWABLE TABLETS PO SCH (10:51)
[2022-06-12] MEDS: LOSARTAN POTASSIUM 50 MG TABLET PO SCH (10:51)
[2022-06-12] MEDS: risperiDONE 1 MG TABLET PO SCH ×2 (10:52→21:46)
[2022-06-12] MEDS: valACYclovir HCL 500 MG TABLET (FP) PO SCH ×2 (10:52→21:48)
[2022-06-12] MEDS: ATORVASTATIN CA 20 MG TABLET (FP) PO SCH (21:46)
[2022-06-12] MEDS: THIAMINE HCL 100 MG TABLET (FP) PO SCH (21:46)
[2022-06-12] MEDS: MELATONIN 5 MG TABLETS PO SCH (21:46)
[2022-06-13] MEDS: LEVOTHYROXINE NA 25 MCG TABLET (FP) PO SCH (06:01)
[2022-06-13 07:27] VITALS: TEMP 96.9
[2022-06-13] MEDS: PRENATAL VITAMINS W/ FOLIC ACID TABLET (FP) PO SCH (09:18)
[2022-06-13] MEDS: risperiDONE 1 MG TABLET PO SCH (09:18)
[2022-06-13] MEDS: ASPIRIN 81 MG CHEWABLE TABLETS PO SCH (09:18)
[2022-06-13] MEDS: LOSARTAN POTASSIUM 50 MG TABLET PO SCH (09:18)
[2022-06-13] MEDS: valACYclovir HCL 500 MG TABLET (FP) PO SCH (09:19)
[2022-06-13 11:03] VITALS: BP 143/80; PULSE 80
== END 2022-06-13 09:35 | disposition home or self-care (01) | DRG 772 ==
LOC: YASAS 13:16 → Y5N 13:17
PROVIDERS: ADMIT Allergy & Immunology; ATTEND Psychiatry & Neurology Pain Medicine
PROC: HZ42ZZZ Group Counseling for Substance Abuse Treatment, Cognitive-Behavioral (ICD-10-PCS; principal; 2022-06-01)
DX: F10.20 Alcohol dependence, uncomplicated (principal); F10.24 Alcohol dependence with alcohol-induced mood disorder; F10.282 Alcohol dependence with alcohol-induced sleep disorder; F14.20 Cocaine dependence, uncomplicated; F17.210 Nicotine dependence, cigarettes, uncomplicated; F43.10 Post-traumatic stress disorder, unspecified; F33.9 Major depressive disorder, recurrent, unspecified; I10 Essential (primary) hypertension; E11.9 Type 2 diabetes mellitus without complications; K21.9 Gastro-esophageal reflux disease without esophagitis; E78.5 Hyperlipidemia, unspecified; E03.9 Hypothyroidism, unspecified; G47.00 Insomnia, unspecified; Z78.0 Asymptomatic menopausal state; Z87.42 Personal history of other diseases of the female genital tract; Z90.11 Acquired absence of right breast and nipple; Z56.0 Unemployment, unspecified
CPT/HCPCS: J2794

== ENCOUNTER 2022-08-05 11:47 | Inpatient (IN) | payer OTHER ==
[2022-08-05] MEDS ORDERED: NICOTINE 10 MG CARTRIDGE (INHALER) IH PRN (13:16)
[2022-08-05] MEDS ORDERED: chlordiazePOXIDE HCL 25 MG CAPSULE PO PRN (13:16)
[2022-08-05] MEDS ORDERED: BENZOCAINE/MENTHOL (CHLORASEPTIC ) LOZENGE MM PRN (13:16)
[2022-08-05] MEDS ORDERED: BISMUTH SUBSALICYLATE 262 MG/15 ML BTL PO PRN (13:16)
[2022-08-05] MEDS ORDERED: NALOXONE HCL (KLOXXADO) 8 MG SPRAY NS PRN (13:16)
[2022-08-05] MEDS ORDERED: MAGNESIUM HYDROX 2400MG/30ML ORAL SUSPENSION 30 ML CUP PO PRN (13:16)
[2022-08-05] MEDS ORDERED: MAG HYDROX/AL HYDROX/SIMETH 30 ML UNIT-DOSE CUP PO PRN (13:16)
[2022-08-05] MEDS ORDERED: MAGNESIUM CITRATE 300 ML BOTTLE PO PRN (13:16)
[2022-08-05] MEDS ORDERED: IBUPROFEN 400 MG TABLET (FP) PO PRN (13:16)
[2022-08-05] MEDS ORDERED: ONDANSETRON *ODT* 4 MG TABLET SL PRN (13:16)
[2022-08-05] MEDS ORDERED: DICYCLOMINE HCL 10 MG CAPSULE PO PRN (13:16)
[2022-08-05] MEDS ORDERED: LOPERAMIDE HCL 2 MG CAPSULE PO PRN (13:16)
[2022-08-05] MEDS ORDERED: ACETAMINOPHEN 325 MG TABLET (FP) PO PRN ×2 (13:16)
[2022-08-05 13:22] VITALS: BMI 29.2
[2022-08-05] MEDS: IBUPROFEN 600 MG TABLET (FP) PO PRN (15:10)
[2022-08-05] MEDS: hydrOXYzine PAMOATE 25 MG CAPSULE (FP) PO SCH ×3 (15:10→22:30)
[2022-08-05] MEDS: PRENATAL VITAMINS W/ FOLIC ACID TABLET (FP) PO SCH (15:10)
[2022-08-05 15:37] LABS: HEMATOCRIT 33.1 % (32.4-45.2); HEMOGLOBIN 11.1 GM/dL (10.7-15.3); MCH 31.1 pg (25.7-33.7); MCHC 33.4 g/dl (32.0-36.0); MEAN PLT VOLUME 8.5 fl (7.5-11.1); PLATELET COUNT 169 10^3/uL (134-434); RBC 3.56 M/mm3 (3.60-5.2); RDW 17.2 % (11.6-15.6); WHITE BLOOD COUNT 7.5 K/mm3 (4.0-10.0)
[2022-08-05 15:44] LABS: BLOOD UREA NITROGEN 4.4 mg/dL (7-18); CALCIUM 8.4 mg/dL (8.5-10.1)
[2022-08-05 15:45] LABS: ALBUMIN 3.6 g/dl (3.4-5.0)
[2022-08-05 15:47] LABS: CREATININE 0.5 mg/dL (0.55-1.3)
[2022-08-05 15:49] LABS: BILIRUBIN,TOTAL 0.5 mg/dL (0.2-1)
[2022-08-05] MEDS: chlordiazePOXIDE HCL 25 MG CAPSULE PO SCH ×2 (18:15→22:31)
[2022-08-05] MEDS: THIAMINE HCL 100 MG TABLET (FP) PO SCH (22:30)
[2022-08-05] MEDS: ATORVASTATIN CA 20 MG TABLET (FP) PO SCH (22:30)
[2022-08-05] MEDS: MELATONIN 5 MG TABLETS PO SCH (22:30)
[2022-08-06] MEDS: chlordiazePOXIDE HCL 25 MG CAPSULE PO SCH ×4 (05:43→22:53)
[2022-08-06] MEDS: hydrOXYzine PAMOATE 25 MG CAPSULE (FP) PO SCH ×5 (05:43→22:53)
[2022-08-06] MEDS ORDERED: PANTOPRAZOLE 40 MG TABLET PO SCH (10:00)
[2022-08-06] MEDS ORDERED: LEVOTHYROXINE NA 25 MCG TABLET (FP) PO SCH (10:00)
[2022-08-06] MEDS: ASPIRIN 81 MG CHEWABLE TABLETS PO SCH (10:15)
[2022-08-06] MEDS: valACYclovir HCL 500 MG TABLET (FP) PO PRN (10:15)
[2022-08-06] MEDS: LOSARTAN POTASSIUM 50 MG TABLET PO SCH (10:15)
[2022-08-06] MEDS: PRENATAL VITAMINS W/ FOLIC ACID TABLET (FP) PO SCH (10:16)
[2022-08-06] MEDS: NICOTINE 14 MG/24 HOURS TOPICAL PATCH TD SCH (10:16)
[2022-08-06] MEDS: METHOCARBAMOL 500 MG TABLET PO PRN ×2 (10:17→18:10)
[2022-08-06] MEDS: IBUPROFEN 600 MG TABLET (FP) PO PRN (18:11)
[2022-08-06] MEDS: risperiDONE 2 MG TABLET PO SCH (22:53)
[2022-08-06] MEDS: THIAMINE HCL 100 MG TABLET (FP) PO SCH (22:53)
[2022-08-06] MEDS: ATORVASTATIN CA 20 MG TABLET (FP) PO SCH (22:53)
[2022-08-06] MEDS: MELATONIN 5 MG TABLETS PO SCH (22:53)
[2022-08-07] MEDS: hydrOXYzine PAMOATE 25 MG CAPSULE (FP) PO SCH ×5 (05:53→22:26)
[2022-08-07] MEDS: chlordiazePOXIDE HCL 25 MG CAPSULE PO SCH ×4 (05:53→22:27)
[2022-08-07] MEDS: LEVOTHYROXINE NA 25 MCG TABLET (FP) PO SCH ×2 (07:14→10:43)
[2022-08-07] MEDS: LOSARTAN POTASSIUM 50 MG TABLET PO SCH (10:23)
[2022-08-07] MEDS: METHOCARBAMOL 500 MG TABLET PO PRN (10:23)
[2022-08-07] MEDS: PANTOPRAZOLE 40 MG TABLET PO SCH (10:23)
[2022-08-07] MEDS: ASPIRIN 81 MG CHEWABLE TABLETS PO SCH (10:23)
[2022-08-07] MEDS: PRENATAL VITAMINS W/ FOLIC ACID TABLET (FP) PO SCH (10:23)
[2022-08-07] MEDS: valACYclovir HCL 500 MG TABLET (FP) PO PRN (10:24)
[2022-08-07] MEDS: NICOTINE 14 MG/24 HOURS TOPICAL PATCH TD SCH (10:27)
[2022-08-07] MEDS: ATORVASTATIN CA 20 MG TABLET (FP) PO SCH (22:26)
[2022-08-07] MEDS: risperiDONE 2 MG TABLET PO SCH (22:26)
[2022-08-07] MEDS: THIAMINE HCL 100 MG TABLET (FP) PO SCH (22:26)
[2022-08-07] MEDS: MELATONIN 5 MG TABLETS PO SCH (22:27)
[2022-08-08] MEDS ORDERED: chlordiazePOXIDE HCL 10 MG CAPSULE PO PRN
[2022-08-08] MEDS ORDERED: LEVOTHYROXINE NA 25 MCG TABLET (FP) PO ONE (06:26)
[2022-08-08] MEDS ORDERED: LEVOTHYROXINE NA 25 MCG TABLET (FP) PO SCH (06:29)
[2022-08-08] MEDS: LEVOTHYROXINE NA 25 MCG TABLET (FP) PO SCH (06:38)
[2022-08-08] MEDS: hydrOXYzine PAMOATE 25 MG CAPSULE (FP) PO SCH ×5 (06:38→22:18)
[2022-08-08] MEDS: chlordiazePOXIDE HCL 10 MG CAPSULE PO SCH ×4 (06:39→23:07)
[2022-08-08] MEDS: PRENATAL VITAMINS W/ FOLIC ACID TABLET (FP) PO SCH (10:14)
[2022-08-08] MEDS: NICOTINE 14 MG/24 HOURS TOPICAL PATCH TD SCH (10:15)
[2022-08-08] MEDS: ASPIRIN 81 MG CHEWABLE TABLETS PO SCH (10:15)
[2022-08-08] MEDS: LOSARTAN POTASSIUM 50 MG TABLET PO SCH (10:15)
[2022-08-08] MEDS: PANTOPRAZOLE 40 MG TABLET PO SCH (10:15)
[2022-08-08] MEDS: METHOCARBAMOL 500 MG TABLET PO PRN (10:16)
[2022-08-08] MEDS: IBUPROFEN 600 MG TABLET (FP) PO PRN ×2 (10:16→16:36)
[2022-08-08] MEDS: valACYclovir HCL 500 MG TABLET (FP) PO PRN ×2 (10:18→22:22)
[2022-08-08 13:47] VITALS: RESP 18
[2022-08-08] MEDS: THIAMINE HCL 100 MG TABLET (FP) PO SCH (22:19)
[2022-08-08] MEDS: risperiDONE 2 MG TABLET PO SCH (22:19)
[2022-08-08] MEDS: ATORVASTATIN CA 20 MG TABLET (FP) PO SCH (22:19)
[2022-08-08] MEDS: MELATONIN 5 MG TABLETS PO SCH (22:19)
[2022-08-09] MEDS ORDERED: chlordiazePOXIDE HCL 10 MG CAPSULE PO SCH (05:00)
[2022-08-09] MEDS: hydrOXYzine PAMOATE 25 MG CAPSULE (FP) PO SCH ×2 (05:42→11:03)
[2022-08-09] MEDS: LEVOTHYROXINE NA 25 MCG TABLET (FP) PO SCH (06:18)
[2022-08-09 08:48] VITALS: BP 163/95; PULSE 74; TEMP 97.1
[2022-08-09] MEDS: PRENATAL VITAMINS W/ FOLIC ACID TABLET (FP) PO SCH (11:02)
[2022-08-09] MEDS: ASPIRIN 81 MG CHEWABLE TABLETS PO SCH (11:02)
[2022-08-09] MEDS: LOSARTAN POTASSIUM 50 MG TABLET PO SCH (11:03)
[2022-08-09] MEDS: NICOTINE 14 MG/24 HOURS TOPICAL PATCH TD SCH (11:03)
[2022-08-09] MEDS: PANTOPRAZOLE 40 MG TABLET PO SCH (11:03)
[2022-08-09] MEDS: IBUPROFEN 600 MG TABLET (FP) PO PRN (11:06)
[2022-08-09] MEDS: valACYclovir HCL 500 MG TABLET (FP) PO PRN (11:06)
[2022-08-10] MEDS ORDERED: chlordiazePOXIDE HCL 10 MG CAPSULE PO ONE (05:00)
== END 2022-08-09 12:22 | disposition home or self-care (01) | DRG 774 ==
LOC: YASAS 11:47 → Y6N 13:21
PROVIDERS: ADMIT Allergy & Immunology; ATTEND Surgery
PROC: HZ2ZZZZ Detoxification Services for Substance Abuse Treatment (ICD-10-PCS; principal; 2022-08-05)
DX: F10.230 Alcohol dependence with withdrawal, uncomplicated (principal); F14.20 Cocaine dependence, uncomplicated; F17.210 Nicotine dependence, cigarettes, uncomplicated; F10.282 Alcohol dependence with alcohol-induced sleep disorder; F10.24 Alcohol dependence with alcohol-induced mood disorder; F20.9 Schizophrenia, unspecified; E03.9 Hypothyroidism, unspecified; I10 Essential (primary) hypertension; K21.9 Gastro-esophageal reflux disease without esophagitis; R76.11 Nonspecific reaction to tuberculin skin test without active tuberculosis; Z90.11 Acquired absence of right breast and nipple; Z88.8 Allergy status to other drugs, medicaments and biological substances
CPT/HCPCS: 36415; 80053; 82962; 85027; 86780; C9803-CS; Q0162; U0003; U0005

== ENCOUNTER 2022-10-20 12:21 | Inpatient (IN) | payer OTHER ==
[2022-10-20] MEDS ORDERED: BISMUTH SUBSALICYLATE 524 MG/30 ML PO PRN (14:20)
[2022-10-20] MEDS ORDERED: BENZOCAINE/MENTHOL (CHLORASEPTIC ) LOZENGE MM PRN (14:20)
[2022-10-20] MEDS ORDERED: IBUPROFEN 400 MG TABLET (FP) PO PRN (14:20)
[2022-10-20] MEDS ORDERED: METHOCARBAMOL 500 MG TABLET PO PRN (14:20)
[2022-10-20] MEDS ORDERED: LOPERAMIDE HCL 2 MG CAPSULE PO PRN (14:20)
[2022-10-20] MEDS ORDERED: NALOXONE HCL (KLOXXADO) 8 MG SPRAY NS PRN (14:20)
[2022-10-20] MEDS ORDERED: NICOTINE 10 MG CARTRIDGE (INHALER) IH PRN (14:20)
[2022-10-20] MEDS ORDERED: MAG HYDROX/AL HYDROX/SIMETH 30 ML UNIT-DOSE CUP PO PRN (14:20)
[2022-10-20] MEDS ORDERED: ONDANSETRON *ODT* 4 MG TABLET SL PRN (14:20)
[2022-10-20] MEDS ORDERED: chlordiazePOXIDE HCL 25 MG CAPSULE PO PRN (14:20)
[2022-10-20] MEDS ORDERED: MAGNESIUM HYDROX 2400MG/30ML ORAL SUSPENSION 30 ML CUP PO PRN (14:20)
[2022-10-20] MEDS ORDERED: POLYETHYLENE GLYCOL (HEALTHYLAX) 3350 17 GM PACKET PO PRN (14:20)
[2022-10-20] MEDS ORDERED: DICYCLOMINE HCL 10 MG CAPSULE PO PRN (14:20)
[2022-10-20] MEDS ORDERED: ACETAMINOPHEN 325 MG TABLET (FP) PO PRN ×2 (14:20)
[2022-10-20] MEDS: chlordiazePOXIDE HCL 25 MG CAPSULE PO SCH ×2 (18:00→22:10)
[2022-10-20] MEDS: PRENATAL VITAMINS W/ FOLIC ACID TABLET (FP) PO SCH (18:00)
[2022-10-20] MEDS ORDERED: MELATONIN 5 MG TABLETS PO SCH (22:00)
[2022-10-20] MEDS: CALCIUM 250MG/VIT-D 125 UNITS 1 COMBO TABLET PO SCH (22:09)
[2022-10-20] MEDS: THIAMINE HCL 100 MG TABLET (FP) PO SCH (22:09)
[2022-10-20] MEDS: ATORVASTATIN CA 20 MG TABLET (FP) PO SCH (22:10)
[2022-10-20] MEDS: hydrOXYzine PAMOATE 25 MG CAPSULE (FP) PO PRN (22:12)
[2022-10-21] MEDS: chlordiazePOXIDE HCL 25 MG CAPSULE PO SCH ×4 (05:56→22:05)
[2022-10-21] MEDS: LEVOTHYROXINE NA 25 MCG TABLET (FP) PO SCH (06:59)
[2022-10-21] MEDS: FAMOTIDINE 20 MG TABLET PO SCH (10:12)
[2022-10-21] MEDS: CALCIUM 250MG/VIT-D 125 UNITS 1 COMBO TABLET PO SCH ×2 (10:12→22:05)
[2022-10-21] MEDS: ASPIRIN 81 MG CHEWABLE TABLETS PO SCH (10:12)
[2022-10-21] MEDS: PRENATAL VITAMINS W/ FOLIC ACID TABLET (FP) PO SCH (10:12)
[2022-10-21] MEDS: LOSARTAN POTASSIUM 50 MG TABLET PO SCH (10:12)
[2022-10-21] MEDS: NICOTINE 14 MG/24 HOURS TOPICAL PATCH TD SCH (10:13)
[2022-10-21] MEDS: hydrOXYzine PAMOATE 25 MG CAPSULE (FP) PO PRN (10:14)
[2022-10-21 10:46] LABS: HEMATOCRIT 38.5 % (32.4-45.2); HEMOGLOBIN 12.5 GM/dL (10.7-15.3); MCH 28.7 pg (25.7-33.7); MCHC 32.5 g/dl (32.0-36.0); MEAN CELL VOLUME 88.3 fl (80-96); MEAN PLT VOLUME 8.8 fl (7.5-11.1); PLATELET COUNT 160 10^3/uL (134-434); RBC 4.37 M/mm3 (3.60-5.2); RDW 15.1 % (11.6-15.6); WHITE BLOOD COUNT 3.3 K/mm3 (4.0-10.0)
[2022-10-21 11:57] LABS: ALBUMIN 3.6 g/dl (3.4-5.0); BLOOD UREA NITROGEN 15.1 mg/dL (7-18); CALCIUM 9.9 mg/dL (8.5-10.1)
[2022-10-21 11:59] LABS: CREATININE 0.9 mg/dL (0.55-1.3)
[2022-10-21 12:01] LABS: BILIRUBIN,TOTAL 0.7 mg/dL (0.2-1); TOT PROT 6.6 g/dl (6.4-8.2)
[2022-10-21 12:14] LABS: HIV INTERPRETATION NEGATIVE (NEGATIVE)
[2022-10-21] MEDS: IBUPROFEN 600 MG TABLET (FP) PO PRN (17:49)
[2022-10-21] MEDS ORDERED: diphenhydrAMINE HCL 25 MG CAPSULE (FP) PO PRN (22:00)
[2022-10-21] MEDS: ATORVASTATIN CA 20 MG TABLET (FP) PO SCH (22:04)
[2022-10-21] MEDS: risperiDONE 2 MG TABLET PO SCH (22:05)
[2022-10-21] MEDS: THIAMINE HCL 100 MG TABLET (FP) PO SCH (22:05)
[2022-10-22] MEDS: chlordiazePOXIDE HCL 25 MG CAPSULE PO SCH ×4 (05:37→22:23)
[2022-10-22] MEDS: LEVOTHYROXINE NA 25 MCG TABLET (FP) PO SCH (06:41)
[2022-10-22] MEDS: CALCIUM 250MG/VIT-D 125 UNITS 1 COMBO TABLET PO SCH ×2 (10:40→22:23)
[2022-10-22] MEDS: NICOTINE 14 MG/24 HOURS TOPICAL PATCH TD SCH (10:40)
[2022-10-22] MEDS: PRENATAL VITAMINS W/ FOLIC ACID TABLET (FP) PO SCH (10:40)
[2022-10-22] MEDS: LOSARTAN POTASSIUM 50 MG TABLET PO SCH (10:41)
[2022-10-22] MEDS: ASPIRIN 81 MG CHEWABLE TABLETS PO SCH (10:41)
[2022-10-22] MEDS: FAMOTIDINE 20 MG TABLET PO SCH (10:41)
[2022-10-22] MEDS: IBUPROFEN 600 MG TABLET (FP) PO PRN (10:46)
[2022-10-22] MEDS: LACTULOSE 20 GM/30 ML UDC (FOR ORAL USE ONLY) PO SCH ×2 (17:49→22:23)
[2022-10-22] MEDS: risperiDONE 2 MG TABLET PO SCH (22:23)
[2022-10-22] MEDS: ATORVASTATIN CA 20 MG TABLET (FP) PO SCH (22:23)
[2022-10-22] MEDS: THIAMINE HCL 100 MG TABLET (FP) PO SCH (22:23)
[2022-10-23] MEDS ORDERED: chlordiazePOXIDE HCL 10 MG CAPSULE PO PRN
[2022-10-23] MEDS: chlordiazePOXIDE HCL 10 MG CAPSULE PO SCH ×2 (05:30→10:06)
[2022-10-23] MEDS: LEVOTHYROXINE NA 25 MCG TABLET (FP) PO SCH (06:48)
[2022-10-23 09:52] VITALS: BP 115/66; PULSE 85; RESP 16; TEMP 97.5
[2022-10-23] MEDS: CALCIUM 250MG/VIT-D 125 UNITS 1 COMBO TABLET PO SCH (10:04)
[2022-10-23] MEDS: PRENATAL VITAMINS W/ FOLIC ACID TABLET (FP) PO SCH (10:04)
[2022-10-23] MEDS: ASPIRIN 81 MG CHEWABLE TABLETS PO SCH (10:04)
[2022-10-23] MEDS: LOSARTAN POTASSIUM 50 MG TABLET PO SCH (10:05)
[2022-10-23] MEDS: FAMOTIDINE 20 MG TABLET PO SCH (10:05)
[2022-10-23] MEDS: LACTULOSE 20 GM/30 ML UDC (FOR ORAL USE ONLY) PO SCH (10:06)
[2022-10-23] MEDS: NICOTINE 14 MG/24 HOURS TOPICAL PATCH TD SCH (10:10)
[2022-10-24] MEDS ORDERED: chlordiazePOXIDE HCL 10 MG CAPSULE PO SCH (05:00)
[2022-10-25] MEDS ORDERED: chlordiazePOXIDE HCL 10 MG CAPSULE PO ONE (05:00)
== END 2022-10-23 13:05 | disposition left against medical advice (07) | DRG 770 ==
LOC: YASAS 12:21 → Y3N 14:24
PROVIDERS: ADMIT Allergy & Immunology; ATTEND Surgery
PROC: HZ2ZZZZ Detoxification Services for Substance Abuse Treatment (ICD-10-PCS; principal; 2022-10-20)
DX: F10.230 Alcohol dependence with withdrawal, uncomplicated (principal); F14.20 Cocaine dependence, uncomplicated; F17.210 Nicotine dependence, cigarettes, uncomplicated; F20.9 Schizophrenia, unspecified; F19.282 Other psychoactive substance dependence with psychoactive substance-induced sleep disorder; F19.24 Other psychoactive substance dependence with psychoactive substance-induced mood disorder; F32.9 Major depressive disorder, single episode, unspecified; F39 Unspecified mood [affective] disorder; E72.20 Disorder of urea cycle metabolism, unspecified; E03.9 Hypothyroidism, unspecified; E78.5 Hyperlipidemia, unspecified; I10 Essential (primary) hypertension; K21.9 Gastro-esophageal reflux disease without esophagitis; K76.0 Fatty (change of) liver, not elsewhere classified
CPT/HCPCS: 36415; 71046-TC-FY; 80053; 82140; 85027; 86780; 87389; C9803-CS; U0003; U0005

== ENCOUNTER 2022-11-19 13:10 | Emergency (ER) | payer OTHER ==
[2022-11-19 13:43] VITALS: BP 121/71; PULSE 80; RESP 20; BMI 36.7
[2022-11-19 14:51] VITALS: TEMP 98
[2022-11-19 15:35] LABS: BASO % 0.8 % (0-2.0); EOS % 1.2 % (0-4.5); HEMATOCRIT 38.6 % (32.4-45.2); HEMOGLOBIN 12.1 GM/dL (10.7-15.3); LYMPH % 36.3 % (8-40); MCH 27.4 pg (25.7-33.7); MCHC 31.4 g/dl (32.0-36.0); MEAN CELL VOLUME 87.3 fl (80-96); MEAN PLT VOLUME 9.3 fl (7.5-11.1); MONO % 10.1 % (3.8-10.2); NEUT % 51.6 % (42.8-82.8); PLATELET COUNT 86 10^3/uL (134-434); RBC 4.42 M/mm3 (3.60-5.2); RDW 16.3 % (11.6-15.6); WHITE BLOOD COUNT 3.9 K/mm3 (4.0-10.0)
[2022-11-19 16:04] LABS: ALBUMIN 3.7 g/dl (3.4-5.0); CALCIUM 9.2 mg/dL (8.5-10.1)
[2022-11-19 16:05] LABS: BLOOD UREA NITROGEN 13.4 mg/dL (7-18)
[2022-11-19 16:07] LABS: CREATININE 0.9 mg/dL (0.55-1.3)
[2022-11-19 16:09] LABS: BILIRUBIN,TOTAL 0.3 mg/dL (0.2-1); TOT PROT 6.8 g/dl (6.4-8.2)
== END 2022-11-19 17:30 | disposition left against medical advice (07) ==
LOC: JER 13:10
DX: R07.9 Chest pain, unspecified (principal); F10.90 Alcohol use, unspecified, uncomplicated; W19.XXXA Unspecified fall, initial encounter
CPT/HCPCS: 36415; 80053; 82962; 84484; 85025; 99284-25

== ENCOUNTER 2022-11-24 10:24 | Inpatient (IN) | payer OTHER ==
[2022-11-24 11:15] VITALS: BMI 29.6
[2022-11-24] MEDS ORDERED: DICYCLOMINE HCL 10 MG CAPSULE PO PRN (11:55)
[2022-11-24] MEDS ORDERED: POLYETHYLENE GLYCOL (HEALTHYLAX) 3350 17 GM PACKET PO PRN (11:55)
[2022-11-24] MEDS ORDERED: IBUPROFEN 600 MG TABLET (FP) PO PRN (11:55)
[2022-11-24] MEDS ORDERED: NALOXONE HCL (KLOXXADO) 8 MG SPRAY NS PRN (11:55)
[2022-11-24] MEDS ORDERED: ACETAMINOPHEN 325 MG TABLET (FP) PO PRN ×2 (11:55)
[2022-11-24] MEDS ORDERED: IBUPROFEN 400 MG TABLET (FP) PO PRN (11:55)
[2022-11-24] MEDS ORDERED: BISMUTH SUBSALICYLATE 262 MG/15 ML BTL PO PRN (11:55)
[2022-11-24] MEDS ORDERED: MAG HYDROX/AL HYDROX/SIMETH 30 ML UNIT-DOSE CUP PO PRN (11:55)
[2022-11-24] MEDS ORDERED: METHOCARBAMOL 500 MG TABLET PO PRN (11:55)
[2022-11-24] MEDS ORDERED: LOPERAMIDE HCL 2 MG CAPSULE PO PRN (11:55)
[2022-11-24] MEDS ORDERED: hydrOXYzine PAMOATE 25 MG CAPSULE (FP) PO PRN (11:55)
[2022-11-24] MEDS ORDERED: ONDANSETRON *ODT* 4 MG TABLET SL PRN (11:55)
[2022-11-24] MEDS ORDERED: MAGNESIUM HYDROX 2400MG/30ML ORAL SUSPENSION 30 ML CUP PO PRN (11:55)
[2022-11-24] MEDS ORDERED: NICOTINE 10 MG CARTRIDGE (INHALER) IH PRN (11:55)
[2022-11-24] MEDS ORDERED: BENZOCAINE/MENTHOL (CHLORASEPTIC ) LOZENGE MM PRN (11:55)
[2022-11-24 13:36] LABS: MCH 28.5 pg (25.7-33.7); MCHC 32.6 g/dl (32.0-36.0); MEAN CELL VOLUME 87.4 fl (80-96); MEAN PLT VOLUME 9.5 fl (7.5-11.1); PLATELET COUNT 99 10^3/uL (134-434); RBC 4.23 M/mm3 (3.60-5.2); RDW 16.4 % (11.6-15.6)
[2022-11-24] MEDS: chlordiazePOXIDE HCL 25 MG CAPSULE PO PRN (15:02)
[2022-11-24 15:03] LABS: ALBUMIN 3.8 g/dl (3.4-5.0); CALCIUM 8.4 mg/dL (8.5-10.1)
[2022-11-24 15:05] LABS: CREATININE 0.9 mg/dL (0.55-1.3)
[2022-11-24 15:06] LABS: BILIRUBIN,TOTAL 0.5 mg/dL (0.2-1)
[2022-11-24] MEDS ORDERED: ASPIRIN COATED 81 MG TABLET.EC PO ONE (17:46)
[2022-11-24] MEDS: chlordiazePOXIDE HCL 25 MG CAPSULE PO SCH ×2 (18:14→22:21)
[2022-11-24] MEDS ORDERED: THIAMINE HCL 100 MG TABLET (FP) PO SCH (22:00)
[2022-11-24] MEDS ORDERED: ATORVASTATIN CA 20 MG TABLET (FP) PO SCH (22:00)
[2022-11-24] MEDS ORDERED: MELATONIN 5 MG TABLETS PO SCH (22:00)
[2022-11-24] MEDS ORDERED: diphenhydrAMINE HCL 25 MG CAPSULE (FP) PO SCH (22:00)
[2022-11-25] MEDS: chlordiazePOXIDE HCL 25 MG CAPSULE PO PRN (00:48)
[2022-11-25] MEDS: chlordiazePOXIDE HCL 25 MG CAPSULE PO SCH ×2 (05:56→10:17)
[2022-11-25] MEDS ORDERED: LEVOTHYROXINE NA 25 MCG TABLET (FP) PO SCH (07:00)
[2022-11-25] MEDS ORDERED: FAMOTIDINE 20 MG TABLET PO SCH (10:00)
[2022-11-25] MEDS ORDERED: LOSARTAN POTASSIUM 50 MG TABLET PO SCH (10:00)
[2022-11-25] MEDS ORDERED: CHOLECALCIFEROL (VIT D3) 1,000 UNIT (25 MCG) TABLET PO SCH (10:00)
[2022-11-25] MEDS ORDERED: PRENATAL VITAMINS W/ FOLIC ACID TABLET (FP) PO SCH (10:00)
[2022-11-25] MEDS ORDERED: ASPIRIN 81 MG CHEWABLE TABLETS PO SCH (10:00)
[2022-11-25 13:19] VITALS: BP 120/71; PULSE 104; RESP 18; TEMP 97.5
[2022-11-25] MEDS ORDERED: LACTULOSE 20 GM/30 ML UDC (FOR ORAL USE ONLY) PO SCH (14:00)
[2022-11-26] MEDS ORDERED: chlordiazePOXIDE HCL 25 MG CAPSULE PO SCH (05:00)
[2022-11-27] MEDS ORDERED: chlordiazePOXIDE HCL 10 MG CAPSULE PO PRN
[2022-11-27] MEDS ORDERED: chlordiazePOXIDE HCL 10 MG CAPSULE PO SCH (05:00)
[2022-11-28] MEDS ORDERED: chlordiazePOXIDE HCL 10 MG CAPSULE PO SCH (05:00)
[2022-11-29] MEDS ORDERED: chlordiazePOXIDE HCL 10 MG CAPSULE PO ONE (05:00)
== END 2022-11-25 13:55 | disposition left against medical advice (07) | DRG 770 ==
LOC: YASAS 10:24 → Y6N 12:14
PROVIDERS: ADMIT Allergy & Immunology; ATTEND Surgery
PROC: HZ2ZZZZ Detoxification Services for Substance Abuse Treatment (ICD-10-PCS; principal; 2022-11-24)
DX: F10.230 Alcohol dependence with withdrawal, uncomplicated (principal); F14.20 Cocaine dependence, uncomplicated; F17.210 Nicotine dependence, cigarettes, uncomplicated; F32.9 Major depressive disorder, single episode, unspecified; E72.20 Disorder of urea cycle metabolism, unspecified; E03.9 Hypothyroidism, unspecified; E78.5 Hyperlipidemia, unspecified; I10 Essential (primary) hypertension; K21.9 Gastro-esophageal reflux disease without esophagitis; K76.0 Fatty (change of) liver, not elsewhere classified; R07.9 Chest pain, unspecified; Z86.19 Personal history of other infectious and parasitic diseases
CPT/HCPCS: 36415; 80053; 82140; 84436; 84443; 84479; 85027; 86780; 93005; 93010; C9803-CS; U0003; U0005

== ENCOUNTER 2022-11-24 18:53 | Emergency (ER) | payer OTHER ==
[2022-11-24 19:29] VITALS: BP 160/84; PULSE 87; RESP 17; TEMP 98.6; BMI 29.6
[2022-11-24 22:10] LABS: BASO % 0.3 % (0-2.0); EOS % 0.5 % (0-4.5); HEMATOCRIT 37.7 % (32.4-45.2); HEMOGLOBIN 12.1 GM/dL (10.7-15.3); LYMPH % 24.3 % (8-40); MCH 27.9 pg (25.7-33.7); MEAN CELL VOLUME 87.2 fl (80-96); MEAN PLT VOLUME 8.8 fl (7.5-11.1); MONO % 15.6 % (3.8-10.2); NEUT % 59.3 % (42.8-82.8); PLATELET COUNT 84 10^3/uL (134-434); RBC 4.32 M/mm3 (3.60-5.2); RDW 16.3 % (11.6-15.6); WHITE BLOOD COUNT 4.5 K/mm3 (4.0-10.0)
[2022-11-24 22:29] LABS: ALBUMIN 3.8 g/dl (3.4-5.0)
[2022-11-24 22:30] LABS: BLOOD UREA NITROGEN 11.6 mg/dL (7-18)
[2022-11-24 22:32] LABS: CREATININE 0.7 mg/dL (0.55-1.3)
[2022-11-24 22:34] LABS: BILIRUBIN,TOTAL 0.6 mg/dL (0.2-1)
[2022-11-24] MEDS ORDERED: chlordiazePOXIDE HCL 25 MG CAPSULE PO ONE (22:47)
[2022-11-24] MEDS ORDERED: FAMOTIDINE 20 MG/50 ML IVPB 20 MG/50 ML MG IVPB ONE (22:49)
== END 2022-11-25 00:10 | disposition home or self-care (01) ==
LOC: JER 18:53
DX: K86.0 Alcohol-induced chronic pancreatitis (principal)
CPT/HCPCS: 36415; 71045-TC-FY; 80053; 83690; 84484; 85025; 86850; 86900; 86901; 93005; 93010; 99285-25

== ENCOUNTER 2023-03-03 14:37 | Inpatient (IN) | payer OTHER ==
[2023-03-03 15:37] VITALS: BMI 29.0
[2023-03-03] MEDS ORDERED: MAGNESIUM HYDROX 2400MG/30ML ORAL SUSPENSION 30 ML CUP PO PRN (16:05)
[2023-03-03] MEDS ORDERED: ACETAMINOPHEN 325 MG TABLET (FP) PO PRN (16:05)
[2023-03-03] MEDS ORDERED: NALOXONE HCL (KLOXXADO) 8 MG SPRAY NS PRN (16:05)
[2023-03-03] MEDS ORDERED: BENZONATATE 200 MG CAPSULE PO PRN (16:05)
[2023-03-03] MEDS ORDERED: IBUPROFEN 400 MG TABLET (FP) PO PRN (16:05)
[2023-03-03] MEDS ORDERED: DICYCLOMINE HCL 10 MG CAPSULE PO PRN (16:05)
[2023-03-03] MEDS ORDERED: IBUPROFEN 600 MG TABLET (FP) PO PRN (16:05)
[2023-03-03] MEDS ORDERED: LOPERAMIDE HCL 2 MG CAPSULE PO PRN (16:05)
[2023-03-03] MEDS ORDERED: METHOCARBAMOL 500 MG TABLET PO PRN (16:05)
[2023-03-03] MEDS ORDERED: ONDANSETRON *ODT* 4 MG TABLET SL PRN (16:05)
[2023-03-03] MEDS ORDERED: guaiFENesin 600 MG TABLET.ER (FP) PO PRN (16:05)
[2023-03-03] MEDS ORDERED: NALOXONE HCL 0.4 MG/ML VIAL IM PRN (16:05)
[2023-03-03] MEDS ORDERED: MAG HYDROX/AL HYDROX/SIMETH 30 ML UNIT-DOSE CUP PO PRN (16:05)
[2023-03-03] MEDS ORDERED: POLYETHYLENE GLYCOL (HEALTHYLAX) 3350 17 GM PACKET PO PRN (16:05)
[2023-03-03] MEDS ORDERED: BISMUTH SUBSALICYLATE 524 MG/30 ML PO PRN (16:05)
[2023-03-03] MEDS ORDERED: NICOTINE POLACRILEX 2 MG GUM BUC PRN (16:05)
[2023-03-03] MEDS ORDERED: NICOTINE 7 MG/24 HOURS TOPICAL PATCH TD PRN (16:05)
[2023-03-03] MEDS ORDERED: BENZOCAINE/MENTHOL (CHLORASEPTIC ) LOZENGE MM PRN (16:05)
[2023-03-03] MEDS ORDERED: NICOTINE 10 MG CARTRIDGE (INHALER) IH PRN (16:05)
[2023-03-03] MEDS ORDERED: chlordiazePOXIDE HCL 25 MG CAPSULE PO PRN (16:12)
[2023-03-03] MEDS ORDERED: chlordiazePOXIDE HCL 25 MG CAPSULE ONE (16:37)
[2023-03-03] MEDS ORDERED: hydrOXYzine PAMOATE 25 MG CAPSULE (FP) PO ONE (16:37)
[2023-03-03] MEDS: hydrOXYzine PAMOATE 25 MG CAPSULE (FP) PO PRN (16:41)
[2023-03-03] MEDS: PRENATAL VITAMINS W/ FOLIC ACID TABLET (FP) PO SCH (16:42)
[2023-03-03] MEDS ORDERED: cloNIDine HCL 0.1 MG TABLET PO ONE (16:44)
[2023-03-03] MEDS: FAMOTIDINE 20 MG TABLET PO SCH (17:10)
[2023-03-03] MEDS: LOSARTAN POTASSIUM 50 MG TABLET PO SCH (17:10)
[2023-03-03] MEDS: CHOLECALCIFEROL (VIT D3) 1,000 UNIT (25 MCG) TABLET PO SCH (17:11)
[2023-03-03] MEDS: chlordiazePOXIDE HCL 25 MG CAPSULE PO SCH ×2 (17:16→22:40)
[2023-03-03] MEDS ORDERED: diphenhydrAMINE HCL 25 MG CAPSULE (FP) PO SCH (22:00)
[2023-03-03] MEDS ORDERED: MELATONIN 5 MG TABLETS PO SCH (22:00)
[2023-03-03] MEDS: ATORVASTATIN CA 20 MG TABLET (FP) PO SCH (22:40)
[2023-03-03] MEDS: THIAMINE HCL 100 MG TABLET (FP) PO SCH (22:40)
[2023-03-04] MEDS: chlordiazePOXIDE HCL 25 MG CAPSULE PO SCH ×4 (05:26→22:21)
[2023-03-04] MEDS: LEVOTHYROXINE NA 25 MCG TABLET (FP) PO SCH ×2 (05:29→06:21)
[2023-03-04] MEDS: INSULIN SLIDING SCALE (NOVOLOG) 1 VIAL SQ SCH ×2 (06:35→16:58)
[2023-03-04] MEDS: PRENATAL VITAMINS W/ FOLIC ACID TABLET (FP) PO SCH (10:08)
[2023-03-04] MEDS: ASPIRIN 81 MG CHEWABLE TABLETS PO SCH (10:08)
[2023-03-04] MEDS: FAMOTIDINE 20 MG TABLET PO SCH (10:08)
[2023-03-04] MEDS: LOSARTAN POTASSIUM 50 MG TABLET PO SCH (10:08)
[2023-03-04] MEDS: CHOLECALCIFEROL (VIT D3) 1,000 UNIT (25 MCG) TABLET PO SCH (10:08)
[2023-03-04 10:36] LABS: HEMOGLOBIN 12.1 GM/dL (10.7-15.3); MCH 28.7 pg (25.7-33.7); MCHC 32.7 g/dl (32.0-36.0); MEAN CELL VOLUME 87.5 fl (80-96); MEAN PLT VOLUME 9.8 fl (7.5-11.1); PLATELET COUNT 107 10^3/uL (134-434); RBC 4.23 M/mm3 (3.60-5.2); RDW 17.9 % (11.6-15.6); WHITE BLOOD COUNT 3.2 K/mm3 (4.0-10.0)
[2023-03-04 10:39] LABS: BLOOD UREA NITROGEN 15.5 mg/dL (7-18)
[2023-03-04 10:40] LABS: ALBUMIN 3.7 g/dl (3.4-5.0)
[2023-03-04 10:43] LABS: CREATININE 1.3 mg/dL (0.55-1.3)
[2023-03-04 10:44] LABS: BILIRUBIN,TOTAL 0.9 mg/dL (0.2-1)
[2023-03-04] MEDS: SERTRALINE HCL 25 MG TABLET (FP) PO SCH (11:46)
[2023-03-04 12:16] LABS: HIV INTERPRETATION NEGATIVE (NEGATIVE)
[2023-03-04] MEDS: hydrOXYzine PAMOATE 25 MG CAPSULE (FP) PO PRN (19:36)
[2023-03-04] MEDS: ATORVASTATIN CA 20 MG TABLET (FP) PO SCH (22:20)
[2023-03-04] MEDS: LACTULOSE 20 GM/30 ML UDC (FOR ORAL USE ONLY) PO SCH (22:20)
[2023-03-04] MEDS: risperiDONE 2 MG TABLET PO SCH (22:20)
[2023-03-04] MEDS: THIAMINE HCL 100 MG TABLET (FP) PO SCH (22:21)
[2023-03-04] MEDS: diphenhydrAMINE HCL 25 MG CAPSULE (FP) PO PRN (22:23)
[2023-03-05] MEDS: chlordiazePOXIDE HCL 25 MG CAPSULE PO SCH ×4 (05:27→22:12)
[2023-03-05] MEDS: LACTULOSE 20 GM/30 ML UDC (FOR ORAL USE ONLY) PO SCH ×3 (05:27→22:11)
[2023-03-05] MEDS: INSULIN SLIDING SCALE (NOVOLOG) 1 VIAL SQ SCH ×2 (06:24→16:38)
[2023-03-05] MEDS: LEVOTHYROXINE NA 25 MCG TABLET (FP) PO SCH (06:24)
[2023-03-05] MEDS: CHOLECALCIFEROL (VIT D3) 1,000 UNIT (25 MCG) TABLET PO SCH (10:13)
[2023-03-05] MEDS: PRENATAL VITAMINS W/ FOLIC ACID TABLET (FP) PO SCH (10:13)
[2023-03-05] MEDS: SERTRALINE HCL 25 MG TABLET (FP) PO SCH (10:13)
[2023-03-05] MEDS: FAMOTIDINE 20 MG TABLET PO SCH (10:13)
[2023-03-05] MEDS: LOSARTAN POTASSIUM 50 MG TABLET PO SCH (10:13)
[2023-03-05] MEDS: ASPIRIN 81 MG CHEWABLE TABLETS PO SCH (10:13)
[2023-03-05] MEDS: hydrOXYzine PAMOATE 25 MG CAPSULE (FP) PO PRN (13:49)
[2023-03-05] MEDS ORDERED: hydrOXYzine PAMOATE 25 MG CAPSULE (FP) PO ONE (17:49)
[2023-03-05] MEDS ORDERED: MELATONIN 5 MG TABLETS PO PRN (18:40)
[2023-03-05] MEDS ORDERED: hydrOXYzine PAMOATE 25 MG CAPSULE (FP) PO PRN (18:40)
[2023-03-05] MEDS: diphenhydrAMINE HCL 25 MG CAPSULE (FP) PO PRN (22:11)
[2023-03-05] MEDS: ATORVASTATIN CA 20 MG TABLET (FP) PO SCH (22:12)
[2023-03-05] MEDS: risperiDONE 2 MG TABLET PO SCH (22:12)
[2023-03-05] MEDS: THIAMINE HCL 100 MG TABLET (FP) PO SCH (22:12)
[2023-03-06] MEDS ORDERED: chlordiazePOXIDE HCL 10 MG CAPSULE PO PRN
[2023-03-06] MEDS: chlordiazePOXIDE HCL 10 MG CAPSULE PO SCH ×2 (05:54→10:12)
[2023-03-06] MEDS: LACTULOSE 20 GM/30 ML UDC (FOR ORAL USE ONLY) PO SCH (05:54)
[2023-03-06] MEDS: INSULIN SLIDING SCALE (NOVOLOG) 1 VIAL SQ SCH (07:25)
[2023-03-06] MEDS: LEVOTHYROXINE NA 25 MCG TABLET (FP) PO SCH (07:31)
[2023-03-06] MEDS ORDERED: LACTULOSE 20 GM/30 ML UDC (FOR ORAL USE ONLY) PO ONE (07:43)
[2023-03-06 08:50] VITALS: BP 130/78; PULSE 69; RESP 18; TEMP 97.4
[2023-03-06] MEDS: CHOLECALCIFEROL (VIT D3) 1,000 UNIT (25 MCG) TABLET PO SCH (09:26)
[2023-03-06] MEDS: FAMOTIDINE 20 MG TABLET PO SCH (09:26)
[2023-03-06] MEDS: ASPIRIN 81 MG CHEWABLE TABLETS PO SCH (09:26)
[2023-03-06] MEDS: PRENATAL VITAMINS W/ FOLIC ACID TABLET (FP) PO SCH (09:26)
[2023-03-06] MEDS: LOSARTAN POTASSIUM 50 MG TABLET PO SCH (09:26)
[2023-03-06] MEDS: SERTRALINE HCL 25 MG TABLET (FP) PO SCH (09:27)
[2023-03-07] MEDS ORDERED: chlordiazePOXIDE HCL 10 MG CAPSULE PO SCH (05:00)
[2023-03-08] MEDS ORDERED: chlordiazePOXIDE HCL 10 MG CAPSULE PO ONE (05:00)
== END 2023-03-06 09:00 | disposition left against medical advice (07) | DRG 770 ==
LOC: YASAS 14:37 → Y3N 16:33
PROVIDERS: ADMIT Allergy & Immunology; ATTEND Surgery
PROC: HZ2ZZZZ Detoxification Services for Substance Abuse Treatment (ICD-10-PCS; principal; 2023-03-03)
DX: F10.230 Alcohol dependence with withdrawal, uncomplicated (principal); F19.282 Other psychoactive substance dependence with psychoactive substance-induced sleep disorder; F19.24 Other psychoactive substance dependence with psychoactive substance-induced mood disorder; F32.A Depression, unspecified; F20.9 Schizophrenia, unspecified; E72.20 Disorder of urea cycle metabolism, unspecified; D69.6 Thrombocytopenia, unspecified; E78.5 Hyperlipidemia, unspecified; I10 Essential (primary) hypertension; E03.9 Hypothyroidism, unspecified; E11.9 Type 2 diabetes mellitus without complications; R74.01 Elevation of levels of liver transaminase levels; Z88.8 Allergy status to other drugs, medicaments and biological substances
CPT/HCPCS: 36415; 80053; 82140; 82962; 84443; 85027; 86780; 87389; C9803-CS; U0003; U0005

== ENCOUNTER 2023-06-24 14:31 | Inpatient (IN) | payer OTHER ==
[2023-06-24 15:43] VITALS: BMI 26.9
[2023-06-24] MEDS ORDERED: chlordiazePOXIDE HCL 25 MG CAPSULE PO PRN (21:05)
[2023-06-24] MEDS ORDERED: NALOXONE HCL 0.4 MG/ML VIAL IM PRN (21:05)
[2023-06-24] MEDS ORDERED: LOPERAMIDE HCL 2 MG CAPSULE PO PRN (21:05)
[2023-06-24] MEDS ORDERED: DICYCLOMINE HCL 10 MG CAPSULE PO PRN (21:05)
[2023-06-24] MEDS ORDERED: MAGNESIUM HYDROX 2400MG/30ML ORAL SUSPENSION 30 ML CUP PO PRN (21:05)
[2023-06-24] MEDS ORDERED: ACETAMINOPHEN 325 MG TABLET (FP) PO PRN (21:05)
[2023-06-24] MEDS ORDERED: IBUPROFEN 400 MG TABLET (FP) PO PRN (21:05)
[2023-06-24] MEDS ORDERED: BISMUTH SUBSALICYLATE 524 MG/30 ML PO PRN (21:05)
[2023-06-24] MEDS ORDERED: BENZOCAINE/MENTHOL (CHLORASEPTIC ) LOZENGE MM PRN (21:05)
[2023-06-24] MEDS ORDERED: ONDANSETRON *ODT* 4 MG TABLET SL PRN (21:05)
[2023-06-24] MEDS ORDERED: NALOXONE HCL (KLOXXADO) 8 MG SPRAY NS PRN (21:05)
[2023-06-24] MEDS ORDERED: POLYETHYLENE GLYCOL (HEALTHYLAX) 3350 17 GM PACKET PO PRN (21:05)
[2023-06-24] MEDS ORDERED: MAG HYDROX/AL HYDROX/SIMETH 30 ML UNIT-DOSE CUP PO PRN (21:05)
[2023-06-24] MEDS ORDERED: IBUPROFEN 600 MG TABLET (FP) PO PRN (21:05)
[2023-06-24] MEDS ORDERED: BENZONATATE 200 MG CAPSULE PO PRN (21:05)
[2023-06-24] MEDS ORDERED: guaiFENesin 600 MG TABLET.ER (FP) PO PRN (21:05)
[2023-06-24] MEDS ORDERED: MELATONIN 5 MG TABLETS PO SCH (22:00)
[2023-06-24] MEDS: METHOCARBAMOL 500 MG TABLET PO PRN (22:48)
[2023-06-24] MEDS: THIAMINE HCL 100 MG TABLET (FP) PO SCH (22:48)
[2023-06-24] MEDS: hydrOXYzine PAMOATE 25 MG CAPSULE (FP) PO PRN (22:49)
[2023-06-24] MEDS: chlordiazePOXIDE HCL 25 MG CAPSULE PO SCH (22:49)
[2023-06-24] MEDS: PRENATAL VITAMINS W/ FOLIC ACID TABLET (FP) PO SCH (22:56)
[2023-06-25] MEDS: chlordiazePOXIDE HCL 25 MG CAPSULE PO SCH ×4 (05:43→22:02)
[2023-06-25] MEDS: LEVOTHYROXINE NA 25 MCG TABLET (FP) PO SCH (06:07)
[2023-06-25] MEDS: LOSARTAN POTASSIUM 50 MG TABLET PO SCH (10:13)
[2023-06-25] MEDS: FAMOTIDINE 20 MG TABLET PO SCH (10:13)
[2023-06-25] MEDS: PRENATAL VITAMINS W/ FOLIC ACID TABLET (FP) PO SCH (10:13)
[2023-06-25] MEDS: ASPIRIN 81 MG CHEWABLE TABLETS PO SCH (10:13)
[2023-06-25] MEDS: hydrOXYzine PAMOATE 25 MG CAPSULE (FP) PO PRN (10:15)
[2023-06-25] MEDS: CHOLECALCIFEROL (VIT D3) 1,000 UNIT (25 MCG) TABLET PO SCH (12:00)
[2023-06-25] MEDS: METHOCARBAMOL 500 MG TABLET PO PRN ×2 (13:39→22:08)
[2023-06-25] MEDS ORDERED: diphenhydrAMINE HCL 25 MG CAPSULE (FP) PO PRN (22:00)
[2023-06-25] MEDS ORDERED: risperiDONE 1 MG TABLET PO SCH (22:00)
[2023-06-25] MEDS: ATORVASTATIN CA 20 MG TABLET (FP) PO SCH (22:02)
[2023-06-25] MEDS: THIAMINE HCL 100 MG TABLET (FP) PO SCH (22:02)
[2023-06-25] MEDS: risperiDONE 1 MG TABLET PO SCH (22:02)
[2023-06-26] MEDS: chlordiazePOXIDE HCL 25 MG CAPSULE PO SCH ×4 (05:32→22:04)
[2023-06-26] MEDS: LEVOTHYROXINE NA 25 MCG TABLET (FP) PO SCH (06:20)
[2023-06-26] MEDS: PRENATAL VITAMINS W/ FOLIC ACID TABLET (FP) PO SCH (10:06)
[2023-06-26] MEDS: ASPIRIN 81 MG CHEWABLE TABLETS PO SCH (10:06)
[2023-06-26] MEDS: LOSARTAN POTASSIUM 50 MG TABLET PO SCH (10:06)
[2023-06-26] MEDS: FAMOTIDINE 20 MG TABLET PO SCH (10:07)
[2023-06-26] MEDS: hydrOXYzine PAMOATE 25 MG CAPSULE (FP) PO PRN ×2 (10:08→22:04)
[2023-06-26] MEDS: CHOLECALCIFEROL (VIT D3) 1,000 UNIT (25 MCG) TABLET PO SCH (10:08)
[2023-06-26 11:37] LABS: HEMATOCRIT 36.6 % (32.4-45.2); HEMOGLOBIN 11.9 GM/dL (10.7-15.3); MCH 29.7 pg (25.7-33.7); MCHC 32.5 g/dl (32.0-36.0); MEAN CELL VOLUME 91.2 fl (80-96); MEAN PLT VOLUME 9.3 fl (7.5-11.1); PLATELET COUNT 119 10^3/uL (134-434); RBC 4.02 M/mm3 (3.60-5.2); RDW 15.5 % (11.6-15.6); WHITE BLOOD COUNT 3.1 K/mm3 (4.0-10.0)
[2023-06-26] MEDS: valACYclovir HCL 500 MG TABLET (FP) PO SCH (11:45)
[2023-06-26 12:08] LABS: CALCIUM 9.1 mg/dL (8.5-10.1)
[2023-06-26 12:09] LABS: ALBUMIN 3.8 g/dl (3.4-5.0); BLOOD UREA NITROGEN 13.3 mg/dL (7-18)
[2023-06-26 12:12] LABS: CREATININE 1.2 mg/dL (0.55-1.3)
[2023-06-26 12:13] LABS: TOT PROT 6.9 g/dl (6.4-8.2)
[2023-06-26 12:14] LABS: BILIRUBIN,TOTAL 0.9 mg/dL (0.2-1)
[2023-06-26] MEDS: THIAMINE HCL 100 MG TABLET (FP) PO SCH (22:02)
[2023-06-26] MEDS: risperiDONE 1 MG TABLET PO SCH (22:03)
[2023-06-26] MEDS: ATORVASTATIN CA 20 MG TABLET (FP) PO SCH (22:04)
[2023-06-26] MEDS: METHOCARBAMOL 500 MG TABLET PO PRN (22:04)
[2023-06-27] MEDS ORDERED: chlordiazePOXIDE HCL 10 MG CAPSULE PO PRN
[2023-06-27] MEDS: chlordiazePOXIDE HCL 10 MG CAPSULE PO SCH ×4 (05:05→22:11)
[2023-06-27] MEDS: LEVOTHYROXINE NA 25 MCG TABLET (FP) PO SCH (06:04)
[2023-06-27] MEDS: CHOLECALCIFEROL (VIT D3) 1,000 UNIT (25 MCG) TABLET PO SCH (10:08)
[2023-06-27] MEDS: ASPIRIN 81 MG CHEWABLE TABLETS PO SCH (10:08)
[2023-06-27] MEDS: LOSARTAN POTASSIUM 50 MG TABLET PO SCH (10:08)
[2023-06-27] MEDS: PRENATAL VITAMINS W/ FOLIC ACID TABLET (FP) PO SCH (10:09)
[2023-06-27] MEDS: valACYclovir HCL 500 MG TABLET (FP) PO SCH (10:09)
[2023-06-27] MEDS: FAMOTIDINE 20 MG TABLET PO SCH (10:09)
[2023-06-27] MEDS: hydrOXYzine PAMOATE 25 MG CAPSULE (FP) PO PRN (22:11)
[2023-06-27] MEDS: METHOCARBAMOL 500 MG TABLET PO PRN (22:11)
[2023-06-27] MEDS: THIAMINE HCL 100 MG TABLET (FP) PO SCH (22:11)
[2023-06-27] MEDS: ATORVASTATIN CA 20 MG TABLET (FP) PO SCH (22:11)
[2023-06-27] MEDS: risperiDONE 1 MG TABLET PO SCH (22:11)
[2023-06-27] MEDS: QUEtiapine FUMARATE 50 MG TABLET PO SCH (22:11)
[2023-06-28] MEDS: chlordiazePOXIDE HCL 10 MG CAPSULE PO SCH ×2 (05:33→17:55)
[2023-06-28] MEDS: LEVOTHYROXINE NA 25 MCG TABLET (FP) PO SCH (06:18)
[2023-06-28] MEDS: LOSARTAN POTASSIUM 50 MG TABLET PO SCH (10:01)
[2023-06-28] MEDS: FAMOTIDINE 20 MG TABLET PO SCH (10:01)
[2023-06-28] MEDS: CHOLECALCIFEROL (VIT D3) 1,000 UNIT (25 MCG) TABLET PO SCH (10:01)
[2023-06-28] MEDS: valACYclovir HCL 500 MG TABLET (FP) PO SCH (10:01)
[2023-06-28] MEDS: PRENATAL VITAMINS W/ FOLIC ACID TABLET (FP) PO SCH (10:02)
[2023-06-28] MEDS: ASPIRIN 81 MG CHEWABLE TABLETS PO SCH (10:02)
[2023-06-28] MEDS: ATORVASTATIN CA 20 MG TABLET (FP) PO SCH (21:09)
[2023-06-28] MEDS: risperiDONE 1 MG TABLET PO SCH (21:09)
[2023-06-28] MEDS: QUEtiapine FUMARATE 50 MG TABLET PO SCH (21:09)
[2023-06-28] MEDS: THIAMINE HCL 100 MG TABLET (FP) PO SCH (21:09)
[2023-06-29] MEDS ORDERED: chlordiazePOXIDE HCL 10 MG CAPSULE PO ONE (05:00)
[2023-06-29] MEDS: LEVOTHYROXINE NA 25 MCG TABLET (FP) PO SCH (06:27)
[2023-06-29 09:33] VITALS: BP 137/89; PULSE 90; RESP 16; TEMP 97.8
== END 2023-06-29 09:24 | disposition home or self-care (01) | DRG 775 ==
LOC: YASAS 14:31 → Y3N 21:02
PROVIDERS: ADMIT Allergy & Immunology; ATTEND Allergy & Immunology
PROC: HZ2ZZZZ Detoxification Services for Substance Abuse Treatment (ICD-10-PCS; principal; 2023-06-23)
DX: F10.230 Alcohol dependence with withdrawal, uncomplicated (principal); F17.210 Nicotine dependence, cigarettes, uncomplicated; F19.282 Other psychoactive substance dependence with psychoactive substance-induced sleep disorder; F41.9 Anxiety disorder, unspecified; F33.1 Major depressive disorder, recurrent, moderate; I10 Essential (primary) hypertension; E78.5 Hyperlipidemia, unspecified; E03.9 Hypothyroidism, unspecified; E11.9 Type 2 diabetes mellitus without complications; K21.9 Gastro-esophageal reflux disease without esophagitis; A60.00 Herpesviral infection of urogenital system, unspecified; Z88.8 Allergy status to other drugs, medicaments and biological substances
CPT/HCPCS: 36415; 80053; 82140; 83036; 85027; 86780; 87635

== ENCOUNTER 2023-08-18 10:49 | Inpatient (IN) | payer OTHER ==
[2023-08-18 12:23] VITALS: BP 129/85; PULSE 77; RESP 18; TEMP 97.6; BMI 24.6
[2023-08-18] MEDS ORDERED: POLYETHYLENE GLYCOL (HEALTHYLAX) 3350 17 GM PACKET PO PRN (12:47)
[2023-08-18] MEDS ORDERED: BISMUTH SUBSALICYLATE 524 MG/30 ML PO PRN (12:47)
[2023-08-18] MEDS ORDERED: IBUPROFEN 400 MG TABLET (FP) PO PRN (12:47)
[2023-08-18] MEDS ORDERED: hydrOXYzine PAMOATE 25 MG CAPSULE (FP) PO PRN (12:47)
[2023-08-18] MEDS ORDERED: BENZOCAINE/MENTHOL (CHLORASEPTIC ) LOZENGE MM PRN (12:47)
[2023-08-18] MEDS ORDERED: MAG HYDROX/AL HYDROX/SIMETH 30 ML UNIT-DOSE CUP PO PRN (12:47)
[2023-08-18] MEDS ORDERED: DICYCLOMINE HCL 10 MG CAPSULE PO PRN (12:47)
[2023-08-18] MEDS ORDERED: ONDANSETRON *ODT* 4 MG TABLET SL PRN (12:47)
[2023-08-18] MEDS ORDERED: METHOCARBAMOL 500 MG TABLET PO PRN (12:47)
[2023-08-18] MEDS ORDERED: NALOXONE HCL 0.4 MG/ML VIAL IM PRN (12:47)
[2023-08-18] MEDS ORDERED: NALOXONE HCL (KLOXXADO) 8 MG SPRAY NS PRN (12:47)
[2023-08-18] MEDS ORDERED: guaiFENesin 600 MG TABLET.ER (FP) PO PRN (12:47)
[2023-08-18] MEDS ORDERED: LORazepam 1 MG TABLET PO PRN (12:47)
[2023-08-18] MEDS ORDERED: LOPERAMIDE HCL 2 MG CAPSULE PO PRN (12:47)
[2023-08-18] MEDS ORDERED: MAGNESIUM HYDROX 2400MG/30ML ORAL SUSPENSION 30 ML CUP PO PRN (12:47)
[2023-08-18] MEDS ORDERED: ACETAMINOPHEN 325 MG TABLET (FP) PO PRN (12:47)
[2023-08-18] MEDS ORDERED: IBUPROFEN 600 MG TABLET (FP) PO PRN (12:47)
[2023-08-18] MEDS ORDERED: BENZONATATE 200 MG CAPSULE PO PRN (12:47)
[2023-08-18] MEDS ORDERED: diazePAM 5 MG TABLET PO PRN (13:30)
[2023-08-18] MEDS ORDERED: PRENATAL VITAMINS W/ FOLIC ACID TABLET (FP) PO SCH (13:45)
[2023-08-18] MEDS ORDERED: PRENATAL VITAMINS W/ FOLIC ACID TABLET (FP) PO ONE (14:36)
[2023-08-18] MEDS ORDERED: chlordiazePOXIDE HCL 25 MG CAPSULE PO PRN (15:20)
[2023-08-18] MEDS ORDERED: chlordiazePOXIDE HCL 25 MG CAPSULE PO SCH (17:00)
[2023-08-18] MEDS ORDERED: diazePAM 5 MG TABLET PO SCH (17:00)
[2023-08-18] MEDS ORDERED: LORazepam 2 MG TABLET PO SCH (17:00)
[2023-08-18] MEDS ORDERED: ATORVASTATIN CA 20 MG TABLET (FP) PO SCH (22:00)
[2023-08-18] MEDS ORDERED: MELATONIN 5 MG TABLETS PO SCH (22:00)
[2023-08-18] MEDS ORDERED: THIAMINE HCL 100 MG TABLET (FP) PO SCH (22:00)
[2023-08-19] MEDS ORDERED: LEVOTHYROXINE NA 25 MCG TABLET (FP) PO SCH (07:00)
[2023-08-19] MEDS ORDERED: FAMOTIDINE 20 MG TABLET PO SCH (10:00)
[2023-08-19] MEDS ORDERED: valACYclovir HCL 500 MG TABLET (FP) PO SCH (10:00)
[2023-08-19] MEDS ORDERED: ASPIRIN 81 MG CHEWABLE TABLETS PO SCH (10:00)
[2023-08-19] MEDS ORDERED: LOSARTAN POTASSIUM 50 MG TABLET PO SCH (10:00)
[2023-08-20] MEDS ORDERED: LORazepam 1 MG TABLET PO SCH (05:00)
[2023-08-20] MEDS ORDERED: chlordiazePOXIDE HCL 25 MG CAPSULE PO SCH (05:00)
[2023-08-20] MEDS ORDERED: diazePAM 5 MG TABLET PO SCH (06:00)
[2023-08-21] MEDS ORDERED: LORazepam 0.5 MG TABLET PO PRN
[2023-08-21] MEDS ORDERED: chlordiazePOXIDE HCL 10 MG CAPSULE PO PRN
[2023-08-21] MEDS ORDERED: LORazepam 0.5 MG TABLET PO SCH (05:00)
[2023-08-21] MEDS ORDERED: chlordiazePOXIDE HCL 10 MG CAPSULE PO SCH (05:00)
[2023-08-21] MEDS ORDERED: diazePAM 5 MG TABLET PO SCH (10:00)
[2023-08-22] MEDS ORDERED: chlordiazePOXIDE HCL 10 MG CAPSULE PO SCH (05:00)
[2023-08-22] MEDS ORDERED: LORazepam 0.5 MG TABLET PO ONE (05:00)
[2023-08-22] MEDS ORDERED: diazePAM 5 MG TABLET PO ONE (06:00)
[2023-08-23] MEDS ORDERED: chlordiazePOXIDE HCL 10 MG CAPSULE PO ONE (05:00)
== END 2023-08-18 15:44 | disposition left against medical advice (07) | DRG 770 ==
LOC: YASAS 10:49 → Y6N 14:24
PROVIDERS: ADMIT Allergy & Immunology; ATTEND Surgery
PROC: HZ2ZZZZ Detoxification Services for Substance Abuse Treatment (ICD-10-PCS; principal; 2023-08-18)
DX: F10.230 Alcohol dependence with withdrawal, uncomplicated (principal); F13.20 Sedative, hypnotic or anxiolytic dependence, uncomplicated; F12.20 Cannabis dependence, uncomplicated; F17.210 Nicotine dependence, cigarettes, uncomplicated; F19.282 Other psychoactive substance dependence with psychoactive substance-induced sleep disorder; E78.5 Hyperlipidemia, unspecified; I10 Essential (primary) hypertension; K21.9 Gastro-esophageal reflux disease without esophagitis; Z86.11 Personal history of tuberculosis; Z86.19 Personal history of other infectious and parasitic diseases; Z87.19 Personal history of other diseases of the digestive system
CPT/HCPCS: 87811

== ENCOUNTER 2023-08-19 12:37 | Inpatient (IN) | payer OTHER ==
[2023-08-19 13:11] VITALS: BMI 25.1
[2023-08-19] MEDS ORDERED: chlordiazePOXIDE HCL 25 MG CAPSULE PO PRN (16:21)
[2023-08-19] MEDS ORDERED: NALOXONE HCL (KLOXXADO) 8 MG SPRAY NS PRN (16:21)
[2023-08-19] MEDS ORDERED: ACETAMINOPHEN 325 MG TABLET (FP) PO PRN (16:21)
[2023-08-19] MEDS ORDERED: BENZONATATE 200 MG CAPSULE PO PRN (16:21)
[2023-08-19] MEDS ORDERED: guaiFENesin 600 MG TABLET.ER (FP) PO PRN (16:21)
[2023-08-19] MEDS ORDERED: DICYCLOMINE HCL 10 MG CAPSULE PO PRN (16:21)
[2023-08-19] MEDS ORDERED: MAG HYDROX/AL HYDROX/SIMETH 30 ML UNIT-DOSE CUP PO PRN (16:21)
[2023-08-19] MEDS ORDERED: ONDANSETRON *ODT* 4 MG TABLET SL PRN (16:21)
[2023-08-19] MEDS ORDERED: MAGNESIUM HYDROX 2400MG/30ML ORAL SUSPENSION 30 ML CUP PO PRN (16:21)
[2023-08-19] MEDS ORDERED: BISMUTH SUBSALICYLATE 524 MG/30 ML PO PRN (16:21)
[2023-08-19] MEDS ORDERED: IBUPROFEN 400 MG TABLET (FP) PO PRN (16:21)
[2023-08-19] MEDS ORDERED: BENZOCAINE/MENTHOL (CHLORASEPTIC ) LOZENGE MM PRN (16:21)
[2023-08-19] MEDS ORDERED: NALOXONE HCL 0.4 MG/ML VIAL IM PRN (16:21)
[2023-08-19] MEDS ORDERED: POLYETHYLENE GLYCOL (HEALTHYLAX) 3350 17 GM PACKET PO PRN (16:21)
[2023-08-19] MEDS ORDERED: LOPERAMIDE HCL 2 MG CAPSULE PO PRN (16:21)
[2023-08-19] MEDS ORDERED: LOSARTAN POTASSIUM 50 MG TABLET PO ONE (18:01)
[2023-08-19] MEDS ORDERED: MELATONIN 5 MG TABLETS PO SCH (22:00)
[2023-08-19] MEDS: THIAMINE HCL 100 MG TABLET (FP) PO SCH (22:12)
[2023-08-19] MEDS: METHOCARBAMOL 500 MG TABLET PO PRN (22:12)
[2023-08-19] MEDS: IBUPROFEN 600 MG TABLET (FP) PO PRN (22:12)
[2023-08-19] MEDS: ATORVASTATIN CA 20 MG TABLET (FP) PO SCH (22:12)
[2023-08-19] MEDS: chlordiazePOXIDE HCL 25 MG CAPSULE PO SCH (22:13)
[2023-08-20] MEDS: LEVOTHYROXINE NA 25 MCG TABLET (FP) PO SCH (05:32)
[2023-08-20] MEDS: chlordiazePOXIDE HCL 25 MG CAPSULE PO SCH ×4 (05:32→22:02)
[2023-08-20] MEDS: ASPIRIN 81 MG CHEWABLE TABLETS PO SCH (10:00)
[2023-08-20] MEDS: LOSARTAN POTASSIUM 50 MG TABLET PO SCH (10:00)
[2023-08-20] MEDS: FAMOTIDINE 20 MG TABLET PO SCH (10:00)
[2023-08-20] MEDS ORDERED: LEVOTHYROXINE NA 25 MCG TABLET (FP) PO SCH (10:00)
[2023-08-20] MEDS: CHOLECALCIFEROL (VIT D3) 1,000 UNIT (25 MCG) TABLET PO SCH (10:01)
[2023-08-20] MEDS: valACYclovir HCL 500 MG TABLET (FP) PO SCH (10:01)
[2023-08-20] MEDS: PRENATAL VITAMINS W/ FOLIC ACID TABLET (FP) PO SCH (10:01)
[2023-08-20 10:35] LABS: HEMATOCRIT 37.7 % (32.4-45.2); HEMOGLOBIN 12.2 GM/dL (10.7-15.3); MCH 30.1 pg (25.7-33.7); MCHC 32.3 g/dl (32.0-36.0); MEAN CELL VOLUME 93.1 fl (80-96); PLATELET COUNT 122 10^3/uL (134-434); RBC 4.05 M/mm3 (3.60-5.2); RDW 15.4 % (11.6-15.6)
[2023-08-20 11:22] LABS: POTASSIUM 3.8 mmol/L (3.5-5.1)
[2023-08-20 11:26] LABS: BLOOD UREA NITROGEN 13.2 mg/dL (7-18); CALCIUM 9.2 mg/dL (8.5-10.1)
[2023-08-20 11:29] LABS: CREATININE 1.2 mg/dL (0.55-1.3)
[2023-08-20 11:31] LABS: TOT PROT 7.5 g/dl (6.4-8.2)
[2023-08-20] MEDS: risperiDONE 1 MG TABLET PO SCH (22:01)
[2023-08-20] MEDS: THIAMINE HCL 100 MG TABLET (FP) PO SCH (22:01)
[2023-08-20] MEDS: ATORVASTATIN CA 20 MG TABLET (FP) PO SCH (22:01)
[2023-08-20] MEDS: MELATONIN 5 MG TABLETS PO SCH (22:01)
[2023-08-20] MEDS: hydrOXYzine PAMOATE 25 MG CAPSULE (FP) PO PRN (22:02)
[2023-08-21] MEDS: LEVOTHYROXINE NA 25 MCG TABLET (FP) PO SCH (05:45)
[2023-08-21] MEDS: chlordiazePOXIDE HCL 25 MG CAPSULE PO SCH ×4 (05:45→22:25)
[2023-08-21] MEDS: PRENATAL VITAMINS W/ FOLIC ACID TABLET (FP) PO SCH (10:04)
[2023-08-21] MEDS: FAMOTIDINE 20 MG TABLET PO SCH (10:04)
[2023-08-21] MEDS: ASPIRIN 81 MG CHEWABLE TABLETS PO SCH (10:04)
[2023-08-21] MEDS: valACYclovir HCL 500 MG TABLET (FP) PO SCH (10:04)
[2023-08-21] MEDS: LOSARTAN POTASSIUM 50 MG TABLET PO SCH (10:04)
[2023-08-21] MEDS: CHOLECALCIFEROL (VIT D3) 1,000 UNIT (25 MCG) TABLET PO SCH (10:05)
[2023-08-21 17:23] LABS: EPI CELLS 32 /uL (0-25.1); HYALINE CASTS 0 /uL (0-3.1); URINE APPEARANCE CLEAR; URINE BACTERIA 1151 /uL (0-1359); URINE BILIRUBIN NEGATIVE (NEGATIVE); URINE COLOR YELLOW; URINE GLUCOSE (UA) NEGATIVE (NEGATIVE); URINE KETONE NEGATIVE (NEGATIVE); URINE LEUK ESTERASE TRACE (NEGATIVE); URINE NITRITE NEGATIVE (NEGATIVE); URINE PROTEIN NEGATIVE (NEGATIVE); URINE RBC 3 /uL (0-23.9); URINE UROBILINOGEN 0.2 mg/dL (0.2-1.0); URINE WBC 38 /uL (0-25.8)
[2023-08-21] MEDS: IBUPROFEN 600 MG TABLET (FP) PO PRN (17:47)
[2023-08-21] MEDS: ATORVASTATIN CA 20 MG TABLET (FP) PO SCH (22:25)
[2023-08-21] MEDS: MELATONIN 5 MG TABLETS PO SCH (22:25)
[2023-08-21] MEDS: risperiDONE 1 MG TABLET PO SCH (22:25)
[2023-08-21] MEDS: hydrOXYzine PAMOATE 25 MG CAPSULE (FP) PO PRN (22:25)
[2023-08-21] MEDS: THIAMINE HCL 100 MG TABLET (FP) PO SCH (22:25)
[2023-08-22] MEDS ORDERED: chlordiazePOXIDE HCL 10 MG CAPSULE PO PRN
[2023-08-22] MEDS: chlordiazePOXIDE HCL 10 MG CAPSULE PO SCH ×4 (05:34→22:10)
[2023-08-22] MEDS: LEVOTHYROXINE NA 25 MCG TABLET (FP) PO SCH (05:35)
[2023-08-22] MEDS: CHOLECALCIFEROL (VIT D3) 1,000 UNIT (25 MCG) TABLET PO SCH (10:15)
[2023-08-22] MEDS: FAMOTIDINE 20 MG TABLET PO SCH (10:15)
[2023-08-22] MEDS: valACYclovir HCL 500 MG TABLET (FP) PO SCH (10:15)
[2023-08-22] MEDS: LOSARTAN POTASSIUM 50 MG TABLET PO SCH (10:15)
[2023-08-22] MEDS: PRENATAL VITAMINS W/ FOLIC ACID TABLET (FP) PO SCH (10:15)
[2023-08-22] MEDS: ASPIRIN 81 MG CHEWABLE TABLETS PO SCH (10:17)
[2023-08-22] MEDS: IBUPROFEN 600 MG TABLET (FP) PO PRN (13:12)
[2023-08-22] MEDS: MELATONIN 5 MG TABLETS PO SCH (22:09)
[2023-08-22] MEDS: THIAMINE HCL 100 MG TABLET (FP) PO SCH (22:10)
[2023-08-22] MEDS: risperiDONE 1 MG TABLET PO SCH (22:10)
[2023-08-22] MEDS: ATORVASTATIN CA 20 MG TABLET (FP) PO SCH (22:10)
[2023-08-22] MEDS: hydrOXYzine PAMOATE 25 MG CAPSULE (FP) PO PRN (22:11)
[2023-08-23] MEDS: LEVOTHYROXINE NA 25 MCG TABLET (FP) PO SCH (05:35)
[2023-08-23] MEDS: chlordiazePOXIDE HCL 10 MG CAPSULE PO SCH ×2 (05:35→17:40)
[2023-08-23] MEDS: valACYclovir HCL 500 MG TABLET (FP) PO SCH (09:32)
[2023-08-23] MEDS: ASPIRIN 81 MG CHEWABLE TABLETS PO SCH (09:33)
[2023-08-23] MEDS: PRENATAL VITAMINS W/ FOLIC ACID TABLET (FP) PO SCH (09:33)
[2023-08-23] MEDS: CHOLECALCIFEROL (VIT D3) 1,000 UNIT (25 MCG) TABLET PO SCH (09:34)
[2023-08-23] MEDS: FAMOTIDINE 20 MG TABLET PO SCH (09:34)
[2023-08-23] MEDS: LOSARTAN POTASSIUM 50 MG TABLET PO SCH (09:34)
[2023-08-23] MEDS: IBUPROFEN 600 MG TABLET (FP) PO PRN (17:40)
[2023-08-23] MEDS: METHOCARBAMOL 500 MG TABLET PO PRN (17:40)
[2023-08-23] MEDS: MELATONIN 5 MG TABLETS PO SCH (22:31)
[2023-08-23] MEDS: ATORVASTATIN CA 20 MG TABLET (FP) PO SCH (22:31)
[2023-08-23] MEDS: risperiDONE 1 MG TABLET PO SCH (22:32)
[2023-08-23] MEDS: THIAMINE HCL 100 MG TABLET (FP) PO SCH (22:32)
[2023-08-24] MEDS ORDERED: chlordiazePOXIDE HCL 10 MG CAPSULE PO ONE (05:00)
[2023-08-24] MEDS: LEVOTHYROXINE NA 25 MCG TABLET (FP) PO SCH (05:21)
[2023-08-24 06:20] VITALS: BP 142/83; PULSE 78; RESP 16; TEMP 97.7
[2023-08-24] MEDS: LOSARTAN POTASSIUM 50 MG TABLET PO SCH (09:31)
[2023-08-24] MEDS: CHOLECALCIFEROL (VIT D3) 1,000 UNIT (25 MCG) TABLET PO SCH (09:31)
[2023-08-24] MEDS: FAMOTIDINE 20 MG TABLET PO SCH (09:31)
[2023-08-24] MEDS: valACYclovir HCL 500 MG TABLET (FP) PO SCH (09:31)
[2023-08-24] MEDS: ASPIRIN 81 MG CHEWABLE TABLETS PO SCH (09:31)
[2023-08-24] MEDS: PRENATAL VITAMINS W/ FOLIC ACID TABLET (FP) PO SCH (09:31)
== END 2023-08-24 09:32 | disposition other institution (70) | DRG 775 ==
LOC: YASAS 12:37 → SUATTDRO 12:37 → Y3N 16:30
PROVIDERS: ADMIT Allergy & Immunology; ATTEND Surgery
PROC: HZ2ZZZZ Detoxification Services for Substance Abuse Treatment (ICD-10-PCS; principal; 2023-08-19)
DX: F10.230 Alcohol dependence with withdrawal, uncomplicated (principal); F19.24 Other psychoactive substance dependence with psychoactive substance-induced mood disorder; F39 Unspecified mood [affective] disorder; E78.5 Hyperlipidemia, unspecified; I10 Essential (primary) hypertension; K21.9 Gastro-esophageal reflux disease without esophagitis; E03.9 Hypothyroidism, unspecified; E11.9 Type 2 diabetes mellitus without complications; R74.01 Elevation of levels of liver transaminase levels; Z86.11 Personal history of tuberculosis; Z86.19 Personal history of other infectious and parasitic diseases; Z88.8 Allergy status to other drugs, medicaments and biological substances
CPT/HCPCS: 36415; 80053; 81003; 85027; 86780; 87635; 87811

== ENCOUNTER 2023-10-14 14:04 | Inpatient (IN) | payer OTHER ==
[2023-10-14 15:36] VITALS: BMI 263.9
[2023-10-14] MEDS ORDERED: chlordiazePOXIDE HCL 25 MG CAPSULE PO PRN (17:07)
[2023-10-14] MEDS ORDERED: DICYCLOMINE HCL 10 MG CAPSULE PO PRN (17:09)
[2023-10-14] MEDS ORDERED: NALOXONE HCL (KLOXXADO) 8 MG SPRAY NS PRN (17:09)
[2023-10-14] MEDS ORDERED: IBUPROFEN 400 MG TABLET (FP) PO PRN (17:09)
[2023-10-14] MEDS ORDERED: MAGNESIUM HYDROX 2400MG/30ML ORAL SUSPENSION 30 ML CUP PO PRN (17:09)
[2023-10-14] MEDS ORDERED: BENZOCAINE/MENTHOL (CHLORASEPTIC ) LOZENGE MM PRN (17:09)
[2023-10-14] MEDS ORDERED: ONDANSETRON *ODT* 4 MG TABLET SL PRN (17:09)
[2023-10-14] MEDS ORDERED: LOPERAMIDE HCL 2 MG CAPSULE PO PRN (17:09)
[2023-10-14] MEDS ORDERED: BISMUTH SUBSALICYLATE 524 MG/30 ML PO PRN (17:09)
[2023-10-14] MEDS ORDERED: POLYETHYLENE GLYCOL (HEALTHYLAX) 3350 17 GM PACKET PO PRN (17:09)
[2023-10-14] MEDS ORDERED: BENZONATATE 200 MG CAPSULE PO PRN (17:09)
[2023-10-14] MEDS ORDERED: NALOXONE HCL 0.4 MG/ML VIAL IM PRN (17:09)
[2023-10-14] MEDS ORDERED: MAG HYDROX/AL HYDROX/SIMETH 30 ML UNIT-DOSE CUP PO PRN (17:09)
[2023-10-14] MEDS ORDERED: ACETAMINOPHEN 325 MG TABLET (FP) PO PRN (17:09)
[2023-10-14] MEDS ORDERED: guaiFENesin 600 MG TABLET.ER (FP) PO PRN (17:09)
[2023-10-14] MEDS: METHOCARBAMOL 500 MG TABLET PO PRN (17:34)
[2023-10-14] MEDS ORDERED: MELATONIN 5 MG TABLETS PO SCH (22:00)
[2023-10-14] MEDS: ATORVASTATIN CA 20 MG TABLET (FP) PO SCH (22:11)
[2023-10-14] MEDS: chlordiazePOXIDE HCL 25 MG CAPSULE PO SCH (22:12)
[2023-10-14] MEDS: THIAMINE HCL 100 MG TABLET (FP) PO SCH (22:13)
[2023-10-15] MEDS: chlordiazePOXIDE HCL 25 MG CAPSULE PO SCH ×4 (05:50→22:25)
[2023-10-15] MEDS: hydrOXYzine PAMOATE 25 MG CAPSULE (FP) PO PRN ×2 (05:54→17:10)
[2023-10-15] MEDS: METHOCARBAMOL 500 MG TABLET PO PRN ×2 (05:54→22:25)
[2023-10-15] MEDS: LEVOTHYROXINE NA 25 MCG TABLET (FP) PO SCH (06:02)
[2023-10-15] MEDS ORDERED: COLLOIDAL OATMEAL 1 BAR EACH TP PRN (09:11)
[2023-10-15] MEDS: PRENATAL VITAMINS W/ FOLIC ACID TABLET (FP) PO SCH (10:12)
[2023-10-15] MEDS: ASPIRIN 81 MG CHEWABLE TABLETS PO SCH (10:12)
[2023-10-15] MEDS: LOSARTAN POTASSIUM 50 MG TABLET PO SCH (10:12)
[2023-10-15] MEDS: FAMOTIDINE 20 MG TABLET PO SCH (10:13)
[2023-10-15] MEDS: CHOLECALCIFEROL (VIT D3) 1,000 UNIT (25 MCG) TABLET PO SCH (10:15)
[2023-10-15 18:03] LABS: CHLORIDE 107 mmol/L (98-107); HEMATOCRIT 36.2 % (32.4-45.2); HEMOGLOBIN 11.8 GM/dL (10.7-15.3); MCH 29.8 pg (25.7-33.7); MCHC 32.5 g/dl (32.0-36.0); MEAN CELL VOLUME 91.5 fl (80-96); MEAN PLT VOLUME 9.4 fl (7.5-11.1); PLATELET COUNT 141 10^3/uL (134-434); POTASSIUM 4.3 mmol/L (3.5-5.1); RBC 3.96 M/mm3 (3.60-5.2); RDW 15.6 % (11.6-15.6); SODIUM 136 mmol/L (136-145)
[2023-10-15 18:07] LABS: ALBUMIN 3.7 g/dl (3.4-5.0); ANION GAP 2 mmol/L (4-13); BLOOD UREA NITROGEN 14.1 mg/dL (7-18); CO2 28 mmol/L (21-32); GLUCOSE,RANDOM 101 mg/dL (74-106)
[2023-10-15 18:10] LABS: SGOT/AST 95 U/L (15-37); SGPT/ALT 64 U/L (13-61)
[2023-10-15 18:11] LABS: BILIRUBIN,TOTAL 1.4 mg/dL (0.2-1)
[2023-10-15 18:15] LABS: ALK PHOS 84 U/L (45-117)
[2023-10-15] MEDS ORDERED: MELATONIN 5 MG TABLETS PO SCH (22:00)
[2023-10-15] MEDS: THIAMINE HCL 100 MG TABLET (FP) PO SCH (22:25)
[2023-10-15] MEDS: ATORVASTATIN CA 20 MG TABLET (FP) PO SCH (22:25)
[2023-10-15] MEDS: SUVOREXANT 10 MG TABLET PO PRN (22:26)
[2023-10-15] MEDS: risperiDONE 2 MG TABLET PO SCH (22:27)
[2023-10-16] MEDS: chlordiazePOXIDE HCL 25 MG CAPSULE PO SCH ×2 (05:45→10:09)
[2023-10-16] MEDS: LEVOTHYROXINE NA 25 MCG TABLET (FP) PO SCH (06:03)
[2023-10-16] MEDS: CHOLECALCIFEROL (VIT D3) 1,000 UNIT (25 MCG) TABLET PO SCH (10:08)
[2023-10-16] MEDS: ASPIRIN 81 MG CHEWABLE TABLETS PO SCH (10:08)
[2023-10-16] MEDS: LOSARTAN POTASSIUM 50 MG TABLET PO SCH (10:08)
[2023-10-16] MEDS: PRENATAL VITAMINS W/ FOLIC ACID TABLET (FP) PO SCH (10:09)
[2023-10-16] MEDS: IBUPROFEN 600 MG TABLET (FP) PO PRN (10:09)
[2023-10-16] MEDS: FAMOTIDINE 20 MG TABLET PO SCH (10:09)
[2023-10-16] MEDS ORDERED: LORazepam 0.5 MG TABLET PO SCH (17:00)
[2023-10-16] MEDS: diazePAM 5 MG TABLET PO SCH ×2 (17:37→22:20)
[2023-10-16] MEDS: cloNIDine HCL 0.1 MG TABLET PO PRN (17:38)
[2023-10-16] MEDS: risperiDONE 2 MG TABLET PO SCH (22:20)
[2023-10-16] MEDS: ATORVASTATIN CA 20 MG TABLET (FP) PO SCH (22:20)
[2023-10-16] MEDS: THIAMINE HCL 100 MG TABLET (FP) PO SCH (22:20)
[2023-10-16] MEDS: SUVOREXANT 10 MG TABLET PO PRN (22:22)
[2023-10-17] MEDS ORDERED: chlordiazePOXIDE HCL 10 MG CAPSULE PO PRN
[2023-10-17] MEDS ORDERED: chlordiazePOXIDE HCL 10 MG CAPSULE PO SCH (05:00)
[2023-10-17] MEDS: diazePAM 5 MG TABLET PO SCH ×3 (05:51→22:04)
[2023-10-17] MEDS ORDERED: LORazepam 0.5 MG TABLET PO SCH (06:00)
[2023-10-17] MEDS: LEVOTHYROXINE NA 25 MCG TABLET (FP) PO SCH (06:05)
[2023-10-17] MEDS: IBUPROFEN 600 MG TABLET (FP) PO PRN ×2 (06:44→22:03)
[2023-10-17] MEDS: CHOLECALCIFEROL (VIT D3) 1,000 UNIT (25 MCG) TABLET PO SCH (10:12)
[2023-10-17] MEDS: FAMOTIDINE 20 MG TABLET PO SCH (10:13)
[2023-10-17] MEDS: PRENATAL VITAMINS W/ FOLIC ACID TABLET (FP) PO SCH (10:13)
[2023-10-17] MEDS: ASPIRIN 81 MG CHEWABLE TABLETS PO SCH (10:13)
[2023-10-17] MEDS: LOSARTAN POTASSIUM 50 MG TABLET PO SCH (10:13)
[2023-10-17] MEDS: SUVOREXANT 10 MG TABLET PO PRN (22:02)
[2023-10-17] MEDS: THIAMINE HCL 100 MG TABLET (FP) PO SCH (22:04)
[2023-10-17] MEDS: risperiDONE 2 MG TABLET PO SCH (22:04)
[2023-10-17] MEDS: ATORVASTATIN CA 20 MG TABLET (FP) PO SCH (22:04)
[2023-10-17] MEDS: METHOCARBAMOL 500 MG TABLET PO PRN (22:08)
[2023-10-18] MEDS ORDERED: chlordiazePOXIDE HCL 10 MG CAPSULE PO SCH (05:00)
[2023-10-18] MEDS: diazePAM 5 MG TABLET PO SCH ×2 (05:31→17:42)
[2023-10-18] MEDS ORDERED: LORazepam 0.5 MG TABLET PO SCH ×2 (06:00)
[2023-10-18] MEDS: LEVOTHYROXINE NA 25 MCG TABLET (FP) PO SCH (06:29)
[2023-10-18] MEDS: ASPIRIN 81 MG CHEWABLE TABLETS PO SCH (09:28)
[2023-10-18] MEDS: FAMOTIDINE 20 MG TABLET PO SCH (09:28)
[2023-10-18] MEDS: PRENATAL VITAMINS W/ FOLIC ACID TABLET (FP) PO SCH (09:28)
[2023-10-18] MEDS: LOSARTAN POTASSIUM 50 MG TABLET PO SCH (09:28)
[2023-10-18] MEDS: CHOLECALCIFEROL (VIT D3) 1,000 UNIT (25 MCG) TABLET PO SCH (09:28)
[2023-10-18] MEDS ORDERED: HYDROCHLOROTHIAZIDE 12.5 MG CAPSULE (FP) PO SCH (12:00)
[2023-10-18 12:02] LABS: BILIRUBIN,TOTAL 0.6 mg/dL (0.2-1)
[2023-10-18 16:56] VITALS: RESP 18
[2023-10-18] MEDS: cloNIDine HCL 0.1 MG TABLET PO PRN (20:41)
[2023-10-18] MEDS: risperiDONE 2 MG TABLET PO SCH (22:08)
[2023-10-18] MEDS: THIAMINE HCL 100 MG TABLET (FP) PO SCH (22:09)
[2023-10-18] MEDS: ATORVASTATIN CA 20 MG TABLET (FP) PO SCH (22:09)
[2023-10-18] MEDS: hydrOXYzine PAMOATE 25 MG CAPSULE (FP) PO PRN (22:10)
[2023-10-18] MEDS: METHOCARBAMOL 500 MG TABLET PO PRN (22:10)
[2023-10-19] MEDS ORDERED: chlordiazePOXIDE HCL 10 MG CAPSULE PO ONE (05:00)
[2023-10-19] MEDS ORDERED: LORazepam 0.5 MG TABLET PO ONE (06:00)
[2023-10-19] MEDS ORDERED: diazePAM 5 MG TABLET PO ONE (06:00)
[2023-10-19] MEDS: LEVOTHYROXINE NA 25 MCG TABLET (FP) PO SCH (06:10)
[2023-10-19 06:39] VITALS: BP 104/60; PULSE 85; TEMP 97.7
== END 2023-10-19 08:54 | disposition home or self-care (01) | DRG 775 ==
LOC: YASAS 14:04 → Y6N 17:03
PROVIDERS: ADMIT Allergy & Immunology; ATTEND Surgery
PROC: HZ2ZZZZ Detoxification Services for Substance Abuse Treatment (ICD-10-PCS; principal; 2023-10-14)
DX: F10.230 Alcohol dependence with withdrawal, uncomplicated (principal); F17.210 Nicotine dependence, cigarettes, uncomplicated; F10.280 Alcohol dependence with alcohol-induced anxiety disorder; F10.282 Alcohol dependence with alcohol-induced sleep disorder; F10.24 Alcohol dependence with alcohol-induced mood disorder; F43.10 Post-traumatic stress disorder, unspecified; E78.5 Hyperlipidemia, unspecified; E03.9 Hypothyroidism, unspecified; I10 Essential (primary) hypertension; K21.9 Gastro-esophageal reflux disease without esophagitis; Z87.19 Personal history of other diseases of the digestive system; Z86.11 Personal history of tuberculosis; Z88.8 Allergy status to other drugs, medicaments and biological substances
CPT/HCPCS: 36415; 80053; 80307; 82247; 82306; 82746; 84450; 85027; 86780; 87635

== ENCOUNTER 2023-11-24 11:49 | Inpatient (IN) | payer OTHER ==
[2023-11-24 12:38] VITALS: BMI 25.8
[2023-11-24] MEDS ORDERED: ACETAMINOPHEN 325 MG TABLET (FP) PO PRN (14:57)
[2023-11-24] MEDS ORDERED: ONDANSETRON *ODT* 4 MG TABLET SL PRN (14:57)
[2023-11-24] MEDS ORDERED: IBUPROFEN 400 MG TABLET (FP) PO PRN (14:57)
[2023-11-24] MEDS ORDERED: DICYCLOMINE HCL 10 MG CAPSULE PO PRN (14:57)
[2023-11-24] MEDS ORDERED: guaiFENesin 600 MG TABLET.ER (FP) PO PRN (14:57)
[2023-11-24] MEDS ORDERED: NALOXONE HCL (KLOXXADO) 8 MG SPRAY NS PRN (14:57)
[2023-11-24] MEDS ORDERED: BENZOCAINE/MENTHOL (CHLORASEPTIC ) LOZENGE MM PRN (14:57)
[2023-11-24] MEDS ORDERED: LOPERAMIDE HCL 2 MG CAPSULE PO PRN (14:57)
[2023-11-24] MEDS ORDERED: POLYETHYLENE GLYCOL (HEALTHYLAX) 3350 17 GM PACKET PO PRN (14:57)
[2023-11-24] MEDS ORDERED: MAGNESIUM HYDROX 2400MG/30ML ORAL SUSPENSION 30 ML CUP PO PRN (14:57)
[2023-11-24] MEDS ORDERED: NALOXONE HCL 0.4 MG/ML VIAL IM PRN (14:57)
[2023-11-24] MEDS ORDERED: BISMUTH SUBSALICYLATE 262 MG/15 ML BTL PO PRN (14:57)
[2023-11-24] MEDS ORDERED: METHOCARBAMOL 500 MG TABLET PO PRN (14:57)
[2023-11-24] MEDS ORDERED: NICOTINE POLACRILEX 2 MG LOZENGE BC PRN (14:57)
[2023-11-24] MEDS ORDERED: BENZONATATE 200 MG CAPSULE PO PRN (14:57)
[2023-11-24] MEDS ORDERED: hydrOXYzine PAMOATE 25 MG CAPSULE (FP) PO PRN (14:57)
[2023-11-24] MEDS ORDERED: MAG HYDROX/AL HYDROX/SIMETH 30 ML UNIT-DOSE CUP PO PRN (14:57)
[2023-11-24] MEDS ORDERED: MELATONIN 5 MG TABLETS PO SCH (22:00)
[2023-11-24] MEDS: IBUPROFEN 600 MG TABLET (FP) PO PRN (22:35)
[2023-11-24] MEDS: ATORVASTATIN CA 20 MG TABLET (FP) PO SCH (22:36)
[2023-11-24] MEDS: THIAMINE HCL 100 MG TABLET (FP) PO SCH (22:37)
[2023-11-25] MEDS: LEVOTHYROXINE NA 25 MCG TABLET (FP) PO SCH (06:02)
[2023-11-25] MEDS ORDERED: LOSARTAN POTASSIUM 50 MG TABLET PO ONE (07:00)
[2023-11-25] MEDS: HYDROCHLOROTHIAZIDE 12.5 MG CAPSULE (FP) PO SCH (10:04)
[2023-11-25] MEDS: ASPIRIN 81 MG CHEWABLE TABLETS PO SCH (10:04)
[2023-11-25] MEDS: FAMOTIDINE 20 MG TABLET PO SCH (10:04)
[2023-11-25] MEDS: PRENATAL VITAMINS W/ FOLIC ACID TABLET (FP) PO SCH (10:04)
[2023-11-25] MEDS: LOSARTAN POTASSIUM 50 MG TABLET PO SCH (10:04)
[2023-11-25] MEDS ORDERED: chlordiazePOXIDE HCL 25 MG CAPSULE PO PRN (10:45)
[2023-11-25] MEDS: chlordiazePOXIDE HCL 25 MG CAPSULE PO SCH ×3 (11:14→22:53)
[2023-11-25 11:23] LABS: HEMATOCRIT 39.1 % (32.4-45.2); HEMOGLOBIN 12.5 GM/dL (10.7-15.3); MCH 29.4 pg (25.7-33.7); MCHC 31.9 g/dl (32.0-36.0); MEAN CELL VOLUME 92.3 fl (80-96); MEAN PLT VOLUME 9.4 fl (7.5-11.1); PLATELET COUNT 142 10^3/uL (134-434); RBC 4.24 M/mm3 (3.60-5.2); RDW 15.6 % (11.6-15.6)
[2023-11-25 11:24] LABS: CHLORIDE 104 mmol/L (98-107); SODIUM 139 mmol/L (136-145)
[2023-11-25 11:39] LABS: ALBUMIN 3.7 g/dl (3.4-5.0); ANION GAP 9 mmol/L (4-13); BLOOD UREA NITROGEN 8.4 mg/dL (7-18); CO2 26 mmol/L (21-32); GLUCOSE,RANDOM 150 mg/dL (74-106)
[2023-11-25 11:42] LABS: CREATININE 0.9 mg/dL (0.55-1.3); SGOT/AST 77 U/L (15-37); SGPT/ALT 59 U/L (13-61)
[2023-11-25 11:43] LABS: BILIRUBIN,TOTAL 0.7 mg/dL (0.2-1); TOT PROT 7.1 g/dl (6.4-8.2)
[2023-11-25 11:45] LABS: ALK PHOS 60 U/L (45-117)
[2023-11-25] MEDS ORDERED: risperiDONE 1 MG TABLET PO SCH (22:00)
[2023-11-25] MEDS ORDERED: SUVOREXANT 10 MG TABLET PO PRN (22:00)
[2023-11-25] MEDS: ATORVASTATIN CA 20 MG TABLET (FP) PO SCH (22:53)
[2023-11-25] MEDS: THIAMINE HCL 100 MG TABLET (FP) PO SCH (22:53)
[2023-11-26] MEDS: chlordiazePOXIDE HCL 25 MG CAPSULE PO SCH ×4 (05:39→22:15)
[2023-11-26] MEDS: LEVOTHYROXINE NA 25 MCG TABLET (FP) PO SCH (06:19)
[2023-11-26] MEDS ORDERED: COLLOIDAL OATMEAL 1 BAR EACH TP PRN (09:14)
[2023-11-26] MEDS: PRENATAL VITAMINS W/ FOLIC ACID TABLET (FP) PO SCH (10:10)
[2023-11-26] MEDS: HYDROCHLOROTHIAZIDE 12.5 MG CAPSULE (FP) PO SCH (10:10)
[2023-11-26] MEDS: FAMOTIDINE 20 MG TABLET PO SCH (10:10)
[2023-11-26] MEDS: valACYclovir HCL 500 MG TABLET (FP) PO SCH (10:10)
[2023-11-26] MEDS: LOSARTAN POTASSIUM 50 MG TABLET PO SCH (10:10)
[2023-11-26] MEDS: ASPIRIN 81 MG CHEWABLE TABLETS PO SCH (10:10)
[2023-11-26] MEDS: IBUPROFEN 600 MG TABLET (FP) PO PRN (17:54)
[2023-11-26] MEDS: risperiDONE 2 MG TABLET PO SCH (22:15)
[2023-11-26] MEDS: THIAMINE HCL 100 MG TABLET (FP) PO SCH (22:15)
[2023-11-26] MEDS: ATORVASTATIN CA 20 MG TABLET (FP) PO SCH (22:15)
[2023-11-27] MEDS: chlordiazePOXIDE HCL 25 MG CAPSULE PO SCH ×4 (05:36→22:13)
[2023-11-27] MEDS: LEVOTHYROXINE NA 25 MCG TABLET (FP) PO SCH (06:09)
[2023-11-27] MEDS: HYDROCHLOROTHIAZIDE 12.5 MG CAPSULE (FP) PO SCH (10:12)
[2023-11-27] MEDS: ASPIRIN 81 MG CHEWABLE TABLETS PO SCH (10:12)
[2023-11-27] MEDS: LOSARTAN POTASSIUM 50 MG TABLET PO SCH (10:12)
[2023-11-27] MEDS: PRENATAL VITAMINS W/ FOLIC ACID TABLET (FP) PO SCH (10:13)
[2023-11-27] MEDS: valACYclovir HCL 500 MG TABLET (FP) PO SCH (10:13)
[2023-11-27] MEDS: FAMOTIDINE 20 MG TABLET PO SCH (10:13)
[2023-11-27] MEDS: IBUPROFEN 600 MG TABLET (FP) PO PRN (11:14)
[2023-11-27] MEDS: LACTULOSE 20 GM/30 ML UDC (FOR ORAL USE ONLY) PO SCH ×2 (14:53→22:10)
[2023-11-27] MEDS: THIAMINE HCL 100 MG TABLET (FP) PO SCH (22:09)
[2023-11-27] MEDS: ATORVASTATIN CA 20 MG TABLET (FP) PO SCH (22:10)
[2023-11-27] MEDS: risperiDONE 2 MG TABLET PO SCH (22:11)
[2023-11-28] MEDS ORDERED: chlordiazePOXIDE HCL 10 MG CAPSULE PO PRN
[2023-11-28] MEDS: LACTULOSE 20 GM/30 ML UDC (FOR ORAL USE ONLY) PO SCH ×3 (05:20→22:04)
[2023-11-28] MEDS: chlordiazePOXIDE HCL 10 MG CAPSULE PO SCH ×4 (05:22→22:03)
[2023-11-28] MEDS: LEVOTHYROXINE NA 25 MCG TABLET (FP) PO SCH (06:22)
[2023-11-28] MEDS: ASPIRIN 81 MG CHEWABLE TABLETS PO SCH (10:02)
[2023-11-28] MEDS: HYDROCHLOROTHIAZIDE 12.5 MG CAPSULE (FP) PO SCH (10:02)
[2023-11-28] MEDS: PRENATAL VITAMINS W/ FOLIC ACID TABLET (FP) PO SCH (10:02)
[2023-11-28] MEDS: FAMOTIDINE 20 MG TABLET PO SCH (10:03)
[2023-11-28] MEDS: valACYclovir HCL 500 MG TABLET (FP) PO SCH (10:03)
[2023-11-28] MEDS: LOSARTAN POTASSIUM 50 MG TABLET PO SCH (10:03)
[2023-11-28] MEDS: risperiDONE 2 MG TABLET PO SCH (22:03)
[2023-11-28] MEDS: ATORVASTATIN CA 20 MG TABLET (FP) PO SCH (22:03)
[2023-11-28] MEDS: THIAMINE HCL 100 MG TABLET (FP) PO SCH (22:03)
[2023-11-29] MEDS ORDERED: chlordiazePOXIDE HCL 10 MG CAPSULE PO SCH (05:00)
[2023-11-29] MEDS: LACTULOSE 20 GM/30 ML UDC (FOR ORAL USE ONLY) PO SCH ×2 (05:12→14:23)
[2023-11-29] MEDS: LEVOTHYROXINE NA 25 MCG TABLET (FP) PO SCH (06:23)
[2023-11-29 09:52] VITALS: RESP 17
[2023-11-29] MEDS: ASPIRIN 81 MG CHEWABLE TABLETS PO SCH (10:23)
[2023-11-29] MEDS: valACYclovir HCL 500 MG TABLET (FP) PO SCH (10:24)
[2023-11-29] MEDS: FAMOTIDINE 20 MG TABLET PO SCH (10:24)
[2023-11-29] MEDS: PRENATAL VITAMINS W/ FOLIC ACID TABLET (FP) PO SCH (10:24)
[2023-11-29] MEDS: LOSARTAN POTASSIUM 50 MG TABLET PO SCH (10:24)
[2023-11-29] MEDS: HYDROCHLOROTHIAZIDE 12.5 MG CAPSULE (FP) PO SCH (10:24)
[2023-11-29 13:28] VITALS: BP 145/81; PULSE 68; TEMP 97.7
[2023-11-30] MEDS ORDERED: chlordiazePOXIDE HCL 10 MG CAPSULE PO ONE (05:00)
== END 2023-11-29 15:50 | disposition home or self-care (01) | DRG 775 ==
LOC: YASAS 11:49 → Y3N 15:21
PROVIDERS: ADMIT Allergy & Immunology; ATTEND Surgery
PROC: HZ2ZZZZ Detoxification Services for Substance Abuse Treatment (ICD-10-PCS; principal; 2023-11-24)
DX: F10.230 Alcohol dependence with withdrawal, uncomplicated (principal); F17.210 Nicotine dependence, cigarettes, uncomplicated; F19.282 Other psychoactive substance dependence with psychoactive substance-induced sleep disorder; F41.9 Anxiety disorder, unspecified; F32.A Depression, unspecified; E72.20 Disorder of urea cycle metabolism, unspecified; G47.00 Insomnia, unspecified; E78.2 Mixed hyperlipidemia; I10 Essential (primary) hypertension; K21.9 Gastro-esophageal reflux disease without esophagitis; E11.9 Type 2 diabetes mellitus without complications; Z86.11 Personal history of tuberculosis; Z87.19 Personal history of other diseases of the digestive system; Z88.8 Allergy status to other drugs, medicaments and biological substances
CPT/HCPCS: 36415; 71046-TC-FY; 80053; 80307; 82140; 85027; 86780; 87635; 87811

== ENCOUNTER 2024-11-20 10:47 | Inpatient (IN) | payer OTHER ==
[2024-11-20 11:16] VITALS: BMI 24.9
[2024-11-20] MEDS ORDERED: diazePAM 5 MG TABLET PO PRN (11:49)
[2024-11-20] MEDS ORDERED: DICYCLOMINE HCL 10 MG CAPSULE PO PRN (11:50)
[2024-11-20] MEDS ORDERED: BENZOCAINE/MENTHOL (CHLORASEPTIC ) LOZENGE MM PRN (11:50)
[2024-11-20] MEDS ORDERED: NICOTINE POLACRILEX 2 MG GUM BUC PRN (11:50)
[2024-11-20] MEDS ORDERED: IBUPROFEN 600 MG TABLET (FP) PO PRN (11:50)
[2024-11-20] MEDS ORDERED: LOPERAMIDE HCL 2 MG CAPSULE PO PRN (11:50)
[2024-11-20] MEDS ORDERED: MAG HYDROX/AL HYDROX/SIMETH 30 ML UNIT-DOSE CUP PO PRN (11:50)
[2024-11-20] MEDS ORDERED: IBUPROFEN 400 MG TABLET (FP) PO PRN (11:50)
[2024-11-20] MEDS ORDERED: NICOTINE POLACRILEX 2 MG LOZENGE BC PRN (11:50)
[2024-11-20] MEDS ORDERED: ONDANSETRON *ODT* 4 MG TABLET SL PRN (11:50)
[2024-11-20] MEDS ORDERED: ACETAMINOPHEN 325 MG TABLET (FP) PO PRN (11:50)
[2024-11-20] MEDS ORDERED: BENZONATATE 200 MG CAPSULE PO PRN (11:50)
[2024-11-20] MEDS ORDERED: BISMUTH SUBSALICYLATE 262 MG/15 ML BTL PO PRN (11:50)
[2024-11-20] MEDS ORDERED: guaiFENesin 600 MG TABLET.ER (FP) PO PRN (11:50)
[2024-11-20] MEDS ORDERED: diazePAM 5 MG TABLET ONE (12:12)
[2024-11-20] MEDS: diazePAM 5 MG TABLET PO ONE (12:15)
[2024-11-20] MEDS: diazePAM 5 MG TABLET PO SCH (17:36)
[2024-11-20] MEDS: hydrOXYzine PAMOATE 25 MG CAPSULE (FP) PO PRN (17:36)
[2024-11-20] MEDS: THIAMINE 100 MG TABLET PO SCH (22:15)
[2024-11-20] MEDS: METHOCARBAMOL 500 MG TABLET PO PRN (22:15)
[2024-11-20] MEDS: MELATONIN 5 MG TABLETS PO SCH (22:15)
[2024-11-20] MEDS: ATORVASTATIN CA 20 MG TABLET (FP) PO SCH (22:15)
[2024-11-21] MEDS: LEVOTHYROXINE NA 50 MCG TABLET (FP) PO SCH (07:37)
[2024-11-21] MEDS: HYDROCHLOROTHIAZIDE 12.5 MG CAPSULE (FP) PO SCH (10:27)
[2024-11-21] MEDS: FAMOTIDINE 20 MG TABLET PO SCH (10:27)
[2024-11-21] MEDS: LOSARTAN POTASSIUM 50 MG TABLET PO SCH (10:27)
[2024-11-21] MEDS: ASPIRIN 81 MG CHEWABLE TABLETS PO SCH (10:27)
[2024-11-21] MEDS: PRENATAL VITAMINS W/ FOLIC ACID TABLET (FP) PO SCH (10:27)
[2024-11-21] MEDS ORDERED: chlordiazePOXIDE HCL 25 MG CAPSULE PO PRN (10:39)
[2024-11-21 10:56] LABS: HEMATOCRIT 41.7 % (32.4-45.2); HEMOGLOBIN 13.2 GM/dL (10.7-15.3); MCH 29.9 pg (25.7-33.7); MCHC 31.8 g/dl (32.0-36.0); MEAN CELL VOLUME 94.1 fl (80-96); MEAN PLT VOLUME 9.5 fl (7.5-11.1); PLATELET COUNT 196 10^3/uL (134-434); RBC 4.43 M/mm3 (3.60-5.2); WHITE BLOOD COUNT 4.2 K/mm3 (4.0-10.0)
[2024-11-21 10:58] LABS: POTASSIUM 3.8 mmol/L (3.5-5.1)
[2024-11-21 11:05] LABS: BLOOD UREA NITROGEN 14.7 mg/dL (7-18)
[2024-11-21 11:07] LABS: CALCIUM 9.7 mg/dL (8.5-10.1)
[2024-11-21 11:08] LABS: CREATININE 0.9 mg/dL (0.55-1.3)
[2024-11-21 11:09] LABS: TOT PROT 7.4 g/dl (6.4-8.2)
[2024-11-21] MEDS: chlordiazePOXIDE HCL 25 MG CAPSULE PO SCH (11:13)
[2024-11-21] MEDS ORDERED: MELATONIN 5 MG TABLETS PO SCH (22:00)
[2024-11-21] MEDS: SUVOREXANT 10 MG TABLET PO PRN (22:14)
[2024-11-21] MEDS: risperiDONE 0.5 MG TABLET PO SCH (22:16)
[2024-11-22] MEDS: chlordiazePOXIDE HCL 10 MG CAPSULE PO SCH (05:38)
[2024-11-22] MEDS ORDERED: diazePAM 5 MG TABLET PO SCH (06:00)
[2024-11-22] MEDS: valACYclovir HCL 500 MG TABLET (FP) PO SCH (13:13)
[2024-11-23] MEDS: chlordiazePOXIDE HCL 10 MG CAPSULE PO SCH (05:42)
[2024-11-23] MEDS ORDERED: diazePAM 5 MG TABLET PO SCH (06:00)
[2024-11-23] MEDS: LEVOTHYROXINE NA 25 MCG TABLET (FP) PO SCH (07:00)
[2024-11-23] MEDS: POLYETHYLENE GLYCOL (HEALTHYLAX) 3350 17 GM PACKET PO PRN (09:28)
[2024-11-23] MEDS: chlordiazePOXIDE HCL 10 MG CAPSULE PO PRN (21:57)
[2024-11-23] MEDS: MAGNESIUM HYDROX 2400MG/30ML ORAL SUSPENSION 30 ML CUP PO PRN (22:01)
[2024-11-24] MEDS: chlordiazePOXIDE HCL 10 MG CAPSULE PO ONE (05:51)
[2024-11-24] MEDS ORDERED: diazePAM 5 MG TABLET PO ONE (06:00)
[2024-11-24 09:07] VITALS: BP 130/79; PULSE 74; RESP 16; TEMP 98.6
== END 2024-11-24 12:25 | disposition home or self-care (01) | DRG 775 ==
LOC: YASAS 10:47 → Y6N 12:56
PROVIDERS: ADMIT Allergy & Immunology; ATTEND Allergy & Immunology
PROC: HZ2ZZZZ Detoxification Services for Substance Abuse Treatment (ICD-10-PCS; principal; 2024-11-20)
DX: F10.230 Alcohol dependence with withdrawal, uncomplicated (principal); F17.210 Nicotine dependence, cigarettes, uncomplicated; F19.282 Other psychoactive substance dependence with psychoactive substance-induced sleep disorder; F20.9 Schizophrenia, unspecified; E03.9 Hypothyroidism, unspecified; I10 Essential (primary) hypertension; K21.9 Gastro-esophageal reflux disease without esophagitis; E78.2 Mixed hyperlipidemia; R76.11 Nonspecific reaction to tuberculin skin test without active tuberculosis; B00.9 Herpesviral infection, unspecified; Z88.8 Allergy status to other drugs, medicaments and biological substances
CPT/HCPCS: 36415; 80053; 80305; 80307; 85027; 86780; 93005; 93010